=== PATIENT | female | born 2000 | race Caucasian/White ===

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

== ENCOUNTER 2022-05-02 00:03 | Emergency (ER) | payer BC, OTHER ==
--- OUTSIDE RECORDS SUMMARY | 2022-05-02 00:09 | XMS REPORT | Continuity of Care Document ---
:2000 Author Organization [facility] [place] [facility] t Address [address] [place] [address] Care Team Providers Name Role Phone PCP, DOES NOT HAVE A Primary Care Physician Unavailable DAYO Attending Clinician Unavailable UNKNOWN Attending Clinician Unavailable DELFINO Attending Clinician Unavailable RALPH, S Attending Clinician Unavailable Ralph PAC, S Attending Clinician Rosemarie EMREHAN, R Attending Clinician FLORES, R Attending Clinician Unavailable Hero TUBBS Attending Clinician Unavailable Hero Tubbs MD Attending Clinician Marty CHAMBERLAIN Attending Clinician Vt-Lab Attending Clinician Unavailable Ana Herrera DO Attending Clinician Jayashree SYKES C Attending Clinician Ras MEYERS Attending Clinician Hero Grubbs MD Attending Clinician Hero GRUBBS Attending Clinician Unavailable Anita BLANC Attending Clinician Unavailable Mingo MEYERS S Attending Clinician Doctor Unassigned, Name Attending Clinician Unavailable Dayo MEYERS Attending Clinician Nurse, General Surgery Attending Clinician Unavailable Eric Castano MD Attending Clinician DAYO Admitting Clinician Unavailable Dayo MEYERS Admitting Clinician Payers Payer Name Policy Type Policy Number Effective Date Expiration Date Jeanine curiel [facility] - [id number] 2016 00:00:00 OUT OF STATE Problems Condition Condition Condition Status Onset Resolution Last Treating Co mments Source Name Details Category Date Date Treatment Clinician Date Absence of Absence of Disease Active U nivers menstruati menstruati 2-12 it y of on on 00:00: [place] 00 [facility] Er Breakthrou Breakthrou Disease Active 2019-11 U nivers gh gh 2- ity of bleeding bleeding 00:00: [place] on on Medical Nexplanon Nexplanon Bran ch Irregular Irregular Disease Active 2019-11 Uni vers menstrual menstrual 2 ity of cycle cycle 00:00: [place] [facility] Er Well woman Well woman Disease Active 2018- U nivers exam exam 3- ity of 00:00: [place] [facility] Er Contracept Contracept Disease Active 2019- U nivers [place] 3- ity of management [place] [facility] [place] Nexplanon Nexplanon Disease Active Uni vers in place in place 02-15 ity of 00:00: [place] [facility] Er Other Other Disease Active 2018- Univers depression depression 02-15 it y of 00:00: [place] [facility] Er Contracept Contracept Disease Active 2019- U nivers [place] 3- ity of management management [place] [facility] Er Left wrist Left wrist Disease Active 2014-11 U nivers pain pain 2- ity of 00:00: [place] 00 [facility] Er ADHD ADHD Disease Active [place] (attention (attention 01-26 He alth deficit deficit 00:00: hyperactiv hyperactiv 00 ity ity disorder) disorder) 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 Social History Social Habit Start Date Stop Date Quantity Comments Source Exposure to Not sure [facility] SARS-CoV-2 (event) Medica l Branch Alcohol intake 2021-10-08 2021-10-08 0 /d [facility] 00:00:00 00:00:00 [facility] Branch Tobacco use and 2017-02-12 2017-02-12 Never used [facility] exposure 00:00:00 00:00:00 Medical Branch Tobacco Comment 2015-10-25 2015-10-25 Minor [facility] 00:00:00 00:00:00 [facility] Branch Sex Assigned At [birth year] [address]r 00:00:00 00:00:00 Smoking Status Start Date Stop Date Source Never smoker [facility] Medications Ordered Filled Start Stop Current Ordering Indication Dosage Frequency Signature Comments Components Source Medication Medication Date Date Medication? Clinician (SIG) Name Name ondansetron 2020-11 Yes [id number] 4mg Take 1 Univers (ZOFRAN 1-16 tablet by ity of ODT) 4 mg 00:00: mouth [place] disintegrat 00 every 8 Medic al ing tablet (eight) Branch hours as needed for Nausea and Vomiting (N/V). EPINEPHrine Yes .3mg 0.3 mL by U nivers 0.3 mg/0.3 7-16 Intramuscu ity of mL 00:00: lar route [place] injection 00 as needed Medic al (anaphylax Branch is). EPINEPHrine 0 Yes .3mg 0.3 mL by U nivers 0.3 mg/0.3 7-16 Intramuscu ity of mL 00:00: lar route [place] injection 00 as needed Medic al (anaphylax Branch is). EPINEPHrine 0 Yes .3mg 0.3 mL by U nivers 0.3 mg/0.3 7-16 Intramuscu ity of mL 00:00: lar route [place] injection 00 as needed Medic al (anaphylax Branch is). EPINEPHrine 2020-0 Yes .3mg 0.3 mL by U nivers 0.3 mg/0.3 7-16 Intramuscu ity of mL 00:00: lar route [place] injection 00 as needed Medic al (anaphylax Branch is). methylPREDN Yes [id number] Take by Univers ISolone 4 7-08 mouth ity of mg tablets 00:00: [place]INSTRU [place] 00 CTIONS. Medical follow Branch package directions bromphenira Yes [id number] 5mL Take 5 mL Univers mine-pseudo 7-08 by mouth 4 it y of ephedrine-D 00:00: (four[place] (BROMFED 00 times Medical DM) 2-30-10 daily as Bran ch mg/5 mL needed for syrup Congestion /Allergies , Cold symptoms or Cough. albuterol 0 Yes [id number] 2{puff} Inhale 2 Univers 90 7-08 Puffs ity of mcg/actuati 00:00: every 4 [place] as on inhaler 00 (four) Medical hours as Branch needed for Wheezing or Shortness of Breath. methylPREDN 0 Yes [id number] Take by Univers ISolone 4 7-08 mouth ity of mg tablets 00:00: [place]-INSTRU [place] 00 CTIONS. Medical follow Branch package directions bromphenira Yes [id number] 5mL Take 5 mL Univers mine-pseudo 7-08 by mouth 4 it y of ephedrine-D 00:00: (four[place] (BROMFED 00 times Medical DM) 2-30-10 daily as Bran ch mg/5 mL needed for syrup Congestion /Allergies , Cold symptoms or Cough. albuterol 0 Yes [id number] 2{puff} Inhale 2 Univers 90 7-08 Puffs ity of mcg/actuati 00:00: every 4 [place] as on inhaler 00 (four) Medical hours as Branch needed for Wheezing or Shortness of Breath. methylPREDN 0 Yes [id number] Take by Univers ISolone 4 7-08 mouth ity of mg tablets 00:00: [place]-INSTRU [place] 00 CTIONS. Medical follow Branch package directions bromphenira Yes [id number] 5mL Take 5 mL Univers mine-pseudo 7-08 by mouth 4 it y of ephedrine-D 00:00: (four[place] (BROMFED 00 times Medical DM) 2-30-10 daily as Bran ch mg/5 mL needed for syrup Congestion /Allergies , Cold symptoms or Cough. albuterol 2020-0 Yes [id number] 2{puff} Inhale 2 Univers 90 7-08 Puffs ity of mcg/actuati 00:00: every 4 [place] on inhaler 00 (four) Medical hours as Branch needed for Wheezing or Shortness of Breath. methylPREDN 0 Yes [id number] Take by Univers ISolone 4 7-08 mouth ity of mg tablets 00:00: [place]-INSTRU [place] 00 CTIONS. Medical follow Branch package directions bromphenira 0 Yes [id number] 5mL Take 5 mL Univers mine-pseudo 7-08 by mouth 4 it y of ephedrine-D 00:00: (four[place] (BROMFED 00 times Medical DM) 2-30-10 daily as Bran ch mg/5 mL needed for syrup Congestion /Allergies , Cold symptoms or Cough. albuterol 0 Yes [id number] 2{puff} Inhale 2 Univers 90 7-08 Puffs ity of mcg/actuati 00:00: every 4 [place] on inhaler 00 (four) Medical hours as Branch needed for Wheezing or Shortness of Breath. methylPREDN 0 Yes [id number] Take by Univers ISolone 4 7-08 mouth ity of mg tablets 00:00: [place]-INSTRU [place] 00 CTIONS. Medical follow Branch package directions bromphenira 0 Yes [id number] 5mL Take 5 mL Univers mine-pseudo 7-08 by mouth 4 it y of ephedrine-D 00:00: (four[place] (BROMFED 00 times Medical DM) 2-30-10 daily as Bran ch mg/5 mL needed for syrup Congestion /Allergies , Cold symptoms or Cough. albuterol 0 Yes [id number] 2{puff} Inhale 2 Univers 90 7-08 Puffs ity of mcg/actuati 00:00: every 4 [place] on inhaler 00 (four) Medical hours as Branch needed for Wheezing or Shortness of Breath. methylPREDN 2020-0 Yes [id number] Take by Univers ISolone 4 7-08 mouth ity of mg tablets 00:00: [place]-INSTRU [place] 00 CTIONS. Medical follow Branch package directions bromphenira 0 Yes [id number] 5mL Take 5 mL Univers mine-pseudo 7-08 by mouth 4 it y of ephedrine-D 00:00: (four[place] (BROMFED 00 times Medical DM) 2-30-10 daily as Bran ch mg/5 mL needed for syrup Congestion /Allergies , Cold symptoms or Cough. albuterol Yes [id number] 2{puff} Inhale 2 Univers 90 7-08 Puffs ity of mcg/actuati 00:00: every 4 [place] on inhaler 00 (four) Medical hours as Branch needed for Wheezing or Shortness of Breath. methylPREDN 0 Yes [id number] Take by Univers ISolone 4 7-08 mouth ity of mg tablets 00:00: SEE-INSTRU [place] 00 CTIONS. Medical follow Branch package directions bromphenira Yes [id number] 5mL Take 5 mL Univers mine-pseudo 7-08 by mouth 4 it y of ephedrine-D 00:00: (four[place] (BROMFED times Medical DM) 2-30-10 daily as Bran ch mg/5 mL needed for syrup Congestion /Allergies , Cold symptoms or Cough. albuterol Yes [id number] 2{puff} Inhale 2 Univers 90 7-08 Puffs ity of mcg/actuati 00:00: every 4 [place] on inhaler 00 (four) Medical hours as Branch needed for Wheezing or Shortness of Breath. methylPREDN 0 Yes [id number] Take by Univers ISolone 4 7-08 mouth ity of mg tablets 00:00: [place]-INSTRU [place] CTIONS. Medical follow Branch package directions bromphenira 0 Yes [id number] 5mL Take 5 mL Univers mine-pseudo 7-08 by mouth 4 it y of ephedrine-D 00:00: (four[place] (BROMFED times Medical DM) 2-30-10 daily as Bran ch mg/5 mL needed for syrup Congestion /Allergies , Cold symptoms or Cough. albuterol 0 Yes [id number] 2{puff} Inhale 2 Univers 90 7-08 Puffs ity of mcg/actuati 00:00: every 4 [place] on inhaler 00 (four) Medical hours as Branch needed for Wheezing or Shortness of Breath. cetirizine Yes [id number] 10mg Take 1 Univers 10 mg 7-06 tablet by ity of tablet 00:00: mouth 2 [place] (two) Medical times Branch daily. cetirizine 2020-0 Yes [id number] 10mg Take 1 Univers 10 mg 7-06 tablet by ity of tablet 00:00: mouth (two) Medical times Branch daily. cetirizine 1-0 Yes [id number] 10mg Take 1 Univers 10 mg 7-06 tablet by ity of tablet 00:00: mouth (two) Medical times Branch daily. cetirizine 2020-0 Yes [id number] 10mg Take 1 Univers 10 mg 7-06 tablet by ity of tablet 00:00: mouth (two) Medical times Branch daily. cetirizine 2020-0 Yes [id number] 10mg Take 1 Univers 10 mg 7-06 tablet by ity of tablet 00:00: mouth (two) Medical times Branch daily. cetirizine 2020-0 Yes [id number] 10mg Take 1 Univers 10 mg 7-06 tablet by ity of tablet 00:00: mouth (two) Medical times Branch daily. cetirizine 2020-0 Yes [id number] 10mg Take 1 Univers 10 mg 7-06 tablet by ity of tablet 00:00: mouth (two) Medical times Branch daily. cetirizine 2020-0 Yes [id number] 10mg Take 1 Univers 10 mg 7-06 tablet by ity of tablet 00:00: mouth (two) Medical times Branch daily. cetirizine 2020-0 Yes [id number] 10mg Take 1 Univers 10 mg 7-06 tablet by ity of tablet 00:00: mouth (two) Medical times Branch daily. cetirizine 2020-0 Yes [id number] 10mg Take 1 Univers 10 mg 7-06 tablet by ity of tablet 00:00: mouth (two) Medical times Branch daily. cetirizine 1-0 Yes [id number] 10mg Take 1 Univers 10 mg 7-06 tablet by ity of tablet 00:00: mouth (two) Medical times Branch daily. cetirizine 1-0 Yes [id number] 10mg Take 1 Univers 10 mg 7-06 tablet by ity of tablet 00:00: mouth (two) Medical times Branch daily. EPINEPHrine 2021-0 2021- No [id number] .3mg 0.3 mL by Univers (AUVI-Q) 05-28 Intramuscu ity of 0.3 mg/0.3 00:00: 04:59 lar route [place] mL 00 :00 once now Medical injection for 1 Branch dose. EPINEPHrine 2020- No [id number] .3mg 0.3 mL by Univers (AUVI-Q) 05-28 Intramuscu ity of 0.3 mg/0.3 00:00: 04:59 lar route [place] mL 00 :00 once now Medical injection for 1 Branch dose. EPINEPHrine 2020- No [id number] .3mg 0.3 mL by Univers (AUVI-Q) 05-28 Intramuscu ity of 0.3 mg/0.3 00:00: 04:59 lar route [place] mL 00 :00 once now Medical injection for 1 Branch dose. predniSONE 2020- No [id number] 50mg Take 5 Univers 10 mg 05-11 tablets by ity of tablet 00:00: 04:59 mouth [place] 00 :00 daily for Medical 5 days. Branch predniSONE 2020- No [id number] 1 PO BID x Univers 20 mg 03-29 4 days ity of tablet 00:00: 00:00 [place] 00 :00 Medical Branch benzonatate 2020- No [id number] 200mg Take 1 Univers 200 mg 03-29 capsule by ity of capsule 00:00: 00:00 mouth 3 [place] 00 :00 (three) Medical times Branch daily as needed for Cough for up to 20 doses. ibuprofen 2020- No [id number] 600mg Take 1 Univers 600 mg 03-29 tablet by ity of tablet 00:00: 00:00 mouth [place] 00 :00 every 6 Medical (six) Branch hours as needed for Pain (scale 4-6). predniSONE 2020- No 60mg 60 mg, Univ ers (DELTASONE) 03-05- Oral, ity of tablet 60 09:00: 08:01 ONCE, 1 [place] mg 00 :00 dose, Tue Medical 03/05/21 at Branch 0400, DEANDRA hydrOXYzine Yes [id number] 25mg Take 1 Univers 25 mg 4-13 tablet by ity of tablet 00:00: mouth [place] 00 every 8 Medical (eight) Branch hours as needed for Itching. hydrOXYzine Yes [id number] 25mg Take 1 Univers 25 mg 4-13 tablet by ity of tablet 00:00: mouth [place] 00 every 8 Medical (eight) Branch hours as needed for Itching. hydrOXYzine 2020- No [id number] 25mg Take 1 Univers 25 mg 4-13 06-19 tablet by ity of tablet 00:00: 00:00 mouth [place] 00 :00 every 8 Medical (eight) Branch hours as needed for Itching. predniSONE 2020- No [id number] 60mg Take 3 Univers 20 mg 4-13 04-18 tablets by ity of tablet 00:00: 04:59 mouth [place] 00 :00 daily for Medical 4 days. Branch HYDROcodone 2020- No 1{tbl} 1 tablet, Univers -acetaminop 2-24 02-24 Oral, ity of hen (NORCO 11:45: 10:42 ONCE, 1 [place] as 5) 5-325 mg 00 :00 dose, Wed Med ical tablet 1 01/16/21 at [facility] h tablet 0545, DEANDRA naproxen 0 Yes [id number] 550mg Take 1 U nivers sodium 550 2-24 tablet by ity of mg tablet 00:00: mouth (two) Medical times Branch daily with meals. naproxen Yes [id number] 550mg Take 1 U nivers sodium 550 2-24 tablet by ity of mg tablet 00:00: mouth [place] (two) Medical times Branch daily with meals. naproxen 2020-0 Yes [id number] 550mg Take 1 U nivers sodium 550 2-24 tablet by ity of mg tablet 00:00: mouth [place] (two) Medical times Branch daily with meals. naproxen 2020-0 Yes [id number] 550mg Take 1 U nivers sodium 550 2-24 tablet by ity of mg tablet 00:00: mouth [place] (two) Medical times Branch daily with meals. naproxen 2021-0 Yes [id number] 550mg Take 1 U nivers sodium 550 2-24 tablet by ity of mg tablet 00:00: mouth 2 [place] 00 (two) Medical times Branch daily with meals. naproxen Yes [id number] 550mg Take 1 U nivers sodium 550 2-24 tablet by ity of mg tablet 00:00: mouth 2 [place] 00 (two) Medical times Branch daily with meals. naproxen 2020- No [id number] 550mg Take 1 Univers sodium 550 2-24 -19 tablet by ity of mg tablet 00:00: 00:00 mouth 2 [place] :[place] (two) Medical times Branch daily with meals. estradioL 2 2019-11- No [id number] 2mg Take 1 Univers mg tablet 12-14 tablet by ity of 00:00: 05:59 mouth [place] 00 :00 daily for Medical 21 days. Branch estradioL 2 2019-11- No [id number] 2mg Take 1 Univers mg tablet 12-14 tablet by ity of 00:00: 05:59 mouth [place] 00 :00 daily for Medical 21 days. Branch estradioL 2 2019-11- No [id number] 2mg Take 1 Univers mg tablet 12-14 tablet by ity of 00:00: 05:59 mouth [place] 00 :00 daily for Medical 21 days. Branch doxycycline 2019-11- No [id number] 100mg Take 1 Univers 100 mg EC 2-03 04-12 tablet by ity of tablet 00:00: 05:59 mouth 2 [place] 00 :00 (two) Medical times Branch daily for 7 days. doxycycline 2019-11- No [id number] 100mg Take 1 Univers 100 mg EC 2-04 12-12 tablet by ity of tablet 00:00: 05:59 mouth 2 [place] 00 :00 (two) Medical times Branch daily for 7 days. doxycycline 2019-2019- No [id number] 100mg Take 1 Univers 100 mg EC 2-04 12-12 tablet by ity of tablet 00:00: 05:59 mouth 2 [place] 00 :00 (two) Medical times Branch daily for 7 days. doxycycline 2019-2019- No [id number] 100mg Take 1 Univers 100 mg EC 2-04 12-12 tablet by ity of tablet 00:00: 05:59 mouth 2 [place] 00 :00 (two) Medical times Branch daily for 7 days. lactated 2020-0 Yes 1000mL at 42 Univer s ringers IV 4-30 mL/hr, ity of infusion 18:00: 1,000 mL, [place] 1,000 mL 00 IV Medical Infusion, Branch CONTINUOUS , Starting Gi 03/22/20 at 1300, Until Discontinu ed, Routine, PACU HYDROmorpho 2020-0 Yes .2mg 0.2 mg, Uni vers ne 4-30 Slow IV ity of (DILAUDID) 17:47: Push, [place] injection 21 Q5MIN PRN, Medi steve 0.2 mg 10 doses, Branch Starting Gi 03/22/20 at 1247, Until Discontinu ed, Routine, Pain (scale 7-10), PACU
Us e approved by (Faculty): PACU USE -ANESTHESI A SERVICE-HY DROMORPHON E INJECTIONS FENTanyl PF 2020-0 Yes 25ug 25 mcg, Uni vers (SUBLIMAZE 4-30 Slow IV ity of (PF)) 17:47: Push, [place] injection 21 Q5MIN PRN, Medi steve 25 mcg 4 doses, Branch Starting Gi 03/22/20 at 1247, Until Discontinu ed, Routine, Pain (scale 4-6), PACU ondansetron 2020-0 Yes 4mg 4 mg, Slow Univers (ZOFRAN 4-30 IV Push, ity of (PF)) 17:47: PRN, 1 [place] injection 4 21 dose, Medical mg Starting Branch Gi 03/22/20 at 1247, Until Discontinu ed, Routine, Nausea and Vomiting (N/V), PACU bupivacaine 2020-0 Yes PRN, [facility] s -epinephrin 4-30 Starting ity of e-pf 16:57: Gi [place] (SENSORCAIN 00 03/22/20 at Nh dical E 1157, Branch W/EPINEPHRI Until NE) 0.25 Discontinu %-1:200,000 ed, injection Routine, Intra-op lactated 2020-0 2020- No 1000mL at 20 Unive rs ringers IV 4-30 04-30 mL/hr, ity of infusion 14:15: 14:25 1,000 mL, [place] 1,000 mL 00 :00 IV Medical Infusion, Branch ONCE, 1 dose, Gi 03/22/20 at 0915, Routine, DSU Pre-op HYDROcodone 2020-0 2020- No [id number] 1{tbl} Take 1 Univers -acetaminop 4-30 05-08 tablet by it y of hen 5-325 00:00: 04:59 mouth [place] mg tablet 00 :00 every 6 Medical (six) Branch hours as needed for Pain (scale 4-6) or Pain (scale 7-10) for up to 7 days. hydrOXYzine 2020-0 Yes Univer s 50 mg 3-03 ity of tablet 00:00: [address] hydrOXYzine 2020-0 Yes Univer s 50 mg 3-03 ity of tablet 00:00: [address] hydrOXYzine 2020-0 Yes Univer s 50 mg 3-03 ity of tablet 00:00: [address] hydrOXYzine 2020-0 Yes Univer s 50 mg 3-03 ity of tablet 00:00: [address] hydrOXYzine 2020-0 Yes Univer s 50 mg 3-03 ity of tablet 00:00: [address] hydrOXYzine 2020-0 Yes Univer s 50 mg 3-03 ity of tablet 00:00: [address] hydrOXYzine 2020-0 Yes Univer s 50 mg 3-03 ity of tablet 00:00: [address] hydrOXYzine 2020-0 Yes Univer s 50 mg 3-03 ity of tablet 00:00: [address] hydrOXYzine 2020-0 Yes Univer s 50 mg 3-03 ity of tablet 00:00: [address] hydrOXYzine 2020-0 Yes Univer s 50 mg 3-03 ity of tablet 00:00: [address] hydrOXYzine 2020-0 Yes Univer s 50 mg 3-03 ity of tablet 00:00: [address] hydrOXYzine 2020-0 Yes Univer s 50 mg 3-03 ity of tablet 00:00: [address] hydrOXYzine 2020-0 Yes Univer s 50 mg 3-03 ity of tablet 00:00: [address] hydrOXYzine 2020-0 Yes Univer s 50 mg 3-03 ity of tablet 00:00: [address] hydrOXYzine 2020-0 Yes Univer s 50 mg 3-03 ity of tablet 00:00: [place] 00 Medical Branch hydrOXYzine 2020-0 Yes Univer s 50 mg 3-03 ity of tablet 00:00: [place] 00 Medical Branch hydrOXYzine 2020-0 Yes Univer s 50 mg 3-03 ity of tablet 00:00: [place] 00 Medical Branch hydrOXYzine 2020-0 Yes Univer s 50 mg 3-03 ity of tablet 00:00: [place] 00 Medical Branch hydrOXYzine 2020-0 Yes Univer s 50 mg 3-03 ity of tablet 00:00: [place] 00 Medical Branch hydrOXYzine 2020-0 Yes Univer s 50 mg 3-03 ity of tablet 00:00: [place] 00 Medical Branch hydrOXYzine 2020-0 Yes Univer s 50 mg 3-03 ity of tablet 00:00: [place] 00 Medical Branch hydrOXYzine 2020-0 Yes Univer s 50 mg 3-03 ity of tablet 00:00: [place] 00 Medical Branch hydrOXYzine 2020-0 Yes Univer s 50 mg 3-03 ity of tablet 00:00: [place] 00 Medical Branch hydrOXYzine 2020-0 2021- No Unive rs 50 mg 3-03 06-19 ity of tablet 00:00: 00:00 [place] 00 :00 Medical Branch OXcarbazepi 2018-0 Yes 300mg Take 300 U nivers ne 300 mg 6-18 mg by ity of tablet 00:00: mouth [place] 00 every Medical evening. Branch OXcarbazepi 2018-0 Yes 300mg Take 300 U nivers ne 300 mg 6-18 mg by ity of tablet 00:00: mouth [place] 00 every Medical evening. Branch OXcarbazepi 2018-0 Yes 300mg Take 300 U nivers ne 300 mg 6-18 mg by ity of tablet 00:00: mouth [place] 00 every Medical evening. Branch OXcarbazepi 2018-0 Yes 300mg Take 300 U nivers ne 300 mg 6-18 mg by ity of tablet 00:00: mouth [place] 00 every Medical evening. Branch OXcarbazepi 2018-0 Yes 300mg Take 300 U nivers ne 300 mg 6-18 mg by ity of tablet 00:00: mouth [place] 00 every Medical evening. Branch OXcarbazepi 2018-0 Yes 300mg Take 300 U nivers ne 300 mg 6-18 mg by ity of tablet 00:00: mouth [place] 00 every Medical evening. Branch OXcarbazepi 2018-0 Yes 300mg Take 300 U nivers ne 300 mg 6-18 mg by ity of tablet 00:00: mouth [place] 00 every Medical evening. Branch OXcarbazepi 2018-0 Yes 300mg Take 300 U nivers ne 300 mg 6-18 mg by ity of tablet 00:00: mouth [place] 00 every Medical evening. Branch OXcarbazepi 2018-0 Yes 300mg Take 300 U nivers ne 300 mg 6-18 mg by ity of tablet 00:00: mouth [place] 00 every Medical evening. Branch OXcarbazepi 2018-0 Yes 300mg Take 300 U nivers ne 300 mg 6-18 mg by ity of tablet 00:00: mouth [place] 00 every Medical evening. Branch OXcarbazepi 2018-0 Yes 300mg Take 300 U nivers ne 300 mg 6-18 mg by ity of tablet 00:00: mouth [place] 00 every Medical evening. Branch OXcarbazepi 2018-0 Yes 300mg Take 300 U nivers ne 300 mg 6-18 mg by ity of tablet 00:00: mouth [place] 00 every Medical evening. Branch OXcarbazepi 2018-0 Yes 300mg Take 300 U nivers ne 300 mg 6-18 mg by ity of tablet 00:00: mouth [place] 00 every Medical evening. Branch OXcarbazepi 2018-0 Yes 300mg Take 300 U nivers ne 300 mg 6-18 mg by ity of tablet 00:00: mouth [place] 00 every Medical evening. Branch OXcarbazepi 2018-0 Yes 300mg Take 300 U nivers ne 300 mg 6-18 mg by ity of tablet 00:00: mouth [place] 00 every Medical evening. Branch OXcarbazepi 2018-0 Yes 300mg Take 300 U nivers ne 300 mg 6-18 mg by ity of tablet 00:00: mouth [place] 00 every Medical evening. Branch OXcarbazepi 2018-0 Yes 300mg Take 300 U nivers ne 300 mg 6-18 mg by ity of tablet 00:00: mouth [place] 00 every Medical evening. Branch OXcarbazepi 2018-0 Yes 300mg Take 300 U nivers ne 300 mg 6-18 mg by ity of tablet 00:00: mouth [place] 00 every Medical evening. Branch OXcarbazepi 2018-0 Yes 300mg Take 300 U nivers ne 300 mg 6-18 mg by ity of tablet 00:00: mouth [place] 00 every Medical evening. Branch OXcarbazepi 2018-0 Yes 300mg Take 300 U nivers ne 300 mg 6-18 mg by ity of tablet 00:00: mouth [place] 00 every Medical evening. Branch OXcarbazepi 2018-0 Yes 300mg Take 300 U nivers ne 300 mg 6-18 mg by ity of tablet 00:00: mouth [place] 00 every Medical evening. Branch OXcarbazepi 2018-0 Yes 300mg Take 300 U nivers ne 300 mg 6-18 mg by ity of tablet 00:00: mouth [place] 00 every Medical evening. Branch OXcarbazepi 2018-0 Yes 300mg Take 300 U nivers ne 300 mg 6-18 mg by ity of tablet 00:00: mouth [place] 00 every Medical evening. Branch OXcarbazepi 2018-0 Yes 300mg Take 300 U nivers ne 300 mg 6-18 mg by ity of tablet 00:00: mouth [place] 00 every Medical evening. Branch OXcarbazepi 2018-0 Yes 300mg Take 300 U nivers ne 300 mg 6-18 mg by ity of tablet 00:00: mouth [place] 00 every Medical evening. Branch OXcarbazepi 2018-0 Yes 300mg Take 300 U nivers ne 300 mg 6-18 mg by ity of tablet 00:00: mouth [place] 00 every Medical evening. Branch OXcarbazepi 2018-0 Yes 300mg Take 300 U nivers ne 300 mg 6-18 mg by ity of tablet 00:00: mouth [place] 00 every Medical evening. Branch OXcarbazepi 2018-0 Yes 300mg Take 300 U nivers ne 300 mg 6-18 mg by ity of tablet 00:00: mouth [place] 00 every Medical evening. Branch OXcarbazepi 2018-0 2020- No 300mg Take 300 Univers ne 300 mg 6-18 06-19 mg by ity of tablet 00:00: 00:00 mouth [place] 00 :00 every Medical evening. Branch No known No Univers medications [facility] Vital Signs Vital Name Observation Time Observation Value Comments Source Systolic blood 2021-10-08 23:46:00 121 mm[Hg] Univer sity of pressure [facility] Diastolic blood 2021-10-08 23:46:00 72 mm[Hg] Unive rsity of pressure [facility] Heart rate 2021-10-08 23:46:00 92 /min [facility] Body temperature 2021-10-08 23:46:00 37 Jemima [facility] Respiratory rate 2021-10-08 23:46:00 16 /min [facility] Body height 2021-10-08 23:46:00 162.6 cm [facility] Body weight 2021-10-08 23:46:00 68.04 kg [facility] BMI 2021-10-08 23:46:00 25.75 kg/m2 [facility] Oxygen saturation in 2021-10-08 23:46:00 99 /min University of Arterial blood by [facility] Pulse oximetry Branch Systolic blood 2021-09-04 22:20:00 123 mm[Hg] Univer sity of pressure [facility] Diastolic blood 2021-09-04 22:20:00 72 mm[Hg] Unive rsity of pressure [facility] Heart rate 2021-09-04 22:20:00 92 /min [facility] Body temperature 2021-09-04 22:20:00 37.11 Jemima [facility] Respiratory rate 2021-09-04 22:20:00 18 /min [facility] Body weight 2021-09-04 22:20:00 72.576 kg [facility] Oxygen saturation in 2021-09-04 22:20:00 100 /min University of Arterial blood by [facility] Pulse oximetry Branch Systolic blood 2021-05-30 17:30:00 115 mm[Hg] Univer sity of pressure [facility] Diastolic blood 2021-05-30 17:30:00 76 mm[Hg] Unive rsity of pressure [place] [facility] Heart rate 2021-05-30 17:30:00 94 /min [facility] Body temperature 2021-05-30 17:30:00 36.94 Jemima [facility] Respiratory rate 2021-05-30 17:30:00 18 /min [facility] Body weight 2021-05-30 17:30:00 69.4 kg [facility] BMI 2021-05-30 17:30:00 26.26 kg/m2 [facility] Oxygen saturation in 2021-05-30 17:30:00 99 /min University of Arterial blood by [facility] Pulse oximetry Branch Systolic blood 2021-05-28 19:33:00 128 mm[Hg] Univer sity of pressure [facility] Diastolic blood 2021-05-28 19:33:00 78 mm[Hg] Unive rsity of pressure [facility] Heart rate 2021-05-28 19:31:00 93 /min [facility] Body temperature 2021-05-28 19:31:00 36.94 Jemima [facility] Respiratory rate 2021-05-28 19:31:00 16 /min Univ [facility] Body height 2021-05-28 19:31:00 162.6 cm [facility] Body weight 2021-05-28 19:31:00 69.4 kg [facility] [place] [facility] BMI 2021-05-28 19:31:00 26.26 kg/m2 [facility] Oxygen saturation in 2021-05-28 19:31:00 99 /min University of Arterial blood by [facility] Pulse oximetry Branch Systolic blood 2021-05-11 19:52:00 128 mm[Hg] Univer sity of pressure [facility] Diastolic blood 2021-05-11 19:52:00 83 mm[Hg] Unive rsity of pressure [facility] Heart rate 2021-05-11 19:52:00 75 /min [facility] Body temperature 2021-05-11 19:52:00 36.94 Jemima [facility] Respiratory rate 2021-05-11 19:52:00 16 /min Univ [facility] Body weight 2021-05-11 19:52:00 68.04 kg [facility] Oxygen saturation in 2021-05-11 19:52:00 100 /min University of Arterial blood by [facility] Pulse oximetry Branch Systolic blood 2021-03-05 07:44:00 142 mm[Hg] Univer sity of pressure [facility] Diastolic blood 2021-03-05 07:44:00 72 mm[Hg] Unive rsity of pressure [facility] Heart rate 2021-03-05 07:44:00 111 /min [facility] Body temperature 2021-03-05 07:44:00 37.06 Jemima [facility] Respiratory rate 2021-03-05 07:44:00 18 /min Univ [facility] Body height 2021-03-05 07:44:00 162.6 cm [facility] Body weight 2021-03-05 07:44:00 63.504 kg [facility] BMI 2021-03-05 07:44:00 24.03 kg/m2 Universi ty of [facility] Oxygen saturation in 2021-03-05 07:44:00 100 /min [facility] Arterial blood by [facility] Pulse oximetry Branch Systolic blood 2021-01-18 15:33:00 136 mm[Hg] Univer sity of pressure [place] [facility] [place] Diastolic blood 2021-01-18 15:33:00 89 mm[Hg] Unive rsity of pressure [facility] Heart rate 2021-01-18 15:33:00 81 /min [facility] Body height 2021-01-18 15:29:00 162.6 cm [facility] Body weight 2021-01-18 15:29:00 64.411 kg [facility] BMI 2021-01-18 15:29:00 24.37 kg/m2 [facility] Systolic blood 2021-01-16 10:15:00 129 mm[Hg] Univer sity of pressure [facility] Diastolic blood 2021-01-16 10:15:00 90 mm[Hg] Unive rsity of pressure [facility] Heart rate 2021-01-16 10:15:00 93 /min [facility] Body temperature 2021-01-16 10:15:00 36.83 Jemima [facility] Respiratory rate 2021-01-16 10:15:00 18 /min Univ [facility] Body weight 2021-01-16 10:15:[address] [facility] Oxygen saturation in 2021-01-16 10:15:00 99 /min University of Arterial blood by [facility] Pulse oximetry Branch Systolic blood 2021-01-04 14:25:00 128 mm[Hg] Univer sity of pressure [facility] Diastolic blood 2021-01-04 14:25:00 80 mm[Hg] Unive rsity of pressure [facility] Heart rate 2021-01-04 14:25:00 90 /min Universi ty of [facility] Body temperature 2021-01-04 14:25:00 36.33 Jemima Univ ersity of [facility] Respiratory rate 2021-01-04 14:25:00 16 /min Univ ersity of [facility] Body height 2021-01-04 14:25:00 162.[address] [facility] Body weight 2021-01-04 14:25:00 64.524 kg [facility] BMI 2021-01-04 14:25:00 24.42 kg/m2 Universi ty of [facility] Systolic blood 2020-11-22 19:20:00 123 mm[Hg] Univer sity of pressure [facility] Diastolic blood 2020-11-22 19:20:00 72 mm[Hg] Unive rsity of pressure [facility] Heart rate 2020-11-22 19:20:00 84 /min Universi ty of [facility] Body temperature 2020-11-22 19:20:00 36.56 Jemima Univ ersity of [facility] Respiratory rate 2020-11-22 19:20:00 16 /min Univ ersity of [facility] Body height 2020-11-22 19:20:00 162.6 cm [facility] Body weight 2020-11-22 19:20:00 63.078 kg [facility] BMI 2020-11-22 19:20:00 23.87 kg/m2 [facility] Systolic blood 2020-10-25 19:26:00 119 mm[Hg] Univer sity of pressure [facility] Diastolic blood 2020-10-25 19:26:00 68 mm[Hg] Unive rsity of pressure [facility] Heart rate 2020-10-25 19:26:00 80 /min Universi ty of [facility] Body temperature 2020-10-25 19:26:00 36.61 Jemima [address] [facility] Respiratory rate 2020-10-25 19:26:00 16 /min Univ ersity of [facility] Body height 2020-10-25 19:26:00 162.[address] [facility] Body weight 2020-10-25 19:26:00 63[address] [facility] BMI 2020-10-25 19:26:00 24.20 kg/m2 Universi ty of [facility] Body temperature 2020-04-04 15:49:00 36.89 Jemima [facility] ersity of [facility] Body height 2020-04-04 15:49:00 162.[address] [facility] Body weight 2020-04-04 15:49:[address] [facility] BMI 2020-04-04 15:49:00 24.60 kg/m2 Universi ty of [facility] Systolic blood 2020-03-22 18:40:00 121 mm[Hg] Univer sity of pressure [facility] Diastolic blood 2020-03-22 18:40:00 82 mm[Hg] [facility] Heart rate 2020-03-22 18:40:00 82 /min Universi ty of [facility] Respiratory rate 2020-03-22 18:40:00 14 /min [facility] O[facility] saturation in 2020-03-22 18:40:00 97 /min [facility] Arterial blood by [facility] Pulse oximetry Branch Body temperature 2020-03-22 17:42:00 36.28 Jemima [facility] ersity of [facility] Body height 2020-03-22 14:32:00 162.[address] [facility] Body weight 2020-03-22 14:32:00 [address] [facility] BMI 2020-03-22 14:32:00 22.31 kg/m2 Universi ty of [facility] Body temperature 2020-03-21 20:55:00 37.06 Jemima [facility] ersity of [facility] Body temperature 2020-02-01 20:24:00 36.72 Jemima [facility] ersity of [facility] Body weight 2020-02-01 20:24:00 59.[address] [facility] Procedures Procedure Date / Time Performed Performing Clinician Sourc e RAPID STREP SCREEN FOR 2021-10-09 00:01:00 [facility] RAPID INFLUENZA A/B 2021-10-09 00:01:00 Guillermo Galdamez [facility] Medical Branch COVID-19 (ID NOW RAPID 2021-10-09 00:01:00 [facility] CONSENT/REFUSAL FOR 2021-10-08 23:37:53 Doctor Unassigned, No [facility] [place] DI[facility]NOSIS AND Name Medical Branch TREATMENT RAPID STREP SCREEN FOR 2021-09-05 00:47:00 Riya Flores [facility] GROUP A Medical Branch COVID-19 (ID NOW RAPID 2021-09-05 00:47:00 Riya Flores [facility] TESTING) Medical Branch CONSENT/REFUSAL FOR 2021-09-04 22:11:13 Doctor Unassigned, No [facility] [place] DIAGNOSIS AND Name Medical Branch TREATMENT RAPID STREP SCREEN FOR 2021-05-30 19:19:00 Yuki Ferguson [facility] GROUP A Medical Branch ADC,CLC OR LCC ONLY - 2021-05-30 19:19:00 Yuki Ferguson [facility] INFLUENZA A & B DIRECT Medical B ranch ANTIGEN COVID-19 (ID NOW RAPID 2021-05-30 19:19:00 Yuki Ferguson [facility] TESTING) Medical Branch XR CHEST 1 VW 2021-05-30 18:41:21 [facility] CONSENT/REFUSAL FOR 2021-05-30 17:21:37 Doctor Unassigned, No [facility] [place] DIAGNOSIS AND Name Medical Branch TREATMENT NOTICE OF PRIVACY 2021-03-05 07:37:51 Doctor Unassigned, No [facility] Name Medical Branch CONSENT/REFUSAL FOR 2021-03-05 07:37:33 Doctor Unassigned, No [facility] [place] DIAGNOSIS AND Name Medical Branch TREATMENT XR ANKLE 3+ VW 2021-01-18 15:40:22 Cr Grubbs [facility] BILATERAL Medical Branch POCT TEST 2021-01-16 10:30:00 Karley Aguila [facility] Medical Branch NOTICE OF PRIVACY 2021-01-16 10:08:03 Doctor Unassigned, No [facility] CONSENT/REFUSAL FOR 2021-01-16 10:07:34 Doctor Unassigned, No [facility] [place] DIAGNOSIS AND Name Medical Branch TREATMENT POCT TEST 2021-01-04 14:57:00 [facility] Bl[facility]ac [facility]USAL FOR 2021-01-04 14:11:03 Doctor Unassigned, No [facility] Medical Branch TREATMENT ASSIGNMENT OF BENEFITS 2020-10-25 18:54:58 Doctor Unassigned, No [facility] Medical Branch FL TIME OR 2020-03-22 17:48:10 Dayo [facility] (NON-REPORTABLE) Medical Branch POCT TEST 2020-03-22 14:10:00 [facility] CONSENT/REFUSAL FOR 2020-03-22 14:01:02 Doctor Unassigned, No [facility] [place] DIAGNOSIS AND Name Medical Branch TREATMENT ASSIGNMENT OF BENEFITS 2020-03-22 14:00:38 Doctor Unassigned, No [facility] Medical Branch XR WRIST 3+ VW LEFT 2020-02-01 20:34:24 [place] [facility] [place] Plan of Care Planned Activity Planned Date Details Comments Source Future Scheduled Test 2021-08-23 00:00:00 IMM Influenza [facility] Seasonal Aug to January (>/= 19 yrs) [code = IMM Influenza Seasonal Aug to January (>/= 19 yrs)] Future Scheduled Test 2006 00:00:00 COVID-19 Vaccine (1) [facility] [code = COVID-19 Vaccine (1)] Encounters Start End Encounter Admission Attending Care Care Encounter Source Date/Time Date/Time Type Type Clinicians Facility Department ID 2021-09-23 Emergency [facility] [id number] Univers 06:51:[address] [facility] 2021-09-23 Emergency [facility] [id number] Univers 02:21:[address] [facility] 2021-09-22 Emergency [facility] [id number] Univers 17:49:04 ity of [facility] 2021-09-22 Emergency [facility] [id number] Univers 12:25:45 [facility] 2021-09-22 Emergency [facility] [id number] Univers 00:58:09 [facility] 2021-09-19 Outpatient R DAYO, [facility] VLS [id number] Univers 18:58:12 MARIA TERESA [facility] 2021-11-26 2021-11-26 Outpatient R [facility] [id number] Univers 12:15:00 12:15:00 [id number] [facility] 2021-11-26 2021-11-26 Outpatient R UNKNOWN, [facility] [id number] Univers 12:15:00 12:15:00 ATTENDING [facility] 2021-11-23 2021-11-23 Outpatient R [facility] [id number] Univers 20:30:00 20:30:00 [id number] [facility] 2021-11-23 2021-11-23 Outpatient R DELFINO, [facility] [id number] Univers 20:30:00 20:30:00 KATY [facility] 2021-10-08 2021-10-08 [facility] [id number] Univers 17:48:00 20:16:00 GUILLERMO [facility] 2021-10-08 2021-10-08 Emergency [facility] [id number] Univers 17:48:00 20:16:00 Guillermo Solorzano GENEVIEVE [id number] i ty of [place] [id number] [facility] [phone] [address] 2021-09-04 2021-09-04 Emergency [facility] [id number] Univers 17:22:00 21:08:00 Riya Wilkinson [id number] i ty of [place] [id number] [facility] [phone] [address] 2021-09-04 2021-09-04 Emergency X [facility] ERT [id number] Univers 17:22:00 21:08:00 RIYA [facility] 2021-06-21 2021-06-21 Outpatient R SULY [facility] [id number] Univers 13:00:00 13:00:00 LORRIE [id number] ity o f [facility] 2021-06-07 2021-06-07 Patient Suly [facility] [id number] Univers 00:00:00 00:00:00 Secure Msg Lorrie Monahan MULTISPEC [id number] ity of IALTY [id number] [facility] [phone] [facility] AND [address] [facility] 2021-06-04 2021-06-04 Patient Suly [facility] [id number] Univers 00:00:00 00:00:00 Secure Msg Lorrie Monahan MULTISPEC [id number] ity of IALTY [id number] [facility] [phone] [facility] AND [address] [facility] 2021-06-03 2021-06-03 [facility] [id number] Univers 00:00:00 00:00:00 Secure Msg Lorrie Monahan MULTISPEC [id number] ity of IALTY [id number] [place] [phone] [facility] 2021-06-03 2021-06-03 [facility] [id number] Univers 00:00:00 00:00:00 Secure Msg Lorrie Monahan MULTISPEC [id number] ity of IALTY [id number] [facility] [phone] [facility] AND [address] [facility] 2021-05-30 2021-05-30 [facility] [id number] Univers 14:40:00 16:58:00 Yuki Wilkinson [id number] i ty of [place] [id number] [facility] [phone] [address] 2021-05-29 2021-05-29 Patient Suly, [facility] [id number] Univers 00:00:00 00:00:00 Secure Msg Lorrie Hero GRANTPEC [id number] ity of [id number] [place] [phone] [address] [facility] 2021-05-28 2021-05-28 Regional Training Manager Vt-Lab [facility] 1.2.840.114 [id number] Univers 15:24:56 15:39:56 Visit Lorrie TubbsPEC 350.1. 13.10 ity of IALTY [id number] [facility] [place] [phone] [address] [facility] 2021-05-28 2021-05-28 Office Suly [facility] [id number] Univers 14:25:15 15:25:29 Visit Lorrie GRANTPEC [id number] ity of IALTY [id number] [facility] [place] [phone] [facility] AND [address] [facility] 2021-05-28 2021-05-28 Outpatient R SULY [facility] [id number] Univers 14:30:00 14:30:00 LORRIE [id number] malou cramer [facility] 2021-05-28 2021-05-28 Outpatient R SULY [facility] [id number] Univers 14:30:00 14:30:00 LORRIE westfall o [facility] 2021-05-25 2021-05-25 Patient Suly [facility] 1.2.840.114 [id number] Univers 00:00:00 00:00:00 Secure Msg Lorrie Hero GRANTPEC [id number] ity of IALTY [id number] [facility] [place] [phone] [address] [facility] 2021-05-11 2021-05-11 Emergency [facility] [id number] Univers 14:53:00 15:14:00 Collette Wilkinson [id number] ity of [place] [id number] [facility] [phone] [address] 2021-03-22 2021-03-22 Telephone [facility] 1.2.840.114 [id number] Univers 00:00:00 00:00:00 Trini Howard BALLET MASTER/MISTRESS [id number] ity of [employer] [id number] Fidel as MATERNAL [phone] Med ical & CHILD [address] [place] [address] 2021-03-05 2021-03-05 Emergency [facility] [id number] Univers 02:46:00 03:09:00 Heriberto Wilkinson 350.1.13.10 i ty of [place] [id number] [facility] [phone] [address] 2021-01-18 2021-01-18 Hospital [facility] 1.2.840.114 [id number] Univers 09:40:22 23:59:00 Encounter Cr Monahan [facility] [id number] ity of Surgical [id number] Fidel as Specialti [phone] Me dical es 809 [facility] 2021-01-18 2021-01-18 Office [facility] [id number] Univers 09:25:51 09:57:12 Visit Cr Monahan [facility] [id number] it y of Surgical [id number] Fidel as Specialti [phone] Me dical es 198 [facility] 2021-01-18 2021-01-18 Outpatient [facility] [id number] Univers 09:30:00 09:30:00 CR [id number] [facility] 2021-01-18 2021-01-18 [facility] [id number] Univers 09:30:00 09:30:00 CR [facility] 2021-01-17 2021-01-17 [facility] [id number] Univers 13:15:00 13:15:00 TRINI [id number] ity o f [facility] 2021-01-16 2021-01-16 Emergency [facility] [id number] Univers 04:13:00 04:48:00 Karley Solorzano [place] 350.1.13.10 ity of [place] [id number] [facility] [phone] [facility] 084 [place] 2021-01-04 2021-01-04 Office [facility] [id number] Univers 08:13:15 08:58:39 Visit Trini Howard BALLET MASTER/MISTRESS 350.1.13.10 ity of [employer] [id number] Fidel as MATERNAL [phone] Med ical & CHILD [address] [place] [address] 2021-01-04 2021-01-04 [facility] [id number] Univers 08:15:00 08:15:00 TRINI [id number] ity o [facility] 2021-01-04 2021-01-04 Outpatient [facility] [id number] Univers 08:15:00 08:15:00 TRINI ity o [facility] 2021-01-04 2021-01-04 Orders Doctor MOREL [id number] [id number] Univers 00:00:00 00:00:00 Only Unassigned, GISELA 350.1.13.10 ity of [place] [facility] [id number] Fidel as [phone] [facility] 009 Branch 2020-12-04 2020-12-04 [facility] [id number] Univers 00:00:00 00:00:00 Trini Howard BALLET MASTER/MISTRESS 350.1.13.10 ity of [employer] [id number] Fidel as MATERNAL [phone] [facility] ical & CHILD [address] [place] [address] 2020-11-22 2020-11-22 [facility] [id number] Univers 13:11:42 13:46:36 Visit Trini C BALLET MASTER/MISTRESS 350.1.13.10 ity of REGIONAL [id number] Fidel as MATERNAL [phone] [facility] CH[facility] [address] [place] [address] 2020-11-22 2020-11-22 Outpatient R JAYASHREE, [facility] [id number] Univers 13:15:00 13:15:00 TRINI [id number] ity o f [facility] 2020-11-22 2020-11-22 Outpatient R JAYASHREE, [facility] [id number] Univers 13:15:00 13:15:[address]y o f [facility] 2020-10-29 2020-10-29 Telephone [facility] 1.2.840.114 [id number] Univers 00:00:00 00:00:00 Trini C BALLET MASTER/MISTRESS 350.1.13.10 ity of REGIONAL [id number] Fidel as MATERNAL [phone] [facility] & CHILD [address] [place] [address] 2020-10-26 2020-10-26 Telephone [facility] 1.2.840.114 [id number] Univers 00:00:00 00:00:00 Trini C BALLET MASTER/MISTRESS 350.1.13.10 ity of REGIONAL [id number] Fidel as MATERNAL [phone] [facility] & CHILD [address] [place] [address] 2020-10-26 2020-10-26 Telephone [facility] [place] 1.2.840.114 [id number] 00:00:00 00:00:00 Trini C BALLET MASTER/MISTRESS 350.1.13.10 REGIONAL [id number] MATERNAL [phone] & CHILD [address] [place] [address] 2020-10-25 2020-10-25 Office [facility] [id number] Univers 13:03:25 13:18:25 Visit Trini C BALLET MASTER/MISTRESS 350.1.13.10 ity of REGIONAL [id number] Fidel as MATERNAL [phone] [facility] ical & CHILD [address] [place] [address] 2020-10-25 2020-10-25 Outpatient R [facility] [id number] Univers 12:45:00 12:45:[address] [facility] 2020-10-25 2020-10-25 Outpatient R [facility] [id number] Univers 12:45:00 12:45:[address] [facility] 2020-10-25 2020-10-25 Orders Doctor MARIA TERESA 1.2.840.114 [id number] Univers 00:00:00 00:00:00 Only Unassigned, GISELA [id number] ity of [facility] [id number] Fidel [phone] [address] 2020-10-23 2020-10-23 Outpatient R [facility] [id number] Univers 08:45:00 08:45:[address] [facility] 2020-10-23 2020-10-23 Outpatient R [facility] [id number] Univers 08:45:00 08:45:[address] [facility] 2020-04-04 2020-04-04 Office [facility] [id number] Univers 10:32:05 11:18:56 Visit [facility] [id number] ity of CARE [id number] [facility] AT [phone] [address] 2020-04-04 2020-04-04 Outpatient R [facility] [id number] Univers 11:00:00 11:00:00 MARIA TERESA [id number] ity of [facility] 2020-04-04 2020-04-04 Outpatient R [facility], [facility] [id number] Univers 11:00:00 11:00:00 MARIA TERESA itwil of [facility] 2020-03-22 2020-03-22 [facility] [id number] Univers 08:59:00 13:45:00 Encounter [facility] [id number] ity of [place] [id number] [facility] [phone] [address] ([facility]) 2020-03-21 2020-03-21 Nurse Nurse, [facility] General Surgery [facility] [id number] Univers 15:37:12 15:54:01 Visit Maria Teresa Oshea [id number] ity [facility] [id number] [place] [facility] [phone] [place] [facility] 2020-03-21 2020-03-21 Outpatient [facility] [id number] Univers 15:45:00 15:45:00 [id number] ity [facility] 2020-03-21 2020-03-21 Outpatient R FAILLACE, [facility] [id number] Univers 15:45:00 15:45:00 MARIA TERESA [facility] 2020-02-01 2020-02-01 Outpatient R FAILLACE, [facility] [id number] Univers 15:28:25 23:59:00 MARIA TERESA wil [facility] 2020-02-01 2020-02-01 [facility] [id number] Univers 15:28:00 23:59:00 Encounter Maria Teresa RAO [id number] it[id number] [place] [phone] [place] 809 [facility] 2020-02-01 2020-02-01 Office [facility] [id number] Univers 15:08:48 16:11:33 Visit Maria Teresa RAO [id number] [id number] [phone] [place] NINAY 198 [facility] 2020-02-01 2020-02-01 Outpatient R FAILLACE, [facility] [id number] Univers 15:30:00 15:30:00 MARIA TERESA Montelongo11 ity [facility] 2020-01-31 2020-01-31 Outpatient [facility] [id number] Univers 19:40:00 19:40:00 MARIA TERESA [facility] 2020-01-31 2020-01-31 Abstract [facility] [id number] Univers 00:00:00 00:00:00 [place] SPECIALTY [id number] ity of [facility] [id number] [phone] Nh jeanette Baez [facility] 2019-06-30 2019-06-30 Telephone Jayashree, [facility] [id number] Univers 00:00:00 00:00:00 Trini Howard BALLET MASTER/MISTRESS [id number] ity of [employer] [id number] Fidel as MATERNAL [phone] Med ical & CHILD 107 [facility] Results Test Description Test Time Test Comments Results Result Comments Source ADC,CLC OR LCC ONLY - INFLUENZA A & B DIRECT ANTIGEN 2021-05 19:44:38 Test Item Value Reference Range Interpretation Comme nts Influenza A (test code = 41977-9) Negative Negative Influenza B (test code = 51768-2) Negative Negative Lab Interpretation (test code = 29503-7) Normal [facility] NOW RAPID TESTING)2021-05-30 19:44:28 Test Item Value Reference Range Interpretation Comments SARS-CoV-2 Rapid ID NOW Not Detected Not Detected (test code = 69089-6) PATTI (test code = PATTI) ID NOW COVID-19 Assay is an isothermal nucleic acid amplification test intended for the qualitative detection of nucleic acid from SARS-CoV-2 viral RNA in nasopharyngeal (WHEEL OF FORTUNE DEALER) specimens. It is used under Emergency Use Authorization (EUA) by FDA. The limit of detection (LOD) of the assay is 125 Genome Equivalents/mL. A positive result is indicative of the presence of SARS-CoV-2 RNA. ?Clinical correlation with patient history and other diagnostic information is necessary to determine patient infection status. A negative (Not Detected) result does not preclude SARS-CoV-2 infection. In patients with clinical symptoms and other tests that are consistent with SARS-CoV-2 infection, negative results should be treated as presumptive negative and a new specimen should be tested with alternative PCR molecular test. Invalid: Please collect a new specimen for repeat patient testing if clinically indicated. Lab Interpretation Normal (test code = 86211-7) [facility] STREP SCREEN FOR GROUP [id number] 19:37:04 Test Item Value Reference Range Interpretation Comments Streptococcus pyogenes (group A) Negative Negative antigen (test code = 44083-7) Lab Interpretation (test code = Normal 30589-5) [facility] 1 [id number] 18:46:37 No acute cardiopulmonary process.EXAM: XR CHEST 1 VW COMPARISON: None available. HISTORY: cough FINDINGS: Support devices: None. Lungs/pleura: ?The lungs are clear. No pleural effusion or pneumothorax isidentified. Heart/Mediastinum: The cardiac silhouette is normal in size. Trachea isnear midline.[facility], Radiant Results Inft User - 05/30/2021 1:47 PM CDT EXAM: XR CHEST 1 VWCOMPARISON: None available.HISTORY: cough FINDINGS:Support devices: None.Lungs/pleura: The lungs are clear. No pleural effusion or pneumothorax isidentified.Heart/Mediastinum: The cardiac silhouette is normal in size. Trachea isnear midline.IMPRESSIONNo acute cardiopulmonary process.[facility] HospitalXR ANKLE 3+ VW [id number] 19:03:39Normal study No fractures or [facility] [id number] 10:30:00 Test Item Value Reference Range Interpretation Comments POCT PREG (test code = 1605) negative On board controls acceptable with present C Line (test code = 3574) POCT PREG LOT # (test code = 3575) [id number] POCT PREG TEST DATE (test 2022-08-22 code = 3576) Lab Interpretation (test code = Normal 23757-9) [facility] [id number] 14:57:00 Test Item Value Reference Range Interpretation Comments POCT PREG (test code = 1605) Negative On board controls acceptable with C Yes Line (test code = 3574) POCT PREG LOT # (test code = 3575) POCT PREG TEST DATE (test code = 3576) [facility] [id number] 14:57:00 Test Item Value Reference Range Interpretation Comments POCT PREG (test code = 1605) Negative On board controls acceptable with C Yes Line (test code = 3574) POCT PREG LOT # (test code = 3575) POCT PREG TEST DATE (test code = 3576) [facility] HospitalFL TIME OR (NON-REPORTABLE)2020-03-22 17:50:24 These images do not require a Radiology diagnostic report.[facility] HospitalPOCT [id number] 14:13:00 Test Item Value Reference Range Interpretation Comments POCT PREG (test code = 1605) Negative On board controls acceptable with C Yes Line (test code = 3574) POCT PREG LOT # (test code = 3575) POCT PREG TEST DATE (test code = 3576) Lab Interpretation (test code = Normal 77390-0) [facility] WRIST 3+ VW [id number] 21:48:25 FINDINGS/IMPRESSION: Radiographs of the left wrist demonstrate stable plate and screw fixationof the left distal ulna in satisfactory alignment. No sherita hardware lucencyor acute fractures are noted. Joint spaces are preserved. The soft tissuesare unremarkable. Preliminary Report Dictated by Resident: George Garnett I, Jefferson Hernandez MD., have reviewed this study and agree with theabove report.EXAM: XR WRIST 3+ VW LEFT HISTORY: pain COMPARISON: ?XR WRIST <3 VW RIGHT, 08/15/2019. [facility], Radiant Results Inft User - 02/01/2020 4:49 PM CDTEXAM: XR WRIST 3+ VW LEFTHISTORY: pain COMPARISON: XR WRIST <3 VW RIGHT, 08/15/2019.IMPRESSIONFINDINGS/IMPRESSION: Radiographs of the left wrist demons trate stable plate and screw fixationof the left distal ulna in satisfactory alignment. No sherita hardware lucencyor acute fractures are noted. Joint spaces are preserved. The soft tissuesare unremarkable. Preliminary Report Dictated by Resident: Jefferson Hudson MD., have reviewed this study and agree with theabove report.[facility]
--- NOTE | 2022-05-02 00:43 | EDPHYS ---
Physician Documentation [facility] Name: Jasmyne Chapman Age: 21 yrs Sex: Female : 2000 Arrival Date: 05/02/2022 Time: 00:06 Bed 25 Private MD: ED Physician Michael Rodgers HPI: 05/02 00:39 This 21 yrs old Female presents to ER via Ambulatory with complaints of Jaw Pain, rn dental pain. 00:39 The patient presents with pain. The problem is located in the right lower teeth. Onset: rn The symptoms/episode began/occurred 1 month(s) ago. Duration: The symptoms are intermittent. Modifying factors: The symptoms are alleviated by nothing, the symptoms are aggravated by chewing. Severity of symptoms: At their worst the symptoms were moderate, in the emergency department the symptoms are unchanged. The patient has experienced similar episodes in the past. The patient has not recently seen a physician. Pt reports chronic dental pain but got worse over last day. No fever. Plan on seeing dentist tomorrow. Motrin not helping.. 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 - Social history:: Smoking status: Reported history of juuling and/or vaping. - Family history:: not pertinent. - Hospitalizations: : No recent hospitalization is reported. ROS: 00:39 Constitutional: Negative for fever, chills, and weight loss, ENT: + right lower dental rn pain Neck: Negative for injury, pain, and swelling, Cardiovascular: Negative for chest pain, palpitations, and edema, Respiratory: Negative for shortness of breath, cough, wheezing, and pleuritic chest pain. Exam: 00:39 Constitutional: This is a well developed, well nourished patient who is awake, alert, rn appears uncomfortable Head/Face: Normocephalic, atraumatic. ENT: Poor dentition without focal swelling, no obvious abscess identified, no buccal space swelling or fluctuance. Neck: Trachea midline, no thyromegaly or masses palpated, and no cervical lymphadenopathy. Supple, full range of motion without nuchal rigidity, or vertebral point tenderness. No Meningismus. Vital Signs: 00:10 BP 136 / 79; Pulse 71; Resp 14; Temp 98.4; Pulse Ox 100% on R/A; Weight 72.57 kg; tw5 Height 5 ft. 4 in. (162.56 cm); Pain 10/10; 00:10 Body Mass Index 27.46 (72.57 kg, 162.56 cm) tw5 MDM: 00:08 Patient medically screened. rn 00:39 Differential diagnosis: dental caries, dental abscess. Data reviewed: vital signs, rn nurses notes, and as a result, I will discharge patient. Counseling: I had a detailed discussion with the patient and/or guardian regarding: the historical points, exam findings, and any diagnostic results supporting the discharge/admit diagnosis, the need for outpatient follow up, to return to the emergency department if symptoms worsen or persist or if there are any questions or concerns that arise at home. Special discussion: I discussed with the patient/guardian in detail that at this point there is no indication for admission to the hospital. It is understood, however, that if the symptoms persist or worsen the patient needs to return immediately for re-evaluation. Based on the history and exam findings, there is no indication for further emergent testing or inpatient evaluation. I discussed with the patient/guardian the need to see a dentist for further evaluation of the symptoms. Administered Medications: 00:50 Drug: predniSONE 60 mg Route: PO; ag7 01:07 Follow up: Response: No adverse reaction ag7 00:51 Drug: [place] (HYDROcodone-acetaminophen) 10 mg-325 mg 1 tabs Route: PO; ag7 01:07 Follow up: Response: No adverse reaction ag7 00:51 Drug: Motrin (ibuprofen) 800 mg Route: PO; ag7 01:07 Follow up: Response: No adverse reaction ag7 00:51 Drug: Clindamycin 300 mg Route: PO; ag7 01:07 Follow up: Response: No adverse reaction ag7 Disposition Summary: 05/02/22 00:42 Discharge Ordered Location: Home rn Problem: an ongoing problem rn Symptoms: have improved rn Condition: Stable rn Diagnosis - Dental caries, unspecified rn Followup: rn - With: Private Physician - When: Tomorrow - Reason: Recheck today's complaints, Re-evaluation by your physician Discharge Instructions: - Discharge Summary Sheet rn - Dental Caries, Adult rn - Dental Pain rn Forms: - Medication Reconciliation Form rn - Thank You Letter rn - 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
--- NOTE | 2022-05-02 00:43 | ER ---
Nurse's Notes [facility] Name: Jasmyne Chapman Age: 21 yrs Sex: Female : 2000 Arrival Date: 05/02/2022 Time: 00:06 Bed 25 Private MD: Diagnosis: Dental caries, unspecified Presentation: 05/02 00:10 Chief complaint: Patient states: "I have extreme jaw pain. I am having swelling and tw5 numbness. I have not been able to bit down hard on anything at all. I think it might be my tooth.". Coronavirus screen: Vaccine status: Patient reports being unvaccinated. Ebola Screen: Patient negative for fever greater than or equal to 101.5 degrees Fahrenheit, and additional compatible Ebola Virus Disease symptoms Patient denies exposure to infectious person. Patient denies travel to an Ebola-affected area in the 21 days before illness onset. Initial Sepsis Screen: Does the patient meet any 2 criteria? No. Patient's initial sepsis screen is negative. Does the patient have a suspected source of infection? No. Patient's initial sepsis screen is negative. Risk Assessment: Do you want to hurt yourself or someone else? Patient reports no desire to harm self or others. Onset of symptoms was May 01, 2022 at 15:00. 00:10 Acuity: ESSENCE 3 tw5 00:10 Method Of Arrival: Ambulatory tw5 Triage Assessment: 00:12 General: Appears in no apparent distress. Behavior is calm, cooperative, appropriate tw5 for age. Pain: Complains of pain in right cheek and right jaw Pain currently is 10 out of 10 on a pain scale. 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 - Social history:: Smoking status: Reported history of juuling and/or vaping. - Family history:: not pertinent. - Hospitalizations: : No recent hospitalization is reported. Screenin:03 Abuse screen: Denies threats or abuse. Nutritional screening: No deficits noted. ag7 Tuberculosis screening: No symptoms or risk factors identified. Fall Risk None identified. Assessment: 01:01 General: Appears in no apparent distress. Behavior is calm, cooperative, appropriate ag7 for age. Pain: Complains of pain in right cheek and right jaw Pain does not radiate. Pain currently is 9 out of 10 on a pain scale. Quality of pain is described as aching, sharp, Pain began suddenly, Is continuous, Alleviated by nothing. Neuro: Level of Consciousness is awake, alert, obeys commands, Oriented to Appropriate for age. Cardiovascular: Patient's skin is warm and dry. Respiratory: Airway is patent Trachea midline Respiratory effort is even, unlabored, Respiratory pattern is regular, symmetrical. EENT: Oral mucosa is moist. Oral mucosa is dry. Poor dentition noted. Dental caries noted in lower right second molar (#31) and lower right third molar (#32) swelling to the right cheek. Vital Signs: 00:10 BP 136 / 79; Pulse 71; Resp 14; Temp 98.4; Pulse Ox 100% on R/A; Weight 72.57 kg; tw5 Height 5 ft. 4 in. (162.56 cm); Pain 10/10; 00:10 Body Mass Index 27.46 (72.57 kg, 162.56 cm) tw5 ED Course: 00:06 Patient arrived in ED. ja2 00:08 Michael Rodgers MD is Attending Physician. rn 00:12 Triage completed. tw5 00:19 Radha Rey, RN is Primary Nurse. ag7 01:04 Arm band placed on. ag7 01:04 Patient has correct armband on for positive identification. Bed in low position. Call ag7 light in reach. Adult w/ patient. 01:04 No provider procedures requiring assistance completed. Patient did not have IV access ag7 during this emergency room visit. Administered Medications: 00:50 Drug: predniSONE 60 mg Route: PO; ag7 01:07 Follow up: Response: No adverse reaction ag7 00:51 Drug: [place] (HYDROcodone-acetaminophen) 10 mg-325 mg 1 tabs Route: PO; ag7 01:07 Follow up: Response: No adverse reaction ag7 00:51 Drug: Motrin (ibuprofen) 800 mg Route: PO; ag7 01:07 Follow up: Response: No adverse reaction ag7 00:51 Drug: Clindamycin 300 mg Route: PO; ag7 01:07 Follow up: Response: No adverse reaction ag7 Medication: 01:04 VIS not applicable for this client. ag7 Outcome: 00:42 Discharge ordered by . rn 01:12 Discharged to home ambulatory. ag7 01:12 Condition: stable 01:12 Discharge instructions given to patient, Instructed on discharge instructions, follow up and referral plans. medication usage, Demonstrated understanding of instructions, follow-up care, medications, Prescriptions given X 2. 01:12 Patient left the ED. ag7 Signatures: Michael Rodgers MD MD rn Alexander, Jessica ja2 Wood, Tiffany [facility] Radha Rey RN RN ag7
[2022-05-02] MEDS ORDERED: HYDROCODONE/APAP 10/325 TAB ONE (00:51)
[2022-05-02] MEDS ORDERED: predniSONE 20 MG TAB ONE (00:51)
[2022-05-02] MEDS ORDERED: IBUPROFEN 400 MG TAB ONE (00:52)
[2022-05-02 01:28] VITALS: BP 136/79; TEMP 98.4; O2SAT 100
== END 2022-05-02 01:12 | disposition home or self-care (01) ==
LOC: ER 00:03
DX: K02.9 Dental caries, unspecified (principal); R68.84 Jaw pain
CPT/HCPCS: 99283; J7512

== ENCOUNTER 2022-06-01 11:28 | Emergency (ER) | payer OTHER ==
--- NOTE | 2022-06-01 12:28 | EDPHYS ---
Physician Documentation [facility] Name: Jasmyne Chapman Age: 22 yrs Sex: Female : 2000 Arrival Date: 06/01/2022 Time: 11:30 Bed Treatment Private MD: ED Physician Michael Rodgers HPI: 06/01 12:22 This 22 yrs old Female presents to ER via Ambulatory with complaints of Cough, Chest en Congestion. 12:22 22-year-old female with no medical history presents to ED with cough and congestion for en 3 days. She was seen at an outside clinic yesterday with a negative flu and COVID test. She was given an albuterol inhaler which she is using as needed. She presents today due to persistent cough. No fevers, chills, nausea, vomiting. No shortness of breath, dyspnea on exertion, chest pain or difficulty breathing. She is also requesting a work note. 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 - Social history:: Smoking status: Reported history of juuling and/or vaping. ROS: 12:22 Constitutional: Negative for fever, chills, and weight loss. en 12:22 Constitutional: Negative for body aches, chills, fatigue. 12:22 Eyes: Negative for discharge. 12:22 ENT: Negative for ear pain, sinus congestion, sore throat. 12:22 Cardiovascular: Negative for chest pain, orthopnea. 12:22 Respiratory: Positive for cough, Negative for dyspnea on exertion, hemoptysis, shortness of breath, wheezing. 12:22 Abdomen/GI: Negative for abdominal pain, nausea and vomiting. 12:22 All other systems are negative. Exam: 12:22 Constitutional: This is a well developed, well nourished patient who is awake, alert, en and in no acute distress. 12:22 Constitutional: The patient appears in no acute distress, alert, awake, comfortable. 12:22 Eyes: Conjunctiva: normal, no exudate, no injection. 12:22 ENT: External ear(s): are unremarkable, Nose: is normal, Mouth: Lips: moist, Posterior pharynx: Airway: patent. 12:22 Neck: ROM/movement: is normal. 12:22 Cardiovascular: Rate: normal, Rhythm: regular, Heart sounds: normal, no murmur, no rub, no gallop. 12:22 Respiratory: the patient does not display signs of respiratory distress, Respirations: normal, Breath sounds: are clear throughout, no rales, rhonchi, no stridor, no wheezing. 12:22 Abdomen/GI: Inspection: abdomen appears normal, Bowel sounds: normal, Palpation: abdomen is soft and non-tender, in all quadrants. 12:22 Back: CVA tenderness, is absent. 12:22 Musculoskeletal/extremity: ROM: intact in all extremities, full active range of motion. 12:22 Skin: no rash present. 12:22 Neuro: Orientation: appropriate for stated age, to person, place \T\ time. 12:22 Psych: Behavior/mood is pleasant, cooperative. Vital Signs: 11:47 BP 109 / 62; Pulse 79; Resp 18; Temp 98.6; Pulse Ox 100% ; Weight 72.57 kg; Height 5 mb7 ft. 4 in. (162.56 cm); 12:19 BP 103 / 63; Pulse 84; Resp 18; Pulse Ox 100% on R/A; bh1 11:47 Body Mass Index 27.46 (72.57 kg, 162.56 cm) mb7 MDM: 11:43 Patient medically screened. en 12:22 Differential Diagnosis: Bronchitis Influenza Upper Respiratory Infection Allergic en Rhinitis Pneumonia. Data reviewed: vital signs, nurses notes, and as a result, I will discharge patient. ED course: Spoke with patient and partner regarding history and exam. Offered chest x-ray but with normal exam and short duration of symptoms with normal vital signs, this would be low yield. Discussed likely URI/bronchitis. She is already had a negative COVID and flu test. Her primary concern today is for work note. She has a prescription for albuterol inhaler and Flonase. Will provide short course of steroids and Tessalon Perles. Will defer x-ray at this time. Acute ER return precautions reviewed. Administered Medications: No medications were administered Disposition: 16:46 Co-signature as Attending Physician, Michael Rodgers MD. rn Disposition Summary: 06/01/22 12:26 Discharge Ordered Location: Home en Problem: new en Symptoms: are unchanged en Condition: Stable en Diagnosis - Acute upper respiratory infection, unspecified en Followup: en - With: Mason Ulloa MD - When: As needed - Reason: Discharge Instructions: - Discharge Summary Sheet en - Acute Bronchitis, Adult, [id number] en - Form - Excuse from Work, School, or Physical Activity en Forms: - Medication Reconciliation Form en - Thank You Letter en - Antibiotic Education en - Prescription Opioid Use en Prescriptions: - Tessalon Perles 100 mg Oral Capsule - take 1 capsule by ORAL route every 8 hours As needed; 15 capsule; Refills: 0, en Product Selection Permitted - Prednisone 20 mg Oral Tablet - take 1 tablet by ORAL route once daily for 5 days; 5 tablet; Refills: 0, en Product Selection Permitted Signatures: Michael Rodgers MD MD rn Newkirk, Elizabeth, PA PA en Hicks, Barbara, RN RN [facility]
--- NOTE | 2022-06-01 12:28 | ER ---
Nurse's Notes [facility] Name: Jasmyne Chapman Age: 22 yrs Sex: Female : 2000 Arrival Date: 06/01/2022 Time: 11:30 Bed Treatment Private MD: Diagnosis: Acute upper respiratory infection, unspecified Presentation: 06/01 12:15 Chief complaint: Patient states: N/V. HEADACHE X 3 DAYS. Coronavirus screen: Vaccine [facility] status: Patient reports being unvaccinated. Client denies travel out of the [place] in the last 14 days. headache, nausea, vomiting. Client presents with at least one sign or symptom that may indicate coronavirus-19. Standard/surgical mask placed on the client. Ebola Screen: Patient negative for fever greater than or equal to 101.5 degrees Fahrenheit, and additional compatible Ebola Virus Disease symptoms. Initial Sepsis Screen: Does the patient meet any 2 criteria? No. Patient's initial sepsis screen is negative. Does the patient have a suspected source of infection? No. Patient's initial sepsis screen is negative. Risk Assessment: Do you want to hurt yourself or someone else? Patient reports no desire to harm self or others. Onset of symptoms was May 29, 2022. 12:15 Method Of Arrival: Ambulatory [facility] 12:15 Acuity: ESSENCE 4 [facility] Triage Assessment: 12:18 General: Appears in no apparent distress. Behavior is calm, cooperative, appropriate [facility] for age. Pain: Denies pain. 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 - Social history:: Smoking status: Reported history of juuling and/or vaping. Screenin:19 Abuse screen: Denies threats or abuse. Abuse screen: Denies threats or abuse. bh1 Nutritional screening: No deficits noted. Tuberculosis screening: No symptoms or risk factors identified. Fall Risk None identified. Assessment: 12:19 Reassessment: No changes from previously documented assessment. Respiratory: No bh1 deficits noted. Vital Signs: 11:47 BP 109 / 62; Pulse 79; Resp 18; Temp 98.6; Pulse Ox 100% ; Weight 72.57 kg; Height 5 mb7 ft. 4 in. (162.56 cm); 12:19 BP 103 / 63; Pulse 84; Resp 18; Pulse Ox 100% on R/A; bh1 11:47 Body Mass Index 27.46 (72.57 kg, 162.56 cm) 7 ED Course: 11:30 Patient arrived in ED. am2 11:43 Ramandeep Snell PA is PHCP. en 11:43 Michael Rodgers MD is Attending Physician. en 11:48 Patient has correct armband on for positive identification. Bed in low position. Call [facility] light in reach. Side rails up X 1. Door closed. Noise minimized. Warm blanket given. 11:54 Jeannine Herrera, RN is Primary Nurse. iw 12:16 Triage completed. bh1 12:18 Arm band placed on right wrist. bh1 12:19 No apparent distress. Resting quietly. Awaiting ED provider evaluation. bh1 12:19 Pulse ox on. NIBP on. bh1 12:19 No provider procedures requiring assistance completed. Patient did not have IV access bh1 during this emergency room visit. 12:26 Mason Ulloa MD is Referral Physician. en Administered Medications: No medications were administered Medication: 12:19 VIS not applicable for this client. bh1 Outcome: 12:26 Discharge ordered by . en 12:37 Discharged to home ambulatory. 3 12:37 Condition: stable 12:37 Discharge instructions given to patient, significant other, Instructed on discharge instructions, follow up and referral plans. medication usage, Demonstrated understanding of instructions, follow-up care, medications. 12:38 Patient left the ED. 3 Signatures: Jeannine Herrera, RN RN Sandra Mcnally am2 Yuliana Ventura 7 Vivienne Isabel 3 Ramandeep Snell PA PA en Jimena Mckenna RN RN [facility]
[2022-06-01 12:52] VITALS: TEMP 98.6; O2SAT 100
[2022-06-01 13:02] VITALS: BP 103/63
== END 2022-06-01 12:38 | disposition home or self-care (01) ==
LOC: ER 11:28
DX: J06.9 Acute upper respiratory infection, unspecified (principal); F31.9 Bipolar disorder, unspecified
CPT/HCPCS: 99283

== ENCOUNTER 2022-06-09 00:55 | Emergency (ER) | payer OTHER ==
[2022-06-09 03:36] LABS: Urine Blood 1+ (Negative); Urine Glucose Negative (Negative); Urine Protein Negative (Negative); Urine Specific Gravity 1.015 (1.005-1.030); Urine pH 5.5 (5.0-7.0)
[2022-06-09 03:39] LABS: Absolute Lymphocytes (CBC) 3.3 K/uL (0.7-4.9); Hematocrit 37.3 % (36.0-45.0); Lymphocytes % 35.3 % (15.3-44.8); MCV 82.8 fL (80-100); MPV 7.9 fL (7.6-11.3)
[2022-06-09 03:43] LABS: Protime INR 1.06
[2022-06-09 04:04] LABS: ALT/SGPT 18 U/L (12-78); AST/SGOT 10 U/L (15-37); Albumin 4.7 g/dL (3.4-5.0); Alkaline Phosphatase 59 U/L (45-117); BUN Blood Urea Nitrogen 4 mg/dL (7-18); Bicarbonate 25 mmol/L (21-32); Bilirubin Direct 0.2 mg/dL (0-0.2); Bilirubin Total 0.6 mg/dL (0.2-1.0); Glomerular Filtration Rate 107 ml/min (=/>90); Glucose Level 88 mg/dL (74-106); Potassium 3.4 mmol/L (3.5-5.1); Protein, Total 7.7 g/dL (6.4-8.2); Sodium Level 140 mmol/L (136-145)
[2022-06-09 04:32] LABS: Barbiturates NEGATIVE (NEGATIVE); Benzodiazepines NEGATIVE (NEGATIVE); Cocaine NEGATIVE (NEGATIVE); METHAMPHETAM NEGATIVE (NEGATIVE); Methadone NEGATIVE (NEGATIVE); Opiates NEGATIVE (NEGATIVE); Phencyclidine NEGATIVE (NEGATIVE); THC Cannibis POSITIVE (NEGATIVE)
[2022-06-09 04:52] LABS: Urine Specific Gravity/Preg 1.015 (1.005-1.030)
--- NOTE | 2022-06-09 06:07 | ER ---
Nurse's Notes [facility] Name: Jasmyne Chapman Age: 22 yrs Sex: Female : 2000 Arrival Date: 06/09/2022 Time: 01:01 Bed 10 Private MD: Diagnosis: Encounter for observation for suspected toxic effect from ingested substance ruled out;Dizziness and giddiness;Cannabis abuse Presentation: 06/09 01:18 Chief complaint: Patient states: she was at the pool [employer] and drank some tequila bb given her by some other people and now she doesn't feel right wants a drug test. Coronavirus screen: At this time, the client does not indicate any symptoms associated with coronavirus-19. Ebola Screen: No symptoms or risks identified at this time. Initial Sepsis Screen: Does the patient meet any 2 criteria? No. Patient's initial sepsis screen is negative. Does the patient have a suspected source of infection? No. Patient's initial sepsis screen is negative. Risk Assessment: Do you want to hurt yourself or someone else? Patient reports no desire to harm self or others. Onset of symptoms was June 09, 2022. 01:18 Method Of Arrival: Ambulatory bb 01:18 Acuity: ESSENCE 4 bb 02:18 Note pt states police report was filed. bb Triage Assessment: 01:21 General: Appears in no apparent distress. Behavior is calm, cooperative. Neuro: Level bb of Consciousness is awake, alert, obeys commands, Oriented to person, place, time, situation. Cardiovascular: Capillary refill < 3 seconds Patient's skin is warm and dry. Respiratory: Respiratory effort is even, unlabored. GI: No signs and/or symptoms were reported involving the gastrointestinal system. Derm: Skin is pink, warm \T\ dry. Musculoskeletal: Circulation, motion, and sensation intact. 06:32 Pain: Denies pain. 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 - Social history:: Smoking status: Reported history of juuling and/or vaping. Screenin:13 Abuse screen: Denies threats or abuse. Nutritional screening: No deficits noted. bb Tuberculosis screening: No symptoms or risk factors identified. Fall Risk None identified. Assessment: 02:13 Reassessment: No changes from previously documented assessment. Patient is alert, bb oriented x 3, equal unlabored respirations, skin warm/dry/pink. see triage assessment. 03:54 Reassessment: Patient is alert, oriented x 3, equal unlabored respirations, skin bb warm/dry/pink. 06:30 Reassessment: Patient is alert, oriented x 3, equal unlabored respirations, skin bb warm/dry/pink. pt verbalized understanding of and agrees to plan of care discharge instructions given pt ambulated with steady gait to exit accompanied by family. Vital Signs: 01:18 BP 133 / 85; Pulse 99; Resp 16 S; Temp 98.3(TE); Pulse Ox 97% on R/A; Weight 70.31 kg bb (R); Height 5 ft. 4 in. (162.56 cm) (R); 04:25 BP 131 / 72; Pulse 75; Resp 16; Pulse Ox 100% on R/A; mh5 06:31 BP 124 / 91; Pulse 80; Resp 16 S; Temp 97.1(TE); Pulse Ox 100% on R/A; bb 01:18 Body Mass Index 26.61 (70.31 kg, 162.56 cm) bb ED Course: 01:01 Patient arrived in ED. ja2 01:20 Triage completed. bb 01:20 Arm band placed on Patient placed in waiting room, Patient notified of wait time. bb 02:13 Dinorah Muñiz, RN is Primary Nurse. bb 02:13 Patient has correct armband on for positive identification. Call light in reach. bb 03:07 Valentino Goel MD is Attending Physician. mh7 03:25 Inserted saline lock: 20 gauge in right antecubital area, using aseptic technique. bb Blood collected. 03:40 Urine Drug Screen Sent. mh5 03:44 Initial lab(s) drawn, by ED staff, sent to lab. Urine collected: clean catch specimen, 5 clear, EKG done, by ED staff, reviewed by Valentino Goel MD. 06:31 No provider procedures requiring assistance completed. IV discontinued, intact, michell bleeding controlled, No redness/swelling at site. Pressure dressing applied. Administered Medications: No medications were administered Medication: 02:13 VIS not applicable for this client. michell Outcome: 06:07 Discharge ordered by . khai 06:32 Discharged to home ambulatory, with family. michell 06:32 Condition: good 06:32 Discharge instructions given to patient, Instructed on discharge instructions, follow up and referral plans. Demonstrated understanding of instructions, follow-up care. 06:32 Patient left the ED. bb Signatures: Dinorah Muñiz RN RN Arlen Thrasher 5 Valentino Goel MD MD 7 Karishma Thomas
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
[2022-06-09 06:52] VITALS: O2SAT 100
[2022-06-09 06:53] VITALS: BP 124/91; TEMP 97.1
--- NOTE | 2022-06-09 12:39 | EKG ---
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
--- NOTE | 2022-06-09 12:39 | EKG ---
Test Date: 2022-06-09 Test Time: 03:52:13 Lens Coater: CYN MEASUREMENT RESULTS: Intervals: Rate: 74 WV: 146 QRSD: 72 QT: 380 QTc: 421 [place]: P: 54 WV: 146 QRS: 44 T: 55 INTERPRETIVE STATEMENTS: Normal sinus rhythm with sinus arrhythmia Normal ECG Compared to ECG 06/09/2022 03:51:38 No significant changes Electronically Signed On 06-09-22 12:38:43 CDT by Tomi Leiva
== END 2022-06-09 06:32 | disposition home or self-care (01) ==
LOC: ER 00:55
DX: Z03.6 Encounter for observation for suspected toxic effect from ingested substance ruled out (principal)
CPT/HCPCS: 36415; 80048; 80076; 80307; 80320; 80329; 81003; 81025; 85025; 85610; 85730; 93005; 99283

== ENCOUNTER 2022-07-30 20:56 | Emergency (ER) | payer OTHER ==
--- OUTSIDE RECORDS SUMMARY | 2022-07-30 21:01 | XMS REPORT | Continuity of Care Document ---
:2000 Author Organization [facility] t Address [address] [place] [address] Care Team Providers Name Role Phone PCP, PATIENT DOES NOT HAVE A Primary Care Physician UnavailMARIA TERESA Walker Attending Clinician Unavailable UNKNOWN, ATTENDING Attending Clinician Unavailable KATY SALEH Attending Clinician Unavailable GUILLERMO ROSAS Attending Clinician Unavailable Guillermo Nieves Attending Clinician Riya Brambila Attending Clinician RIYA FLORES Attending Clinician Unavailable LORRIE TUBBS Attending Clinician Unavailable Lorrie Tubbs MD Attending Clinician Yuki Lara Attending Clinician Vtc-Lab Attending Clinician Unavailable Collette Herrera DO Attending Clinician Trini Corrigan Attending Clinician [phone] Heriberto Mcginnis MD Attending Clinician Cr Grubbs MD Attending Clinician CR GRUBBS Attending Clinician Unavailable TRINI BLANC Attending Clinician Unavailable Mingo MEYERS, Karley Solorzano Attending Clinician Doctor Unassigned, [place] Attending Clinician Unavailable Maria Teresa Oshea MD Attending Clinician Nurse, [facility] General Surgery Attending Clinician Unavailable Omaira MEYERS, [place] Attending Clinician MARIA TERESA OSHEA Admitting Clinician Unavailable Maria Teresa Oshea MD Admitting Clinician Payers Payer Name Policy Type Policy Number Effective Date Expiration Date S veena [employer] [place] - [id number] 2016 00:00:00 OUT OF STATE Problems Condition Condition Condition Status Onset Resolution Last Treating Co mments Source Name Details Category Date Date Treatment Clinician Date Absence of Absence of Disease Active U nivers menstruati menstruati 2-12 it y of on on 00:00: [place] 00 Medical Branch Breakthrou Breakthrou Disease Active 2019- U nivers gh gh 2-31 ity of bleeding bleeding 00:00: [place] on on Medical Nexplanon Nexplanon Bran ch Irregular Irregular Disease Active 2019- Uni vers menstrual menstrual 2-03 ity of cycle cycle 00:00: [place] 00 [facility] Branch Well woman Well woman Disease Active 2019-0 U nivers exam exam 3- ity of 00:00: [place] 00 Medical Branch Contracept Contracept Disease Active 2019-0 U nivers [place] 3- ity of management management 00:[place] [facility] [place] Nexplanon Nexplanon Disease Active 2019- Uni vers in place in place 3- ity of 00:00: [place] 00 Medical Branch Other Other Disease Active 2019-0 Univers depression depression 3- it y of 00:00: [place] 00 Medical Branch Contracept Contracept Disease Active 2019-0 U nivers [place] 3- ity of management management 00:00: [place] [facility] [place] Left wrist Left wrist Disease Active 2014-11 U nivers pain pain 2-03 ity of 00:00: [place] 00 Medical Branch ADHD ADHD Disease Active [place] (attention (attention 3 He alth deficit deficit 00:00: hyperactiv hyperactiv 00 ity ity disorder) disorder) 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 SARS-CoV-2 (event) Medica l Branch Alcohol intake 2021-10-08 2021-10-08 0 /d [facility] 00:00:00 00:00:00 [facility] Tobacco use and 2017-02-12 2017-02-12 Never used [facility] exposure 00:00:00 00:00:00 [facility] Tobacco Comment 2015-10-25 2015-10-25 Minor [facility] 00:00:00 00:00:00 [facility] Sex Assigned At 2000 2001 Nem[facility] Monge alth 00:00:00 00:00:00 Smoking Status Start Date Stop Date Source Never smoker [facility] Medications Ordered Filled Start Stop Current Ordering Indication Dosage Frequency Signature Comments Components Source Medication Medication Date Date Medication? Clinician (SIG) Name Name ondansetron 2020-11 Yes [id number] 4mg Take 1 Univers (ZOFRAN 1-16 tablet by ity of ODT) 4 mg 00:00: mouth [place] disintegrat 00 every 8 Medic al ing tablet (eight) Branch hours as needed for Nausea and Vomiting (N/V). EPINEPHrine Yes .3mg 0.3 mL by U nivers 0.3 mg/0.3 7-16 Intramuscu ity of mL 00:00: lar route [place] injection 00 as needed Medic al (anaphylax Branch is). EPINEPHrine Yes .3mg 0.3 mL by U nivers 0.3 mg/0.3 7-16 Intramuscu ity of mL 00:00: lar route [place] injection 00 as needed Medic al (anaphylax Branch is). EPINEPHrine Yes .3mg 0.3 mL by U nivers 0.3 mg/0.3 7-16 Intramuscu ity of mL 00:00: lar route [place] injection 00 as needed Medic al (anaphylax Branch is). EPINEPHrine 2021-0 Yes .3mg 0.3 mL by U nivers 0.3 mg/0.3 7-16 Intramuscu ity of mL 00:00: lar route [place] injection 00 as needed Medic al (anaphylax Branch is). methylPREDN 0 Yes [id number] Take by Univers ISolone 4 7-08 mouth ity of mg tablets 00:00: [place]-INSTRU [place] 00 CTIONS. Medical follow Branch package directions bromphenira 0 Yes [id number] 5mL Take 5 mL Univers mine-pseudo 7-08 by mouth 4 it y of ephedrine-D 00:00: (four[place] (BROMFED 00 times Medical DM) 2-30-10 daily as Bran ch mg/5 mL needed for syrup Congestion /Allergies , Cold symptoms or Cough. albuterol Yes [id number] 2{puff} Inhale 2 Univers 90 7-08 Puffs ity of mcg/actuati 00:00: every 4 [place] as on inhaler 00 (four) Medical hours as Branch needed for Wheezing or Shortness of Breath. methylPREDN 0 Yes [id number] Take by Univers ISolone 4 7-08 mouth ity of mg tablets 00:00: [place]-INSTRU [place] 00 CTIONS. Medical follow Branch package directions bromphenira 0 Yes [id number] 5mL Take 5 mL Univers mine-pseudo 7-08 by mouth 4 it y of ephedrine-D 00:00: (four[place] (BROMFED 00 times Medical DM) 2-30-10 daily as Bran ch mg/5 mL needed for syrup Congestion /Allergies , Cold symptoms or Cough. albuterol 0 Yes [id number] 2{puff} Inhale 2 Univers 90 7-08 Puffs ity of mcg/actuati 00:00: every 4 [place] as on inhaler 00 (four) Medical hours as Branch needed for Wheezing or Shortness of Breath. methylPREDN 0 Yes [id number] Take by Univers ISolone 4 7-08 mouth ity of mg tablets 00:00: [place]-INSTRU [place] 00 CTIONS. Medical follow Branch package directions bromphenira 0 Yes [id number] 5mL Take 5 mL Univers mine-pseudo 7-08 by mouth 4 it y of ephedrine-D 00:00: (four) [place] (BROMFED 00 times Medical DM) 2-30-10 daily as Bran ch mg/5 mL needed for syrup Congestion /Allergies , Cold symptoms or Cough. albuterol 0 Yes [id number] 2{puff} Inhale 2 Univers 90 7-08 Puffs ity of mcg/actuati 00:00: every 4 [place] on inhaler 00 (four) Medical hours as Branch needed for Wheezing or Shortness of Breath. methylPREDN 0 Yes [id number] Take by Univers ISolone 4 7-08 mouth ity of mg tablets 00:00: [place]-INSTRU [place] 00 CTIONS. Medical follow Branch package directions bromphenira Yes [id number] 5mL Take 5 mL Univers mine-pseudo 708 by mouth 4 it y of ephedrine-D 00:00: (four) [place] (BROMFED 00 times Medical DM) 2-30-10 daily as Bran ch mg/5 mL needed for syrup Congestion /Allergies , Cold symptoms or Cough. albuterol Yes [id number] 2{puff} Inhale 2 Univers 90 7-08 Puffs ity of mcg/actuati 00:00: every 4 [place] as on inhaler 00 (four) Medical hours as Branch needed for Wheezing or Shortness of Breath. methylPREDN 0 Yes [id number] Take by Univers ISolone 4 7-08 mouth ity of mg tablets 00:00: SEE-INSTRU [place] 00 CTIONS. Medical follow Branch package directions bromphenira 0 Yes [id number] 5mL Take 5 mL Univers mine-pseudo 7-08 by mouth 4 it y of ephedrine-D 00:00: (four) [place] (BROMFED 00 times Medical DM) 2-30-10 daily as Bran ch mg/5 mL needed for syrup Congestion /Allergies , Cold symptoms or Cough. albuterol 0 Yes [id number] 2{puff} Inhale 2 Univers 90 7-08 Puffs ity of mcg/actuati 00:00: every 4 [place] as on inhaler 00 (four) Medical hours as Branch needed for Wheezing or Shortness of Breath. methylPREDN 2020-0 Yes [id number] Take by Univers ISolone 4 7-08 mouth ity of mg tablets 00:00: SEE-INSTRU [place] 00 CTIONS. Medical follow Branch package directions bromphenira Yes [id number] 5mL Take 5 mL Univers mine-pseudo 7-08 by mouth 4 it y of ephedrine-D 00:00: (four) [place] (BROMFED 00 times Medical DM) 2-30-10 daily as Bran ch mg/5 mL needed for syrup Congestion /Allergies , Cold symptoms or Cough. albuterol Yes [id number] 2{puff} Inhale 2 Univers 90 7-08 Puffs ity of mcg/actuati 00:00: every 4 [place] on inhaler 00 (four) Medical hours as Branch needed for Wheezing or Shortness of Breath. methylPREDN Yes [id number] Take by Univers ISolone 4 7-08 mouth ity of mg tablets 00:00: SEE-INSTRU [place] 00 CTIONS. Medical follow Branch package directions bromphenira Yes [id number] 5mL Take 5 mL Univers mine-pseudo 7-08 by mouth 4 it y of ephedrine-D 00:00: (four) [place] (BROMFED 00 times Medical DM) 2-30-10 daily as Bran ch mg/5 mL needed for syrup Congestion /Allergies , Cold symptoms or Cough. albuterol 0 Yes [id number] 2{puff} Inhale 2 Univers 90 7-08 Puffs ity of mcg/actuati 00:00: every 4 [place] on inhaler 00 (four) Medical hours as Branch needed for Wheezing or Shortness of Breath. methylPREDN 0 Yes [id number] Take by Univers ISolone 4 7-08 mouth ity of mg tablets 00:00: SEE-INSTRU [place] 00 CTIONS. Medical follow Branch package directions bromphenira 0 Yes [id number] 5mL Take 5 mL Univers mine-pseudo 7-08 by mouth 4 it y of ephedrine-D 00:00: (four) [place] (BROMFED 00 times Medical DM) 2-30-10 daily as Bran ch mg/5 mL needed for syrup Congestion /Allergies , Cold symptoms or Cough. albuterol 0 Yes [id number] 2{puff} Inhale 2 Univers 90 7-08 Puffs ity of mcg/actuati 00:00: every 4 [place] on inhaler 00 (four) Medical hours as Branch needed for Wheezing or Shortness of Breath. cetirizine 2020-0 Yes [id number] 10mg Take 1 Univers 10 mg 7-06 tablet by ity of tablet 00:00: mouth [place] (two) Medical times Branch daily. cetirizine 2020-0 Yes [id number] 10mg Take 1 Univers 10 mg 7-06 tablet by ity of tablet 00:00: mouth [place] (two) Medical times Branch daily. cetirizine 2020-0 Yes [id number] 10mg Take 1 Univers 10 mg 7-06 tablet by ity of tablet 00:00: mouth [place] (two) Medical times Branch daily. cetirizine 2020-0 Yes [id number] 10mg Take 1 Univers 10 mg 7-06 tablet by ity of tablet 00:00: mouth [place] (two) Medical times Branch daily. cetirizine 2020-0 Yes [id number] 10mg Take 1 Univers 10 mg 7-06 tablet by ity of tablet 00:00: mouth [place] (two) Medical times Branch daily. cetirizine 2020-0 Yes [id number] 10mg Take 1 Univers 10 mg 7-06 tablet by ity of tablet 00:00: mouth [place] (two) Medical times Branch daily. cetirizine 2020-0 Yes [id number] 10mg Take 1 Univers 10 mg 7-06 tablet by ity of tablet 00:00: mouth [place] (two) Medical times Branch daily. cetirizine 2020-0 Yes [id number] 10mg Take 1 Univers 10 mg 7-06 tablet by ity of tablet 00:00: mouth [place] (two) Medical times Branch daily. cetirizine 2020-0 Yes [id number] 10mg Take 1 Univers 10 mg 7-06 tablet by ity of tablet 00:00: mouth [place] (two) Medical times Branch daily. cetirizine 2020-0 Yes [id number] 10mg Take 1 Univers 10 mg 7-06 tablet by ity of tablet 00:00: mouth [place] (two) Medical times Branch daily. cetirizine 2021-0 Yes [id number] 10mg Take 1 Univers 10 mg 7-06 tablet by ity of tablet 00:00: mouth 2 [place] 00 (two) Medical times Branch daily. cetirizine Yes [id number] 10mg Take 1 Univers 10 mg 7-06 tablet by ity of tablet 00:00: mouth 2 00 (two) Medical times Branch daily. EPINEPHrine 2020- No [id number] .3mg 0.3 mL by Univers (AUVI-Q) 05-28 Intramuscu ity of 0.3 mg/0.3 00:00: 04:59 lar route [place] mL 00 :00 once now Medical injection for 1 Branch dose. EPINEPHrine 2020- No [id number] .3mg 0.3 mL by Univers (AUVI-Q) 05-28 Intramuscu ity of 0.3 mg/0.3 00:00: 04:59 lar route [place] mL 00 :00 once now Medical injection for 1 Branch dose. EPINEPHrine 2020- No [id number] .3mg 0.3 mL by Univers (AUVI-Q) 05-28 Intramuscu ity of 0.3 mg/0.3 00:00: 04:59 lar route [place] mL 00 :00 once now Medical injection for 1 Branch dose. predniSONE 2020- No [id number] 50mg Take 5 Univers 10 mg 05-11-25 tablets by ity of tablet 00:00: 04:59 mouth [place] 00 :00 daily for Medical 5 days. Branch predniSONE 2020- No [id number] 1 PO BID x Univers 20 mg 03-29 4 days ity of tablet 00:00: 00:00 [place] 00 :00 Medical Branch benzonatate 2020- No [id number] 200mg Take 1 Univers 200 mg 03-29 capsule by ity of capsule 00:00: 00:00 mouth 3 [place] 00 :00 (three) Medical times Branch daily as needed for Cough for up to 20 doses. ibuprofen 2020- No [id number] 600mg Take 1 Univers 600 mg 03-29 tablet by ity of tablet 00:00: 00:00 mouth [place] 00 :00 every 6 Medical (six) Branch hours as needed for Pain (scale 4-6). predniSONE 2020- No 60mg 60 mg, Univ ers (DELTASONE) 4-13 04-13 Oral, ity of tablet 60 09:00: 08:01 ONCE, 1 [place] mg 00 :00 dose, Tue Medical 03/05/21 at Branch 0400, DEANDRA hydrOXYzine Yes [id number] 25mg Take 1 Univers 25 mg 4-13 tablet by ity of tablet 00:00: mouth [place] 00 every 8 Medical (eight) Branch hours as needed for Itching. hydrOXYzine Yes [id number] 25mg Take 1 Univers 25 mg 4-13 tablet by ity of tablet 00:00: mouth [place] 00 every 8 Medical (eight) Branch hours as needed for Itching. hydrOXYzine 2020- No [id number] 25mg Take 1 Univers 25 mg 4-13 06-19 tablet by ity of tablet 00:00: 00:00 mouth [place] 00 :00 every 8 Medical (eight) Branch hours as needed for Itching. predniSONE 2020- No [id number] 60mg Take 3 Univers 20 mg 4-13 04-18 tablets by ity of tablet 00:00: 04:59 mouth [place] 00 :00 daily for Medical 4 days. Branch HYDROcodone 2020- No 1{tbl} 1 tablet, Univers -acetaminop 2-24 02-24 Oral, ity of hen (NORCO 11:45: 10:42 ONCE, 1 [place] as 5) 5-325 mg 00 :00 dose, [facility] Med ical tablet 1 01/16/21 at [facility] h tablet 0545, DEANDRA naproxen 0 Yes [id number] 550mg Take 1 U nivers sodium 550 2-24 tablet by ity of mg tablet 00:00: mouth (two) Medical times Branch daily with meals. naproxen 0 Yes [id number] 550mg Take 1 U nivers sodium 550 2-24 tablet by ity of mg tablet 00:00: mouth (two) Medical times Branch daily with meals. naproxen 2020-0 Yes [id number] 550mg Take 1 U nivers sodium 550 2-24 tablet by ity of mg tablet 00:00: mouth 2 [place] 00 (two) Medical times Branch daily with meals. naproxen Yes [id number] 550mg Take 1 U nivers sodium 550 2-24 tablet by ity of mg tablet 00:00: mouth 2 [place] 00 (two) Medical times Branch daily with meals. naproxen Yes [id number] 550mg Take 1 U nivers sodium 550 2-24 tablet by ity of mg tablet 00:00: mouth 2 [place] 00 (two) Medical times Branch daily with meals. naproxen Yes [id number] 550mg Take 1 U nivers sodium 550 2-24 tablet by ity of mg tablet 00:00: mouth 2 [place] 00 (two) Medical times Branch daily with meals. naproxen 2020- No [id number] 550mg Take 1 Univers sodium 550 2-24 06-19 tablet by ity of mg tablet 00:00: 00:00 mouth 2 [place] :[place] (two) Medical times Branch daily with meals. estradioL 2 2019-11- No [id number] 2mg Take 1 Univers mg tablet 12-14 tablet by ity of 00:00: 05:59 mouth [place] 00 :00 daily for Medical 21 days. Branch estradioL 2 2019-11- No [id number] 2mg Take 1 Univers mg tablet 12-14 tablet by ity of 00:00: 05:59 mouth [place] 00 :00 daily for Medical 21 days. Branch estradioL 2 2019-11- No [id number] 2mg Take 1 Univers mg tablet 12-14 tablet by ity of 00:00: 05:59 mouth [place] 00 :00 daily for Medical 21 days. Branch doxycycline 2019-11- No [id number] 100mg Take 1 Univers 100 mg EC 2-03 04-12 tablet by ity of tablet 00:00: 05:59 mouth 2 [place] 00 :00 (two) Medical times Branch daily for 7 days. doxycycline 2019-2019- No [id number] 100mg Take 1 Univers 100 mg EC 2- 12-12 tablet by ity of tablet 00:00: 05:59 mouth 2 [place] 00 :00 (two) Medical times Branch daily for 7 days. doxycycline 2019-11- No [id number] 100mg Take 1 Univers 100 mg EC 2- 12-12 tablet by ity of tablet 00:00: 05:59 mouth 2 [place] 00 :00 (two) Medical times [place] daily for 7 days. doxycycline 2020-1 2020- No [id number] 100mg Take 1 Univers 100 mg EC 2- 12-12 tablet by ity of tablet 00:00: 05:59 mouth 2 [place] 00 :00 (two) Medical times [place] daily for 7 days. lactated 2020-0 Yes 1000mL at 42 Univer s ringers IV 4-30 mL/hr, ity of infusion 18:00: 1,000 mL, [place] 1,000 mL 00 IV Medical Infusion, Branch CONTINUOUS , Starting Gi 03/22/20 at 1300, Until Discontinu ed, Routine, PACU HYDROmorpho 2020-0 Yes .2mg 0.2 mg, Uni vers ne 4-30 Slow IV ity of (DILAUDID) 17:47: Push, [place] injection 21 Q5MIN PRN, Medi steve 0.2 mg 10 doses, Branch Starting Gi 03/22/20 at 1247, Until Discontinu ed, Routine, Pain (scale 7-10), PACU
Us e approved by (Faculty): PACU USE -ANESTHESI A SERVICE-HY DROMORPHON E INJECTIONS FENTanyl PF 2020-0 Yes 25ug 25 mcg, Uni vers (SUBLIMAZE 4-30 Slow IV ity of (PF)) 17:47: Push, [place] injection 21 Q5MIN PRN, Medi steve 25 mcg 4 doses, Branch Starting Gi 03/22/20 at 1247, Until Discontinu ed, Routine, Pain (scale 4-6), PACU ondansetron 2020-0 Yes 4mg 4 mg, Slow Univers (ZOFRAN 4-30 IV Push, ity of (PF)) 17:47: PRN, 1 [place] injection 4 21 dose, Medical mg Starting Branch Gi 03/22/20 at 1247, Until Discontinu ed, Routine, Nausea and Vomiting (N/V), PACU bupivacaine 2020-0 Yes PRN, Univer s -epinephrin 4-30 Starting ity of e-pf 16:57: Gi [place] (SENSORCAIN 00 03/22/20 at Ca dical E 1157, Branch W/EPINEPHRI Until NE) 0.25 Discontinu %-1:200,000 ed, injection Routine, Intra-op lactated 2019-0 2020- No 1000mL at 20 Unive rs ringers IV 30 04-30 mL/hr, ity of infusion 14:15: 14:25 1,000 mL, [place] 1,000 mL 00 :00 IV Medical Infusion, Branch ONCE, 1 dose, Gi 03/22/20 at 0915, Routine, DSU Pre-op HYDROcodone 2019-0 2020- No [id number] 1{tbl} Take 1 Univers -acetaminop 30 05-08 tablet by it y of hen 5-325 00:00: 04:59 mouth [place] mg tablet 00 :00 every 6 Medical (six) Branch hours as needed for Pain (scale 4-6) or Pain (scale 7-10) for up to 7 days. hydrOXYzine 2020-0 Yes Univer s 50 mg 3-03 ity of tablet 00:00: [address] hydrOXYzine 2020-0 Yes Univer s 50 mg 3-03 ity of tablet 00:00: [address] hydrOXYzine 2020-0 Yes Univer s 50 mg 3-03 ity of tablet 00:00: [address] hydrOXYzine 2020-0 Yes Univer s 50 mg 3-03 ity of tablet 00:00: [place] [address] Medical [place] hydrOXYzine 2020-0 Yes Univer s 50 mg 3-03 ity of tablet 00:00: [address] hydrOXYzine 2020-0 Yes Univer s 50 mg 3-03 ity of tablet 00:00: [place] [address] Medical Branch hydrOXYzine 2020-0 Yes Univer s 50 mg 3-03 ity of tablet 00:00: [address] Branch hydrOXYzine 2020-0 Yes Univer s 50 mg 3-03 ity of tablet 00:00: [place] [address] Medical Branch hydrOXYzine 2020-0 Yes Univer s 50 mg 3-03 ity of tablet 00:00: [address] hydrOXYzine 2020-0 Yes Univer s 50 mg 3-03 ity of tablet 00:00: [address] hydrOXYzine 2020-0 Yes Univer s 50 mg 3-03 ity of tablet 00:00: [address] hydrOXYzine 2020-0 Yes Univer s 50 mg 3-03 ity of tablet 00:00: [place] 00 Medical Branch hydrOXYzine 2020-0 Yes Univer s 50 mg 3-03 ity of tablet 00:00: [place] 00 Medical Branch hydrOXYzine 2020-0 Yes Univer s 50 mg 3-03 ity of tablet 00:00: [place] 00 Medical Branch hydrOXYzine 2020-0 Yes Univer s 50 mg 3-03 ity of tablet 00:00: [place] 00 Medical Branch hydrOXYzine 2020-0 Yes Univer s 50 mg 3-03 ity of tablet 00:00: [place] 00 Medical Branch hydrOXYzine 2020-0 Yes Univer s 50 mg 3-03 ity of tablet 00:00: [place] 00 Medical Branch hydrOXYzine 2020-0 Yes Univer s 50 mg 3-03 ity of tablet 00:00: [place] 00 Medical Branch hydrOXYzine 2020-0 Yes Univer s 50 mg 3-03 ity of tablet 00:00: [place] 00 Medical Branch hydrOXYzine 2020-0 Yes Univer s 50 mg 3-03 ity of tablet 00:00: [place] 00 Medical Branch hydrOXYzine 2020-0 Yes Univer s 50 mg 3-03 ity of tablet 00:00: [place] 00 Medical Branch hydrOXYzine 2020-0 Yes Univer s 50 mg 3-03 ity of tablet 00:00: [place] 00 Medical Branch hydrOXYzine 2020-0 Yes Univer s 50 mg 3-03 ity of tablet 00:00: [place] 00 Medical Branch hydrOXYzine 2020-0 2021- No Unive rs 50 mg 3-03 06-19 ity of tablet 00:00: 00:00 [place] 00 :00 Medical Branch OXcarbazepi 2018-0 Yes 300mg Take 300 U nivers ne 300 mg 6-18 mg by ity of tablet 00:00: mouth [place] 00 every Medical evening. Branch OXcarbazepi 2018-0 Yes 300mg Take 300 U nivers ne 300 mg 6-18 mg by ity of tablet 00:00: mouth [place] 00 every Medical evening. Branch OXcarbazepi 2018-0 Yes 300mg Take 300 U nivers ne 300 mg 6-18 mg by ity of tablet 00:00: mouth [place] 00 every Medical evening. Branch OXcarbazepi 2018-0 [...] 00 every Medical evening. Branch OXcarbazepi 2018-0 2021- No 300mg Take 300 Univers ne 300 mg 6-18 06-19 mg by ity of tablet 00:00: 00:00 [facility] 00 :00 every Medical evening. Branch No known No Univers medications ity of [facility] Vital Signs Vital Name Observation Time Observation Value Comments Source Systolic blood 2021-10-08 23:46:00 121 mm[Hg] Univer sity of pressure [place] [facility] Diastolic blood 2021-10-08 23:46:00 72 mm[Hg] Unive rsity of pressure [facility] Branch Heart rate 2021-10-08 23:46:00 92 /min Universi ty of [facility] Branch Body temperature 2021-10-08 23:46:00 37 Jemima Univ [address]ity of [facility] Branch Respiratory rate 2021-10-08 23:46:00 16 /min Univ ersity of [facility] Branch Body height 2021-10-08 23:46:00 162.6 cm Universi ty of [facility] Body weight 2021-10-08 23:46:00 68.[address] [facility] Branch BMI 2021-10-08 23:46:00 25.75 kg/m2 Universi ty of [facility] Branch Oxygen saturation in 2021-10-08 23:46:00 99 /min University of Arterial blood by [facility] Pulse oximetry Branch Systolic blood 2021-09-04 22:20:00 123 mm[Hg] Univer sity of pressure [facility] Branch Diastolic blood 2021-09-04 22:20:00 72 mm[Hg] Unive rsity of pressure [facility] Branch Heart rate 2021-09-04 22:20:00 92 /min Universi ty of [place] [facility] Body temperature 2021-09-04 22:20:00 37.11 Jemima Univ ersity of [facility] Branch Respiratory rate 2021-09-04 22:20:00 18 /min Univ ersity of [facility] Branch Body weight 2021-09-04 22:20:00 72.[address] [facility] Branch Oxygen saturation in 2021-09-04 22:20:00 100 /min University of Arterial blood by [facility] Pulse oximetry Branch Systolic blood 2021-05-30 17:30:00 115 mm[Hg] Univer sity of pressure [place] [facility] Diastolic blood 2021-05-30 17:30:00 76 mm[Hg] Unive rsity of pressure [facility] Branch Heart rate 2021-05-30 17:30:00 94 /min Universi ty of [place] [facility] Body temperature 2021-05-30 17:30:00 36.94 Jemima Univ ersity of [place] [facility] Respiratory rate 2021-05-30 17:30:00 18 /min Univ ersity of [place] [facility] Body weight 2021-05-30 17:30:00 69.4 kg Universi ty of [place] [facility] BMI 2021-05-30 17:30:00 26.26 kg/m2 Universi ty of [place] [facility] Oxygen saturation in 2021-05-30 17:30:00 99 /min University of Arterial blood by [place] ELVPHD steve Pulse oximetry Branch Systolic blood 2021-05-28 19:33:00 128 mm[Hg] Univer sity of pressure [place] [facility] Diastolic blood 2021-05-28 19:33:00 78 mm[Hg] Unive rsity of pressure [place] [facility] Heart rate 2021-05-28 19:31:00 93 /min Universi ty of [place] [facility] Body temperature 2021-05-28 19:31:00 36.94 Jemima Univ ersity of [place] [facility] Respiratory rate 2021-05-28 19:31:00 16 /min Univ ersity of [place] [facility] Body height 2021-05-28 19:31:00 162.6 cm Universi ty of [place] [facility] Body weight 2021-05-28 19:31:00 69.4 kg Universi ty of [place] [facility] BMI 2021-05-28 19:31:00 26.26 kg/m2 Universi ty of [place] [facility] Oxygen saturation in 2021-05-28 19:31:00 99 /min University of Arterial blood by [place] ELVPHD steve Pulse oximetry Branch Systolic blood 2021-05-11 19:52:00 128 mm[Hg] Univer sity of pressure [facility] Diastolic blood 2021-05-11 19:52:00 83 mm[Hg] Unive rsity of pressure [facility] Heart rate 2021-05-11 19:52:00 75 /min [facility] Body temperature 2021-05-11 19:52:00 36.94 Jemima Univ [facility] Respiratory rate 2021-05-11 19:52:00 16 /min Univ [facility] [place] [facility] Body weight 2021-05-11 19:52:00 68.04 kg [facility] Oxygen saturation in 2021-05-11 19:52:00 100 /min University of Arterial blood by [facility] steve Pulse oximetry Branch Systolic blood 2021-03-05 07:44:00 142 mm[Hg] Univer sity of pressure [facility] Diastolic blood 2021-03-05 07:44:00 72 mm[Hg] Unive rsity of pressure [facility] Heart rate 2021-03-05 07:44:00 111 /min [facility] Body temperature 2021-03-05 07:44:00 37.06 Jemima [facility] Respiratory rate 2021-03-05 07:44:00 18 /min Univ [facility] Body height 2021-03-05 07:44:00 162.6 cm [facility] Body weight 2021-03-05 07:44:00 63.504 kg [facility] BMI 2021-03-05 07:44:00 24.03 kg/m2 [facility] Oxygen saturation in 2021-03-05 07:44:00 100 /min University of Arterial blood by [facility] steve Pulse oximetry Branch Systolic blood 2021-01-18 15:33:00 136 mm[Hg] Univer sity of pressure [facility] Diastolic blood 2021-01-18 15:33:00 89 mm[Hg] Unive rsity of pressure [facility] Heart rate 2021-01-18 15:33:00 81 /min [facility] Body height 2021-01-18 15:29:00 162.6 cm [facility] Body weight 2021-01-18 15:29:00 64.411 kg [facility] BMI 2021-01-18 15:29:00 24.37 kg/m2 [facility] Systolic blood 2021-01-16 10:15:00 129 mm[Hg] Univer sity of pressure [facility] Diastolic blood 2021-01-16 10:15:00 90 mm[Hg] Unive rsity of pressure [facility] Heart rate 2021-01-16 10:15:00 93 /min [facility] Body temperature 2021-01-16 10:15:00 36.83 Jemima Univ [facility] Respiratory rate 2021-01-16 10:15:00 18 /min Univ [facility] Body weight 2021-01-16 10:15:00 60.782 kg [facility] Oxygen saturation in 2021-01-16 10:15:00 99 /min University of Arterial blood by [facility] Pulse oximetry Branch Systolic blood 2021-01-04 14:25:00 128 mm[Hg] Univer sity of pressure [facility] Diastolic blood 2021-01-04 14:25:00 80 mm[Hg] Unive rsity of pressure [facility] Heart rate 2021-01-04 14:25:00 90 /min [facility] Body temperature 2021-01-04 14:25:00 36.33 Jemima Univ [facility] Respiratory rate 2021-01-04 14:25:00 16 /min Univ [facility] Body height 2021-01-04 14:25:00 162.6 cm [facility] Body weight 2021-01-04 14:25:00 64.524 kg [facility] BMI 2021-01-04 14:25:00 24.42 kg/m2 [facility] Systolic blood 2020-11-22 19:20:00 123 mm[Hg] Univer sity of pressure [facility] Diastolic blood 2020-11-22 19:20:00 72 mm[Hg] Unive rsity of pressure [facility] Branch Heart rate 2020-11-22 19:20:00 84 /min [facility] Body temperature 2020-11-22 19:20:00 36.56 Jemima [facility] Respiratory rate 2020-11-22 19:20:00 16 /min Univ [facility] Body height 2020-11-22 19:20:00 162.6 cm [facility] Body weight 2020-11-22 19:20:00 63.078 kg [facility] BMI 2020-11-22 19:20:00 23.87 kg/m2 [facility] Systolic blood 2020-10-25 19:26:00 119 mm[Hg] Univer sity of pressure [facility] Diastolic blood 2020-10-25 19:26:00 68 mm[Hg] Unive rsity of pressure [facility] Heart rate 2020-10-25 19:26:00 80 /min Universi ty of [facility] Body temperature 2020-10-25 19:26:00 36.61 Jemima Univ ersity of [facility] Respiratory rate 2020-10-25 19:26:00 16 /min Univ ersity of [facility] Body height 2020-10-25 19:26:00 162.6 cm [facility] [place] [facility] Body weight 2020-10-25 19:26:[address] [facility] Branch BMI 2020-10-25 19:26:00 24.20 kg/m2 Universi ty of [facility] Body temperature 2020-04-04 15:49:00 36.89 Jemima Univ ersity of [facility] Body height 2020-04-04 15:49:00 162.6 cm Universi ty of [facility] Body weight 2020-04-04 15:49:00 65 kg Universi ty of [facility] BMI 2020-04-04 15:49:00 24.60 kg/m2 Universi ty of [facility] Systolic blood 2020-03-22 18:40:00 121 mm[Hg] Univer sity of pressure [facility] Diastolic blood 2020-03-22 18:40:00 82 mm[Hg] Unive rsity of pressure [facility] Heart rate 2020-03-22 18:40:00 82 /min Universi ty of [facility] Respiratory rate 2020-03-22 18:40:00 14 /min [facility] Oxygen saturation in 2020-03-22 18:40:00 97 /min [facility] Arterial blood by [facility] Pulse oximetry Branch Body temperature 2020-03-22 17:42:00 36.28 Jemima Univ ersity of [facility] Body height 2020-03-22 14:32:00 162.6 cm Universi ty of [facility] Body weight 2020-03-22 14:32:00 58.968 kg Universi ty of [facility] BMI 2020-03-22 14:32:00 22.31 kg/m2 Universi ty of [facility] Body temperature 2020-03-21 20:55:00 37.06 Jemima [facility] Body temperature 2020-02-01 20:24:00 36.72 [facility] Medical Branch Body weight 2020-02-01 20:24:00 59.24 kg [facility] Procedures Procedure Date / Time Performed Performing Clinician Sourc e RAPID STREP SCREEN FOR 2021-10-09 00:01:00 Guillermo Rosas [facility] GROUP A Medical Branch RAPID INFLUENZA A/B 2021-10-09 00:01:00 Guillermo Rosas [facility] Medical Branch COVID-19 (ID NOW RAPID 2021-10-09 00:01:00 Guillermo Rosas [facility] TESTING) Medical Branch CONSENT/REFUSAL FOR 2021-10-08 23:37:53 Doctor Unassigned, No Un iversity of [place] DI[facility] AND Name Medical Branch TREATMENT RAPID STREP SCREEN FOR 2021-09-05 00:47:00 Riya Flores [facility] GROUP A Medical Branch COVID-19 (ID NOW RAPID 2021-09-05 00:47:00 Riya Flores [facility] TESTING) Medical Branch CONSENT/REFUSAL FOR 2021-09-04 22:11:13 Doctor Unassigned, No Un [facility] [place] DIAGNOSIS AND Name Medical Branch TREATMENT RAPID STREP SCREEN FOR 2021-05-30 [facility]:19[facility] [facility] ADC,CLC OR L[facility] ONLY - 2021-05-30 19:19:00 Yuki Ferguson [facility] INFLUENZA A & B DIRECT Medical B ranch ANTIGEN COVID-19 (ID NOW RAPID 2021-05-30 19:19:00 Yuki Ferguson [facility] TESTING) Medical Branch XR CHEST 1 VW 2021-05-30 18:41:21 Yuki Ferguson [facility] CONSENT/REFUSAL FOR 2021-05-30 17:21:37 Doctor Unassigned, No Un [facility]ity of [place] DIAGNOSIS AND Name Medical Branch TREATMENT NOTICE OF PRIVACY 2021-03-05 07:37:51 Doctor Unassigned, No [facility] Branch CONSENT/REFUSAL FOR 2021-03-05 07:37:33 Doctor Unassigned, No Un [facility]ity [facility] [place] DIAGNOSIS AND Name Medical Branch TREATMENT XR ANKLE 3+ VW 2021-01-18 15:40:22 Cr Grubbs [facility] BILATERAL Medical Branch POCT TEST 2021-01-16 10:30:00 Karley Aguila [facility] NOTICE OF PRIVACY 2021-01-16 10:08:03 Doctor Unassigned, No Univ ersity [facility] PRACTICES Name Medical Branch CONSENT/REFUSAL FOR 2021-01-16 10:07:34 Doctor Unassigned, No Un [facility]ity [facility] [place] DIAGNOSIS AND Name Medical Branch TREATMENT POCT TEST 2021-01-04 14:57:00 Trini Blanc [facility]USAL FOR 2021-01-04 14:11:03 Doctor Unassigned, No Un iversity [facility] DIAGNOSIS AND Name Medical Branch TREATMENT ASSIGNMENT OF BENEFITS 2020-10-25 18:54:58 Doctor Unassigned, No [facility] Name Medical Branch FL TIME OR 2020-03-22 17:48:10 Dayo [facility] o f [place] (NON-REPORTABLE) Medical Branch POCT TEST 2020-03-22 14:10:00 Corina Calderon [facility] CONSENT/REFUSAL FOR 2020-03-22 14:01:02 Doctor Unassigned, No Un [facility] [place] DIAGNOSIS AND Name Medical Branch TREATMENT ASSIGNMENT OF BENEFITS 2020-03-22 14:00:38 Doctor Unassigned, No [facility] Name Medical Branch XR WRIST 3+ VW LEFT 2020-02-01 20:34:24 [place] [facility] Plan of Care Planned Activity Planned Date Details Comments Source Future Scheduled Test 2022-08-23 00:00:00 IMM Influenza [facility] Seasonal (>/= 19 yrs) [code = IMM Influenza Seasonal (>/= 19 yrs)] Future Scheduled Test 2022 00:00:00 Screening for [facility] malignant neoplasm of cervix (procedure) [code = 530711885] Future Scheduled Test 2021-08-23 00:00:00 IMM Influenza [facility] Seasonal Aug to January (>/= 19 yrs) [code = IMM Influenza Seasonal Aug to January (>/= 19 yrs)] Future Scheduled Test 2006 00:00:00 COVID-19 Vaccine (1) [facility] [code = COVID-19 Vaccine (1)] Future Scheduled Test 2001 00:00:00 COVID-19 Vaccine (#1) [facility] [code = COVID-19 Vaccine (#1)] Future Scheduled Test 2001 00:00:00 Fluoride Varnish [facility] [code = Fluoride Varnish] Encounters Start End Encounter Admission Attending Care Care Encounter Source Date/Time Date/Time Type Type Clinicians Facility Department ID 2021-09-23 Emergency [facility] [id number] Univers 06:51:[address] [facility] 2021-09-23 Emergency [facility] [id number] Univers 02:21:[address] [facility] 2021-09-22 Emergency [facility] [id number] Univers 17:49:[address] [facility] 2021-09-22 Emergency [facility] [id number] [facility]22 Emergency [facility] [id number] Univers [facility]:58[facility]-09-19 Outpatient R DAYO, [facility] VLS [id number] Univers 18:58:12 MARIA TERESA [facility] 2021-11-26 2021-11-26 Outpatient R [facility] [id number] Univers 12:15:00 12:15:00 [id number] [facility] 2021-11-26 2021-11-26 Outpatient R DAVID, [facility] [id number] Univers 12:15:00 12:15:00 ATTENDING [facility] 2021-11-23 2021-11-23 Outpatient R [facility] [id number] Univers 20:30:00 20:30:00 [id number] [facility] 2021-11-23 2021-11-23 Outpatient R DELFINO [facility] [id number] Univers 20:30:00 20:30:00 KATY [facility] 2021-10-08 2021-10-08 Emergency X RALPH [facility] ERT [id number] Univers 17:48:00 20:16:00 GUILLERMO [facility] 2021-10-08 2021-10-08 Emergency [facility] [id number] Univers 17:48:00 20:16:00 Guillermo Solorzano A[place] 350.1.13.10 i ty [facility] 4.2.7.2.686 [facility] [id number] [address] 2021-09-04 2021-09-04 Emergency [facility] [id number] Univers 17:22:00 21:08:00 Riya [place] 350.1.13.10 i ty of [place] 4.2.7.2.686 [facility] [id number] [address] 2021-09-04 2021-09-04 Emergency X [facility] ERT [id number] Univers 17:22:00 21:08:[address] [facility] 2021-06-21 2021-06-21 [facility] [id number] Univers 13:00:00 13:00:00 LORRIE [id number] ity o f [facility] 2021-06-07 2021-06-07 [facility] 1.2.840.114 [id number] Univers 00:00:00 00:00:00 Secure Msg Lorrie Hero MULTISPEC 350.1.13.10 ity of IALTY 4.2.7.2.686 [facility] [id number] [address] DIABETES [facility] 2021-06-04 2021-06-04 Patient [facility] 1.2.840.114 [id number] Univers 00:00:00 00:00:00 Secure Msg Lorrie Hero MULTISPEC 350.1.13.10 ity of IALTY 4.2.7.2.686 [facility] [id number] [address] DIABETES [facility] 2021-06-03 2021-06-03 [facility] [id number] Univers 00:00:00 00:00:00 Secure Msg Lorrie Hero MULTISPEC 350.1.13.10 ity of [place]2.[place] [phone] [facility] AND [address] DIABETES [facility] 2021-06-03 2021-06-03 Patient Suly [facility] 1.2.840.114 [id number] Univers 00:00:00 00:00:00 Secure Msg Lorrie Monahan MULTISPEC 350.1.13.10 ity of IALTY 4.2.7.2.686 [facility] [place] [phone] [facility] AND [address] DIABETES CLINIC 2021-05-30 2021-05-30 Emergency [facility] 1.2.840.114 [id number] Univers 14:40:00 16:58:00 Yuki Wilkinson 350.1.13.10 i ty of [place] 4.2.7.2.686 [facility] [place] [phone] [place] [id number] Branch 2021-05-29 2021-05-29 Patient Suly [facility] 1.2.840.114 [id number] Univers 00:00:00 00:00:00 Secure Msg Lorrie Monahan MULTISPEC 350.1.13.10 ity of IALTY 4.2.7.2.686 [facility] [place] [phone] [address] DIABETES [facility] 2021-05-28 2021-05-28 Product Applications Scientist [facility] 1.2.840.114 [id number] Univers 15:24:56 15:39:56 Visit Lorrie TubbsPEC 350.1. 13.10 ity of IALTY 4.2.7.2.686 [facility] [place] [phone] [facility] AND [address] DIABETES [facility] 2021-05-28 2021-05-28 Office [facility] 1.2.840.114 [id number] Univers 14:25:15 15:25:29 Visit Lorrie Monahan MULTISPEC 350.1.13.10 ity of IALTY 4.2.7.2.686 [facility] [place] [phone] [facility] AND [address] DIABETES CLINIC 2021-05-28 2021-05-28 Outpatient R SULY, [facility] [id number] Univers 14:30:00 14:30:00 LORRIE [id number] malou o sadie [facility] 2021-05-28 2021-05-28 Outpatient R SULY [facility] [id number] Univers 14:30:00 14:30:00 LORRIE westfall shoaib noel [facility] 2021-05-25 2021-05-25 Patient [facility] 1.2.840.114 [id number] Univers 00:00:00 00:00:00 Secure Msg Lorrie Hero MULTISPEC 350.1.13.10 ity of IALTY 4.2.7.2.686 [facility] [phone] [facility] AND MICKEY [address] [place] [address] DIABETES CLINIC 2021-05-11 2021-05-11 Emergency [facility] 1.2.840.114 [id number] Univers 14:53:00 15:14:00 Collette Wilkinson 350.1.13.10 ity of [place] 4.2.7.2.686 [facility] [id number] [address] 2021-03-22 2021-03-22 Telephone ChristocristóbalF[facility] 1.2.840.114 [id number] Univers 00:00:00 00:00:00 Trini Howard SAND MIXER MACHINE 350.1.13.10 ity of REGIONAL 4.2.7.2.686 Fidel as MATERNAL [phone] Med ical & CHILD 107 [facility] 2021-03-05 2021-03-05 Emergency [facility] [id number] Univers 02:46:00 03:09:00 Heriberto Wilkinson 350.1.13.10 i ty of [place] 4.2.7.2.686 [facility] [id number] [address] 2021-01-18 2021-01-18 [facility] 1.2.840.114 [id number] Univers 09:40:22 23:59:00 Encounter Cr Hernandez 350.1.13.10 ity of Surgical 4.2.7.2.686 Fidel as Specialti [phone] Me dical es 809 [facility] 2021-01-18 2021-01-18 Office [facility] 1.2.901.459 [id number] Univers 09:25:51 09:57:12 Visit [facility] 350.1.13.10 it y of Surgical 4.2.7.2.686 Fidel as Specialti [phone] Ca dical es 198 [facility] 2021-01-18 2021-01-18 Outpatient [facility] [id number] Univers 09:30:00 09:30:00 [facility] [id number] [facility] 2021-01-18 2021-01-18 Outpatient [facility] [id number] Univers 09:30:00 09:30:00 CR [facility] 2021-01-17 2021-01-17 Outpatient R JAYASHREE [facility] [id number] Univers 13:15:00 13:15:00 TRINI [id number] ity o f [facility] 2021-01-16 2021-01-16 Emergency [facility] [id number] Univers 04:13:00 04:48:00 Karley Solorzano [place] 350.1.13.10 ity [facility] 4.2.7.2.686 [place] [facility] [id number] [address] 2021-01-04 2021-01-04 Office [facility] 1.2.259.687 [id number] Univers 08:13:15 08:58:39 Visit Trini Howard SAND MIXER MACHINE 350.1.13.10 ity of [facility] 4.2.7.2.686 Fidel as MATERNAL [id number] Med ical & CHILD [address] [place] [address] 2021-01-04 2021-01-04 Outpatient R JAYASHREE [facility] [id number] Univers 08:15:00 08:15:00 TRINI [id number] ity o f [facility] 2021-01-04 2021-01-04 Outpatient R [facility] [id number] Univers 08:15:00 08:15:00 TRINI ity o f [facility] 2021-01-04 2021-01-04 Orders Doctor MARIA TERESA 1.2.840.114 [id number] Univers 00:00:00 00:00:00 Only Unassigned, GISELA 350.1.13.10 ity of [place] [facility] 4.2.7.2.686 Fidel as [phone] [address] 2020-12-04 2020-12-04 Refill [facility] 1.2.186.151 [id number] Univers 00:00:00 00:00:00 Trini Howard SAND MIXER MACHINE 350.1.13.10 ity of [facility] 4.2.7.2.686 Fidel as MATERNAL [phone] Med ical & CHILD [address] [place] [address] 2020-11-22 2020-11-22 Office [facility] 1.2.395.582 [id number] Univers 13:11:42 13:46:36 Visit Trini Howard SAND MIXER MACHINE 350.1.13.10 ity of [facility] 4.2.7.2.686 Fidel as MATERNAL [id number] Med ical & CHILD [address] [place] [address] 2020-11-22 2020-11-22 Outpatient R [facility] [id number] Univers 13:15:00 13:15:00 TRINI [id number] ity o [facility] 2020-11-22 2020-11-22 Outpatient R JAYASHREE [facility] [id number] Univers 13:15:00 13:15:00 TRINI ity o [facility] 2020-10-29 2020-10-29 Telephone [facility] 1.2.840.114 [id number] Univers 00:00:00 00:00:00 Trini Howard SAND MIXER MACHINE 350.1.13.10 ity of [facility] 42.7.2.686 Fidel as MATERNAL [phone] Med ical & CHILD [address] [place] [address] 2020-10-26 2020-10-26 Telephone [facility] 1.2.840.114 [id number] Univers 00:00:00 00:00:00 Trini C SAND MIXER MACHINE 350.1.13.10 ity of [facility] 4.2.7.2.686 Fidel as MATERNAL [phone] Med ical & CHILD [address] [place] [address] 2020-10-26 2020-10-[address] [facility] 1.2.840.114 [id number] 00:00:00 00:00:00 Trini C SAND MIXER MACHINE 350.1.13.10 REGIONAL 4.2.7.2.686 MATERNAL [id number] & CHILD [address] [place] [address] 2020-10-25 2020-10-[address] [facility] [id number] Univers 13:03:25 13:18:25 Visit Trini C SAND MIXER MACHINE 350.1.13.10 ity of [facility] 4.2.7.2.686 Fidel as MATERNAL [phone] [facility] ical & CHILD [address] [place] [address] 2020-10-25 2020-10-25 Outpatient R [facility] [id number] Univers 12:45:00 12:45:[address] [facility] 2020-10-25 2020-10-25 Outpatient R [facility] [id number] Univers 12:45:00 12:45:00 ity of [facility] 2020-10-25 2020-10-25 Orders Doctor MARIA TERESA 1.2.840.114 [id number] Univers 00:00:00 00:00:00 Only Unassigned, GISELA 350.1.13.10 ity of [place] [facility] 4.2.7.2.686 Fidel as [id number] [address] 2020-10-23 2020-10-23 Outpatient R [facility] [id number] Univers 08:45:00 08:45:[address] [facility] 2020-10-23 2020-10-23 Outpatient R [facility] [id number] Univers 08:45:00 08:45:[address] [facility] 2020-04-04 2020-04-04 Office [facility] [id number] Univers 10:32:05 11:18:56 Visit Maria Teresa RAO 350.1.13.10 ity of CARE 4.2.7.2.686 [place] C[place] AT [id number] Me dical VICTORY [address] [facility] 2020-04-04 2020-04-04 Outpatient R DAYO, [facility] [id number] Univers 11:00:00 11:00:00 MARIA TERESA [id number] ity of [facility] 2020-04-04 2020-04-04 Outpatient R DAYO, [facility] [id number] Univers 11:00:00 11:00:[address] [facility] 2020-03-22 2020-03-22 [facility] 1.2.840.114 [id number] Univers 08:59:00 13:45:[address] [facility] 350.1.13.10 ity of [facility] [place].2.7.2.686 [place] [facility] [phone] [address] ([facility]) 2020-03-21 2020-03-21 Nurse Nurse, [facility] General Surgery [facility] 1.2.840.114 [id number] Univers 15:37:12 15:54:01 Visit Maria Teresa Oshe[place] 350.1.13.10 ity of [place] 4.2.7.2.686 [place] [phone] Ca dical nal 377 [facility] 2020-03-21 2020-03-21 Outpatient [facility] [id number] Univers 15:45:00 15:45:[id number] [facility] 2020-03-21 2020-03-21 Outpatient R DAYO, [facility] [id number] Univers 15:45:00 15:45:[address] [facility] 2020-02-01 2020-02-01 Outpatient R DAYO, [facility] [id number] Univers 15:28:25 23:59:[address] [facility] 2020-02-01 2020-02-01 [facility] 1.2.840.114 [id number] Univers 15:28:00 23:59:00 Encounter Maria Teresa [facility] 350.1.13.10 ity of CARE 4.2.7.2.686 [place] CENTER AT [phone] Ca dical VICTORY 809 [facility] 2020-02-01 2020-02-01 Office [facility] 1.2.012.901 [id number] Univers 15:08:48 16:11:33 Visit Maria Teresa SPECIALTY 350.1.13.10 ity of CARE 4.2.7.2.686 [place] [phone] Ca jeanette MCCULLOUGH [address] [facility] 2020-02-01 2020-02-01 [facility] [id number] Univers 15:30:00 15:30:[id number] [facility] 2020-01-31 2020-01-31 [facility] [id number] Univers 19:40:00 19:40:00 MARIA TERESA [facility] 2020-[facility]31 2020-01-31 Abstract [facility] [id number] Univers 00:00:00 00:00:00 [place] SPECIALTY [id number] ity of [facility] [id number] [facility] CENTER AT [phone] Ca jeanette WOOD 198 [facility] 2019-06-30 2019-06-30 Telephone [facility] [id number] Univers 00:00:00 00:00:00 Trini Howard SAND MIXER MACHINE [id number] ity of [facility] [id number] Fidel as MATERNAL [id number] Med ical & CHILD 107 [facility] Results Test Description Test Time Test Comments Results Result Comments Source ADC,CLC OR LCC ONLY - INFLUENZA A & B DIRECT ANTIGEN 2021-05 19:44:38 Test Item Value Reference Range Interpretation Comme nts Influenza A (test code = 47763-4) Negative Negative Influenza B (test code = 90066-2) Negative Negative Lab Interpretation (test code = 83862-0) Normal [facility] NOW RAPID TESTING)2021-05-30 19:44:28 Test Item Value Reference Range Interpretation Comments SARS-CoV-2 Rapid ID NOW Not Detected Not Detected (test code = 24014-2) PATTI (test code = PATTI) ID NOW COVID-19 Assay is an isothermal nucleic acid amplification test intended for the qualitative detection of nucleic acid from SARS-CoV-2 viral RNA in nasopharyngeal (CALCULATING MACHINE MECHANIC) specimens. It is used under Emergency Use [...] indicated. Lab Interpretation Normal (test code = 23640-9) [facility] FOR GROUP [id number] 19:37:04 Test Item Value Reference Range Interpretation Comments Streptococcus pyogenes (group A) Negative Negative antigen (test code = 39999-5) Lab Interpretation (test code = Normal 53874-6) [facility] 1 [id number] 18:46:37 No acute cardiopulmonary process.EXAM: XR CHEST 1 VW COMPARISON: None available. HISTORY: cough FINDINGS: Support devices: None. Lungs/pleura: ?The lungs are clear. No pleural effusion or pneumothoraxisidentified. Heart/Mediastinum: The cardiac silhouette is normal in size. Trachea isnear midline. [facility], Radiant Results Inft User - 05/30/2021 1:47 PM CDT EXAM: XR CHEST 1 VWCOMPARISON: None available.HISTORY: cough FINDINGS:Support devices:None.Lungs/pleura: The lungs are clear. No pleural effusion or pneumothorax isidentified.Heart/Mediastinum: The cardiac silhouette is normal in size. Trachea isnear midline.IMPRESSIONNo acute cardiopulmonary process.[facility] ANKLE 3+ VW [id number] 19:03:39Normal study No fractures or dislocationsUniversHCA [facility] PearlandPOCT [id number] 10:30:00 Test Item Value Reference Range Interpretation Comments POCT PREG (test code = 1605) negative On board controls acceptable with present C Line (test code = 3574) POCT PREG LOT # (test code = 3575) [id number] POCT PREG TEST DATE (test 2022-08-22 code = 3576) Lab Interpretation (test code = Normal 82670-8) [facility] RegionalPO[facility] [id number] 14:57:00 Test Item Value Reference Range Interpretation Comments POCT PREG (test code = 1605) Negative On board controls acceptable with C Yes Line (test code = 3574) POCT PREG LOT # (test code = 3575) POCT PREG TEST DATE (test code = 3576) [facility]PO[facility] [id number] 14:57:00 Test Item Value Reference Range Interpretation Comments POCT PREG (test code = 1605) Negative On board controls acceptable with C Yes Line (test code = 3574) POCT PREG LOT # (test code = 3575) POCT PREG TEST DATE (test code = 3576) [facility] RegionalFL TIME OR (NON-REPORTABLE)2020-03-22 17:50:24 These images do not require a Radiology diagnostic report.[facility] [id number] 14:13:00 Test Item Value Reference Range Interpretation Comments POCT PREG (test code = 1605) Negative On board controls acceptable with C Yes Line (test code = 3574) POCT PREG LOT # (test code = 3575) POCT PREG TEST DATE (test code = 3576) Lab Interpretation (test code = Normal 06692-9) [facility] WRIST 3+ VW [id number] 21:48:25 FINDINGS/IMPRESSION: Radiographs of the left wrist demonstrate stable plate and screw fixationof theleft distal ulna in satisfactory alignment. No sherita hardware lucencyor acute fractures are noted. Joint spaces are preserved. The soft tissuesare unremarkable. Preliminary Report Dictated by Resident: Jefferson Alas MD., have reviewed this study and agree with theabove report.EXAM: XR WRIST 3+ VW LEFT HISTORY: pain COMPARISON: ?XR WRIST <3 VW RIGHT, 08/15/2019. [facility], Radiant Results Inft User - 02/01/2020 4:49 PM CDTEXAM: XR WRIST 3+ VW LEFTHISTORY: pain COMPARISON: XR WRIST <3 VW RIGHT, 08/15/2019.IMPRESSIONFINDINGS/IMPRESSION: Radiographs of the left wrist demonstrate stable plate and screw fixationof the left distal ulna in satisfactory alignment. No sherita hardware lucencyor acute fractures are noted. Joint spaces are preserved. The soft tissuesare unremarkable. Preliminary Report Dictated by Resident: Jefferson Hudson MD., have reviewed this study and agree with theabove report.[facility]
--- NOTE | 2022-07-30 21:33 | ER ---
Nurse's Notes [facility] Name: Jasmyne Chapman Age: 22 yrs Sex: Female : 2000 Arrival Date: 07/30/2022 Time: 21:00 Bed 10 Private MD: Diagnosis: Dental caries, unspecified Presentation: 07/30 21:07 Chief complaint: Patient states: Pt reports broken, carious tooth in right lower jaw. kb3 Coronavirus screen: Vaccine status: Patient reports being unvaccinated. Ebola Screen: Patient negative for fever greater than or equal to 101.5 degrees Fahrenheit, and additional compatible Ebola Virus Disease symptoms Patient denies exposure to infectious person. Patient denies travel to an Ebola-affected area in the 21 days before illness onset. No symptoms or risks identified at this time. Initial Sepsis Screen: Does the patient meet any 2 criteria? No. Patient's initial sepsis screen is negative. Does the patient have a suspected source of infection? No. Patient's initial sepsis screen is negative. Risk Assessment: Do you want to hurt yourself or someone else? Patient reports no desire to harm self or others. Onset of symptoms was July 28, 2022. 21:07 Method Of Arrival: Ambulatory kb3 21:07 Acuity: ESSENCE 5 kb3 Triage Assessment: 21:10 General: Appears in no apparent distress. comfortable, Behavior is calm, cooperative. kb3 Pain: Complains of pain in right jaw Pain does not radiate. Pain currently is 10 out of 10 on a pain scale. Quality of pain is described as sharp, shooting. 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 Last tetanus immunization: unknown. - Social history:: Smoking status: Reported history of juuling and/or vaping. - Family history:: not pertinent. - Hospitalizations: : No recent hospitalization is reported. Screenin:50 Abuse screen: Denies threats or abuse. Nutritional screening: No deficits noted. vc1 Tuberculosis screening: No symptoms or risk factors identified. Fall Risk None identified. Vital Signs: 21:07 BP 117 / 8; Pulse 100; Resp 20; Temp 98.1; Pulse Ox 100% ; Weight 68.04 kg; Height 5 kb3 ft. 4 in. (162.56 cm); Pain 10/10; 21:07 Body Mass Index 25.75 (68.04 kg, 162.56 cm) kb3 ED Course: 21:00 Patient arrived in ED. es 21:06 Michael Rodgers MD is Attending Physician. rn 21:10 Triage completed. kb3 21:10 Arm band placed on right wrist. kb3 21:50 Chelsey Cerda, FERNANDEZ is Primary Nurse. vc1 21:50 No provider procedures requiring assistance completed. Patient did not have IV access vc1 during this emergency room visit. Administered Medications: 21:33 Drug: [place] (HYDROcodone-acetaminophen) 10 mg-325 mg 1 tabs Route: PO; vc1 21:34 Drug: Ketorolac 30 mg Route: IM; Site: left deltoid; vc1 21:34 Drug: Decadron (dexamethasone) 10 mg Route: IM; Site: right deltoid; vc1 Outcome: 21:32 Discharge ordered by . rn 21:50 Discharged to home ambulatory, with significant other. vc1 21:50 Condition: good 21:50 Discharge instructions given to patient, Instructed on discharge instructions, follow up and referral plans. medication usage, Demonstrated understanding of instructions, follow-up care, medications, Prescriptions given X 2. 21:52 Patient left the ED. vc1 Signatures: Nancy Cruz Michael Rodgers MD MD rn Calcote, Vanessa, RN RN vc1 Charity Carvajal RN RN kb3
--- NOTE | 2022-07-30 21:33 | EDPHYS ---
Physician Documentation [facility] Name: Jasmyne Chapman Age: 22 yrs Sex: Female : 2000 Arrival Date: 07/30/2022 Time: 21:00 Bed 10 Private MD: ED Physician Michael Rodgers HPI: 07/30 21:23 This 22 yrs old Female presents to ER via Ambulatory with complaints of Pain, MOUTH rn PAIN. 21:23 The patient presents with pain. The problem is located in the right lower tooth. Onset: rn The symptoms/episode began/occurred yesterday. Duration: The symptoms are continuous. Modifying factors: The symptoms are alleviated by nothing, the symptoms are aggravated by chewing. Associated signs and symptoms: Pertinent negatives: fever, inability to eat, swelling. Severity of symptoms: At their worst the symptoms were moderate, in the emergency department the symptoms are unchanged. The patient has experienced similar episodes in the past. The patient has not recently seen a physician. Pt reports return of dental pain, has had before, no signs of infection or swelling, plans to f/u with dentist but needs pain control tonight. . 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 Last tetanus immunization: unknown. - Social history:: Smoking status: Reported history of juuling and/or vaping. - Family history:: not pertinent. - Hospitalizations: : No recent hospitalization is reported. ROS: 21:23 Constitutional: Negative for fever, chills, and weight loss, Eyes: Negative for injury, rn pain, redness, and discharge, ENT: + dental pain Neck: Negative for injury, pain, and swelling. Exam: 21:23 Constitutional: This is a well developed, well nourished patient who is awake, alert, rn and in no acute distress. Head/Face: Normocephalic, atraumatic. ENT: + poor dentition, right lower molar with deep ulceration/cavity, no swelling or abscess Neck: Trachea midline, no masses Vital Signs: 21:07 BP 117 / 8; Pulse 100; Resp 20; Temp 98.1; Pulse Ox 100% ; Weight 68.04 kg; Height 5 kb3 ft. 4 in. (162.56 cm); Pain 10/; 21:07 Body Mass Index 25.75 (68.04 kg, 162.56 cm) kb3 MDM: 21:06 Patient medically screened. rn 21:23 Differential diagnosis: dental caries. Data reviewed: vital signs, nurses notes, old rn medical records, and as a result, I will discharge patient. Counseling: I had a detailed discussion with the patient and/or guardian regarding: the historical points, exam findings, and any diagnostic results supporting the discharge/admit diagnosis, the need for outpatient follow up, to return to the emergency department if symptoms worsen or persist or if there are any questions or concerns that arise at home. 21:32 Special discussion: I discussed with the patient/guardian in detail that at this point rn there is no indication for admission to the hospital. It is understood, however, that if the symptoms persist or worsen the patient needs to return immediately for re-evaluation. Based on the history and exam findings, there is no indication for further emergent testing or inpatient evaluation. I discussed with the patient/guardian the need to see a dentist for further evaluation of the symptoms. Administered Medications: 21:33 Drug: [place] (HYDROcodone-acetaminophen) 10 mg-325 mg 1 tabs Route: PO; vc1 21:34 Drug: Ketorolac 30 mg Route: IM; Site: left deltoid; vc1 21:34 Drug: Decadron (dexamethasone) 10 mg Route: IM; Site: right deltoid; vc1 Disposition Summary: 07/30/22 21:32 Discharge Ordered Location: Home rn Problem: an acute exacerbation rn Symptoms: have improved rn Condition: Stable rn Diagnosis - Dental caries, unspecified rn Followup: rn - With: Private Physician - When: Tomorrow - Reason: Recheck today's complaints, Re-evaluation by your physician Discharge Instructions: - Discharge Summary Sheet rn Forms: - Medication Reconciliation Form rn - Thank You Letter rn - Antibiotic route returner - Prescription Opioid Use rn Prescriptions: - Clindamycin HCl 300 mg Oral Capsule - take 1 capsule by ORAL route every 6 hours for 10 days; 40 capsule; Refills: 0, rn Product Selection Permitted - Medrol (Dereje) 4 mg Oral Tablets, Dose Pack - take 1 tablet by ORAL route as directed - follow package instructions; 1 rn packet; Refills: 0, Product Selection Permitted Signatures: Michael Rodgers MD MD rn Calcote, Vanessa RN RN vc1 Charity Carvajal, RN RN kb3 Corrections: (The following items were deleted from the chart) 21:26 21:23 Constitutional: Negative for fever, chills, and weight loss, Eyes: Negative for rn injury, pain, redness, and discharge, ENT: + poor dentition, right lower molar with deep ulceration/cavity, no swelling or abscess Neck: Negative for injury, pain, and swelling, rn 21:27 21:23 Constitutional: This is a well developed, well nourished patient who is awake, rn alert, and in no acute distress. Head/Face: Normocephalic, atraumatic. ENT: Nares patent. No nasal discharge, no septal abnormalities noted. Tympanic membranes are normal and external auditory canals are clear. Oropharynx with no redness, swelling, or masses, exudates, or evidence of obstruction, uvula midline. Mucous membranes moist. rn
[2022-07-30] MEDS ORDERED: HYDROCODONE/APAP 10/325 TAB ONE (21:34)
[2022-07-30] MEDS ORDERED: KETOROLAC 30 MG/ML INJ ONE (21:34)
[2022-07-30] MEDS ORDERED: dexAMETHasone 10 MG/ML VIAL ONE (21:34)
[2022-07-31 01:21] VITALS: BP 117/8; TEMP 98.1; O2SAT 100
== END 2022-07-30 21:52 | disposition home or self-care (01) ==
LOC: ER 20:56
DX: K02.9 Dental caries, unspecified (principal)
CPT/HCPCS: 96372; 99283; J1100

== ENCOUNTER 2023-04-02 18:04 | Emergency (ER) | payer OTHER ==
--- OUTSIDE RECORDS SUMMARY | 2023-04-02 18:42 | XMS REPORT | Continuity of Care Document ---
:2000 Author Organization [facility] t Address [address] [place] [address] Care Team Providers Name Role Phone PCP, PATIENT DOES NOT HAVE A Primary Care Physician Unavaila MARIA TERESA Frausto Attending Clinician Unavailable GUILLERMO ROSAS Attending Clinician Unavailable Guillermo Nieves Attending Clinician Amanda Wilkes MD Attending Clinician AMANDA WILKES Attending Clinician Unavailable UNKNOWN, ATTENDING Attending Clinician Unavailable KATY SALEH Attending Clinician Unavailable Riya Brambila Attending Clinician RIYA FLORES Attending Clinician Unavailable Lorrie Tubbs MD Attending Clinician Yuki Lara Attending Clinician Vtc-Lab Attending Clinician Unavailable LORRIE TUBBS Attending Clinician Unavailable Collette Herrera DO Attending Clinician Jayashree [facility], Trini Howard Attending Clinician Heriberto Mcginnis MD Attending Clinician Cr Grubbs MD Attending Clinician CR GRUBBS Attending Clinician Unavailable Mingo MEYERS, Karley Solorzano Attending Clinician TRINI BLANC Attending Clinician Unavailable Doctor Unassigned, [place] Attending Clinician Unavailable Maria Teresa Oshea MD Attending Clinician Nurse, [facility] General Surgery Attending Clinician Unavailable Omaira MEYERS, [place] Attending Clinician MARIA TERESA OSHEA Admitting Clinician Unavailable GUILLERMO ROSAS Admitting Clinician Unavailable Maria Teresa Oshea MD Admitting Clinician Payers Payer Name Policy Type Policy Number Effective Date Expiration Date S ource [place] - [place] [id number] 2016 OF 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 HEALTH 00:00:00 [employer] [id number] 2022 OUT OF NETWORK 00:00:00 Problems Condition Condition Condition Status Onset Resolution Last Treating Co mments Source Name Details Category Date Date Treatment Clinician Date Absence of Absence of Disease Active 2020- U nivers menstruati menstruati 2-12 it y of on on 00:00: [address] Breakthrou Breakthrou Disease Active 2020- U nivers gh gh 2-31 ity of bleeding bleeding 00:00: [place] on on Medical Nexplanon Nexplanon Bran ch Irregular Irregular Disease Active 2020- Uni vers menstrual menstrual 2-03 ity of cycle cycle 00:00: [place] [facility] Well woman Well woman Disease Active 2019-0 U nivers exam exam 3-26 ity of 00:00: [place] [facility] Contracept Contracept Disease Active 2019-0 U nivers [place] 3- ity of management [place] [facility] Nexplanon Nexplanon Disease Active 2019-[address] in place 3- ity of 00:00: [address] Other Other Disease Active 2019-0 Univers depression depression 3- it y of 00:00: [address] Contracept Contracept Disease Active U nivers [place] 3 ity of management [place] [facility] Left wrist Left wrist Disease Active 2014-11 U nivers pain pain 2 ity of 00:00: [address] ADHD ADHD Disease Active [facility] (attention (attention 01-26 He alth deficit deficit 00:00: hyperactiv hyperactiv 00 ity ity disorder) disorder) Deliberate Deliberate Disease Active H arris self-cutti self-cutti 01-26 He alth ng ng 00:00: 00 Allergies, Adverse Reactions, Alerts Allergy Allergy Status Severity Reaction(s) Onset Inactive Treating Comm ents Source Name Type Date Date Clinician NO KNOWN Allergy Active [facility] NO KNOWN [facility] Social History Social Habit Start Date Stop Date Quantity Comments Source Gender identity [facility] alth Sexual orientation [facility] Exposure to 2023-02-15 2023-02-25 Not sure [facility] [place] [facility]-CoV-2 (event) 00:00:00 18:19:00 [facility] Alcohol intake 2023-02-25 2023-02-25 0 /d University of 00:00:00 00:00:00 [facility] Tobacco use and 2017-08-24 2017-08-24 Smokeless Universit y of exposure 00:00:00 00:00:00 tobacco non-user [facility] Tobacco Comment 2015-10-25 2015-10-25 Minor Universit y of 00:00:00 00:00:00 [facility] Sex Assigned At [birth year] [facility] 00:00:00 [facility]:00:00 [facility] Smoking Status Start Date Stop Date Source Never smoked tobacco [facility] Medications Ordered Filled Start Stop Current Ordering Indication Dosage Frequency Signature Comments Components Source Medication Medication Date Date Medication? Clinician (SIG) Name Name traMADoL 2022- No 50mg 50 mg, Univer s (ULTRAM) 02-26 Oral, ity of tablet 50 03:45: 02:48 ONCE, 1 [place] mg 00 :00 dose, On Medical Thu02/25/23 Branch at 2245, Routine iopamidol 2022- No [id number] 84mL 84 mL, U nivers (ISOVUE 02-26 Intravenou ity o f 370-500 mL) 01:31: 01:45 s, ONCE, 1 [place] injection 00 :00 dose, On Medica l 84 mL Thu02/25/23 Branch at 2045, Routine ondansetron 2022- No 4mg 4 mg, Slow Univers (ZOFRAN 02-25 IV Push, ity of (PF)) 23:30: 23:35 ONCE, 1 [place] injection 4 00 :00 dose, On Medi steve mg Thu02/25/23 Branch at 1830, DEANDRA morpHINE (4 2022- No 4mg 4 mg, Slow Univers mg/mL) 02-25 IV Push, ity of injection 4 23:30: 23:36 ONCE, 1 [place] mg 00 :00 dose, On Medical Thu02/25/23 Branch at 183, STAT ondansetron Yes 8mg Take 1 Univ ers 8 mg -05 tablet by ity of disintegrat 21:54: mouth [place] ing tablet 34 every 8 Medica l (eight) Branch hours as needed for Nausea and Vomiting (N/V). naproxen 2022- No 500mg Take 1 Unive rs (NAPROSYN) 02-2505 tablet by ity of 500 mg 21:54: 00:00 mouth in [place] tablet 34 :00 the Medical morning Branch and 1 tablet in the evening. Take with meals. ketorolac Yes [id number] 10mg Take 1 Univers 10 mg 02-25 [id number] tablet by ity of tablet 00:00: mouth [place] 00 every 6 Medical (six) Branch hours as needed for Pain (scale 4-6). ondansetron 2020-11 Yes [id number] 4mg Take 1 Univers (ZOFRAN 1-16 tablet by ity of ODT) 4 mg 00:00: mouth [place] disintegrat 00 every 8 Medic al ing tablet (eight) Branch hours as needed for Nausea and Vomiting (N/V). ondansetron 2020-113- No [id number] 4mg Take 1 Univers (ZOFRAN 1-16 -05 tablet by ity of ODT) 4 mg 00:00: 00:00 mouth [place] disintegrat 00 :00 every 8 Medic al ing tablet (eight) Branch hours as needed for Nausea and Vomiting (N/V). EPINEPHrine 2020-0 Yes .3mg 0.3 mL by [...] al (anaphylax Branch is). methylPREDN 0 Yes [id number] Take by Univers ISolone 4 7-08 mouth ity of mg tablets 00:00: [place]INSTRU [place] 00 CTIONS. Medical follow Branch package directions bromphenira 0 Yes [id number] 5mL Take 5 mL Univers mine-pseudo 7-08 by mouth 4 it y of ephedrine-D 00:00: (four[place] M (BROMFED 00 times Medical DM) 2-30-10 daily as Bran ch mg/5 mL needed for syrup Congestion /Allergies , Cold symptoms or Cough. albuterol 0 Yes [id number] 2{puff} Inhale 2 Univers 90 7-08 Puffs ity of mcg/actuati 00:00: every 4 [place] on inhaler 00 (four) Medical hours as Branch needed for Wheezing or Shortness of Breath. methylPREDN Yes [id number] Take by Univers ISolone 4 7-08 mouth ity of mg tablets 00:00: [place]-INSTRU [place] 00 CTIONS. Medical follow Branch package directions bromphenira Yes [id number] 5mL Take 5 mL Univers mine-pseudo 7-08 by mouth 4 it y of ephedrine-D 00:00: (four[place] (BROMFED 00 times Medical DM) 2-30-10 daily as Bran ch mg/5 mL needed for syrup Congestion /Allergies , Cold symptoms or Cough. albuterol Yes [id number] 2{puff} Inhale 2 Univers 90 7-08 Puffs ity of mcg/actuati 00:00: every 4 [place] on inhaler 00 (four) Medical hours as Branch needed for Wheezing or Shortness of Breath. methylPREDN Yes [id number] Take by Univers ISolone 4 7-08 mouth ity of mg tablets 00:00: [place]-INSTRU [place] 00 CTIONS. Medical follow Branch package directions bromphenira Yes [id number] 5mL Take 5 mL Univers mine-pseudo 7-08 by mouth 4 it y of ephedrine-D 00:00: (four[place] (BROMFED 00 times Medical DM) 2-30-10 daily as Bran ch mg/5 mL needed for syrup Congestion /Allergies , Cold symptoms or Cough. albuterol Yes [id number] 2{puff} Inhale 2 Univers 90 7-08 Puffs ity of mcg/actuati 00:00: every 4 [place] on inhaler 00 (four) Medical hours as Branch needed for Wheezing or Shortness of Breath. methylPREDN 0 Yes [id number] Take by Univers ISolone 4 7-08 mouth ity of mg tablets 00:00: [place]-INSTRU [place] 00 CTIONS. Medical follow Branch package directions bromphenira Yes [id number] 5mL Take 5 mL Univers mine-pseudo 7-08 by mouth 4 it y of ephedrine-D 00:00: (four[place] (BROMFED 00 times Medical DM) 2-30-10 daily as Bran ch mg/5 mL needed for syrup Congestion /Allergies , Cold symptoms or Cough. albuterol 2021-0 Yes [id number] 2{puff} Inhale 2 Univers 90 7-08 Puffs ity of mcg/actuati 00:00: every 4 [place] on inhaler 00 (four) Medical hours as Branch needed for Wheezing or Shortness of Breath. methylPREDN 0 Yes [id number] Take by Univers ISolone 4 7-08 mouth ity of mg tablets 00:00: SEE-INSTRU [place] 00 CTIONS. Medical follow Branch package directions bromphenira 0 Yes [id number] 5mL Take 5 mL Univers mine-pseudo 7-08 by mouth 4 it y of ephedrine-D 00:00: (four) [place] (BROMFED 00 times Medical DM) 2-30-10 daily as Bran ch mg/5 mL needed for syrup Congestion /Allergies , Cold symptoms or Cough. albuterol 0 Yes [id number] 2{puff} Inhale 2 Univers 90 7-08 Puffs ity of mcg/actuati 00:00: every 4 [place] on inhaler 00 (four) Medical hours as Branch needed for Wheezing or Shortness of Breath. methylPREDN 2020-0 Yes [id number] Take by Univers ISolone 4 7-08 mouth ity of mg tablets 00:00: [place]-INSTRU [place] 00 CTIONS. Medical follow Branch package directions bromphenira 0 Yes [id number] 5mL Take 5 mL Univers mine-pseudo 7-08 by mouth 4 it y of ephedrine-D 00:00: (four) [place] (BROMFED 00 times Medical DM) 2-30-10 daily as Bran ch mg/5 mL needed for syrup Congestion /Allergies , Cold symptoms or Cough. albuterol 2020-0 Yes [id number] 2{puff} Inhale 2 Univers 90 7-08 Puffs ity of mcg/actuati 00:00: every 4 [place] on inhaler 00 (four) Medical hours as Branch needed for Wheezing or Shortness of Breath. methylPREDN 2020-0 Yes [id number] Take by Univers ISolone 4 7-08 mouth ity of mg tablets 00:00: SEE-INSTRU [place] 00 CTIONS. Medical follow Branch package directions bromphenira 2020-0 Yes [id number] 5mL Take 5 mL Univers mine-pseudo 7-08 by mouth 4 it y of ephedrine-D 00:00: (four) [place] M (BROMFED 00 times Medical DM) 2-30-10 daily as Bran ch mg/5 mL needed for syrup Congestion /Allergies , Cold symptoms or Cough. albuterol Yes [id number] 2{puff} Inhale 2 Univers 90 7-08 Puffs ity of mcg/actuati 00:00: every 4 [place] on inhaler 00 (four) Medical hours as Branch needed for Wheezing or Shortness of Breath. methylPREDN Yes [id number] Take by Univers ISolone 4 7-08 mouth ity of mg tablets 00:00: SEE-INSTRU [place] 00 CTIONS. Medical follow Branch package directions bromphenira Yes [id number] 5mL Take 5 mL Univers mine-pseudo 7-08 by mouth 4 it y of ephedrine-D 00:00: (four) [place] M (BROMFED 00 times Medical DM) 2-30-10 daily as Bran ch mg/5 mL needed for syrup Congestion /Allergies , Cold symptoms or Cough. albuterol Yes [id number] 2{puff} Inhale 2 Univers 90 7-08 Puffs ity of mcg/actuati 00:00: every 4 [place] on inhaler 00 (four) Medical hours as Branch needed for Wheezing or Shortness of Breath. methylPREDN 3- No [id number] Take by Univers ISolone 4 7-08 04-05 mouth ity of mg tablets 00:00: 00:00 SEE-INSTRU [place] 00 :00 CTIONS. Medical follow Branch package directions bromphenira 3- No [id number] 5mL Take 5 mL Univers mine-pseudo 7-08 04-05 by mouth 4 i ty of ephedrine-D 00:00: 00:00 (four) [place] M (BROMFED 00 :00 times Medical DM) 2-30-10 daily as Bran ch mg/5 mL needed for syrup Congestion /Allergies , Cold symptoms or Cough. albuterol 2022- No [id number] 2{puff} Inhale 2 Univers 90 7-08 04-05 Puffs ity of mcg/actuati 00:00: 00:00 every 4 [place] inhaler 00 :00 (four) Medical hours as Branch needed for Wheezing or Shortness of Breath. cetirizine 1-0 Yes [id number] 10mg Take 1 Univers 10 mg 7-06 tablet by ity of tablet 00:00: mouth [place] (two) Medical times Branch daily. cetirizine 1-0 Yes [id number] 10mg Take 1 Univers 10 mg 7-06 tablet by ity of tablet 00:00: mouth [place] (two) Medical times Branch daily. cetirizine 1-0 Yes [id number] 10mg Take 1 Univers 10 mg 7-06 tablet by ity of tablet 00:00: mouth (two) Medical times Branch daily. cetirizine 1-0 Yes [id number] 10mg Take 1 Univers 10 mg 7-06 tablet by ity of tablet 00:00: mouth [place] (two) Medical times Branch daily. cetirizine 2020-0 Yes [id number] 10mg Take 1 Univers 10 mg 7-06 tablet by ity of tablet 00:00: mouth [place] (two) Medical times Branch daily. cetirizine 2020-0 Yes [id number] 10mg Take 1 Univers 10 mg 7-06 tablet by ity of tablet 00:00: mouth [place] (two) Medical times Branch daily. cetirizine 1-0 Yes [id number] 10mg Take 1 Univers 10 mg 7-06 tablet by ity of tablet 00:00: mouth [place] (two) Medical times Branch daily. cetirizine 1-0 Yes [id number] 10mg Take 1 Univers 10 mg 7-06 tablet by ity of tablet 00:00: mouth [place] (two) Medical times Branch daily. cetirizine 2020-0 Yes [id number] 10mg Take 1 Univers 10 mg 7-06 tablet by ity of tablet 00:00: mouth [place] (two) Medical times Branch daily. cetirizine 2021-0 Yes [id number] 10mg Take 1 Univers 10 mg 7-06 tablet by ity of tablet 00:00: mouth [place] (two) Medical times Branch daily. cetirizine 1-0 Yes [id number] 10mg Take 1 Univers 10 mg 7-06 tablet by ity of tablet 00:00: mouth [place] (two) Medical times Branch daily. cetirizine Yes [id number] 10mg Take 1 Univers 10 mg 7- tablet by ity of tablet 00:00: mouth 2 [place] 00 (two) Medical times Branch daily. cetirizine 2022- No [id number] 10mg Take 1 Univers 10 mg 05-28 04-05 tablet by ity of tablet 00:00: 00:00 mouth 2 [place] 00 :00 (two) Medical times Branch daily. EPINEPHrine 2020- No [id number] .3mg 0.3 mL by Univers (AUVI-Q) 05-28 Intramuscu ity of 0.3 mg/0.3 00:00: 04:59 lar route [place] mL 00 :00 once now Medical injection for 1 Branch dose. EPINEPHrine 2020- No [id number] .[id number] 0.3 mL by Univers (AUVI-Q) 05-28 Intramuscu ity of 0.3 mg/0.3 00:00: 04:59 lar route [place] mL 00 :00 once now Medical injection for 1 Branch dose. EPINEPHrine 2020- No [id number] .[id number] 0.3 mL by Univers (AUVI-Q) 05-28 Intramuscu ity of 0.3 mg/0.3 00:00: 04:59 lar route [place] mL 00 :00 once now Medical injection for 1 Branch dose. predniSONE 2020- No [id number] 50mg Take 5 Univers 10 mg 05-11- tablets by ity of tablet 00:00: 04:59 mouth [place] 00 :00 daily for Medical 5 days. Branch predniSONE 2020- No [id number] 1 PO BID x Univers 20 mg 03-29 4 days ity of tablet 00:00: 00:00 [place] 00 :00 Medical Branch benzonatate 2020- No [id number] 200mg Take 1 Univers 200 mg 03-29 capsule by ity of capsule 00:00: 00:00 mouth 3 [place] 00 :00 (three) Medical times Branch daily as needed for Cough for up to 20 doses. ibuprofen 2020- No [id number] 600mg Take 1 Univers 600 mg 5-07 -19 tablet by ity of tablet 00:00: 00:00 mouth [place] 00 :00 every 6 Medical (six) Branch hours as needed for Pain (scale 4-6). predniSONE 2020- No 60mg 60 mg, Univ ers (DELTASONE) 4-13 -13 Oral, ity of tablet 60 09:00: 08:01 ONCE, 1 [place] mg 00 :00 dose, Tu Medical 03/05/21 at Branch 0400, DEANDRA hydrOXYzine Yes [id number] 25mg Take 1 Univers 25 mg 4-13 tablet by ity of tablet 00:00: mouth [place] 00 every 8 Medical (eight) Branch hours as needed for Itching. hydrOXYzine Yes [id number] 25mg Take 1 Univers 25 mg 4-13 tablet by ity of tablet 00:00: mouth [place] 00 every 8 Medical (eight) Branch hours as needed for Itching. hydrOXYzine 2020- No [id number] 25mg Take 1 Univers 25 mg -05 05-19 tablet by ity of tablet 00:00: 00:00 mouth [place] 00 :00 every 8 Medical (eight) Branch hours as needed for Itching. predniSONE 2020- No [id number] 60mg Take 3 Univers 20 mg -05 03-18 tablets by ity of tablet 00:00: 04:59 mouth [place] 00 :00 daily for Medical 4 days. Branch HYDROcodone 2020- No 1{tbl} 1 tablet, Univers -acetaminop 2-24 02-24 Oral, ity of hen (NORCO 11:45: 10:42 ONCE, 1 [place] as 5) 5-325 mg 00 :00 dose, Wed Med ical tablet 1 01/16/21 at [facility] tablet 0545, DEANDRA naproxen Yes [id number] 550mg Take 1 U nivers sodium 550 2-24 tablet by ity of mg tablet 00:00: mouth 2 00 (two) Medical times Branch daily with meals. naproxen Yes [id number] 550mg Take 1 U nivers sodium 550 2-24 tablet by ity of mg tablet 00:00: mouth 2 (two) Medical times Branch daily with meals. naproxen 2020- Yes [id number] 550mg Take 1 U nivers sodium 550 2-24 tablet by ity of mg tablet 00:00: mouth 2 [place] 00 (two) Medical times Branch daily with meals. naproxen 0 Yes [id number] 550mg Take 1 U nivers sodium 550 2-24 tablet by ity of mg tablet 00:00: mouth 2 [place] 00 (two) Medical times Branch daily with meals. naproxen Yes [id number] 550mg Take 1 U nivers sodium 550 2-24 tablet by ity of mg tablet 00:00: mouth 2 [place] 00 (two) Medical times Branch daily with meals. naproxen Yes [id number] 550mg Take 1 U nivers sodium 550 2-24 tablet by ity of mg tablet 00:00: mouth 2 [place] 00 (two) Medical times Branch daily with meals. naproxen 2020- No [id number] 550mg Take 1 Univers sodium 550 2-24 06-19 tablet by ity of mg tablet 00:00: 00:00 mouth 2 [place] 00 :00 (two) Medical times Branch daily with meals. estradioL 2 2019-11- No [id number] 2mg Take 1 Univers mg tablet 12-14 tablet by ity of 00:00: 05:59 mouth [place] 00 :00 daily for Medical 21 days. Branch estradioL 2 2019-11- No [id number] 2mg Take 1 Univers mg tablet 12-14 tablet by ity of 00:00: 05:59 mouth [place] 00 :00 daily for Medical 21 days. Branch estradioL 2 2019-11- No [id number] 2mg Take 1 Univers mg tablet 12-14 tablet by ity of 00:00: 05:59 mouth [place] 00 :00 daily for Medical 21 days. Branch doxycycline 2019-11- No [id number] 100mg Take 1 Univers 100 mg EC -03 04-12 tablet by ity of tablet 00:00: 05:59 mouth 2 [place] 00 :00 (two) Medical times Branch daily for 7 days. doxycycline 2019-11- No [id number] 100mg Take 1 Univers 100 mg EC - 12-12 tablet by ity of tablet 00:00: 05:59 mouth 2 [place] 00 :00 (two) Medical times Branch daily for 7 days. doxycycline 2019- 2020- No [id number] 100mg Take 1 Univers 100 mg EC 2 12-12 tablet by ity of tablet 00:00: 05:59 mouth 2 [place] 00 :00 (two) Medical times Branch daily for 7 days. doxycycline 2019- 2020- No [id number] 100mg Take 1 Univers 100 mg EC 2- 12-12 tablet by ity of tablet 00:00: 05:59 mouth 2 [place] 00 :00 (two) Medical times Branch daily [...] Slow IV ity of (DILAUDID) 17:47: Push, [place] injection 21 Q5MIN PRN, Medi steve 0.2 mg 10 doses, Branch Starting Gi 03/22/20 at 1247, Until Discontinu ed, Routine, Pain (scale 7-10), PACU
Us e approved by (Faculty): PACU USE -ANESTHESI A SERVICE-HY DROMORPHON E INJECTIONS FENTanyl PF 2020-0 Yes 25ug 25 mcg, Uni vers (SUBLIMAZE 4-30 Slow IV ity of (PF)) 17:47: Push, [place] injection 21 Q5MIN PRN, Medi steve 25 [...] 4-30 Starting ity of e-pf 16:57: Gi [place] (SENSORCAIN 00 03/22/20 at [place] dical E 1157, Branch W/EPINEPHRI Until NE) 0.25 Discontinu %-1:200,000 ed, injection Routine, Intra-op lactated 2020- No 1000mL at 20 Unive rs ringers IV 03-22 04-30 mL/hr, ity of infusion 14:15: 14:25 1,000 mL, [place] as 1,000 mL 00 :00 IV Medical Infusion, Branch ONCE, 1 dose, Gi 03/22/20 at 0915, Routine, DSU Pre-op HYDROcodone 2020- No [id number] 1{tbl} Take 1 Univers -acetaminop 03-22 05-08 tablet by it y of hen 5-325 00:00: 04:59 mouth [place] mg tablet 00 :00 every 6 Medical (six) Branch hours as needed for Pain (scale 4-6) or Pain (scale 7-10) for up to 7 days. hydrOXYzine 2020-0 Yes Univer s 50 mg 3-03 ity of tablet 00:00: [address] hydrOXYzine 2020-0 Yes Univer s 50 mg 3-03 ity of tablet 00:00: [address] hydrOXYzine 2020-0 Yes Univer s 50 mg 3-03 ity of tablet 00:00: [address] hydrOXYzine 2020-0 Yes Univer s 50 mg 3-03 ity of tablet 00:00: [address] hydrOXYzine 2020-0 Yes Univer s 50 mg 3-03 ity of tablet 00:00: [address] hydrOXYzine 2020-0 Yes Univer s 50 mg 3-03 ity of tablet 00:00: [address] hydrOXYzine 2020-0 Yes Univer s 50 mg 3-03 ity of tablet 00:00: [address] hydrOXYzine 2020-0 Yes Univer s 50 mg 3-03 ity of tablet 00:00: [address] hydrOXYzine 2020-0 Yes Univer s 50 mg 3-03 ity of tablet 00:00: [address] hydrOXYzine 2020-0 Yes Univer s 50 mg 3-03 ity of tablet 00:00: [address] hydrOXYzine 2020-0 Yes Univer s 50 mg 3-03 ity of tablet 00:00: [place] 00 Medical Branch hydrOXYzine 2020-0 Yes Univer s 50 mg 3-03 ity of tablet 00:00: [place] 00 Medical Branch hydrOXYzine 2020-0 Yes Univer s 50 mg 3-03 ity of tablet 00:00: [place] 00 Medical Branch hydrOXYzine 2020-0 Yes Univer s 50 mg 3-03 ity of tablet 00:00: [place] 00 Medical Branch hydrOXYzine 2020-0 Yes Univer s 50 mg 3-03 ity of tablet 00:00: [place] 00 Medical Branch hydrOXYzine 2020-0 Yes Univer s 50 mg 3-03 ity of tablet 00:00: [place] 00 Medical Branch hydrOXYzine 2020-0 Yes Univer s 50 mg 3-03 ity of tablet 00:00: [place] 00 Medical Branch hydrOXYzine 2020-0 Yes Univer s 50 mg 3-03 ity of tablet 00:00: [place] 00 Medical Branch hydrOXYzine 2020-0 Yes Univer s 50 mg 3-03 ity of tablet 00:00: [place] 00 Medical Branch hydrOXYzine 2020-0 Yes Univer s 50 mg 3-03 ity of tablet 00:00: [place] 00 Medical Branch hydrOXYzine 2020-0 Yes Univer s 50 mg 3-03 ity of tablet 00:00: [place] 00 Medical Branch hydrOXYzine 2020-0 Yes Univer s 50 mg 3-03 ity of tablet 00:00: [place] 00 Medical Branch hydrOXYzine 2020-0 Yes Univer s 50 mg 3-03 ity of tablet 00:00: [place] 00 Medical Branch hydrOXYzine 2020-0 2021- No Unive rs 50 mg 3-03 06-19 ity of tablet 00:00: 00:00 [place] 00 :00 Medical Branch OXcarbazepi 2018-0 Yes 300mg Take 300 U nivers ne 300 mg 6-18 mg by ity of tablet 00:00: mouth [place] every Medical evening. Branch OXcarbazepi 2018-0 Yes 300mg Take 300 U nivers ne 300 mg 6-18 mg by ity of tablet 00:00: mouth [place] 00 every Medical evening. Branch OXcarbazepi 2018-0 Yes 300mg Take 300 U nivers ne 300 mg 6-18 mg by ity of tablet 00:00: mouth [place] every Medical evening. Branch OXcarbazepi 2018-0 Yes [...] mg by ity of tablet 00:00: 00:00 [facility] [place] 00 :00 every Medical evening. Branch No known No Univers medications ity of [facility] Vital Signs Vital Name Observation Time Observation Value Comments Source Systolic blood 2023-02-26 02:00:00 123 mm[Hg] Univer sity of pressure [facility] Diastolic blood 2023-02-26 02:00:00 75 mm[Hg] Unive rsity of [email or web address] Heart rate 2023-02-26 02:00:00 66 /min Universi ty of [facility] Respiratory rate 2023-02-26 02:00:00 16 /min Univ ersity [facility] Oxygen saturation in 2023-02-26 02:00:00 100 /min University of Arterial blood by [facility] Pulse oximetry [place] Body temperature 2023-02-25 23:00:00 [address] [facility] [facility] weight 2023-02-25 23:00:00 68.04 kg Universi ty [facility] HEIGHT 2023-01-26 17:54:00 162.6 cm HEIGHT 2023-01-26 17:54:00 162.6 cm HEIGHT 2023-01-26 17:54:00 162.6 cm Systolic blood 2021-10-08 23:46:00 121 mm[Hg] Univer sity of [facility] [email or web address] Diastolic blood 2021-10-08 23:46:00 72 mm[Hg] Unive rsity of [facility] [email or web address] Heart rate 2021-10-08 23:46:00 92 /min Universi ty [facility] Body temperature 2021-10-08 23:46:00 [address] [facility] ersity [facility] Respiratory rate 2021-10-08 23:46:00 16 /min Univ ersity [facility] Body height 2021-10-08 23:46:00 162.6 cm Universi ty [facility] Body weight 2021-10-08 23:46:00 68.04 kg Universi ty [facility] BMI 2021-10-08 23:46:00 25.75 kg/m2 Universi ty [facility] Oxygen saturation in 2021-10-08 23:46:00 99 /min University of Arterial blood by [facility] Pulse oximetry Branch Systolic blood 2021-09-04 22:20:00 123 mm[Hg] Univer sity of pressure [place] [facility] Diastolic blood 2021-09-04 22:20:00 72 mm[Hg] [facility] Heart rate 2021-09-04 22:20:00 92 /min [facility] [place] [facility] Body temperature 2021-09-04 22:20:00 37.11 Jemima [facility] [place] [facility] Respiratory rate 2021-09-04 22:20:00 18 /min [facility] [place] [facility] Body weight 2021-09-04 22:20:00 72.576 kg [facility] [place] [facility] Oxygen saturation in 2021-09-04 22:20:00 100 /min [facility] of Arterial blood by [facility] Pulse oximetry Branch Systolic blood 2021-05-30 17:30:00 115 mm[Hg] [facility] [place] [facility] Diastolic blood 2021-05-30 17:30:00 76 mm[Hg] [facility] [place] [facility] Heart rate 2021-05-30 17:30:00 94 /min [facility] [place] [facility] Body temperature 2021-05-30 17:30:00 36.94 Jemima [facility] [place] [facility] Respiratory rate 2021-05-30 17:30:00 18 /min [facility] [place] [facility] Body weight 2021-05-30 17:30:00 69.4 kg [facility] [place] [facility] BMI 2021-05-30 17:30:00 26.26 kg/m2 [facility] [place] [facility] Oxygen saturation in 2021-05-30 17:30:00 99 /min [facility] Arterial blood by [facility] Pulse oximetry Branch Systolic blood 2021-05-28 19:33:00 128 mm[Hg] [facility] Diastolic blood 2021-05-28 19:33:00 78 mm[Hg] [facility] [place] [facility] Heart rate 2021-05-28 19:31:00 93 /min [facility] [place] [facility] Body temperature 2021-05-28 19:31:00 36.94 Jemima [facility] [place] [facility] Respiratory rate 2021-05-28 19:31:00 16 /min [facility] [place] [facility] Body height 2021-05-28 19:31:00 162.6 cm [facility] [place] [facility] Body weight 2021-05-28 19:31:00 69.4 kg [facility] [place] [facility] BMI 2021-05-28 19:31:00 26.26 kg/m2 [facility] [place] [facility] Oxygen saturation in 2021-05-28 19:31:00 99 /min [facility] Arterial blood by [facility] Pulse oximetry Branch Systolic blood 2021-05-11 19:52:00 128 mm[Hg] [facility] [place] [facility] Diastolic blood 2021-05-11 19:52:00 83 mm[Hg] [facility] [place] [facility] Heart rate 2021-05-11 19:52:00 75 /min [facility] [place] [facility] Body temperature 2021-05-11 19:52:00 36.94 Jmeima [facility] [place] [facility] Respiratory rate 2021-05-11 19:52:00 16 /min [facility] [place] [facility] Body weight 2021-05-11 19:52:00 68.04 kg [facility] [place] [facility] Oxygen saturation in 2021-05-11 19:52:00 100 /min [facility] Arterial blood by [facility] Pulse oximetry Branch Systolic blood 2021-03-05 07:44:00 142 mm[Hg] [facility] [place] [facility] Diastolic blood 2021-03-05 07:44:00 72 mm[Hg] [facility] [place] [facility] Heart rate 2021-03-05 07:44:00 111 /min [facility] [place] [facility] Body temperature 2021-03-05 07:44:00 37.06 Jemima [facility] [place] [facility] Respiratory rate 2021-03-05 07:44:00 18 /min [facility] [place] [facility] Body height 2021-03-05 07:44:00 162.6 cm [facility] [place] [facility] Body weight 2021-03-05 07:44:00 63.504 kg [facility] [place] [facility] BMI 2021-03-05 07:44:00 24.03 kg/m2 [facility] [place] [facility] Oxygen saturation in 2021-03-05 07:44:00 100 /min [facility] Arterial blood by [facility] Pulse oximetry Branch Systolic blood 2021-01-18 15:33:00 136 mm[Hg] [facility] [place] [facility] Diastolic blood 2021-01-18 15:33:00 89 mm[Hg] [facility] [place] [facility] Heart rate 2021-01-18 15:33:00 81 /min [facility] [place] [facility] Body height 2021-01-18 15:29:00 162.6 cm [facility] [place] [facility] Body weight 2021-01-18 15:29:00 64.411 kg [facility] [place] [facility] BMI 2021-01-18 15:29:00 24.37 kg/m2 [facility] [place] [facility] Systolic blood 2021-01-16 10:15:00 129 mm[Hg] [facility] [place] [facility] Diastolic blood 2021-01-16 10:15:00 90 mm[Hg] [facility] [place] [facility] Heart rate 2021-01-16 10:15:00 93 /min [facility] [place] [facility] Body temperature 2021-01-16 10:15:00 36.83 Jemima [facility] [place] [facility] Respiratory rate 2021-01-16 10:15:00 18 /min [facility] [place] [facility] Body weight 2021-01-16 10:15:00 60.782 kg [facility] [place] [facility] Oxygen saturation in 2021-01-16 10:15:00 99 /min [facility] Arterial blood by [facility] Pulse oximetry Branch Systolic blood 2021-01-04 14:25:00 128 mm[Hg] [facility] [place] [facility] Diastolic blood 2021-01-04 14:25:00 80 mm[Hg] [facility] [place] [facility] Heart rate 2021-01-04 14:25:00 90 /min [facility] [place] [facility] Body temperature 2021-01-04 14:25:00 36.33 Jemima [facility] [place] [facility] Respiratory rate 2021-01-04 14:25:00 16 /min [facility] [place] [facility] Body height 2021-01-04 14:25:00 162.6 cm [facility] [place] [facility] Body weight 2021-01-04 14:25:00 64.524 kg [facility] [place] [facility] BMI 2021-01-04 14:25:00 24.42 kg/m2 [facility] [place] [facility] Systolic blood 2020-11-22 19:20:00 123 mm[Hg] [facility] [place] [facility] Diastolic blood 2020-11-22 19:20:00 72 mm[Hg] [facility] [place] [facility] Heart rate 2020-11-22 19:20:00 84 /min [facility] [place] [facility] Body temperature 2020-11-22 19:20:00 36.56 Jemima [facility] [place] [facility] Respiratory rate 2020-11-22 19:20:00 16 /min [facility] [place] [facility] Body height 2020-11-22 19:20:00 162.6 cm [facility] [place] [facility] Body weight 2020-11-22 19:20:00 63.078 kg [facility] [place] [facility] BMI 2020-11-22 19:20:00 23.87 kg/m2 [facility] [place] [facility] Systolic blood 2020-10-25 19:26:00 119 mm[Hg] [facility] [place] [facility] Diastolic blood 2020-10-25 19:26:00 68 mm[Hg] [facility] [place] [facility] Heart rate 2020-10-25 19:26:00 80 /min [facility] [place] [facility] Body temperature 2020-10-25 19:26:00 36.61 Jemima [facility] [place] [facility] Respiratory rate 2020-10-25 19:26:00 16 /min [facility] [place] [facility] Body height 2020-10-25 19:26:00 162.6 cm [facility] [place] [facility] Body weight 2020-10-25 19:26:00 63.957 kg [facility] [place] [facility] BMI 2020-10-25 19:26:00 24.20 kg/m2 [facility] [place] [facility] Body temperature 2020-04-04 15:49:00 36.89 Jemima [facility] [place] [facility] Body height 2020-04-04 15:49:00 162.6 cm [facility] [place] [facility] Body weight 2020-04-04 15:49:00 65 kg [facility] [place] [facility] BMI 2020-04-04 15:49:00 24.60 kg/m2 Universi ty [facility] Systolic blood 2020-03-22 18:40:00 121 mm[Hg] [facility]iver [facility]ity [facility] Diastolic blood 2020-03-22 18:40:00 82 mm[Hg] [facility]ive [facility]ity [facility] Heart rate 2020-03-22 18:40:00 82 /min Universi ty [facility] Respiratory rate 2020-03-22 18:40:00 14 /min [facility] Oxygen saturation in 2020-03-22 18:40:00 97 /min [facility] by [facility] Pulse oximetry Branch Body temperature 2020-03-22 17:42:00 36.28 Jemima [facility] Body height 2020-03-22 14:32:00 162.6 cm Universi ty [facility] Body weight 2020-03-22 14:32:[address] [facility] BMI 2020-03-22 14:32:00 22.31 kg/m2 [facility]i [facility] Body temperature 2020-03-21 20:55:00 37.06 Jemima [facility] Body temperature 2020-02-01 20:24:00 36.72 Jemima [facility] Body weight 2020-02-01 20:24:[address] [facility] Respiratory rate 2023-01-26 17:54:00 20 /min [facility] Body height 2023-01-26 17:54:00 162.6 cm [facility] Oxygen saturation in 2023-01-26 17:54:00 99 /min [facility] Arterial blood by Medical Ce nter Pulse oximetry Systolic blood 2023-01-26 17:54:00 141 mm[Hg] [facility] Diastolic blood 2023-01-26 17:54:00 89 mm[Hg] [facility] Heart rate 2023-01-26 17:54:00 145 /min [facility] Body temperature 2023-01-26 17:54:00 36.67 Jemima [facility] Procedures Procedure Date / Time Performed Performing Clinician Sour e POCT TEST 2023-02-25 23:35:00 Guillermo Rosas [facility] Medical [place] COMP. METABOLIC PANEL 2023-02-25 23:34:00 Guillermo Rosas [facility] ([id number]) Medical Branch CBC WITH DIFF 2023-02-25 23:34:00 Guillermo Rosas [facility] URINALYSIS 2023-02-25 23:34:00 Guillermo Rosas [place] [facility] NOTICE OF PRIVACY 2023-02-25 22:56:09 Doctor Unassigned, No [facility] [place] [facility] Name Medical Branch CONSENT/REFUSAL FOR 2023-02-25 22:55:24 Doctor Unassigned, No [facility] [place] DI[facility]IS AND Name Medical Branch TREATMENT ECG 12-LEAD 2023-01-26 17:48:00 Unknown, Hl7 Doctor [facility] ECG 12-LEAD 2023-01-26 17:48:00 Unknown, Hl7 Doctor [facility] ECG 12-LEAD 2023-01-26 17:48:00 Unknown, Hl7 Doctor [facility] EKG-SCANNED 2023-01-26 00:00:00 Provider, Katiuska [facility] Scanning Center RAPID STREP SCREEN FOR 2021-10-09 00:01:00 Guillermo Rosas [facility] GROUP A Medical Branch RAPID INFLUENZA A/B 2021-10-09 00:01:00 Guillermo Rosas [facility] COVID-19 (ID NOW RAPID 2021-10-09 00:01:00 Guillermo Rosas [facility] TESTING) Medical Branch CONSENT/REFUSAL FOR 2021-10-08 23:37:53 Doctor Unassigned, No [facility] [place] [facility] AND Name Medical Branch TREATMENT RAPID STREP SCREEN FOR 2021-09-05 00:47:00 [facility] COVID-19 (ID NOW RAPID 2021-09-05 00:47:00 [facility] Medical Branch CONSENT/REFUSAL FOR 2021-09-04 22:11:13 Doctor Unassigned, No [facility] [place] DIAGNOSIS AND Name Medical Branch TREATMENT RAPID STREP SCREEN FOR 2021-05-30 19:19:00 Yuki Ferguson [facility] GROUP A Medical Branch ADC,CLC OR LCC ONLY - 2021-05-30 19:19:00 Yuki Ferguson [facility] INFLUENZA A & B DIRECT Medical B ranch ANTIGEN COVID-19 (ID NOW RAPID 2021-05-30 19:19:00 Yuki Ferguson [facility] TESTING) Medical Branch XR CHEST 1 VW 2021-05-30 18:41:21 Yuki Ferguson [facility] Medical Branch CONSENT/REFUSAL FOR 2021-05-30 17:21:37 Doctor Unassigned, No [facility] [place] DIAGNOSIS AND Name Medical Branch TREATMENT NOTICE OF PRIVACY 2021-03-05 07:37:51 [facility], [facility] CONSENT/REFUSAL FOR 2021-03-05 07:37:33 Doctor Unassigned, No [facility] [place] DIAGNOSIS AND Name Medical Branch TREATMENT XR ANKLE 3+ VW 2021-01-18 15:40:22 Cr Grubbs [facility] BILATERAL Medical Branch POCT TEST 2021-01-16 10:30:00 Karley Aguila [facility] Medical Branch NOTICE OF PRIVACY 2021-01-16 10:08:03 Doctor [facility]igned, [facility] CONSENT/REFUSAL FOR 2021-01-16 10:07:34 Doctor Unassigned, No [facility] [place] DIAGNOSIS AND Name Medical Branch TREATMENT POCT TEST 2021-01-04 14:57:00 Trini Blanc [facility] Medical Branch CONSENT/REFUSAL FOR 2021-01-04 14:11:03 Doctor Unassigned, No [facility] [place] DIAGNOSIS AND Name Medical Branch TREATMENT ASSIGNMENT OF BENEFITS 2020-10-25 18:54:58 Doctor Unassigned, No [facility] Name Medical Branch FL TIME OR 2020-03-22 17:48:10 Dayo [facility] [place] [facility] [place] (NON-REPORTABLE) Medical Branch POCT TEST 2020-03-22 14:10:00 Corina Calderon [facility] Medical Branch CONSENT/REFUSAL FOR 2020-03-22 14:01:02 Doctor Unassigned, No [facility] [place] DIAGNOSIS AND Name [facility] TREATMENT ASSIGNMENT OF BENEFITS 2020-03-22 14:00:38 Doctor Unassigned, No [facility] Name [facility] Branch XR WRIST 3+ VW LEFT 2020-02-01 20:34:24 [facility] Plan of Care Planned Activity Planned Date Details Comments Source Future Scheduled 2023-08-23 [facility]MM Influenza [facility] 00:00:00 Seasonal (>/= 19 yrs) [code = IMM Influenza Seasonal (>/= 19 yrs)] Future Scheduled 2023-07-[address] [facility] Test 00:00:00 (Season Ended) [code Medical Center = INFLUENZA VACCINE (Season Ended)] Future Scheduled 2023-07-[address] [facility] Test 00:00:00 (Season Ended) [code Medical Center = INFLUENZA VACCINE (Season Ended)] Future Scheduled 2022-11-[address] [facility] Test 00:00:00 (12+) [code = Medical Center DEPRESSION SCREENING (12+)] Future Scheduled 2022-11-[address] [facility] Test 00:00:00 (12+) [code = Medical Center DEPRESSION SCREENING (12+)] Future Scheduled 2022-11-[address] [facility] Test 00:00:00 (12+) [code = Medical Center DEPRESSION SCREENING (12+)] Future Scheduled 2022-08-23 [facility]MM Influenza [facility] 00:00:00 Seasonal (>/= 19 yrs) [code = IMM Influenza Seasonal (>/= 19 yrs)] Future Scheduled 2022-08-23 [facility]MM Influenza [facility] 00:00:00 Seasonal (>/= 19 yrs) [code = IMM Influenza Seasonal (>/= 19 yrs)] Future Scheduled 2022-07-[address] [facility] Test 00:00:00 (#1) [code = Medical Center INFLUENZA VACCINE (#1)] Future Scheduled 2022 Screening for [facility] 00:00:00 malignant neoplasm of cervix (procedure) [code = 821929440] Future Scheduled 2022 [facility] 00:00:00 malignant neoplasm of cervix (procedure) [code = 770030489] Future Scheduled [address] [facility] 00[facility] [code = 932651809] Future Scheduled [address] [facility] Test 00:00:00 malignant neoplasm of Medica l Center cervix (procedure) [code = 893391447] Future Scheduled [address] [facility] Test 00:00:00 malignant neoplasm of Medica [facility] Center cervix (procedure) [code = 798609186] Future Scheduled 2022 [facility] 00:00:00 malignant neoplasm of cervix (procedure) [code = 574748816] Future Scheduled 2021-08-23 [facility]MM Influenza [facility] 00:00:00 Seasonal Aug to January (>/= 19 yrs) [code = IMM Influenza Seasonal Aug to January (>/= 19 yrs)] Future Scheduled 2020 DTAP/TDAP/TD VACCINES [facility] 00:[facility]:00 (1 - Tdap) [code = Medical C enter DTAP/TDAP/TD VACCINES (1 - Tdap)] Future Scheduled 2020 DTAP/TDAP/TD VACCINES [facility] 00:00:00 (1 - Tdap) [code = Medical C enter DTAP/TDAP/TD VACCINES (1 - Tdap)] Future Scheduled 2020 DTAP/TDAP/TD VACCINES [facility] 00:00:00 (1 - Tdap) [code = Medical C enter DTAP/TDAP/TD VACCINES (1 - Tdap)] Future Scheduled 2019 HEPATITIS C [facility]CRE[facility]ING [facility] 00:00:00 [code = HEPATITIS C Medical Center SCREENING] Future Scheduled 2019 HEPATITIS C [facility]CRE[facility] 00:00:00 [code = HEPATITIS C Medical Center SCREENING] Future Scheduled 2019 HEPATITIS C [facility] 00:00:00 [code = HEPATITIS C Medical Center SCREENING] Future Scheduled [address] [facility] Test 00:00:00 Counseling and Medical Cente r Screening (12+) [code = Tobacco Cessation Counseling and Screening (12+)] Future Scheduled [address] [facility] Test 00:00:00 Counseling and Medical Cente r Screening (12+) [code = Tobacco Cessation Counseling and Screening (12+)] Future Scheduled [address] [facility] Test 00:00:00 Counseling and Medical Cente r Screening (12+) [code = Tobacco Cessation Counseling and Screening (12+)] Future Scheduled 2006 COVID-19 Vaccine (1) [facility] 00:00:00 [code = COVID-19 Vaccine (1)] Future Scheduled 2001 COVID-19 Vaccine (#1) [facility] 00:00:00 [code = COVID-19 Vaccine (#1)] Future Scheduled 2001 COVID-19 Vaccine (#1) [facility] 00:00:00 [code = COVID-19 Vaccine (#1)] Future Scheduled 2001 COVID-19 VACCINE [facility]00 [code = COVID-[address] VACCINE (#1)] Future Scheduled 2001 COVID-19 VACCINE (#1) [facility] 00:00:00 [code = COVID-[address] VACCINE (#1)] Future Scheduled 2001 COVID-19 VACCINE (#1) [facility] 00:00:00 [code = COVID-[address] VACCINE (#1)] Future Scheduled 2001 COVID-19 Vaccine (#1) [facility] 00:00:00 [code = COVID-19 Vaccine (#1)] Future Scheduled 2001 Fluoride Varnish [facility] 00:00:00 [code = Fluoride Varnish] Encounters Start End Encounter Admission Attending Care Care Encounter Source Date/Time Date/Time Type Type Clinicians Facility Department ID 2021-09-23 Emergency [facility] [id number] Univers 06:51:59 ity [facility] 2021-09-23 Emergency [facility] [id number] Univers 02:21:03 ity [facility] 2021-09-22 Emergency [facility] [id number] Univers 17:49:04 ity [facility] 2021-09-22 Emergency [facility] [id number] Univers 12:25:45 ity [facility] 2021-09-22 Emergency [facility] [id number] Univers 00:58:09 [facility] 2021-09-19 Outpatient Alicia [facility] [id number] Univers 18:58:12 [facility] 2023-03-13 2023-03-13 Outpatient [facility] [id number] K[place] 17:28:58 17:28:58 0421 [place] 2023-02-27 2023-02-27 Outpatient [facility] [id number] K[place]on 14:31:04 14:31:04 0407 F [place] 2023-02-25 2023-02-25 Emergency X ROSAS [facility] ERT [id number] Univers 18:01:00 21:54:00 [facility] 2023-02-25 2023-02-25 [facility] [id number] Univers 18:01:00 21:54:00 Guillermo Solorzano [place] [id number] [facility] [id number] [facility] [id number] [place] [address] Branch 2023-02-20 2023-02-20 Outpatient [facility] [id number] K[place]on 16:22:24 16:22:24 0331 [place] 2023-01-26 2023-01-26 Emergency [facility] [id number] 19:23:00 20:26:00 [facility] 2023-01-26 2023-01-26 Emergency ER [facility] Emergency [id number] SLE 19:23:00 20:26:00 [facility] 2023-01-26 2023-01-26 Emergency [facility] [id number] [facility] 19:23:00 20:26:00 [facility] 2023-01-26 2023-01-26 Orders [facility] [id number] 00:00:00 00:00:00 Only [facility] 2023-01-26 2023-01-26 Travel [facility] [id number] [facility] 00:[facility] 00:00:00 [facility] 2023-01-26 2023-01-26 Orders [facility] [id number] 00:00:00 00:00:00 Only [facility] 2023-01-26 2023-01-26 Travel [facility] [id number] [facility] 00:[facility]00 00:00:00 [facility] 2021-11-26 2021-11-26 Outpatient R DAVID, [facility] [id number] Univers 12:15:00 12:15:00 ATTENDING [facility] 2021-11-23 2021-11-23 [id number] Univers 20:30:00 20:30:00 KATY [facility] 2021-10-08 2021-10-08 [facility] [id number] Univers 17:48:00 20:16:00 GUILLERMO [facility] 2021-10-08 2021-10-08 Emergency [facility] [id number] Univers 17:48:00 20:16:00 Guillermo VALLEJO [id number] i ty of [place] [id number] [facility] [id number] [address] 2021-09-04 2021-09-04 Emergency [facility] [id number] Univers 17:22:00 21:08:00 Riya Vallejo [id number] i ty of [place] [id number] [facility] [id number] [address] 2021-09-04 2021-09-04 Emergency X [facility] ERT [id number] Univers 17:22:00 21:08:00 RIYA [facility] 2021-06-07 2021-06-07 Patient Suly [facility] [id number] Univers 00:00:00 00:00:00 Secure Msg Lorrie Monahan MULTISPEC [id number] [id number] [id number] [address] [facility] 2021-06-04 2021-06-04 Patient Suly [facility] [id number] Univers 00:00:00 00:00:00 Secure Msg Lorrie Monahan MULTISPEC [id number] [id number] [id number] [address] DIABETES [facility] 2021-06-03 2021-06-03 Patient Suly [facility] [id number] Univers 00:00:00 00:00:00 Secure Msg Lorrie Monahan MULTISPEC [id number] ity of [place] [id number] [facility] [place] [id number] [address] DIABETES [facility] 2021-06-03 2021-06-03 [facility] [id number] Univers 00:00:00 00:00:00 Secure Mslogan Monahan MULTISPEC [id number] ity of [place] [id number] [facility] [place] [id number] [address] DIABETES [facility] 2021-05-30 2021-05-30 Emergency [facility] [id number] Univers 14:40:00 16:58:00 Yuki Vallejo [id number] [id number] [phone] [facility] 084 Branch 2021-05-29 2021-05-29 [facility] [id number] Univers 00:00:00 00:00:00 Secure Mslogan Monahan MULTISPEC [id number] [id number] [id number] [facility] AND [address] DIABETES CLINIC 2021-05-28 2021-05-28 Quality Control Lead Vtc-Lab [facility] [id number] Univers 15:24:56 15:39:56 Visit Lorrie Tubbs 350.1. 13.10 [id number] [id number] [facility] AND AREVALO [address] [facility] 2021-05-28 2021-05-28 Office Suly [facility] [id number] Univers 14:25:15 15:25:29 Visit Lorrie GRANTPEC [id number] ity of [place] [id number] [facility] [place] [id number] [facility] AND [address] DIABETES [facility] 2021-05-28 2021-05-28 Outpatient R SULY [facility] [id number] Univers 14:30:00 14:30:00 LORRIE galicia [facility] 2021-05-25 2021-05-25 Patient Suly [facility] [id number] Univers 00:00:00 00:00:00 Secure Msg Lorrie GRANTPEC [id number] ity of [place] [id number] [facility] [place] [id number] [address] DIABETES [facility] 2021-05-11 2021-05-11 Emergency [facility] [id number] Univers 14:53:00 15:14:00 Collette Vallejo [id number] ity of [place] [id number] [facility] [place] [id number] [address] 2021-03-22 2021-03-22 Telephone [facility] [id number] Univers 00:00:00 00:00:00 Trini Howard CASTING SUPERVISOR [id number] ity of [facility] [id number] Fidel as MATERNAL [id number] Med ical & CHILD [address] [place] [place] [address] 2021-03-05 2021-03-05 Emergency [facility] [id number] Univers 02:46:00 03:09:00 Heriberto Vallejo 350.1.13.10 i ty of [place] 4.2.7.2.686 [facility] [phone] [address] 2021-01-18 2021-01-18 Hospital [facility] 1.2.840.114 [id number] Univers 09:40:22 23:59:00 Encounter Cr Monahan [facility] [id number] ity of Surgical 4.2.7.2.686 Fidel as Specialti [phone] Me dical es 809 [facility] 2021-01-18 2021-01-18 [facility]patient [facility] [id number] Univers 09:40:22 23:59:00 [facility] 2021-01-18 2021-01-18 Office [facility] [id number] Univers 09:25:51 09:57:12 Visit Cr [facility] 350.1.13.10 it y of Surgical 4.2.7.2.686 Fidel as Specialti [phone] Tx dical es 198 [facility] 2021-01-16 2021-01-16 Emergency [facility] [id number] Univers 04:13:00 04:48:00 Marlojoefarzaneh Jeanine Vallejo 350.1.13.10 ity of [place] 4.2.7.2.686 [facility] [phone] [address] 2021-01-04 2021-01-04 Office [facility] [id number] Univers 08:13:15 08:58:39 Visit Trini Howard [employer]STING SUPERVISOR 350.1.13.10 ity of REGIONAL 4.2.7.2.686 Fidel as MATERNAL [phone] Med ical & CHILD 107 [facility] 2021-01-04 2021-01-04 [facility] [id number] Univers 08:15:00 08:15:00 TRINI westfall o f [facility] 2021-01-04 2021-01-04 Orders Doctor MARIA TERESA 1.2.840.114 [id number] Univers 00:00:00 00:00:00 Only Unassigned, GISELA 350.1.13.10 ity of [place] [facility] 4.2.7.2.686 Fidel as [phone] [address] 2020-12-04 2020-12-04 [facility] [id number] Univers 00:00:00 00:00:00 Trini C CASTING SUPERVISOR 350.1.13.10 ity of [facility] 4.2.7.2.686 Fidel as MATERNAL [phone] Med ical & CHILD [address] [place] [address] 2020-11-22 2020-11-22 Office [facility] 1.2.463.610 [id number] Univers 13:11:42 13:46:36 Visit Trini C CASTING SUPERVISOR 350.1.13.10 ity of [place] [address].2.7.2.686 Fidel as MATERNAL [phone] Med ical & CHILD [address] [place] [address] 2020-11-22 2020-11-22 [facility] [id number] Univers 13:15:00 13:15:00 TRINI westfall o grayson [facility] 2020-10-29 2020-10-29 Telephone [facility] 1.2.840.114 [id number] Univers 00:00:00 00:00:00 Trini C CASTING SUPERVISOR 350.1.13.10 ity of [facility] 4.2.7.2.686 Fidel as MATERNAL [phone] Med ical & CHILD [address] [place] [address] 2020-10-26 2020-10-26 Telephone [facility] 1.2.840.114 [id number] 00:00:00 00:00:00 Trini C CASTING SUPERVISOR 350.1.13.10 [facility] 4.2.7.2.686 MATERNAL [phone] & CHILD [address] [place] [address] 2020-10-26 2020-10-26 Telephone [facility] 1.2.840.114 [id number] Univers 00:00:00 00:00:00 Trini C CASTING SUPERVISOR 350.1.13.10 ity of [facility] 4.2.7.2.686 Fidel as MATERNAL [phone] [facility] & [address] 2020-10-25 2020-10-25 Office [facility] [id number] Univers 13:03:25 13:18:25 Visit Trini C CASTING SUPERVISOR 350.1.13.10 ity of [facility] 4.2.7.2.686 Fidel as MATERNAL [phone] [facility] [address] [place] [address] 2020-10-25 2020-10-25 Outpatient R [facility] [id number] Univers 12:45:00 12:45:00 ity of [facility] 2020-10-25 2020-10-25 Orders Doctor MARIA TERESA 1.2.840.114 [id number] Univers 00:00:00 00:00:00 Only Unassigned, GISELA 350.1.13.10 ity of [place] [facility] 4.2.7.2.686 Fidel as [phone] [address] 2020-10-23 2020-10-23 Outpatient R [facility] [id number] Univers 08:45:00 08:45:00 ity of [facility] 2020-04-04 2020-04-04 Office [facility] [id number] Univers 10:32:05 11:18:56 Visit [facility] 350.1.13.10 ity of [facility] 4.2.7.2.686 [facility] AT [phone] [address] 2020-04-04 2020-04-04 Outpatient R [facility] [id number] Univers 11:00:00 11:00:00 MARIA TERESA ity of [facility] 2020-03-22 2020-03-22 [facility] 1.2.840.114 [id number] Univers 08:59:00 13:45:00 Encounter [facility] 350.1.13.10 ity of [facility] 4.2.7.2.686 [place] [facility] [phone] [address] ([facility]) 2020-03-21 2020-03-21 Nurse Nurse, [facility] General Surgery [facility] 1.2.840.114 [id number] Univers 15:37:12 15:54:01 Visit Maria Teresa Oshea 350.1.13.10 it[place].2.[place] [phone] [place] jeanette nal 377 [facility] 2020-03-21 2020-03-21 [facility] [id number] Univers 15:45:00 15:45:00 MARIA TERESA westfall [facility] 2020-02-01 2020-02-01 Out[facility] [id number] Univers 15:28:25 23:59:00 MARIA TERESA [facility] 2020-02-01 2020-02-01 [facility] 1.2.840.114 [id number] Univers 15:28:00 23:59:00 Encounter Maria Teresa RAO 350.1.13.10 ity of [place].2.[place] AT [phone] [place] jeanette WOODY 809 [facility] 2020-02-01 2020-02-01 Office [facility] [id number] Univers 15:08:48 16:11:33 Visit Maria Teresa RAO 350.1.13.10 ity of [place].2.[place] AT [phone] [place] jeanette MCCULLOUGH 198 [facility] 2020-01-31 2020-01-31 Abstract [facility] [id number] Univers 00:00:00 00:00:00 [place] SPECIALTY 350.1.13.10 ity of [place].2.[place] [phone] [place] jeanette MCCULLOUGH 198 [facility] 2019-06-30 2019-06-30 Telephone Jayashree [facility] 1.2.840.114 [id number] Univers 00:00:00 00:00:00 Trini C 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 METABOLIC PANEL (38750) 2023-02-26 00:20:34 Test Item Value Reference Range Interpretation Comme nts NA (test code = 6863125858) 139 mmol/L 135-145 K (test code = 4689151841) 3.4 mmol/L 3.5-5.0 L CL (test code = 8684642670) 105 mmol/L 98-108 CO2 TOTAL (test code = 0272502786) 22 mmol/L 23-31 L AGAP (test code = 6974567841) 12 2-16 BUN (test code = 8540598807) 12 mg/dL 7-23 GLUCOSE (test code = 0473783525) 86 mg/dL 70-110 CREATININE (test code = 0.66 mg/dL 0.50-1.04 8921752919) TOTAL BILI (test code = 0.7 mg/dL 0.1-1.7 9710753143) CALCIUM (test code = 3196090983) 9.2 mg/dL 8.6-10.6 T PROTEIN (test code = 8357691851) 7.0 g/dL 6.3-8.2 ALBUMIN (test code = 7150688553) 4.6 g/dL 3.5-5.0 ALK PHOS (test code = 2600602344) 58 U/L 34-122 ALTv (test code = 1742-6) 16 U/L 5-35 AST(SGOT) (test code = 8325367937) 17 U/L 13-40 eGFR (test code = 8973316226) 113.1 mL/min/1.73m2 PATTI (test code = PATTI) Association of Glomerular Filtration Rate (GFR) and Staging of Kidney Disease* + +-------- + ------+| GFR (mL/min/1.73 m2) ?| With Kidney Damage ?| ?Without Kidney Damage+ +-- + +| ?>90 ?| ?Stage one ?| ? Normal ?+ +------- + -------+| ?60-89 ?| ?Stage two ?| ? Decreased GFR ? + +-------- + ------+| ?30-59 ?| ?Stage three ?| ? Stage three ? + +-------- + ------+| ?15-29 ?| ?Stage four ? | ? Stage four ?+ +------- + -------+| ?<15 (or dialysis) ? ?| ?Stage five ? | ? Stage five ?+ +------- + -------+ *Each stage assumes the associated GFR level has been in effect for at least three months. ?Stages 1 to 5, with or without kidney disease, indicate chronic kidney disease. Notes: Determination of stages one and two (with eGFR >59mL/min/1.73 m2) requires estimation of kidney damage for at least three months as defined by structural or functional abnormalities of the kidney, manifested by either:Pathological abnormalities or Markers of kidney damage (including abnormalities in the composition of the blood or urine or abnormalities in imaging tests). Lab Interpretation (test code = Abnormal 85205-4) [facility] WITH [id number] 00:09:11 Test Item Value Reference Range Interpretation Comments WBC (test code = 5.64 See_Comment [Automated 9690-2) message] The sy stem which generated this result transmitted reference range : 4.30 - 11.10 10*3/?L. The reference range was not used to interpret this result as normal/abnormal . RBC (test code = 4.36 See_Comment [Automated 931-8) message] The sy stem which generated this result transmitted reference range : 3.93 - 5.25 10*6/?L. The reference range was not used to interpret this result as normal/abnormal . HGB (test code = 12.5 g/dL 11.6-15.0 718-7) HCT (test code = 36.2 % 35.7-45.2 4544-3) MCV (test code = 83.0 fL 80.6-95.5 787-2) MCH (test code = 28.7 pg 25.9-32.8 785-6) MCHC (test code = 34.5 g/dL 31.6-35.1 786-4) RDW-SD (test code = 39.8 fL 39.0-49.9 36874-1) RDW-CV (test code = 13.2 % 12.0-15.5 788-0) PLT (test code = 265 See_Comment [Automated 777-3) message] The sy stem which generated this result transmitted reference range : 166 - 358 10*3/ ?L. The reference r boogie was not used to interpret this result as normal/abnormal . MPV (test code = 10.6 fL 9.5-12.9 26893-1) NRBC/100 WBC (test 0.0 See_Comment [Automat ed code = 2738075486) message] The system which generated this result transmitted reference range : 0.0 - 10.0 /100 WBCs. The refer ence range was not u sed to interpret th is result as normal/abnormal . NRBC x10^3 (test code See_Comment [Auto mated = 1938334944) message] The s ystem which generated this result transmitted reference range : 10*3/?L. The reference range was not used to interpret this result as normal/abnormal . GRAN MAT (NEUT) % 65.4 % (test code = 770-8) IMM GRAN % (test code 0.40 % = 6354423735) LYMPH % (test code = 22.5 % 736-9) MONO % (test code = 7.8 % 5905-5) EOS % (test code = 3.5 % 713-8) BASO % (test code = 0.4 % 706-2) GRAN MAT x10^3(ANC) 3.69 10*3/uL 1.88-7.09 (test code = 8125194331) IMM GRAN x10^3 (test 0.00-0.06 code = 7518464007) LYMPH x10^3 (test code 1.27 10*3/uL 1.32-3.29 L = 731-0) MONO x10^3 (test code 0.44 10*3/uL 0.33-0.92 = 742-7) EOS x10^3 (test code = 0.20 10*3/uL 0.03-0.39 711-2) BASO x10^3 (test code 0.01-0.07 = 704-7) Lab Interpretation Abnormal (test code = 06903-2) [facility] [id number] 23:35:00 Test Item Value Reference Range Interpretation Comments POCT PREG (test code = 1605) negative On board controls acceptable with present C Line (test code = 3574) POCT PREG LOT # (test code = 3575) [id number] POCT PREG TEST DATE (test 12/23/2023 code = 3576) Lab Interpretation (test code = Normal 35476-5) [facility] - INFLUENZA A & B DIRECT [id number] 19:44:38 Test Item Value Reference Range Interpretation Comments Influenza A (test code = 96016-8) Negative Negative Influenza B (test code = 02608-3) Negative Negative Lab Interpretation (test code = Normal 78515-2) [facility] (ID NOW RAPID TESTING)2021-05-30 19:44:28 Test Item Value Reference Range Interpretation Comments SARS-CoV-2 Rapid ID NOW Not Detected Not Detected (test code = 55405-2) PATTI (test code = PATTI) ID NOW COVID-19 Assay is an isothermal nucleic acid amplification test intended for the qualitative detection of nucleic acid from SARS-CoV-2 viral RNA in nasopharyngeal (SPECIAL INVESTIGATOR) specimens. It is used under Emergency Use [...] indicated. Lab Interpretation Normal (test code = 07690-3) [facility] STREP SCREEN FOR GROUP [id number] 19:37:04 Test Item Value Reference Range Interpretation Comments Streptococcus pyogenes (group A) Negative Negative antigen (test code = 43761-8) Lab Interpretation (test code = Normal 12243-2) [facility] 1 [id number] 18:46:37 No acute cardiopulmonary process.EXAM: XR CHEST [...] in size. Trachea isnear midline.IMPRESSIONNo acute cardiopulmonary process.[facility] CenterXR ANKLE 3+ VW [id number] 19:03:39Normal study No fractures or [facility] [id number] 10:30:00 Test Item Value Reference Range Interpretation Comments POCT PREG (test code = 1605) negative On board controls acceptable with present C Line (test code = 3574) POCT PREG LOT # (test code = 3575) [id number] POCT PREG TEST DATE (test 2022-08-22 code = 3576) Lab Interpretation (test code = Normal 74712-8) [facility] [id number] 14:57:00 Test Item Value Reference Range Interpretation Comments POCT PREG (test code = 1605) Negative On board controls acceptable with C Yes Line (test code = 3574) POCT PREG LOT # (test code = 3575) POCT PREG TEST DATE (test code = 3576) [facility] [id number] 14:57:00 Test Item Value Reference Range Interpretation Comments POCT PREG (test code = 1605) Negative On board controls acceptable with C Yes Line (test code = 3574) POCT PREG LOT # (test code = 3575) POCT PREG TEST DATE (test code = 3576) [facility] Center[facility] OR (NON-REPORTABLE)2020-03-22 17:50:24 These images do not require a Radiology diagnostic report.[facility] [id number] 14:13:00 Test Item Value Reference Range Interpretation Comments POCT PREG (test code = 1605) Negative On board controls acceptable with C Yes Line (test code = 3574) POCT PREG LOT # (test code = 3575) POCT PREG TEST DATE (test code = 3576) Lab Interpretation (test code = Normal 77342-4) [facility] WRIST 3+ VW [id number] 21:48:25 FINDINGS/IMPRESSION: Radiographs of the left wrist [...] COMPARISON: ?XR WRIST <3 VW RIGHT, 08/15/2019. [facility], Radiant Results Inft User - 02/01/2020 [...] reviewed this study and agree with theabove report.[facility]"
--- NOTE | 2023-04-02 19:15 | ER ---
Nurse's Notes [facility] Name: Jasmyne Chapman Age: 22 yrs Sex: Female : 2000 Arrival Date: 04/02/2023 Time: 18:04 Bed DX3 Private MD: Diagnosis: Local infection of the skin and subcutaneous tissue, unspecified-left heel Presentation: 04/02 18:08 Chief complaint: Patient states: Glass to left heel last week - pt c/o pain to left ld1 foot. Coronavirus screen: At this time, the client does not indicate any symptoms associated with coronavirus-19. Ebola Screen: No symptoms or risks identified at this time. Initial Sepsis Screen: Does the patient meet any 2 criteria? No. Patient's initial sepsis screen is negative. Does the patient have a suspected source of infection? No. Patient's initial sepsis screen is negative. Risk Assessment: Do you want to hurt yourself or someone else? Patient reports no desire to harm self or others. Onset of symptoms was April 02, 2023. 18:08 Method Of Arrival: Ambulatory ld1 18:08 Acuity: ESSENCE 4 ld1 Triage Assessment: 18:09 General: Appears in no apparent distress. comfortable, Behavior is calm, cooperative, ld1 appropriate for age. Pain: Complains of pain in heel of left foot Pain does not radiate. Pain currently is 3 out of 10 on a pain scale. Quality of pain is described as throbbing. EENT: No signs and/or symptoms were reported regarding the EENT system. Neuro: Level of Consciousness is awake, alert, obeys commands, Oriented to person, place, time, situation. Cardiovascular: Capillary refill < 3 seconds Patient's skin is warm and dry. Respiratory: Airway is patent Respiratory effort is even, unlabored. GI: Abdomen is flat, non-distended. : No signs and/or symptoms were reported regarding the genitourinary system. Derm: No signs and/or symptoms reported regarding the dermatologic system. Musculoskeletal: No signs and/or symptoms reported regarding the musculoskeletal system. Historical: - Allergies: 18:09 NKDA; ld1 - PMHx: 18:09 Bipolar disorder; ld1 - PSHx: 18:09 Tonsillectomy; ULNAR SHORTENING OF LEFT WRIST; ld1 - Immunization history:: Adult Immunizations up to date, Client reports receiving the 2nd dose of the Covid vaccine. - Social history:: Smoking status: Patient denies any tobacco usage or history of. Patient/guardian denies using alcohol. Screenin:37 [facility] ED Fall Risk Assessment (Adult) History of falling in the last 3 months, vc1 including since admission No falls in past 3 months (0 pts) Confusion or Disorientation No (0 pts) Intoxicated or Sedated No (0 pts) Impaired Gait No (0 pts) Mobility Assist Device Used Yes (1 pt) Altered Elimination No (0 pt) Score/Fall Risk Level 0 - 2 = Low Risk Oriented to surroundings, Maintained a safe environment, Educated pt \T\ family on fall prevention, incl call for assistance when getting out of bed. Abuse screen: Denies threats or abuse. Nutritional screening: No deficits noted. Tuberculosis screening: No symptoms or risk factors identified. Assessment: 19:36 Reassessment: No changes from previously documented assessment. Patient and/or family vc1 updated on plan of care and expected duration. Pain level reassessed. Patient is alert, oriented x 3, equal unlabored respirations, skin warm/dry/pink. Vital Signs: 18:08 BP 138 / 83; Pulse 109; Resp 16; Temp 97.9(TE); Pulse Ox 98% on R/A; Weight 65.77 kg; ld1 Height 5 ft. 4 in. ; Pain 3/10; 18:08 Body Mass Index 24.89 (65.77 kg, 162.56 cm) ld1 18:08 Pain Scale: Adult ld1 ED Course: 18:05 Patient arrived in ED. rg4 18:09 Triage completed. ld1 18:09 Arm band placed on right wrist. ld1 18:16 Barry Monroe PA is PHCP. cp 18:16 Raul Tannre MD is Attending Physician. cp 18:58 XRAY Heel Os Calcis (calcaneus) In Process Unspecified. EDMS 19:00 Patient has correct armband on for positive identification. placed in chair. vc1 19:37 No provider procedures requiring assistance completed. Patient did not have IV access vc1 during this emergency room visit. Crutch training done. Administered Medications: No medications were administered Medication: 19:40 VIS not applicable for this client. vc1 Outcome: 19:14 Discharge ordered by . cp 19:38 Discharged to home ambulatory, with crutches. vc1 19:38 Condition: good 19:38 Discharge instructions given to patient, Instructed on discharge instructions, follow up and referral plans. medication usage, crutch walking, Demonstrated understanding of instructions, follow-up care, medications, crutch walking, Prescriptions given X 2. 19:40 Patient left the ED. vc1 Signatures: Dispatcher [employer] EDMS Barry Monroe PA PA cp Garcia, Rubi rg4 Diane Nolen RN RN ld1 Chelsey Cerda RN RN vc1
--- NOTE | 2023-04-02 19:15 | EDPHYS ---
Physician Documentation [facility] Name: Jasmyne Chapman Age: 22 yrs Sex: Female : 2000 Arrival Date: 04/02/2023 Time: 18:04 Bed DX3 Private MD: ED Physician Raul Tanner HPI: 04/02 18:30 This 22 yrs old Female presents to ER via Ambulatory with complaints of Glass In Foot. cp 18:30 The patient presents with pain, that is acute. The complaints affect the heel of left cp foot. Context: resulted from patient reports stepping on broken glass last week and was able to remove a piece a couple days ago, but left heel pain continues. 18:30 Patient reports being bare foot when stepping on glass and tetanus UTD. cp Historical: - Allergies: 18:09 NKDA; ld1 - PMHx: 18:09 Bipolar disorder; ld1 - PSHx: 18:09 Tonsillectomy; ULNAR SHORTENING OF LEFT WRIST; ld1 - Immunization history:: Adult Immunizations up to date, Client reports receiving the 2nd dose of the Covid vaccine. - Social history:: Smoking status: Patient denies any tobacco usage or history of. Patient/guardian denies using alcohol. ROS: 18:35 Constitutional: Negative for body aches, chills, fever, poor PO intake. cp 18:35 Respiratory: Negative for cough, shortness of breath, wheezing. 18:35 Abdomen/GI: Negative for abdominal pain, nausea, vomiting, and diarrhea. 18:35 MS/extremity: Positive for pain, tenderness, of the heel of left foot. 18:35 All other systems are negative. Exam: 18:40 Constitutional: The patient appears in no acute distress, alert, awake, comfortable, cp non-toxic, well developed, well nourished. 18:40 Head/Face: Normocephalic, atraumatic. cp 18:40 Chest/axilla: Inspection: normal. 18:40 Cardiovascular: Rate: normal. 18:40 Respiratory: the patient does not display signs of respiratory distress, Respirations: normal, no use of accessory muscles, no retractions, labored breathing, is not present. 18:40 Musculoskeletal/extremity: Extremities: grossly normal except: noted in the heel of left foot: pain, tenderness, mild swelling noted, mild erythema, superficial puncture wound noted. Vital Signs: 18:08 BP 138 / 83; Pulse 109; Resp 16; Temp 97.9(TE); Pulse Ox 98% on R/A; Weight 65.77 kg; ld1 Height 5 ft. 4 in. ; Pain 3/10; 18:08 Body Mass Index 24.89 (65.77 kg, 162.56 cm) ld1 18:08 Pain Scale: Adult ld1 MDM: 18:16 Patient medically screened. cp 19:00 Differential diagnosis: closed fracture, foreign body, cellulitis, abscess. cp 19:14 Data reviewed: vital signs, nurses notes, radiologic studies, plain films, and as a cp result, I will discharge patient. 19:14 Counseling: I had a detailed discussion with the patient and/or guardian regarding: the cp historical points, exam findings, and any diagnostic results supporting the discharge/admit diagnosis, to return to the emergency department if symptoms worsen or persist or if there are any questions or concerns that arise at home. 04/02 18:18 Order name: XRAY Heel Os Calcis (calcaneus); Complete Time: 19:33 cp 04/02 19:33 Interpretation: Report reviewed. cp 04/02 19:24 Order name: Crutches; Complete Time: 19:36 cp Administered Medications: No medications were administered Disposition: 04/03 09:00 Co-signature as Attending Physician, Raul Tanner MD I reviewed the patient's care rt provided by the Advanced Practice Provider and agree with the diagnosis and treatment plan. Disposition Summary: 04/02/23 19:14 Discharge Ordered Location: Home cp Problem: new cp Symptoms: are unchanged cp Condition: Stable cp Diagnosis - Local infection of the skin and subcutaneous tissue, unspecified - left heel cp Followup: cp - With: Private Physician - When: 2 - 3 days - Reason: Worsening of condition Discharge Instructions: - Discharge Summary Sheet cp - Wound Infection, Ddqy-[id number] cp Forms: - Medication Reconciliation Form cp - Thank You Letter cp - Antibiotic Education cp - Prescription Opioid Use cp Prescriptions: - Cephalexin 500 mg Oral Capsule - take 1 capsule by ORAL route every 8 hours for 10 days; 30 capsule; Refills: 0, cp Product Selection Permitted - Ibuprofen 800 mg Oral Tablet - take 1 tablet by ORAL route every 8 hours As needed take with food; 30 tablet; cp Refills: 0, Product Selection Permitted Signatures: Dispatcher [employer] EDMS Barry Monroe PA PA cp Diane Nolen RN RN ld1 Raul Tanner MD MD rt Corrections: (The following items were deleted from the chart) 05:22 05:20 MS/extremity: Positive for pain, tenderness, of the heel of left foot, cp cp 05:22 05:20 Constitutional: Negative for body aches, chills, fever, poor PO intake, cp cp 05:22 05:20 Respiratory: Negative for cough, shortness of breath, wheezing, cp cp 05:22 05:20 Abdomen/GI: Negative for abdominal pain, nausea, vomiting, and diarrhea, cp cp 05:22 05:20 All other systems are negative, cp cp
--- NOTE | 2023-04-02 19:28 | RAD REPORT ---
EXAM DESCRIPTION: RAD - Os Calcis (Calcaneus) Heel - 04/02/2023 6:56 pm CLINICAL HISTORY: PAIN COMPARISON: No comparisons FINDINGS/IMPRESSION: No acute fracture. No malalignment. No significant focal degenerative changes. No radiopaque foreign body.
[2023-04-02 19:51] VITALS: BP 138/83; TEMP 97.9; O2SAT 98
== END 2023-04-02 19:40 | disposition home or self-care (01) ==
LOC: ER 18:04
DX: L08.9 Local infection of the skin and subcutaneous tissue, unspecified (principal)
CPT/HCPCS: 73650; 99283

== ENCOUNTER 2023-04-25 16:55 | Emergency (ER) | payer OTHER ==
--- OUTSIDE RECORDS SUMMARY | 2023-04-25 17:00 | XMS REPORT | Continuity of Care Document ---
:2000 Author Organization [facility] t Address [address] [facility] [address] [place] [address] Care Team Providers Name Role Phone PCP, PATIENT DOES NOT HAVE A Primary Care Physician UnavailMARIA TERESA Walker Attending Clinician Unavailable GUILLERMO ROSAS Attending Clinician [...] Unavailable Collette Herrera DO Attending Clinician Jayashree [facility], Trini Howard Attending Clinician [phone] Heriberto Mcginnis MD Attending Clinician Cr Grubbs MD Attending Clinician CR GRUBBS Attending Clinician Unavailable Mingo MEYERS, Karley Solorzano Attending Clinician TRINI BLANC Attending Clinician Unavailable Doctor Unassigned, [place] Attending Clinician Unavailable Maria Teresa Oshea MD Attending Clinician Nurse, [facility] General Surgery Attending Clinician Unavailable Omaira MEYERS, [place] Attending Clinician MARIA TERESA OSHEA Admitting Clinician Unavailable GUILLERMO ROSAS Admitting Clinician Unavailable Maria Teresa Oshea MD Admitting Clinician Payers Payer Name Policy Type Policy Number Effective Date Expiration Date S ource [place] [id number] 2016 OF [facility] 00:00:00 [employer] [id number] 2022 OUT OF NETWORK 00:00:00 Problems Condition Condition Condition Status Onset Resolution Last Treating Co mments Source Name Details Category Date Date Treatment Clinician Date Absence of Absence of Disease Active 2020- U nivers menstruati menstruati 2-12 it y of on on 00:00: [address] Breakthrou Breakthrou Disease Active 2020- U nivers gh gh 2-31 ity of bleeding bleeding 00:00: [place] on on Medical Nexplanon Nexplanon Bran ch Irregular Irregular Disease Active 2020- Uni vers menstrual menstrual 2-03 ity of cycle cycle 00:00: [place] [facility] Well woman Well woman Disease Active 2019-0 U nivers exam exam 3-26 ity of 00:00: [place] [facility] Contracept Contracept Disease Active 2019-0 U nivers [place] 3- ity of management [place] [facility] Nexplanon Nexplanon Disease Active 2019-[address] in place 3- ity of 00:00: [address] Other Other Disease Active 2019-0 Univers depression depression 3- it y of 00:00: [address] Contracept Contracept Disease Active U nivers [place] 3 ity of management [place] [facility] Left wrist Left wrist Disease Active 2014-11 U nivers pain pain 2 ity of 00:00: [address] ADHD ADHD Disease Active Herr (attention (attention 01-26 He alth deficit deficit 00:00: hyperactiv hyperactiv 00 ity ity disorder) disorder) Deliberate Deliberate Disease Active H arris self-cutti self-cutti 01-26 He alth ng ng 00:00: 00 Allergies, Adverse Reactions, Alerts Allergy Allergy Status Severity Reaction(s) Onset Inactive Treating Comm ents Source Name Type Date Date Clinician NO KNOWN Allergy Active [facility] NO KNOWN Drug [facility] Social History Social Habit Start Date Stop Date Quantity Comments Source Gender identity [facility] Sale[facility] alth Sexual orientation [facility] Exposure to 2023-02-15 2023-02-25 Not sure [facility]-CoV-2 (event) 00:00:00 18:19:00 [facility] Alcohol intake 2023-02-25 2023-02-25 0 /d University of 00:00:00 00:00:00 [facility] Tobacco use and 2017-08-24 2017-08-24 Smokeless Universit y of exposure 00:00:00 00:00:00 tobacco non-user [facility] Tobacco Comment 2015-10-25 2015-10-25 Minor Universit y of 00:00:00 00:00:00 [facility] Sex Assigned At 2000 2001 [facility] 00:00:00 00:00:00 [facility] Center Smoking Status Start Date Stop Date Source Never smoked tobacco [facility] Medications Ordered Filled Start Stop Current Ordering Indication Dosage Frequency Signature Comments Components Source Medication Medication Date Date Medication? Clinician (SIG) Name Name traMADoL 2022- No 50mg 50 mg, Univer s (ULTRAM) 02-26 Oral, ity of tablet 50 03:45: 02:48 ONCE, 1 [place] 00 :00 dose, On Medical Thu02/25/23 Branch at 2245, Routine iopamidol 2022- No [id number] 84mL 84 mL, U nivers (ISOVUE 02-26 [...] the evening. Take with meals. ketorolac Yes [id number] 10mg Take 1 Univers 10 mg 02-25 [id number] tablet by ity of tablet 00:00: mouth [place] 00 every 6 Medical (six) Branch hours as needed for Pain (scale 4-6). ondansetron 2020-11 Yes [id number] 4mg Take 1 Univers (ZOFRAN 1-16 tablet by ity of ODT) 4 mg 00:00: mouth [place] disintegrat 00 every 8 Medic al ing tablet (eight) Branch hours as needed for Nausea and Vomiting (N/V). ondansetron 2020-113- No [id number] 4mg Take 1 Univers (ZOFRAN 1-16 -05 [...] al (anaphylax Branch is). methylPREDN 0 Yes [id number] Take by Univers ISolone 4 7-08 mouth ity of mg tablets 00:00: [place]INSTRU [place] 00 CTIONS. Medical follow Branch package directions bromphenira 0 Yes [id number] 5mL Take 5 mL Univers mine-pseudo 7-08 by mouth 4 it y of ephedrine-D 00:00: (four[place] (BROMFED 00 times Medical DM) 2-30-10 daily as Bran ch mg/5 mL needed for syrup Congestion /Allergies , Cold symptoms or Cough. albuterol 0 Yes [id number] 2{puff} Inhale 2 Univers 90 7-08 Puffs ity of mcg/actuati 00:00: every 4 [place] as on inhaler 00 (four) Medical hours as Branch needed for Wheezing or Shortness of Breath. methylPREDN Yes [id number] Take by Univers ISolone 4 7-08 mouth ity of mg tablets 00:00: [place]INSTRU [place] 00 CTIONS. Medical follow Branch package directions bromphenira Yes [id number] 5mL Take 5 mL Univers mine-pseudo 7-08 by mouth 4 it y of ephedrine-D 00:00: (four[place] (BROMFED 00 times Medical DM) 2-30-10 daily as Bran ch mg/5 mL needed for syrup Congestion /Allergies , Cold symptoms or Cough. albuterol Yes [id number] 2{puff} Inhale 2 Univers 90 7-08 Puffs ity of mcg/actuati 00:00: every 4 [place] on inhaler 00 (four) Medical hours as Branch needed for Wheezing or Shortness of Breath. methylPREDN Yes [id number] Take by Univers ISolone 4 7-08 mouth ity of mg tablets 00:00: [place]INSTRU [place] 00 CTIONS. Medical follow Branch package directions bromphenira Yes [id number] 5mL Take 5 mL Univers mine-pseudo 7-08 by mouth 4 it y of ephedrine-D 00:00: (four[place] (BROMFED 00 times Medical DM) 2-30-10 daily as Bran ch mg/5 mL needed for syrup Congestion /Allergies , Cold symptoms or Cough. albuterol Yes [id number] 2{puff} Inhale 2 Univers 90 7-08 Puffs ity of mcg/actuati 00:00: every 4 [place] on inhaler 00 (four) Medical hours as Branch needed for Wheezing or Shortness of Breath. methylPREDN 0 Yes [id number] Take by Univers ISolone 4 7-08 mouth ity of mg tablets 00:00: [place]-INSTRU [place] 00 CTIONS. Medical follow Branch package directions bromphenira Yes [id number] 5mL Take 5 mL Univers mine-pseudo 7-08 by mouth 4 it y of ephedrine-D 00:00: (four[place] (BROMFED 00 times Medical DM) 2-30-10 daily as Bran ch mg/5 mL needed for syrup Congestion /Allergies , Cold symptoms or Cough. albuterol 2021-0 Yes [id number] 2{puff} Inhale 2 Univers 90 7-08 Puffs ity of mcg/actuati 00:00: every 4 [place] on inhaler 00 (four) Medical hours as Branch needed for Wheezing or Shortness of Breath. methylPREDN 0 Yes [id number] Take by Univers ISolone 4 7-08 mouth ity of mg tablets 00:00: [place]-INSTRU [place] 00 CTIONS. Medical follow Branch package directions bromphenira 0 Yes [id number] 5mL Take 5 mL Univers mine-pseudo 7-08 by mouth 4 it y of ephedrine-D 00:00: (four[place] (BROMFED 00 times Medical DM) 2-30-10 daily as Bran ch mg/5 mL needed for syrup Congestion /Allergies , Cold symptoms or Cough. albuterol 0 Yes [id number] 2{puff} Inhale 2 Univers 90 7-08 Puffs ity of mcg/actuati 00:00: every 4 [place] on inhaler 00 (four) Medical hours as Branch needed for Wheezing or Shortness of Breath. methylPREDN 2020-0 Yes [id number] Take by Univers ISolone 4 7-08 mouth ity of mg tablets 00:00: [place]INSTRU [place] 00 CTIONS. Medical follow Branch package directions bromphenira 0 Yes [id number] 5mL Take 5 mL Univers mine-pseudo 7-08 by mouth 4 it y of ephedrine-D 00:00: (four[place] (BROMFED 00 times Medical DM) 2-30-10 daily as Bran ch mg/5 mL needed for syrup Congestion /Allergies , Cold symptoms or Cough. albuterol 2020-0 Yes [id number] 2{puff} Inhale 2 Univers 90 7-08 Puffs ity of mcg/actuati 00:00: every 4 [place] on inhaler 00 (four) Medical hours as Branch needed for Wheezing or Shortness of Breath. methylPREDN 2020-0 Yes [id number] Take by Univers ISolone 4 7-08 mouth ity of mg tablets 00:00: SEE-INSTRU [place] 00 CTIONS. Medical follow Branch package directions bromphenira 2020-0 Yes [id number] 5mL Take 5 mL Univers mine-pseudo 7-08 by mouth 4 it y of ephedrine-D 00:00: (four[place] (BROMFED 00 times Medical DM) 2-30-10 daily as Bran ch mg/5 mL needed for syrup Congestion /Allergies , Cold symptoms or Cough. albuterol Yes [id number] 2{puff} Inhale 2 Univers 90 7-08 Puffs ity of mcg/actuati 00:00: every 4 [place] on inhaler 00 (four) Medical hours as Branch needed for Wheezing or Shortness of Breath. methylPREDN Yes [id number] Take by Univers ISolone 4 7-08 mouth ity of mg tablets 00:00: [place]-INSTRU [place] 00 CTIONS. Medical follow Branch package directions bromphenira Yes [id number] 5mL Take 5 mL Univers mine-pseudo 7-08 by mouth 4 it y of ephedrine-D 00:00: (four[place] (BROMFED 00 times Medical DM) 2-30-10 daily as Bran ch mg/5 mL needed for syrup Congestion /Allergies , Cold symptoms or Cough. albuterol Yes [id number] 2{puff} Inhale 2 Univers 90 7-08 Puffs ity of mcg/actuati 00:00: every 4 [place] on inhaler 00 (four) Medical hours as Branch needed for Wheezing or Shortness of Breath. methylPREDN 3- No [id number] Take by Univers ISolone 4 7-08 04-05 mouth ity of mg tablets 00:00: 00:00 SEE-INSTRU [place] 00 :00 CTIONS. Medical follow Branch package directions bromphenira 3- No [id number] 5mL Take 5 mL Univers mine-pseudo 7-08 04-05 by mouth 4 i ty of ephedrine-D 00:00: 00:00 (four) [place] M (BROMFED 00 :00 times Medical DM) 2-30-10 daily as Bran ch mg/5 mL needed for syrup Congestion /Allergies , Cold symptoms or Cough. albuterol 2022- No [id number] 2{puff} Inhale 2 Univers 90 7-08 04-05 Puffs ity of mcg/actuati 00:00: 00:00 every 4 [place] inhaler 00 :00 (four) Medical hours as Branch needed for Wheezing or Shortness of Breath. cetirizine 1-0 Yes [id number] 10mg Take 1 Univers 10 mg 7-06 tablet by ity of tablet 00:00: mouth [place] (two) Medical times Branch daily. cetirizine 1-0 Yes [id number] 10mg Take 1 Univers 10 mg 7-06 tablet by ity of tablet 00:00: mouth [place] (two) Medical times Branch daily. cetirizine 1-0 Yes [id number] 10mg Take 1 Univers 10 mg 7-06 tablet by ity of tablet 00:00: mouth (two) Medical times Branch daily. cetirizine 1-0 Yes [id number] 10mg Take 1 Univers 10 mg 7-06 tablet by ity of tablet 00:00: mouth [place] (two) Medical times Branch daily. cetirizine 2020-0 Yes [id number] 10mg Take 1 Univers 10 mg 7-06 tablet by ity of tablet 00:00: mouth [place] (two) Medical times Branch daily. cetirizine 2020-0 Yes [id number] 10mg Take 1 Univers 10 mg 7-06 tablet by ity of tablet 00:00: mouth [place] (two) Medical times Branch daily. cetirizine 1-0 Yes [id number] 10mg Take 1 Univers 10 mg 7-06 tablet by ity of tablet 00:00: mouth [place] (two) Medical times Branch daily. cetirizine 1-0 Yes [id number] 10mg Take 1 Univers 10 mg 7-06 tablet by ity of tablet 00:00: mouth [place] (two) Medical times Branch daily. cetirizine 2020-0 Yes [id number] 10mg Take 1 Univers 10 mg 7-06 tablet by ity of tablet 00:00: mouth [place] (two) Medical times Branch daily. cetirizine 2021-0 Yes [id number] 10mg Take 1 Univers 10 mg 7-06 tablet by ity of tablet 00:00: mouth [place] (two) Medical times Branch daily. cetirizine 1-0 Yes [id number] 10mg Take 1 Univers 10 mg 7-06 tablet by ity of tablet 00:00: mouth [place] (two) Medical times Branch daily. cetirizine Yes [id number] 10mg Take 1 Univers 10 mg 7- tablet by ity of tablet 00:00: mouth 2 [place] 00 (two) Medical times Branch daily. cetirizine 2022- No [id number] 10mg Take 1 Univers 10 mg 05-28 04-05 tablet by ity of tablet 00:00: 00:00 mouth 2 [place] 00 :00 (two) Medical times Branch daily. EPINEPHrine 2020- No [id number] .3mg 0.3 mL by Univers (AUVI-Q) 05-28 Intramuscu ity of 0.3 mg/0.3 00:00: 04:59 lar route [place] mL 00 :00 once now Medical injection for 1 Branch dose. EPINEPHrine 2020- No [id number] .3mg 0.3 mL by Univers (AUVI-Q) 05-28 Intramuscu ity of 0.3 mg/0.3 00:00: 04:59 lar route [place] mL 00 :00 once now Medical injection for 1 Branch dose. EPINEPHrine 2020- No [id number] .[id number] 0.3 mL by Univers (AUVI-Q) 05-28 Intramuscu ity of 0.3 mg/0.3 00:00: 04:59 lar route [place] mL 00 :00 once now Medical injection for 1 Branch dose. predniSONE 2020- No [id number] 50mg Take 5 Univers 10 mg 05-11- tablets by ity of tablet 00:00: 04:59 mouth [place] 00 :00 daily for Medical 5 days. Branch predniSONE 2020- No [id number] 1 PO BID x Univers 20 mg 03-29 4 days ity of tablet 00:00: 00:00 [place] 00 :00 Medical Branch benzonatate 2020- No [id number] 200mg Take 1 Univers 200 mg 03-29 capsule by ity of capsule 00:00: 00:00 mouth 3 [place] 00 :00 (three) Medical times Branch daily as needed for Cough for up to 20 doses. ibuprofen 2020- No [id number] 600mg Take 1 Univers 600 mg 5-07 [...] 03/05/21 at Branch 0400, DEANDRA hydrOXYzine Yes [id number] 25mg Take 1 Univers 25 mg 4-13 tablet by ity of tablet 00:00: mouth [place] 00 every 8 Medical (eight) Branch hours as needed for Itching. hydrOXYzine Yes [id number] 25mg Take 1 Univers 25 mg 4-13 tablet by ity of tablet 00:00: mouth [place] 00 every 8 Medical (eight) Branch hours as needed for Itching. hydrOXYzine 2020- No [id number] 25mg Take 1 Univers 25 mg -05 05-19 tablet by ity of tablet 00:00: 00:00 mouth [place] 00 :00 every 8 Medical (eight) Branch hours as needed for Itching. predniSONE 2020- No [id number] 60mg Take 3 Univers 20 mg -05 03-18 tablets by ity of tablet 00:00: 04:59 mouth [place] 00 :00 daily for Medical 4 days. Branch HYDROcodone 2020- No 1{tbl} 1 tablet, Univers -acetaminop 2-24 02-24 Oral, ity of hen (NORCO 11:45: 10:42 ONCE, 1 [place] as 5) 5-325 mg 00 :00 dose, Wed Med ical tablet 1 01/16/21 at [facility] tablet 0545, DEANDRA naproxen Yes [id number] 550mg Take 1 U nivers sodium 550 2-24 tablet by ity of mg tablet 00:00: mouth 2 00 (two) Medical times Branch daily with meals. naproxen Yes [id number] 550mg Take 1 U nivers sodium 550 2-24 tablet by ity of mg tablet 00:00: mouth 2 (two) Medical times Branch daily with meals. naproxen 2020- Yes [id number] 550mg Take 1 U nivers sodium 550 2-24 tablet by ity of mg tablet 00:00: mouth 2 [place] 00 (two) Medical times Branch daily with meals. naproxen 0 Yes [id number] 550mg Take 1 U nivers sodium 550 2-24 tablet by ity of mg tablet 00:00: mouth 2 [place] 00 (two) Medical times Branch daily with meals. naproxen Yes [id number] 550mg Take 1 U nivers sodium 550 2-24 tablet by ity of mg tablet 00:00: mouth 2 [place] 00 (two) Medical times Branch daily with meals. naproxen Yes [id number] 550mg Take 1 U nivers sodium 550 2-24 tablet by ity of mg tablet 00:00: mouth 2 [place] 00 (two) Medical times Branch daily with meals. naproxen 2020- No [id number] 550mg Take 1 Univers sodium 550 2-24 06-19 tablet by ity of mg tablet 00:00: 00:00 mouth 2 [place] :[place] (two) Medical times Branch daily with meals. estradioL 2 2019-11- No [id number] 2mg Take 1 Univers mg tablet 12-14 tablet by ity of 00:00: 05:59 mouth [place] 00 :00 daily for Medical 21 days. Branch estradioL 2 2019-11- No [id number] 2mg Take 1 Univers mg tablet 12-14 tablet by ity of 00:00: 05:59 mouth [place] 00 :00 daily for Medical 21 days. Branch estradioL 2 2019-11- No [id number] 2mg Take 1 Univers mg tablet 12-14 tablet by ity of 00:00: 05:59 mouth [place] 00 :00 daily for Medical 21 days. Branch doxycycline 2019-11- No [id number] 100mg Take 1 Univers 100 mg EC -03 04-12 tablet by ity of tablet 00:00: 05:59 mouth 2 [place] 00 :00 (two) Medical times Branch daily for 7 days. doxycycline 2019-11- No [id number] 100mg Take 1 Univers 100 mg EC - 12-12 tablet by ity of tablet 00:00: 05:59 mouth 2 [place] 00 :00 (two) Medical times Branch daily for 7 days. doxycycline 2019- 2020- No [id number] 100mg Take 1 Univers 100 mg EC 2 12-12 tablet by ity of tablet 00:00: 05:59 mouth 2 [place] 00 :00 (two) Medical times Branch daily for 7 days. doxycycline 2019- 2020- No [id number] 100mg Take 1 Univers 100 mg EC 2- 12-12 tablet by ity of tablet 00:00: 05:59 mouth 2 [place] 00 :00 (two) Medical times Branch daily [...] Slow IV ity of (DILAUDID) 17:47: Push, [place] injection 21 Q5MIN PRN, Medi steve 0.2 mg 10 doses, Branch Starting Gi 03/22/20 at 1247, Until Discontinu ed, Routine, Pain (scale 7-10), PACU
Us e approved by (Faculty): PACU USE -ANESTHESI A SERVICE-HY DROMORPHON E INJECTIONS FENTanyl PF 2020-0 Yes 25ug 25 mcg, Uni vers (SUBLIMAZE 4-30 Slow IV ity of (PF)) 17:47: Push, [place] injection 21 Q5MIN PRN, Medi steve 25 [...] 4-30 Starting ity of e-pf 16:57: Gi [place] (SENSORCAIN 00 03/22/20 at De dical E 1157, Branch W/EPINEPHRI Until NE) 0.25 Discontinu %-1:200,000 ed, injection Routine, Intra-op lactated 2020- No 1000mL at 20 Unive rs ringers IV 03-22 04-30 mL/hr, ity of infusion 14:15: 14:25 1,000 mL, [place] as 1,000 mL 00 :00 IV Medical Infusion, Branch ONCE, 1 dose, Gi 03/22/20 at 0915, Routine, DSU Pre-op HYDROcodone 2020- No [id number] 1{tbl} Take 1 Univers -acetaminop 03-22 05-08 tablet by it y of hen 5-325 00:00: 04:59 mouth [place] mg tablet 00 :00 every 6 Medical (six) Branch hours as needed for Pain (scale 4-6) or Pain (scale 7-10) for up to 7 days. hydrOXYzine 2020-0 Yes Univer s 50 mg 3-03 ity of tablet 00:00: [address] hydrOXYzine 2020-0 Yes Univer s 50 mg 3-03 ity of tablet 00:00: [address] hydrOXYzine 2020-0 Yes Univer s 50 mg 3-03 ity of tablet 00:00: [address] hydrOXYzine 2020-0 Yes Univer s 50 mg 3-03 ity of tablet 00:00: [address] hydrOXYzine 2020-0 Yes Univer s 50 mg 3-03 ity of tablet 00:00: [address] hydrOXYzine 2020-0 Yes Univer s 50 mg 3-03 ity of tablet 00:00: [address] hydrOXYzine 2020-0 Yes Univer s 50 mg 3-03 ity of tablet 00:00: [address] hydrOXYzine 2020-0 Yes Univer s 50 mg 3-03 ity of tablet 00:00: [address] hydrOXYzine 2020-0 Yes Univer s 50 mg 3-03 ity of tablet 00:00: [address] hydrOXYzine 2020-0 Yes Univer s 50 mg 3-03 ity of tablet 00:00: [address] hydrOXYzine 2020-0 Yes Univer s 50 mg 3-03 ity of tablet 00:00: [place] 00 Medical Branch hydrOXYzine 2020-0 Yes Univer s 50 mg 3-03 ity of tablet 00:00: [place] 00 Medical Branch hydrOXYzine 2020-0 Yes Univer s 50 mg 3-03 ity of tablet 00:00: [place] 00 Medical Branch hydrOXYzine 2020-0 Yes Univer s 50 mg 3-03 ity of tablet 00:00: [place] 00 Medical Branch hydrOXYzine 2020-0 Yes Univer s 50 mg 3-03 ity of tablet 00:00: [place] 00 Medical Branch hydrOXYzine 2020-0 Yes Univer s 50 mg 3-03 ity of tablet 00:00: [place] 00 Medical Branch hydrOXYzine 2020-0 Yes Univer s 50 mg 3-03 ity of tablet 00:00: [place] 00 Medical Branch hydrOXYzine 2020-0 Yes Univer s 50 mg 3-03 ity of tablet 00:00: [place] 00 Medical Branch hydrOXYzine 2020-0 Yes Univer s 50 mg 3-03 ity of tablet 00:00: [place] 00 Medical Branch hydrOXYzine 2020-0 Yes Univer s 50 mg 3-03 ity of tablet 00:00: [place] 00 Medical Branch hydrOXYzine 2020-0 Yes Univer s 50 mg 3-03 ity of tablet 00:00: [place] 00 Medical Branch hydrOXYzine 2020-0 Yes Univer s 50 mg 3-03 ity of tablet 00:00: [place] 00 Medical Branch hydrOXYzine 2020-0 Yes Univer s 50 mg 3-03 ity of tablet 00:00: [place] 00 Medical Branch hydrOXYzine 2020-0 2021- No Unive rs 50 mg 3-03 06-19 ity of tablet 00:00: 00:00 [place] 00 :00 Medical Branch OXcarbazepi 2018-0 Yes 300mg Take 300 U nivers ne 300 mg 6-18 mg by ity of tablet 00:00: mouth [place] every Medical evening. Branch OXcarbazepi 2018-0 Yes 300mg Take 300 U nivers ne 300 mg 6-18 mg by ity of tablet 00:00: mouth [place] 00 every Medical evening. Branch OXcarbazepi 2018-0 Yes 300mg Take 300 U nivers ne 300 mg 6-18 mg by ity of tablet 00:00: mouth [place] every Medical evening. Branch OXcarbazepi 2018-0 Yes [...] mg by ity of tablet 00:00: 00:00 [facility] [place] 00 :00 every Medical evening. Branch No known No Univers medications ity of [facility] Vital Signs Vital Name Observation Time Observation Value Comments Source Systolic blood 2023-02-26 02:00:00 123 mm[Hg] Univer sity of pressure [facility] Diastolic blood 2023-02-26 02:00:00 75 mm[Hg] Unive rsity of [facility] Heart rate 2023-02-26 02:00:00 66 /min Universi ty of [facility] Respiratory rate 2023-02-26 02:00:00 16 /min Univ ersity [facility] Oxygen saturation in 2023-02-26 02:00:00 100 /min University of Arterial blood by [facility] Pulse oximetry [place] Body temperature 2023-02-25 23:00:00 37 [facility] Body weight 2023-02-25 23:00:00 68.04 kg Universi ty [facility] HEIGHT 2023-01-26 17:54:00 162.6 cm HEIGHT 2023-01-26 17:54:00 162.6 cm HEIGHT 2023-01-26 17:54:00 162.6 cm Systolic blood 2021-10-08 23:46:00 121 mm[Hg] Univer sity of [facility] Diastolic blood 2021-10-08 23:46:00 72 mm[Hg] Unive rsity of [facility] Heart rate 2021-10-08 23:46:00 92 /min Universi ty [facility] Body temperature 2021-10-08 23:46:00 37 Jemima [facility] ersity [facility] Respiratory rate 2021-10-08 23:46:00 16 /min Univ ersity [facility] Body height 2021-10-08 23:46:00 162.6 cm Universi ty [facility] Body weight 2021-10-08 23:46:00 68.04 kg Universi ty [facility] BMI 2021-10-08 23:46:00 25.75 kg/m2 Universi ty [facility] Oxygen saturation in 2021-10-08 23:46:00 99 /min University of Arterial blood by [facility] Pulse oximetry Branch Systolic blood 2021-09-04 22:20:00 123 mm[Hg] Univer sity of pressure [place] [facility] Diastolic blood 2021-09-04 22:20:00 72 mm[Hg] Unive rsity of pressure [place] [facility] Heart rate 2021-09-04 22:20:00 92 /min Universi ty of [place] [facility] Body temperature 2021-09-04 22:20:00 37.11 Jemima Univ ersity of [place] [facility] Respiratory rate 2021-09-04 22:20:00 18 /min Univ ersity of [place] [facility] Body weight 2021-09-04 22:20:00 72.576 kg Universi ty of [place] [facility] Oxygen saturation in 2021-09-04 22:20:00 100 /min University of Arterial blood by [facility] Pulse oximetry Branch Systolic blood 2021-05-30 17:30:00 115 mm[Hg] Univer sity of pressure [place] [facility] Diastolic blood 2021-05-30 17:30:00 76 mm[Hg] Unive rsity of pressure [place] [facility] Heart rate 2021-05-30 17:30:00 94 /min Universi ty of [place] [facility] Body temperature 2021-05-30 17:30:00 36.94 Jemima Univ ersity of [place] [facility] Respiratory rate 2021-05-30 17:30:00 18 /min Univ ersity of [place] [facility] Body weight 2021-05-30 17:30:00 69.4 kg Universi ty of [place] [facility] BMI 2021-05-30 17:30:00 26.26 kg/m2 Universi ty of [place] [facility] Oxygen saturation in 2021-05-30 17:30:00 99 /min University of Arterial blood by [facility] Pulse oximetry Branch Systolic blood 2021-05-28 19:33:00 128 mm[Hg] Univer sity of pressure [place] [facility] Diastolic blood 2021-05-28 19:33:00 78 mm[Hg] Unive rsity of pressure [place] [facility] Heart rate 2021-05-28 19:31:00 93 /min Universi ty of [place] [facility] Body temperature 2021-05-28 19:31:00 36.94 J[place] Univ ersity of [place] [facility] Respiratory rate 2021-05-28 19:31:00 16 /min [facility] Body height 2021-05-28 19:31:00 162.6 cm [facility] Body weight 2021-05-28 19:31:00 69.4 kg [facility] [place] [facility] BMI 2021-05-28 19:31:00 26.26 kg/m2 [facility] Oxygen saturation in 2021-05-28 19:31:00 99 /min University of Arterial blood by [facility] Pulse oximetry Branch Systolic blood 2021-05-11 19:52:00 128 mm[Hg] [facility] [place] [facility] Diastolic blood 2021-05-11 19:52:00 83 mm[Hg] [facility] [place] [facility] Heart rate 2021-05-11 19:52:00 75 /min [facility] Body temperature 2021-05-11 19:52:00 36.94 Jemima [facility] Respiratory rate 2021-05-11 19:52:00 16 /min [facility] Body weight 2021-05-11 19:52:00 68.04 kg [facility] Oxygen saturation in 2021-05-11 19:52:00 100 /min [facility] of Arterial blood by [facility] Pulse oximetry Branch Systolic blood 2021-03-05 07:44:00 142 mm[Hg] [facility] [place] [facility] Diastolic blood 2021-03-05 07:44:00 72 mm[Hg] [facility] Heart rate 2021-03-05 07:44:00 111 /min [facility] Body temperature 2021-03-05 07:44:00 37.06 Jemima [facility] Respiratory rate 2021-03-05 07:44:00 18 /min [facility] [place] [facility] Body height 2021-03-05 07:44:00 162.6 cm [facility] Body weight 2021-03-05 07:44:00 63.504 kg [facility] BMI 2021-03-05 07:44:00 24.03 kg/m2 [facility] Oxygen saturation in 2021-03-05 07:44:00 100 /min University of Arterial blood by [facility] Pulse oximetry Branch Systolic blood 2021-01-18 15:33:00 136 mm[Hg] [facility] [place] [facility] Diastolic blood 2021-01-18 15:33:00 89 mm[Hg] [facility] [place] [facility] Heart rate 2021-01-18 15:33:00 81 /min [facility] Body height 2021-01-18 15:29:00 162.6 cm [facility] Body weight 2021-01-18 15:29:00 64.411 kg [facility] BMI 2021-01-18 15:29:00 24.37 kg/m2 [facility] Systolic blood 2021-01-16 10:15:00 129 mm[Hg] [facility] [place] [facility] Diastolic blood 2021-01-16 10:15:00 90 mm[Hg] [facility] [place] [facility] Heart rate 2021-01-16 10:15:00 93 /min [facility] Body temperature 2021-01-16 10:15:00 36.83 Jemima [facility] Respiratory rate 2021-01-16 10:15:00 18 /min [facility] Body weight 2021-01-16 10:15:00 60.782 kg [facility] Oxygen saturation in 2021-01-16 10:15:00 99 /min [facility] of Arterial blood by [facility] Pulse oximetry Branch Systolic blood 2021-01-04 14:25:00 128 mm[Hg] [facility] [place] [facility] Diastolic blood 2021-01-04 14:25:00 80 mm[Hg] [facility] Heart rate 2021-01-04 14:25:00 90 /min [facility] Body temperature 2021-01-04 14:25:00 36.33 Jemima [facility] Respiratory rate 2021-01-04 14:25:00 16 /min [facility] Body height 2021-01-04 14:25:00 162.6 cm [facility] Body weight 2021-01-04 14:25:00 64.524 kg [facility] BMI 2021-01-04 14:25:00 24.42 kg/m2 [facility] Systolic blood 2020-11-22 19:20:00 123 mm[Hg] [facility] [place] [facility] Diastolic blood 2020-11-22 19:20:00 72 mm[Hg] [facility] [place] [facility] Heart rate 2020-11-22 19:20:00 84 /min [facility] Body temperature 2020-11-22 19:20:00 36.56 Jemima [facility] Respiratory rate 2020-11-22 19:20:00 16 /min [facility] Body height 2020-11-22 19:20:00 162.6 cm [facility] Body weight 2020-11-22 19:20:00 63.078 kg [facility] BMI 2020-11-22 19:20:00 23.87 kg/m2 [facility] Systolic blood 2020-10-25 19:26:00 119 mm[Hg] [facility] Diastolic blood 2020-10-25 19:26:00 68 mm[Hg] [facility] Heart rate 2020-10-25 19:26:00 80 /min [facility] Body temperature 2020-10-25 19:26:00 36.61 Jemima [facility] Respiratory rate 2020-10-25 19:26:00 16 /min [facility] Body height 2020-10-25 19:26:00 162.6 cm [facility] Body weight 2020-10-25 19:26:00 63.957 kg [facility] BMI 2020-10-25 19:26:00 24.20 kg/m2 [facility] Body temperature 2020-04-04 15:49:00 36.89 Jemima [facility] Body height 2020-04-04 15:49:00 162.6 cm [facility] Body weight 2020-04-04 15:49:00 65 kg [facility] BMI 2020-04-04 15:49:00 24.60 kg/m2 Universi ty [facility] Systolic blood 2020-03-22 18:40:00 121 mm[Hg] Univer sity of pressure [facility] Diastolic blood 2020-03-22 18:40:00 82 mm[Hg] Unive rsity of pressure [facility] Heart rate 2020-03-22 18:40:00 82 /min Universi ty [facility] Respiratory rate 2020-03-22 18:40:00 14 /min [facility] Oxygen saturation in 2020-03-22 18:40:00 97 /min [facility] Arterial blood by [facility] Pulse oximetry Branch Body temperature 2020-03-22 17:42:00 36.28 Jemima [facility] Body height 2020-03-22 14:32:00 162.6 cm Universi ty [facility] Body weight 2020-03-22 14:32:00 58.968 kg Universi [facility] BMI 2020-03-22 14:32:00 22.31 kg/m2 Universi [facility] Body temperature 2020-03-21 20:55:00 37.06 Jemima [facility] Body temperature 2020-02-01 20:24:00 36.72 Jemima [facility] Body weight 2020-02-01 20:24:00 59.24 kg Universi [facility] Respiratory rate 2023-01-26 17:54:00 20 /min [facility] Body height 2023-01-26 17:54:00 162.6 cm [facility] Oxygen saturation in 2023-01-26 17:54:00 99 /min [facility] Arterial blood by Medical Ce nter Pulse oximetry Systolic blood 2023-01-26 17:54:00 141 mm[Hg] [facility] Diastolic blood 2023-01-26 17:54:00 89 mm[Hg] [facility] Heart rate 2023-01-26 17:54:00 145 /min [facility] Body temperature 2023-01-26 17:54:00 36.67 Jemima [facility] Procedures Procedure Date / Time Performed Performing Clinician Sour e POCT TEST 2023-02-25 23:35:00 Guillermo Rosas [facility] Medical [place] COMP. METABOLIC PANEL 2023-02-25 23:34:00 Guillermo Rosas [facility] ([id number]) Medical Branch CBC WITH DIFF 2023-02-25 23:34:00 Guillermo Rosas [facility] URINALYSIS 2023-02-25 23:34:00 Guillermo Rosas [place] [facility] NOTICE OF PRIVACY 2023-02-25 22:56:09 Doctor Unassigned, No [facility] [place] [facility] Name Medical Branch CONSENT/REFUSAL FOR 2023-02-25 22:55:24 Doctor Unassigned, No [facility] [place] DI[facility] AND Name Medical Branch TREATMENT ECG 12-LEAD 2023-01-26 17:48:00 Unknown, Hl7 Doctor [facility] ECG 12-LEAD 2023-01-26 17:48:00 Unknown, Hl7 Doctor [facility] ECG 12-LEAD 2023-01-26 17:48:00 Unknown, Hl7 Doctor [facility] EKG-SCANNED 2023-01-26 00:00:00 Provider, Katiuska [facility] Scanning Center RAPID STREP SCREEN FOR 2021-10-09 00:01:00 Guillermo Rosas [facility] GROUP A Medical Branch RAPID INFLUENZA A/B 2021-10-09 00:01:00 Guillermo Rosas [facility] Branch COVID-19 (ID NOW RAPID 2021-10-09 00:01:00 Guillermo Rosas [facility] TESTING) Medical Branch CONSENT/REFUSAL FOR 2021-10-08 23:37:53 Doctor Unassigned, No [facility] [place] DI[facility] AND Name Medical Branch TREATMENT RAPID STREP SCREEN FOR 2021-09-05 00:47:00 [facility] COVID-19 (ID NOW RAPID 2021-09-05 00:47:00 [facility] Medical Branch CONSENT/REFUSAL FOR 2021-09-04 22:11:13 Doctor Unassigned, No [facility] [place] DIAGNOSIS AND Name Medical Branch TREATMENT RAPID STREP SCREEN FOR 2021-05-30 19:19:00 Yuki Ferguson [facility] GROUP A Medical Branch ADC,CLC OR LCC ONLY - 2021-05-30 19:19:00 Yuki Ferguson [facility] INFLUENZA A & B DIRECT Medical B ranch ANTIGEN COVID-19 (ID NOW RAPID 2021-05-30 19:19:00 Yuki Ferguson [facility] TESTING) Medical Branch XR CHEST 1 VW 2021-05-30 18:41:21 Yuki Ferguson [facility] Medical Branch CONSENT/REFUSAL FOR 2021-05-30 17:21:37 Doctor Unassigned, No [facility] [place] DIAGNOSIS AND Name Medical Branch TREATMENT NOTICE OF PRIVACY 2021-03-05 07:37:51 Doctor Un[facility]igned, No [facility] CONSENT/REFUSAL FOR 2021-03-05 07:37:33 Doctor Unassigned, No [facility] [place] DIAGNOSIS AND Name Medical Branch TREATMENT XR ANKLE 3+ VW 2021-01-18 15:40:22 Cr Grubbs [facility] BILATERAL Medical Branch POCT TEST 2021-01-16 10:30:00 Karley Aguila [facility] Medical Branch NOTICE OF PRIVACY 2021-01-16 10:08:03 Doctor Unassigned, No [facility] Branch CONSENT/REFUSAL FOR 2021-01-16 10:07:34 Doctor Unassigned, No [facility] [place] DIAGNOSIS AND Name Medical Branch TREATMENT POCT TEST 2021-01-04 14:57:[address] [facility] Medical Branch CONSENT/REFUSAL FOR 2021-01-04 14:11:03 Doctor Unassigned, No [facility] [place] DIAGNOSIS AND Name Medical Branch TREATMENT ASSIGNMENT OF BENEFITS 2020-10-25 18:54:58 Doctor Unassigned, No [facility] Name Medical Branch FL TIME OR 2020-03-22 17:48:10 Dayo [facility] [place] (NON-REPORTABLE) Medical Branch POCT TEST 2020-03-22 14:10:00 Corina Calderon [facility] Medical Branch CONSENT/REFUSAL FOR 2020-03-22 14:01:02 Doctor Unassigned, No [facility] [place] DIAGNOSIS AND Name [facility] TREATMENT ASSIGNMENT OF BENEFITS 2020-03-22 14:00:38 Doctor Unassigned, No [facility] Name [facility] Branch XR WRIST 3+ VW LEFT 2020-02-01 20:34:24 [place] [facility] Plan of Care Planned Activity Planned Date Details Comments Source Future Scheduled 2023-08-23 IMM [facility] 00:00:00 Seasonal (>/= 19 yrs) [code = IMM Influenza Seasonal (>/= 19 yrs)] Future Scheduled 2023-08-23 [facility]MM [facility] 00:00:00 Seasonal (>/= 19 yrs) [code = IMM Influenza Seasonal (>/= 19 yrs)] Future Scheduled 2023-08-23 [facility] 00:[facility]00 (12+) [code = [facility] DEPRESSION SCREENING (12+)] Future Scheduled 2022-08-23 IMM Influenza [facility] 00:00:00 Seasonal (>/= 19 yrs) [code = IMM Influenza Seasonal (>/= 19 yrs)] Future Scheduled 2022-08-23 [facility]MM [facility]enza [facility] 00:00:00 Seasonal (>/= 19 yrs) [code = [facility] Influenza Seasonal (>/= 19 yrs)] Future Scheduled 2022-07-[address] [facility] Test 00:00:00 (#1) [code = [facility] INFLUENZA VACCINE (#1)] Future Scheduled 2022 Screening for [facility] 00:00:00 malignant neoplasm of cervix (procedure) [code = 939162023] Future Scheduled 2022 [facility]ening for [facility] 00:00:00 malignant neoplasm of cervix (procedure) [code = 664090916] Future Scheduled 2022 [facility]ening for [facility] 00:00:00 malignant neoplasm of cervix (procedure) [code = 720878574] Future Scheduled 2022 [facility] 00:00:00 malignant neoplasm of cervix (procedure) [code = 897843570] Future Scheduled [address] [facility] Test 00:[facility]:00 malignant neoplasm of [facility] Center cervix (procedure) [code = 563988662] Future Scheduled [address] [facility] [facility] Test 00:00:00 malignant neoplasm of [facility] cervix (procedure) [code = 309824487] Future Scheduled [address] [facility] [facility] Test 00:00:00 malignant neoplasm of [facility] cervix (procedure) [code = 732663523] Future Scheduled [address] [facility] [facility] Test 00:00:00 malignant neoplasm of [facility] Center cervix (procedure) [code = 298958532] Future Scheduled 2022 [facility] 00:00:00 malignant neoplasm of cervix (procedure) [code = 523315122] Future Scheduled [address] [facility] Test 00:00:00 malignant neoplasm of [facility]ica [facility] Center cervix (procedure) [code = 940555250] Future Scheduled 2021-08-23 IMM Influenza [facility] [...] Emy ter VACCINE (#1)] Future Scheduled 2001 [facility] Test 00:00:00 [code = Fluoride Varnish] Encounters Start End Encounter Admission Attending Care Care Encounter Source Date/Time Date/Time Type Type Clinicians Facility Department ID 2021-09-23 Emergency [facility] [id number] [facility]-23 Emergency [facility] [id number] Univers 02:21:03 [facility] 2021-09-22 Emergency [facility] [id number] Univers 17:49:04 [facility] 2021-09-22 Emergency [facility] [id number] Univers 12:25:45 [facility] 2021-09-22 Emergency [facility] [id number] Univers 00:58:09 [facility] 2021-09-19 Outpatient Alicia OSHEA [facility] VLS [id number] Univers 18:58:12 MARIA TERESA [facility] 2023-04-04 2023-04-04 Outpatient SFA SFA [id number] Kevon 12:00:13 12:00:[address] [facility] 2023-03-13 2023-03-13 Outpatient SFA SFA [id number] Kevon 17:28:58 17:28:58 0421 F Michael 2023-02-27 2023-02-27 Outpatient SFA SFA [id number] Kevon 14:31:04 14:31:04 0407 Michael 2023-02-25 2023-02-25 Emergency Magen ROSAS [facility] ERT [id number] Univers 18:01:00 21:54:00 GUILLERMO westfall [facility] 2023-02-25 2023-02-25 [facility] [id number] Univers 18:01:00 21:54:00 Guillermo VALLEJO [id number] [facility] [id number] [facility] [id number] [facility] 084 Branch 2023-02-20 2023-02-[address] [facility] [id number] Kevon 16:22:24 16:22:24 0331 [facility] 2023-01-26 2023-01-26 Emergency [facility] [id number] 19:23:00 20:26:00 [facility] 2023-01-26 2023-01-26 Emergency [facility] [id number] 19:23:00 20:26:00 [facility] 2023-01-26 2023-01-26 Emergency ER [facility] Emergency [id number] SLE 19:23:00 20:26:00 [facility] 2023-01-26 2023-01-[address] [facility] [id number] 00:00:00 00:00:00 Only [facility] 2023-01-26 2023-01-26 Travel [facility] [id number] [facility] 00:[facility] 00:00:00 [facility] 2023-01-26 2023-01-[address] [facility] [id number] 00:00:00 00:00:00 Only [facility] 2023-01-26 2023-01-26 Travel [facility] [id number] [facility] 00:[facility] 00:00:00 [facility] 2021-11-26 2021-11-26 Outpatient Alicia HERNANDEZ [facility] [id number] Univers 12:15:00 12:15:00 ATTENDING ity [facility] 2021-11-23 2021-11-23 [facility] [id number] Univers 20:30:00 20:30:00 KATY [facility] 2021-10-08 2021-10-08 Emergency [facility] E[facility] [id number] Univers 17:48:00 20:16:00 GUILLERMO ity [facility] 2021-10-08 2021-10-08 Emergency [facility] [id number] Univers 17:48:00 20:16:00 Guillermo Solorzano [place] 350.1.13.10 i ty of [place] 4.2.7.2.686 [facility] [phone] [address] 2021-09-04 2021-09-04 Emergency [facility] [id number] Univers 17:22:00 21:08:00 Riya Vargas [place] 350.1.13.10 i ty of [place] 4.2.7.2.686 [facility] [phone] [address] 2021-09-04 2021-09-04 Emergency X [facility] ERT [id number] Univers 17:22:00 21:08:00 RIYA wil [facility] 2021-06-07 2021-06-07 [facility] [id number] Univers 00:00:00 00:00:00 Secure Mslogan Andrew Hero MULTISPEC 350.1.13.10 ity of IALTY 4.2.7.2.686 [facility] [phone] [address] [facility]ES [facility]IN[facility] 2021-06-04 2021-06-04 [facility] [id number] Univers 00:00:00 00:00:00 Secure Msg Lorrie L MULTISPEC 350.1.13.10 ity of IALTY 4.2.7.2.686 [facility] [phone] [address] [facility]ETES [facility]INIC 2021-06-03 2021-06-03 [facility] [id number] Univers 00:00:00 00:00:00 Secure Msg Lorrie Monahan MULTISPEC [id number] ity of IALTY 4.2.7.2.686 [facility] [place] [phone] [address] DIABETES [facility] 2021-06-03 2021-06-03 Patient Suly [facility] [id number] [id number] Univers 00:00:00 00:00:00 Secure Msg Lorrie Monahan MULTISPEC 350.1.13.10 ity of IALTY 4.2.7.2.686 [facility] [place] [phone] [address] DIABETES [facility] 2021-05-30 2021-05-30 Emergency [facility] [id number] Univers 14:40:00 16:58:00 Yuki Vallejo 350.1.13.10 i ty of [place] 4.2.7.2.686 [facility] [place] [phone] [address] 2021-05-29 2021-05-29 [facility] [id number] Univers 00:00:00 00:00:00 Secure Msg Lorrie Monahan MULTISPEC 350.1.13.10 ity of IALTY 4.2.7.2.686 [facility] [place] [phone] [address] DIABETES [facility] 2021-05-28 2021-05-28 Atomic [employer] Vt-Lab [facility] 1.2.840.114 [id number] Univers 15:24:56 15:39:56 Visit Lorrie TubbsPEC 350.1. 13.10 ity of IALTY 4.2.7.2.686 [facility] [place] [phone] [address] DIABETES [facility] 2021-05-28 2021-05-28 Office [facility] 1.2.840.114 [id number] Univers 14:25:15 15:25:29 Visit Lorrie GRANTPEC [id number] ity of IALTY 4.2.7.2.686 [facility] [phone] [facility] AND AREVALO [address] [place] [address] DIABETES CLINIC 2021-05-28 2021-05-28 Outpatient R SULY [facility] [id number] Univers 14:30:00 14:30:00 LORRIE galicia [facility] 2021-05-25 2021-05-25 Patient Suly [facility] 1.2.840.114 [id number] Univers 00:00:00 00:00:00 Secure Msg Lorrie Monahan MULTISPEC 350.1.13.10 ity of IALTY 4.2.7.2.686 [facility] [id number] [facility] AND [address] DIABETES CLINIC 2021-05-11 2021-05-11 Emergency [facility] 1.2.840.114 [id number] Univers 14:53:00 15:14:00 Collette Vallejo 350.1.13.10 ity of [place] 4.2.7.2.686 [facility] [phone] [address] 2021-03-22 2021-03-22 Telephone [facility] 1.2.840.114 [id number] Univers 00:00:00 00:00:00 Trini Howard RAIL SWITCHMAN 350.1.13.10 ity of REGIONAL 4.2.7.2.686 Fidel as MATERNAL [phone] Med ical & CHILD 107 [facility] 2021-03-05 2021-03-05 Emergency [facility] [id number] Univers 02:46:00 03:09:00 Heriberto Vallejo 350.1.13.10 i ty of [place] 4.2.7.2.686 [facility] [phone] [address] 2021-01-18 2021-01-18 Hospital [facility] 1.2.840.114 [id number] Univers 09:40:22 23:59:00 Encounter Cr [facility] 350.1.13.10 ity of Surgical 4.2.7.2.686 Fidel as Specialti [id number] De seemaeliza [facility] 809 [facility] 2021-01-182021-01-18 Outpatient R HUMERA [facility] [id number] Univers 09:40:22 23:59:00 CR ity of [facility] 2021-01-18 2021-01-18 Office Grubbs [facility] [id number] Univers 09:25:51 09:57:12 Visit [facility] 350.1.13.10 it y of Surgical 4.2.7.2.686 Fidel as Specialti [phone] De dical es 198 [facility] 2021-01-16 2021-01-16 Emergency [facility] [id number] Univers 04:13:00 04:48:00 Virgilfarzaneh [facility] 350.1.13.10 ity of [place] 4.2.7.2.686 [facility] [phone] [facility] 084 [place] 2021-01-04 2021-01-04 Office [facility] [id number] Univers 08:13:15 08:58:39 Visit Trini Howard RAIL SWITCHMAN 350.1.13.10 ity of [facility] 4.2.7.2.686 Fidel as MATERNAL [phone] Med ical & CHILD 107 [facility] 2021-01-04 2021-01-04 Outpatient R JAYASHREE [facility] [id number] Univers 08:15:00 08:15:00 TRINI westfall o f [facility] 2021-01-04 2021-01-04 Orders Doctor MOREL 1.2.840.114 [id number] Univers 00:00:00 00:00:00 Only Unassigned, GISELA 350.1.13.10 ity of [place] [facility] 4.2.7.2.686 Fidel as [phone] [facility] 009 [place] 2020-12-04 2020-12-04 [facility]ill [facility] [id number] Univers 00:00:00 00:00:00 Trini Howard RAIL SWITCHMAN 350.1.13.10 ity of [facility] 4.2.7.2.686 Fidel as MATERNAL [phone] Med ical & CHILD [address] [place] [address] 2020-11-22 2020-11-22 Office [facility] [id number] Univers 13:11:42 13:46:36 Visit Trini C RAIL SWITCHMAN 350.1.13.10 ity of REGIONAL 4.2.7.2.686 Fidel as MATERNAL [phone] [facility] ical & CHILD [address] [place] [address] 2020-11-22 2020-11-22 Outpatient [facility] [id number] Univers 13:15:00 13:15:00 TRINI ity o f [facility] 2020-10-29 2020-10-29 [facility]phone [facility] 1.2.840.114 [id number] Univers 00:00:00 00:00:00 Trini C RAIL SWITCHMAN 350.1.13.10 ity of REGIONAL 4.2.7.2.686 Fidel as MATERNAL [phone] [facility] ical & CHILD [address] [place] [address] 2020-10-26 2020-10-26 Telephone [facility] 1.2.840.114 [id number] Univers 00:00:00 00:00:00 Trini C RAIL SWITCHMAN [id number] ity of REGIONAL 4.2.7.2.686 Fidel as MATERNAL [phone] [facility] & CHILD [address] [place] [address] 2020-10-26 2020-10-26 Telephone [facility] [id number] 00:00:00 00:00:00 Trini C RAIL SWITCHMAN [id number] REGIONAL 4.2.7.2.686 MATERNAL [phone] & CHILD [address] [place] [address] 2020-10-25 2020-10-25 Office [facility] [id number] Univers 13:03:25 13:18:25 Visit Trini C RAIL SWITCHMAN 350.1.13.10 ity of REGIONAL 4.2.7.2.686 Fidel as MATERNAL [phone] [facility] ical & CHILD [address] [place] [address] 2020-10-25 2020-10-25 Outpatient R [facility] [id number] Univers 12:45:00 12:45:00 ity [facility] 2020-10-25 2020-10-25 Orders Doctor MARIA TERESA [id number] Univers 00:00:00 00:00:00 Only Unassigned, GISELA 350.1.13.10 ity of [place] [facility] 4.2.7.2.686 Fidel as [phone] [address] 2020-10-23 2020-10-23 Outpatient R [facility] [id number] Univers 08:45:00 08:45:00 ity of [facility] 2020-04-04 2020-04-04 [facility] [id number] Univers 10:32:05 11:18:56 Visit Maria Teresa RAO 350.1.13.10 ity of [facility] [place]2.[place] [phone] De jeanette WOODY [address] [place] [address] 2020-04-04 2020-04-04 [facility] [id number] Univers 11:00:00 11:00:00 MARIA TERESA [facility] 2020-03-22 2020-03-22 [facility] 1.2.840.114 [id number] Univers 08:59:00 13:45:00 Encounter Maria Teresa Hernandez 350.1.13.10 ity of [facility] [place].2.686 [place] [facility] [phone] [address] ([facility]) 2020-03-21 2020-03-21 Nurse Nurse, [facility] General Surgery [facility] 1.2.840.114 [id number] Univers 15:37:12 15:54:01 Visit Maria Teresa Oshea 350.1.13.10 ity of [place].2.686 [place] [facility] [phone] De dicskinny nal [address] [facility] 2020-03-21 2020-03-21 Outpatient R DAYO [facility] [id number] Univers 15:45:00 15:45:00 MARIA TERESA [facility] 2020-02-01 2020-02-01 [facility] [id number] Univers 15:28:25 23:59:00 MARIA TERESA ity of [facility] 2020-02-01 2020-02-01 Hospital [facility] 1.2.840.114 [id number] Univers 15:28:00 23:59:00 Encounter Maria Teresa SPECIALTY 350.1.13.10 it[place].2.[place] [phone] De jeanette MCCULLOUGH 8[address] [facility] 2020-02-01 2020-02-01 Office [facility] [id number] Univers 15:08:48 16:11:33 Visit Maria Teresa SPECIALTY 350.1.13.10 ity [place]2.[place] [phone] De jeanette MCCULLOUGH 198 [facility] 2020-01-31 2020-01-31 [facility] 1.2.000.054 [id number] Univers 00:00:00 00:00:00 [place] SPECIALTY 350.1.13.10 ity of [place]2.[place] [phone] De jeanette MCCULLOUGH 198 [facility] 2019-06-30 2019-06-30 Telephone [facility] 1.2.840.114 [id number] Univers 00:00:00 00:00:00 Trini Howard RAIL SWITCHMAN 350.1.13.10 ity of REGIONAL 4.2.7.2.686 Fidel as MATERNAL [phone] Med ical & CHILD 107 [facility] Results Test Description Test Time Test Comments Results Result Comments Source COMP. METABOLIC PANEL (82221) 2023-02-26 00:20:34 Test Item Value Reference Range Interpretation Comme nts NA (test code = 0226121845) 139 mmol/L 135-145 K (test code = 9960870096) 3.4 mmol/L 3.5-5.0 L CL (test code = 7870967261) 105 mmol/L 98-108 CO2 TOTAL (test code = 2378110578) 22 mmol/L 23-31 L AGAP (test code = 3999142347) 12 2-16 BUN (test code = 1873650488) 12 mg/dL 7-23 GLUCOSE (test code = 6613009624) 86 mg/dL 70-110 CREATININE (test code = 0.66 mg/dL 0.50-1.04 7544005519) TOTAL BILI (test code = 0.7 mg/dL 0.1-1.8 5490203333) CALCIUM (test code = 5320454569) 9.2 mg/dL 8.6-10.6 T PROTEIN (test code = 1182168074) 7.0 g/dL 6.3-8.2 ALBUMIN (test code = 1652899590) 4.6 g/dL 3.5-5.0 ALK PHOS (test code = 2944861736) 58 U/L 34-122 ALTv (test code = 1742-6) 16 U/L 5-35 AST(SGOT) (test code = 3454922105) 17 U/L 13-40 eGFR (test code = 9251399135) 113.1 mL/min/1.73m2 PATTI (test code = PATTI) [...] tests). Lab Interpretation (test code = Abnormal 16027-9) [facility] WITH [id number] 00:09:11 Test Item Value Reference Range Interpretation Comments WBC (test code = 5.64 See_Comment [Automated 6690-2) message] The sy stem which generated this result transmitted reference range : 4.30 - 11.10 10*3/?L. The reference range was not used to interpret this result as normal/abnormal . RBC (test code = 4.36 See_Comment [Automated 789-8) message] The sy stem which generated this [...] RDW-SD (test code = 39.8 fL 39.0-49.9 17286-1) RDW-CV (test code = 13.2 % 12.0-15.5 788-0) PLT (test code = 265 See_Comment [Automated 777-3) message] The sy stem which generated this result transmitted reference range : 166 - 358 10*3/ ?L. The reference r boogie was not used to interpret this result as normal/abnormal . MPV (test code = 10.6 fL 9.5-12.9 91970-2) NRBC/100 WBC (test 0.0 See_Comment [Automat ed code = 1870484807) message] The system which generated this result transmitted reference range : 0.0 - 10.0 /100 WBCs. The refer ence range was not u sed to interpret th is result as normal/abnormal . NRBC x10^3 (test code See_Comment [Auto mated = 4572859713) message] The s ystem which generated this result transmitted reference range : 10*3/?L. The reference range was not used to interpret this result as normal/abnormal . GRAN MAT (NEUT) % 65.4 % (test code = 770-8) IMM GRAN % (test code 0.40 % = 6422238679) LYMPH % (test code = 22.5 % 736-9) MONO % (test code = 7.8 % 5905-5) EOS % (test code = 3.5 % 713-8) BASO % (test code = 0.4 % 706-2) GRAN MAT x10^3(ANC) 3.69 10*3/uL 1.88-7.09 (test code = 0530510922) IMM GRAN x10^3 (test 0.00-0.06 code = 8110633347) LYMPH x10^3 (test code 1.27 10*3/uL 1.32-3.29 L = 731-0) MONO x10^3 (test code 0.44 10*3/uL 0.33-0.92 = 742-7) EOS x10^3 (test code = 0.20 10*3/uL 0.03-0.39 711-2) BASO x10^3 (test code 0.01-0.07 = 704-7) Lab Interpretation Abnormal (test code = 10191-1) [id number] 23:35:00 Test Item Value Reference Range Interpretation Comments POCT PREG (test code = 1605) negative On board controls acceptable with present C Line (test code = 3574) POCT PREG LOT # (test code = 3575) [id number] POCT PREG TEST DATE (test 12/23/2023 code = 3576) Lab Interpretation (test code = Normal 23814-6) [facility],CLC OR LCC ONLY - INFLUENZA A & B DIRECT [id number] 19:44:38 Test Item Value Reference Range Interpretation Comments Influenza A (test code = 54778-2) Negative Negative Influenza B (test code = 30230-4) Negative Negative Lab Interpretation (test code = Normal 58469-9) [facility]COVID[facility] (ID NOW RAPID TESTING)2021-05-30 19:44:28 Test Item Value Reference Range Interpretation Comments SARS-CoV-2 Rapid ID NOW Not Detected Not Detected (test code = 37249-7) PATTI (test code = PATTI) ID NOW COVID-19 Assay is an isothermal nucleic acid amplification test intended for the qualitative detection of nucleic acid from SARS-CoV-2 viral RNA in nasopharyngeal (MECHANIC SOUND TECHNICIAN) specimens. It is used under Emergency Use [...] indicated. Lab Interpretation Normal (test code = 79133-5) [facility] STREP SCREEN FOR GROUP [id number] 19:37:04 Test Item Value Reference Range Interpretation Comments Streptococcus pyogenes (group A) Negative Negative antigen (test code = 23683-7) Lab Interpretation (test code = Normal 38118-1) [facility] 1 [id number] 18:46:37 No acute cardiopulmonary process.EXAM: XR CHEST [...] in size. Trachea isnear midline.IMPRESSIONNo acute cardiopulmonary process.[facility] CenterXR ANKLE 3+ VW [id number] 19:03:39Normal study No fractures or [facility] [id number] 10:30:00 Test Item Value Reference Range Interpretation Comments POCT PREG (test code = 1605) negative On board controls acceptable with present C Line (test code = 3574) POCT PREG LOT # (test code = 3575) [id number] POCT PREG TEST DATE (test 2022-08-22 code = 3576) Lab Interpretation (test code = Normal 65684-0) [facility] [id number] 14:57:00 Test Item Value Reference Range Interpretation Comments POCT PREG (test code = 1605) Negative On board controls acceptable with C Yes Line (test code = 3574) POCT PREG LOT # (test code = 3575) POCT PREG TEST DATE (test code = 3576) [facility] [id number] 14:57:00 Test Item Value Reference Range Interpretation Comments POCT PREG (test code = 1605) Negative On board controls acceptable with C Yes Line (test code = 3574) POCT PREG LOT # (test code = 3575) POCT PREG TEST DATE (test code = 3576) [facility] CenterFL TIME OR (NON-REPORTABLE)2020-03-22 17:50:24 These images do not require a Radiology diagnostic report.[facility] [id number] 14:13:00 Test Item Value Reference Range Interpretation Comments POCT PREG (test code = 1605) Negative On board controls acceptable with C Yes Line (test code = 3574) POCT PREG LOT # (test code = 3575) POCT PREG TEST DATE (test code = 3576) Lab Interpretation (test code = Normal 64985-3) [facility] Center[facility] WRIST 3+ VW [id number] 21:48:25 FINDINGS/IMPRESSION: Radiographs of the left wrist [...] COMPARISON: ?XR WRIST <3 VW RIGHT, 08/15/2019. [facility], Radiant Results Inft User - 02/01/2020 4:49 [...] reviewed this study and agree with theabove report.[facility]"
[2023-04-25] MEDS ORDERED: LIDOCAINE 1% MPF 5 ML VIAL ONE (18:41)
[2023-04-25 19:46] LABS: Hematocrit 36.9 % (36.0-45.0); Lymphocytes % 26.3 % (15.3-44.8); MCV 84.7 fL (80-100); MPV 8.6 fL (7.6-11.3); RBC Red Blood Cell Count 4.36 M/uL (3.86-4.86)
[2023-04-25 19:52] LABS: Specific Gravity < 1.005 (1.005-1.030)
[2023-04-25 19:53] LABS: Specific Gravity < 1.005 (1.005-1.030); Urine Bacteria <20 /HPF (<20); Urine Bilirubin NEGATIVE (Negative); Urine Blood 3+ (OVER) (Negative); Urine Clarity Clear (Clear); Urine Color Colorless (Yellow); Urine Glucose NEGATIVE (Negative); Urine Protein NEGATIVE (Negative); Urine RBC >50 /HPF (None Seen); Urine Urobilinogen Normal (Normal); Urine pH 6.5 (5.0-7.0)
[2023-04-25] MEDS ORDERED: ONDANSETRON 4 MG/2 ML VIAL ONE (19:55)
[2023-04-25] MEDS ORDERED: MORPHINE 4 MG/ML SYR ONE (19:55)
[2023-04-25 20:02] LABS: Albumin 4.2 g/dL (3.4-5.0); Bilirubin Total 0.5 mg/dL (0.2-1.0); Potassium 3.6 mEq/L (3.5-5.1); Protein, Total 7.6 g/dL (6.4-8.2)
[2023-04-25] MEDS ORDERED: FAMOTIDINE 20 MG/2 ML VIAL IV ONE (20:07)
[2023-04-25] MEDS ORDERED: DIPHENHYDRAMINE 50 MG/ML VIAL ONE (20:07)
--- NOTE | 2023-04-25 20:38 | RAD REPORT ---
EXAM DESCRIPTION: CTAbdomen Pelvis W Contrast - 04/25/2023 8:08 pm CLINICAL HISTORY: ABD PAIN COMPARISON: No comparisons TECHNIQUE: CT of the abdomen and pelvis was performed. All CT scans are performed using dose optimization technique as appropriate and may include automated exposure control or mA/KV adjustment according to patient size. FINDINGS: Lower chest: No acute abnormality. Liver: No acute abnormality or suspicious lesions. Biliary: No biliary ductal dilatation. Stomach: No significant focal abnormality. Duodenum: No significant focal abnormality. Pancreas: No significant abnormality. Spleen: No significant abnormality. Adrenal: No suspicious lesions. Kidney/ureter: No hydronephrosis. No renal calculi. Retroperitoneum: No retroperitoneal adenopathy. Vascular: No aneurysm. Bowel: No significant focal abnormality. Normal appendix. Peritoneum: No ascites or free air. Bladder: Grossly unremarkable. Reproductive: No adnexal masses. Bones: No acute fracture. Other: n/a IMPRESSION: No acute intra-abdominal or pelvic finding. Normal appendix.
[2023-04-25] MEDS ORDERED: KETOROLAC 30 MG/ML INJ ONE (22:46)
[2023-04-25] MEDS ORDERED: CEFTRIAXONE 1000 MG/VIAL ONE (22:46)
[2023-04-25] MEDS ORDERED: AZITHROMYCIN 250 MG TAB ONE (22:47)
--- NOTE | 2023-04-25 22:57 | ER ---
Nurse's Notes [facility] Name: Jasmyne Chapman Age: 22 yrs Sex: Female : 2000 Arrival Date: 04/25/2023 Time: 16:55 Bed 11 Private MD: Diagnosis: Pelvic and perineal pain Presentation: 04/25 17:00 Ebola Screen: Patient denies travel to an Ebola-affected area in the 21 days before ll1 illness onset. Risk Assessment: Do you want to hurt yourself or someone else? Patient reports no desire to harm self or others. 17:00 Method Of Arrival: Ambulatory ll1 17:06 Chief complaint: Patient states: Abd pain, MOYA, and nausea since 04/21. Worried about ll1 another ovarian cyst. Started period 04/23/23. Coronavirus screen: Client denies travel out of the [place] in the last 14 days. At this time, the client does not indicate any symptoms associated with coronavirus-19. Initial Sepsis Screen: Does the patient meet any 2 criteria? No. Patient's initial sepsis screen is negative. Does the patient have a suspected source of infection? Yes: Acute abdominal pain. Onset of symptoms was April 21, 2023. 17:06 Acuity: ESSENCE 3 ll1 Triage Assessment: 17:01 General: Appears uncomfortable, Behavior is calm, cooperative, appropriate for age. ll1 Pain: Complains of pain in head Quality of pain is described as aching. Neuro: Reports headache. GI: Reports cramping, nausea. 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 - Social history:: Smoking status: unknown. Screenin:35 [facility] ED Fall Risk Assessment (Adult) History of falling in the last 3 months, kd3 including since admission No falls in past 3 months (0 pts) Confusion or Disorientation No (0 pts) Intoxicated or Sedated No (0 pts) Impaired Gait No (0 pts) Mobility Assist Device Used No (0 pt) Altered Elimination No (0 pt) Score/Fall Risk Level 0 - 2 = Low Risk Maintained a safe environment. Abuse screen: Denies threats or abuse. Denies injuries from another. Nutritional screening: No deficits noted. Tuberculosis screening: No symptoms or risk factors identified. Assessment: 22:34 General: Appears uncomfortable, Behavior is calm, cooperative. Pain: Complains of pain kd3 in suprapubic area. Neuro: Level of Consciousness is awake, alert, obeys commands, Oriented to person, place, time, situation. Respiratory: Airway is patent Trachea midline Respiratory effort is even, unlabored, Respiratory pattern is regular, symmetrical. 22:35 GI: Bowel sounds present X 4 quads. Abdomen is tender to palpation in suprapubic area. kd3 Vital Signs: 17:06 BP 125 / 91; Pulse 108; Resp 16; Temp 98.5; Pulse Ox 100% on R/A; Weight 63.5 kg; ll1 Height 5 ft. 4 in. ; Pain 9/10; 23:09 BP 127 / 82; Pulse 84; Resp 19; Pulse Ox 99% on R/A; kd3 17:06 Body Mass Index 24.03 (63.50 kg, 162.56 cm) ll1 17:06 Pain Scale: Adult ll1 ED Course: 16:56 Patient arrived in ED. rg4 17:01 Aj Gregory PA is [facility] 17:02 Tony Dove MD is Attending Physician. [facility] 17:08 Triage completed. ll1 17:08 Arm band placed on. ll1 19:52 CBC with Diff Sent. kd3 19:52 CMP Sent. kd3 19:52 Lipase Sent. kd3 20:10 CT Abd/Pelvis - IV Contrast Only In Process Unspecified. EDMS 22:35 Patient has correct armband on for positive identification. kd3 23:09 No provider procedures requiring assistance completed. IV discontinued, intact, kd3 bleeding controlled, No redness/swelling at site. Pressure dressing applied. Administered Medications: 20:03 Drug: morphine IVP or IV 4 mg Route: IVP; Infused Over: 4 mins; Site: left antecubital; kd3 20:03 Drug: Ondansetron IVP 4 mg Route: IVP; Site: left antecubital; kd3 20:03 Drug: Famotidine IVP 20 mg Route: IVP; Site: left antecubital; kd3 20:03 Drug: diphenhydrAMINE IVP 25 mg Route: IVP; Site: left antecubital; kd3 22:46 Drug: AZITHromycin PO 1 grams Route: PO; kd3 22:47 Drug: Ketorolac IVP 30 mg Route: IVP; Site: left antecubital; kd3 22:47 Drug: Rocephin IV 1 grams Route: IV; Rate: calculated rate; Site: left antecubital; kd3 23:10 Follow up: IV Status: Completed infusion kd3 Medication: 22:35 VIS not applicable for this client. kd3 Outcome: 22:56 Discharge ordered by . ted 23:09 Discharged to home ambulatory. kd3 23:09 Condition: stable 23:09 Discharge instructions given to patient, family, Instructed on discharge instructions, follow up and referral plans. medication usage, Demonstrated understanding of instructions, follow-up care, medications, Prescriptions given X 1. 23:10 Patient left the ED. kd3 Signatures: Dispatcher [employer] EDMS Aj Gregory PA PA jmm Garcia, Rubi rg4 Calvin Huerta, RN RN ll1 Jody Pretty RN RN kd3
--- NOTE | 2023-04-25 22:57 | EDPHYS ---
Physician Documentation [facility] Name: Jasmyne Chapman Age: 22 yrs Sex: Female : 2000 Arrival Date: 04/25/2023 Time: 16:55 Bed 11 Private MD: ED Physician Tony Dove HPI: 04/25 17:10 This 22 yrs old Female presents to ER via Ambulatory with complaints of Abdominal Pain. [facility] 17:10 Is a 22-year-old female with history of bipolar that presents emerged part with [facility] complaints of left sided pelvic pain which has been ongoing for approximately 3 days ago. Patient states symptoms began after intercourse. Is concerned maybe she injured herself. Denies fever. Denies vomiting.. 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 - Social history:: Smoking status: unknown. ROS: 17:10 Constitutional: Negative for fever, chills, and weight loss, Cardiovascular: Negative jm for chest pain, palpitations, and edema, Respiratory: Negative for shortness of breath, cough, wheezing, and pleuritic chest pain. 17:10 Abdomen/GI: Positive for abdominal pain. 17:10 : Positive for pelvic pain. 17:10 All other systems are negative. Exam: 17:10 Constitutional: This is a well developed, well nourished patient who is awake, alert, jmm and in no acute distress. Head/Face: atraumatic. Eyes: EOMI, no conjunctival erythema appreciated ENT: Moist Mucus Membranes Neck: Trachea midline, Supple Chest/axilla: Normal chest wall appearance and motion. Cardiovascular: Regular rate and rhythm. No edema appreciated Respiratory: Normal respirations, no respiratory distress appreciated 17:10 Back: Normal ROM 17:10 Skin: General appearance color normal MS/ Extremity: Moves all extremities, no obvious deformities appreciated, no edema noted to the lower extremities Neuro: Awake and alert Psych: Behavior is normal, Mood is normal, Patient is cooperative and pleasant 17:10 Abdomen/GI: Inspection: abdomen appears normal, Bowel sounds: normal, Palpation: soft, mild abdominal tenderness, in the left lower quadrant. 17:10 : Pelvic Exam: External exam: is normal, Speculum exam: normal findings, bimanual exam reveals left adnexal tenderness. Vital Signs: 17:06 BP 125 / 91; Pulse 108; Resp 16; Temp 98.5; Pulse Ox 100% on R/A; Weight 63.5 kg; ll1 Height 5 ft. 4 in. ; Pain 9/10; 23:09 BP 127 / 82; Pulse 84; Resp 19; Pulse Ox 99% on R/A; kd3 17:06 Body Mass Index 24.03 (63.50 kg, 162.56 cm) ll1 17:06 Pain Scale: Adult ll1 MDM: 17:12 Patient medically screened. [facility] 04/26 00:29 Differential diagnosis: Ovarian Torsion, Peritonitis, Pelvic Inflammatory Disease, m Tubal Ovarian Abcess, Ureterolithiasis, urinary tract infection. 00:29 Data reviewed: vital signs, nurses notes, lab test result(s), radiologic studies, CT [facility] scan. I considered the following discharge prescriptions or medication management in the emergency department Medications were administered in the Emergency Department. See MAR. Counseling: I had a detailed discussion with the patient and/or guardian regarding: the historical points, exam findings, and any diagnostic results supporting the discharge/admit diagnosis, lab results, radiology results, the need for outpatient follow up, to return to the emergency department if symptoms worsen or persist or if there are any questions or concerns that arise at home. 04/25 17:10 Order name: CBC with Diff; Complete Time: 20:00 [facility] 04/25 17:10 Order name: CMP; Complete Time: 20:11 [facility] 04/25 17:10 Order name: Lipase; Complete Time: 20:11 [facility] 04/25 17:10 Order name: Test, Urine; Complete Time: 20:00 [facility] 04/25 17:10 Order name: Urinalysis w/ reflexes; Complete Time: 20:00 [facility] 04/25 22:06 Order name: GC (GONORR/CHLAMYDIA) Probe [facility] 04/25 22:06 Order name: Wet Prep; Complete Time: 22:58 [facility] 04/25 17:10 Order name: CT Abd/Pelvis - IV Contrast Only; Complete Time: 20:47 [facility] 04/25 17:10 Order name: IV Saline Lock; Complete Time: 19:52 [facility] 04/25 17:10 Order name: Labs collected and sent; Complete Time: 19:52 [facility] Administered Medications: 04/25 20:03 Drug: morphine IVP or IV 4 mg Route: IVP; Infused Over: 4 mins; Site: left antecubital; kd3 20:03 Drug: Ondansetron IVP 4 mg Route: IVP; Site: left antecubital; kd3 20:03 Drug: Famotidine IVP 20 mg Route: IVP; Site: left antecubital; kd3 20:03 Drug: diphenhydrAMINE IVP 25 mg Route: IVP; Site: left antecubital; kd3 22:46 Drug: AZITHromycin PO 1 grams Route: PO; kd3 22:47 Drug: Ketorolac IVP 30 mg Route: IVP; Site: left antecubital; kd3 22:47 Drug: Rocephin IV 1 grams Route: IV; Rate: calculated rate; Site: left antecubital; kd3 23:10 Follow up: IV Status: Completed infusion kd3 Disposition Summary: 04/25/23 22:56 Discharge Ordered Location: Home [facility] Condition: Stable [facility] Diagnosis - Pelvic and perineal pain [facility] Followup: [facility] - With: Private Physician - When: 2 - 3 days - Reason: Recheck today's complaints, Continuance of care, Re-evaluation by your physician Discharge Instructions: - Discharge Summary Sheet [facility] - Pelvic Inflammatory Disease jm - Pelvic Pain, Female [facility] Forms: - Medication Reconciliation Form [facility] - Thank You Letter [facility] - Antibiotic Education [facility] - Prescription Opioid Use [facility] Prescriptions: - Diclofenac Sodium 75 mg Oral Tablet Sustained Release - take 1 tablet by ORAL route 2 times per day; 30 tablet; Refills: 0, Product [facility] Selection Permitted Signatures: Dispatcher [employer] Aj Aguirre PA PA jmm Lewis, Lynsay RN RN ll1 Jody Pretty RN RN kd3
[2023-04-26 00:57] VITALS: TEMP 98.5
[2023-04-26 00:59] VITALS: BP 127/82; O2SAT 99
[2023-04-29 12:55] LABS: C.trachomatis RNA,TMA Not Detected (Not Detected)
== END 2023-04-25 23:10 | disposition home or self-care (01) ==
LOC: ER 16:55
DX: R10.2 Pelvic and perineal pain (principal)
CPT/HCPCS: 96365; 85025; 81001; 36415; 81025; 87210; 83690; 80053; 87590; 87490; 74177; 96375; 99284; Q9967; J1200; J2001; J2405; J0696

== ENCOUNTER 2023-05-04 17:13 | Emergency (ER) | payer OTHER ==
--- OUTSIDE RECORDS SUMMARY | 2023-05-04 17:17 | XMS REPORT | Continuity of Care Document ---
:2000 Author Organization [facility] t Address [address] [facility] [address] [place] [address] Care Team Providers Name Role Phone PCP, [...] Unavailable Collette Herrera DO Attending Clinician Jayashree [facility], Trini Howard Attending Clinician [phone] Heriberto Mcginnis MD Attending Clinician Cr Grubbs MD Attending Clinician CR GRUBBS Attending Clinician Unavailable Mingo MEYERS, Karley Solorzano Attending Clinician TRINI BLANC Attending Clinician Unavailable Doctor Unassigned, Starke Attending Clinician Unavailable Maria Teresa Oshea MD Attending Clinician Nurse, [facility] General Surgery Attending Clinician Unavailable Omaira MEYERS, [place] Attending Clinician MARIA TERESA OSHEA Admitting Clinician Unavailable GUILLERMO ROSAS Admitting Clinician Unavailable Maria Teresa Oshea MD Admitting Clinician Payers Payer Name Policy Type Policy Number Effective Date Expiration Date S ource [place] OF [place] - OUT [id number] 2016 OF [facility] 00:00:00 [employer] [id number] 2022 OUT OF NETWORK 00:00:00 Problems Condition Condition Condition Status Onset Resolution Last Treating Co mments Source Name Details Category Date Date Treatment Clinician Date Absence of Absence of Disease Active 2020- U nivers menstruati menstruati 2-12 it y of on on 00:00: [address] Breakthrou Breakthrou Disease Active 2020- U nivers gh gh 2-31 ity of bleeding bleeding 00:00: [place] on on Medical Nexplanon Nexplanon Bran ch Irregular Irregular Disease Active 2020- Uni vers menstrual menstrual 2-03 ity of cycle cycle 00:00: [place] [facility] Well woman Well woman Disease Active 2019-0 U nivers exam exam 3-26 ity of 00:00: [place] [facility] Contracept Contracept Disease Active 2019-0 U nivers [place] 3- [place] of management [place] [facility] Nexplanon Nexplanon Disease Active 2019-[address] in place 3- ity of 00:00: [address] Other Other Disease Active 2019-0 Univers depression depression 3- it y of 00:00: [address] Contracept Contracept Disease Active U nivers [place] 3 [place] of management [place] [facility] Left wrist Left wrist Disease Active 2014-11 U nivers pain pain 2 ity of 00:00: [address] ADHD ADHD Disease Active [facility] (attention (attention 01-26 He alth deficit deficit 00:00: hyperactiv hyperactiv 00 ity ity disorder) disorder) Deliberate Deliberate Disease Active H arris self-cutti self-cutti 01-26 He alth ng ng 00:00: 00 Allergies, Adverse Reactions, Alerts Allergy Allergy Status Severity Reaction(s) Onset Inactive Treating Comm ents Source Name Type Date Date Clinician NO KNOWN Drug Active [facility] ALLERGIE Class ity of S [facility] NO KNOWN Allergy Active [facility] Social History Social Habit Start Date Stop Date Quantity Comments Source Gender identity Nemesio Monge alth Sexual orientation [facility] Exposure to 2023-02-15 2023-02-25 Not sure [facility]-CoV-2 (event) 00:00:00 18:19:00 [facility] Alcohol intake 2023-02-25 2023-02-25 0 /d University of 00:00:00 00:00:00 [facility] Tobacco use and 2017-08-24 2017-08-24 Smokeless Universit y of exposure 00:00:00 00:00:00 tobacco non-user [facility] Tobacco Comment 2015-10-25 2015-10-25 Minor Universit y of 00:00:00 00:00:00 [facility] Sex Assigned At [address] [facility] 00:00:00 00:00:00 [facility] Smoking Status Start Date Stop Date Source Never smoked tobacco [facility] Medications Ordered Filled Start Stop Current Ordering Indication Dosage Frequency Signature Comments Components Source Medication Medication Date Date Medication? Clinician (SIG) Name Name traMADoL 2022- No 50mg 50 mg, Univer s (ULTRAM) 02-26 Oral, ity of tablet 50 03:45: 02:48 ONCE, [place] mg [place] :00 dose, On Medical Thu02/25/23 Branch at 2245, Routine iopamidol 2022- No [id number] 84mL 84 mL, U nivers (ISOVUE 02-26 [...] the evening. Take with meals. ketorolac Yes [id number] 10mg Take 1 Univers 10 mg 02-25 [id number] tablet by ity of tablet 00:00: mouth [place] 00 every 6 Medical (six) Branch hours as needed for Pain (scale 4-6). ondansetron 2020-11 Yes [id number] 4mg Take 1 Univers (ZOFRAN 1-16 tablet by ity of ODT) 4 mg 00:00: mouth [place] disintegrat 00 every 8 Medic al ing tablet (eight) Branch hours as needed for Nausea and Vomiting (N/V). ondansetron 2020-113- No [id number] 4mg Take 1 Univers (ZOFRAN 1-16 -05 [...] al (anaphylax Branch is). methylPREDN 0 Yes [id number] Take by Univers ISolone 4 7-08 mouth ity of mg tablets 00:00: [place]INSTRU [place] 00 CTIONS. Medical follow Branch package directions bromphenira 0 Yes [id number] 5mL Take 5 mL Univers mine-pseudo 7-08 by mouth 4 it y of ephedrine-D 00:00: (four[place] M (BROMFED 00 times Medical DM) 2-30-10 daily as Bran ch mg/5 mL needed for syrup Congestion /Allergies , Cold symptoms or Cough. albuterol 0 Yes [id number] 2{puff} Inhale 2 Univers 90 7-08 Puffs ity of mcg/actuati 00:00: every 4 [place] on inhaler 00 (four) Medical hours as Branch needed for Wheezing or Shortness of Breath. methylPREDN Yes [id number] Take by Univers ISolone 4 7-08 mouth ity of mg tablets 00:00: [place]INSTRU [place] 00 CTIONS. Medical follow Branch package directions bromphenira Yes [id number] 5mL Take 5 mL Univers mine-pseudo 7-08 by mouth 4 it y of ephedrine-D 00:00: (four[place] (BROMFED 00 times Medical DM) 2-30-10 daily as Bran ch mg/5 mL needed for syrup Congestion /Allergies , Cold symptoms or Cough. albuterol Yes [id number] 2{puff} Inhale 2 Univers 90 7-08 Puffs ity of mcg/actuati 00:00: every 4 [place] on inhaler 00 (four) Medical hours as Branch needed for Wheezing or Shortness of Breath. methylPREDN Yes [id number] Take by Univers ISolone 4 7-08 mouth ity of mg tablets 00:00: [place]-INSTRU [place] 00 CTIONS. Medical follow Branch package directions bromphenira Yes [id number] 5mL Take 5 mL Univers mine-pseudo 7-08 by mouth 4 it y of ephedrine-D 00:00: (four[place] (BROMFED 00 times Medical DM) 2-30-10 daily as Bran ch mg/5 mL needed for syrup Congestion /Allergies , Cold symptoms or Cough. albuterol Yes [id number] 2{puff} Inhale 2 Univers 90 7-08 Puffs ity of mcg/actuati 00:00: every 4 [place] on inhaler 00 (four) Medical hours as Branch needed for Wheezing or Shortness of Breath. methylPREDN 0 Yes [id number] Take by Univers ISolone 4 7-08 mouth ity of mg tablets 00:00: SEE-INSTRU [place] 00 CTIONS. Medical follow Branch package directions bromphenira Yes [id number] 5mL Take 5 mL Univers mine-pseudo 7-08 by mouth 4 it y of ephedrine-D 00:00: (four[place] (BROMFED 00 times Medical DM) 2-30-10 daily as Bran ch mg/5 mL needed for syrup Congestion /Allergies , Cold symptoms or Cough. albuterol 2021-0 Yes [id number] 2{puff} Inhale 2 Univers 90 7-08 Puffs ity of mcg/actuati 00:00: every 4 [place] on inhaler 00 (four) Medical hours as Branch needed for Wheezing or Shortness of Breath. methylPREDN 0 Yes [id number] Take by Univers ISolone 4 7-08 mouth ity of mg tablets 00:00: [place]-INSTRU [place] 00 CTIONS. Medical follow Branch package directions bromphenira 0 Yes [id number] 5mL Take 5 mL Univers mine-pseudo 7-08 by mouth 4 it y of ephedrine-D 00:00: (four[place] (BROMFED 00 times Medical DM) 2-30-10 daily as Bran ch mg/5 mL needed for syrup Congestion /Allergies , Cold symptoms or Cough. albuterol 0 Yes [id number] 2{puff} Inhale 2 Univers 90 7-08 Puffs ity of mcg/actuati 00:00: every 4 [place] on inhaler 00 (four) Medical hours as Branch needed for Wheezing or Shortness of Breath. methylPREDN 2020-0 Yes [id number] Take by Univers ISolone 4 7-08 mouth ity of mg tablets 00:00: [place]INSTRU [place] 00 CTIONS. Medical follow Branch package directions bromphenira 0 Yes [id number] 5mL Take 5 mL Univers mine-pseudo 7-08 by mouth 4 it y of ephedrine-D 00:00: (four[place] (BROMFED 00 times Medical DM) 2-30-10 daily as Bran ch mg/5 mL needed for syrup Congestion /Allergies , Cold symptoms or Cough. albuterol 2020-0 Yes [id number] 2{puff} Inhale 2 Univers 90 7-08 Puffs ity of mcg/actuati 00:00: every 4 [place] on inhaler 00 (four) Medical hours as Branch needed for Wheezing or Shortness of Breath. methylPREDN 2020-0 Yes [id number] Take by Univers ISolone 4 7-08 mouth ity of mg tablets 00:00: SEE-INSTRU [place] 00 CTIONS. Medical follow Branch package directions bromphenira 2020-0 Yes [id number] 5mL Take 5 mL Univers mine-pseudo 7-08 by mouth 4 it y of ephedrine-D 00:00: (four[place] (BROMFED 00 times Medical DM) 2-30-10 daily as Bran ch mg/5 mL needed for syrup Congestion /Allergies , Cold symptoms or Cough. albuterol Yes [id number] 2{puff} Inhale 2 Univers 90 7-08 Puffs ity of mcg/actuati 00:00: every 4 [place] on inhaler 00 (four) Medical hours as Branch needed for Wheezing or Shortness of Breath. methylPREDN Yes [id number] Take by Univers ISolone 4 7-08 mouth ity of mg tablets 00:00: SEE-INSTRU [place] 00 CTIONS. Medical follow Branch package directions bromphenira Yes [id number] 5mL Take 5 mL Univers mine-pseudo 7-08 by mouth 4 it y of ephedrine-D 00:00: (four[place] M (BROMFED 00 times Medical DM) 2-30-10 daily as Bran ch mg/5 mL needed for syrup Congestion /Allergies , Cold symptoms or Cough. albuterol Yes [id number] 2{puff} Inhale 2 Univers 90 7-08 Puffs ity of mcg/actuati 00:00: every 4 [place] on inhaler 00 (four) Medical hours as Branch needed for Wheezing or Shortness of Breath. methylPREDN 3- No [id number] Take by Univers ISolone 4 7-08 04-05 mouth ity of mg tablets 00:00: 00:00 SEE-INSTRU [place] 00 :00 CTIONS. Medical follow Branch package directions bromphenira 3- No [id number] 5mL Take 5 mL Univers mine-pseudo 7-08 04-05 by mouth 4 i ty of ephedrine-D 00:00: 00:00 (four) [place] M (BROMFED 00 :00 times Medical DM) 2-30-10 daily as Bran ch mg/5 mL needed for syrup Congestion /Allergies , Cold symptoms or Cough. albuterol 2022- No [id number] 2{puff} Inhale 2 Univers 90 7-08 04-05 Puffs ity of mcg/actuati 00:00: 00:00 [place] 4 [place] inhaler 00 :00 (four) Medical hours as Branch needed for Wheezing or Shortness of Breath. cetirizine 1-0 Yes [id number] 10mg Take 1 Univers 10 mg 7-06 tablet by ity of tablet 00:00: mouth [place] (two) Medical times Branch daily. cetirizine 1-0 Yes [id number] 10mg Take 1 Univers 10 mg 7-06 tablet by ity of tablet 00:00: mouth [place] (two) Medical times Branch daily. cetirizine 1-0 Yes [id number] 10mg Take 1 Univers 10 mg 7-06 tablet by ity of tablet 00:00: mouth (two) Medical times Branch daily. cetirizine 1-0 Yes [id number] 10mg Take 1 Univers 10 mg 7-06 tablet by ity of tablet 00:00: mouth [place] (two) Medical times Branch daily. cetirizine 2020-0 Yes [id number] 10mg Take 1 Univers 10 mg 7-06 tablet by ity of tablet 00:00: mouth [place] (two) Medical times Branch daily. cetirizine 2020-0 Yes [id number] 10mg Take 1 Univers 10 mg 7-06 tablet by ity of tablet 00:00: mouth [place] (two) Medical times Branch daily. cetirizine 1-0 Yes [id number] 10mg Take 1 Univers 10 mg 7-06 tablet by ity of tablet 00:00: mouth [place] (two) Medical times Branch daily. cetirizine 1-0 Yes [id number] 10mg Take 1 Univers 10 mg 7-06 tablet by ity of tablet 00:00: mouth [place] (two) Medical times Branch daily. cetirizine 2020-0 Yes [id number] 10mg Take 1 Univers 10 mg 7-06 tablet by ity of tablet 00:00: mouth [place] (two) Medical times Branch daily. cetirizine 2021-0 Yes [id number] 10mg Take 1 Univers 10 mg 7-06 tablet by ity of tablet 00:00: mouth [place] (two) Medical times Branch daily. cetirizine 1-0 Yes [id number] 10mg Take 1 Univers 10 mg 7-06 tablet by ity of tablet 00:00: mouth [place] (two) Medical times Branch daily. cetirizine Yes [id number] 10mg Take 1 Univers 10 mg 7- tablet by ity of tablet 00:00: mouth 2 [place] 00 (two) Medical times Branch daily. cetirizine 2022- No [id number] 10mg Take 1 Univers 10 mg 05-28 04-05 tablet by ity of tablet 00:00: 00:00 mouth 2 [place] 00 :00 (two) Medical times Branch daily. EPINEPHrine 2020- No [id number] .3mg 0.3 mL by Univers (AUVI-Q) 05-28 Intramuscu ity of 0.3 mg/0.3 00:00: 04:59 lar route [place] mL 00 :00 once now Medical injection for 1 Branch dose. EPINEPHrine 2020- No [id number] .3mg 0.3 mL by Univers (AUVI-Q) 05-28 Intramuscu ity of 0.3 mg/0.3 00:00: 04:59 lar route [place] mL 00 :00 once now Medical injection for 1 Branch dose. EPINEPHrine 2020- No [id number] .3mg 0.3 mL by Univers (AUVI-Q) 05-28 Intramuscu ity of 0.3 mg/0.3 00:00: 04:59 lar route [place] mL 00 :00 once now Medical injection for 1 Branch dose. predniSONE 2020- No [id number] 50mg Take 5 Univers 10 mg 05-11- tablets by ity of tablet 00:00: 04:59 mouth [place] 00 :00 daily for Medical 5 days. Branch predniSONE 2020- No [id number] 1 PO BID x Univers 20 mg 03-29 4 days ity of tablet 00:00: 00:00 [place] 00 :00 Medical Branch benzonatate 2020- No [id number] 200mg Take 1 Univers 200 mg 03-29 capsule by ity of capsule 00:00: 00:00 mouth 3 [place] 00 :00 (three) Medical times Branch daily as needed for Cough for up to 20 doses. ibuprofen 2020- No [id number] 600mg Take 1 Univers 600 mg 5-07 [...] 03/05/21 at Branch 0400, DEANDRA hydrOXYzine Yes [id number] 25mg Take 1 Univers 25 mg 4-13 tablet by ity of tablet 00:00: mouth [place] 00 every 8 Medical (eight) Branch hours as needed for Itching. hydrOXYzine Yes [id number] 25mg Take 1 Univers 25 mg 4-13 tablet by ity of tablet 00:00: mouth [place] 00 every 8 Medical (eight) Branch hours as needed for Itching. hydrOXYzine 2020- No [id number] 25mg Take 1 Univers 25 mg -05 05-19 tablet by ity of tablet 00:00: 00:00 mouth [place] 00 :00 every 8 Medical (eight) Branch hours as needed for Itching. predniSONE 2020- No [id number] 60mg Take 3 Univers 20 mg -05 03-18 tablets by ity of tablet 00:00: 04:59 mouth [place] 00 :00 daily for Medical 4 days. Branch HYDROcodone 2020- No 1{tbl} 1 tablet, Univers -acetaminop 2-24 02-24 Oral, ity of hen (NORCO 11:45: 10:42 ONCE, 1 [place] as 5) 5-325 mg 00 :00 dose, Wed Med ical tablet 1 01/16/21 at [facility] tablet 0545, DEANDRA naproxen Yes [id number] 550mg Take 1 U nivers sodium 550 2-24 tablet by ity of mg tablet 00:00: mouth 2 00 (two) Medical times Branch daily with meals. naproxen Yes [id number] 550mg Take 1 U nivers sodium 550 2-24 tablet by ity of mg tablet 00:00: mouth 2 (two) Medical times Branch daily with meals. naproxen 2020- Yes [id number] 550mg Take 1 U nivers sodium 550 2-24 tablet by ity of mg tablet 00:00: mouth 2 [place] 00 (two) Medical times Branch daily with meals. naproxen 0 Yes [id number] 550mg Take 1 U nivers sodium 550 2-24 tablet by ity of mg tablet 00:00: mouth 2 [place] 00 (two) Medical times Branch daily with meals. naproxen Yes [id number] 550mg Take 1 U nivers sodium 550 2-24 tablet by ity of mg tablet 00:00: mouth 2 [place] 00 (two) Medical times Branch daily with meals. naproxen Yes [id number] 550mg Take 1 U nivers sodium 550 2-24 tablet by ity of mg tablet 00:00: mouth 2 [place] 00 (two) Medical times Branch daily with meals. naproxen 2020- No [id number] 550mg Take 1 Univers sodium 550 2-24 06-19 tablet by ity of mg tablet 00:00: 00:00 mouth 2 [place] 00 :[place] (two) Medical times Branch daily with meals. estradioL 2 2019-11- No [id number] 2mg Take 1 Univers mg tablet 12-14 tablet by ity of 00:00: 05:59 mouth [place] 00 :00 daily for Medical 21 days. Branch estradioL 2 2019-11- No [id number] 2mg Take 1 Univers mg tablet 12-14 tablet by ity of 00:00: 05:59 mouth [place] 00 :00 daily for Medical 21 days. Branch estradioL 2 2019-11- No [id number] 2mg Take 1 Univers mg tablet 12-14 tablet by ity of 00:00: 05:59 mouth [place] 00 :00 daily for Medical 21 days. Branch doxycycline 2019-11- No [id number] 100mg Take 1 Univers 100 mg EC -03 04-12 tablet by ity of tablet 00:00: 05:59 mouth 2 [place] 00 :00 (two) Medical times Branch daily for 7 days. doxycycline 2019-11- No [id number] 100mg Take 1 Univers 100 mg EC - 12-12 tablet by ity of tablet 00:00: 05:59 mouth 2 [place] 00 :00 (two) Medical times Branch daily for 7 days. doxycycline 2019- 2020- No [id number] 100mg Take 1 Univers 100 mg EC 2 12-12 tablet by ity of tablet 00:00: 05:59 mouth 2 [place] 00 :00 (two) Medical times Branch daily for 7 days. doxycycline 2019- 2020- No [id number] 100mg Take 1 Univers 100 mg EC 2- 12-12 tablet by ity of tablet 00:00: 05:59 mouth 2 [place] 00 :00 (two) Medical times Branch daily [...] Slow IV ity of (DILAUDID) 17:47: Push, [place] injection 21 Q5MIN PRN, Medi steve 0.2 mg 10 doses, Branch Starting Gi 03/22/20 at 1247, Until Discontinu ed, Routine, Pain (scale 7-10), PACU
Us e approved by (Faculty): PACU USE -ANESTHESI A SERVICE-HY DROMORPHON E INJECTIONS FENTanyl PF 2020-0 Yes 25ug 25 mcg, Uni vers (SUBLIMAZE 4-30 Slow IV ity of (PF)) 17:47: Push, [place] injection 21 Q5MIN PRN, Medi steve 25 [...] 4-30 Starting ity of e-pf 16:57: Gi [place] (SENSORCAIN 00 03/22/20 at [place] dical E 1157, Branch W/EPINEPHRI Until NE) 0.25 Discontinu %-1:200,000 ed, injection Routine, Intra-op lactated 2020- No 1000mL at 20 Unive rs ringers IV 03-22 04-30 mL/hr, ity of infusion 14:15: 14:25 1,000 mL, [place] as 1,000 mL 00 :00 IV Medical Infusion, Branch ONCE, 1 dose, Gi 03/22/20 at 0915, Routine, DSU Pre-op HYDROcodone 2020- No [id number] 1{tbl} Take 1 Univers -acetaminop 03-22 05-08 tablet by it y of hen 5-325 00:00: 04:59 mouth [place] mg tablet 00 :00 every 6 Medical (six) Branch hours as needed for Pain (scale 4-6) or Pain (scale 7-10) for up to 7 days. hydrOXYzine 2020-0 Yes Univer s 50 mg 3-03 ity of tablet 00:00: [address] hydrOXYzine 2020-0 Yes Univer s 50 mg 3-03 ity of tablet 00:00: [address] hydrOXYzine 2020-0 Yes Univer s 50 mg 3-03 ity of tablet 00:00: [address] hydrOXYzine 2020-0 Yes Univer s 50 mg 3-03 ity of tablet 00:00: [address] hydrOXYzine 2020-0 Yes Univer s 50 mg 3-03 ity of tablet 00:00: [address] hydrOXYzine 2020-0 Yes Univer s 50 mg 3-03 ity of tablet 00:00: [address] hydrOXYzine 2020-0 Yes Univer s 50 mg 3-03 ity of tablet 00:00: [address] hydrOXYzine 2020-0 Yes Univer s 50 mg 3-03 ity of tablet 00:00: [address] hydrOXYzine 2020-0 Yes Univer s 50 mg 3-03 ity of tablet 00:00: [address] hydrOXYzine 2020-0 Yes Univer s 50 mg 3-03 ity of tablet 00:00: [address] hydrOXYzine 2020-0 Yes Univer s 50 mg 3-03 ity of tablet 00:00: [place] 00 Medical Branch hydrOXYzine 2020-0 Yes Univer s 50 mg 3-03 ity of tablet 00:00: [place] 00 Medical Branch hydrOXYzine 2020-0 Yes Univer s 50 mg 3-03 ity of tablet 00:00: [place] 00 Medical Branch hydrOXYzine 2020-0 Yes Univer s 50 mg 3-03 ity of tablet 00:00: [place] 00 Medical Branch hydrOXYzine 2020-0 Yes Univer s 50 mg 3-03 ity of tablet 00:00: [place] 00 Medical Branch hydrOXYzine 2020-0 Yes Univer s 50 mg 3-03 ity of tablet 00:00: [place] 00 Medical Branch hydrOXYzine 2020-0 Yes Univer s 50 mg 3-03 ity of tablet 00:00: [place] 00 Medical Branch hydrOXYzine 2020-0 Yes Univer s 50 mg 3-03 ity of tablet 00:00: [place] 00 Medical Branch hydrOXYzine 2020-0 Yes Univer s 50 mg 3-03 ity of tablet 00:00: [place] 00 Medical Branch hydrOXYzine 2020-0 Yes Univer s 50 mg 3-03 ity of tablet 00:00: [place] 00 Medical Branch hydrOXYzine 2020-0 Yes Univer s 50 mg 3-03 ity of tablet 00:00: [place] 00 Medical Branch hydrOXYzine 2020-0 Yes Univer s 50 mg 3-03 ity of tablet 00:00: [place] 00 Medical Branch hydrOXYzine 2020-0 Yes Univer s 50 mg 3-03 ity of tablet 00:00: [place] 00 Medical Branch hydrOXYzine 2020-0 2021- No Unive rs 50 mg 3-03 06-19 ity of tablet 00:00: 00:00 [place] 00 :00 Medical Branch OXcarbazepi 2018-0 Yes 300mg Take 300 U nivers ne 300 mg 6-18 mg by ity of tablet 00:00: mouth [place] every Medical evening. Branch OXcarbazepi 2018-0 Yes 300mg Take 300 U nivers ne 300 mg 6-18 mg by ity of tablet 00:00: mouth [place] 00 every Medical evening. Branch OXcarbazepi 2018-0 Yes 300mg Take 300 U nivers ne 300 mg 6-18 mg by ity of tablet 00:00: mouth [place] every Medical evening. Branch OXcarbazepi 2018-0 Yes [...] mg by ity of tablet 00:00: 00:00 [facility] [place] 00 :00 every Medical evening. Branch No known No Univers medications ity of [facility] Vital Signs Vital Name Observation Time Observation Value Comments Source Systolic blood 2023-02-26 02:00:00 123 mm[Hg] Univer sity of pressure [facility] Diastolic blood 2023-02-26 02:00:00 75 mm[Hg] Unive rsity of [facility] Heart rate 2023-02-26 02:00:00 66 /min Universi ty of [facility] Respiratory rate 2023-02-26 02:00:00 16 /min Univ ersity [facility] Oxygen saturation in 2023-02-26 02:00:00 100 /min University of Arterial blood by [facility] Pulse oximetry [place] Body temperature 2023-02-25 23:00:00 37 [facility] weight 2023-02-25 23:00:00 68.04 kg Universi ty [facility] HEIGHT 2023-01-26 17:54:00 162.6 cm HEIGHT 2023-01-26 17:54:00 162.6 cm HEIGHT 2023-01-26 17:54:00 162.6 cm Systolic blood 2021-10-08 23:46:00 121 mm[Hg] Univer sity of [facility] Diastolic blood 2021-10-08 23:46:00 72 mm[Hg] Unive rsity of [facility] Heart rate 2021-10-08 23:46:00 92 /min Universi ty [facility] Body temperature 2021-10-08 23:46:00 37 Jem[facility] ersity [facility] Respiratory rate 2021-10-08 23:46:00 16 /min Univ ersity [facility] Body height 2021-10-08 23:46:00 162.6 cm Universi ty [facility] Body weight 2021-10-08 23:46:00 68.04 kg Universi ty [facility] BMI 2021-10-08 23:46:00 25.75 kg/m2 Universi ty [facility] Oxygen saturation in 2021-10-08 23:46:00 99 /min University of Arterial blood by [facility] Pulse oximetry Branch Systolic blood 2021-09-04 22:20:00 123 mm[Hg] Univer sity of pressure [place] [facility] Diastolic blood 2021-09-04 22:20:00 72 mm[Hg] Unive rsity of pressure [place] [facility] Heart rate 2021-09-04 22:20:00 92 /min Universi ty of [place] [facility] Body temperature 2021-09-04 22:20:00 37.11 Jemima Univ ersity of [place] [facility] Respiratory rate 2021-09-04 22:20:00 18 /min Univ ersity of [place] [facility] Body weight 2021-09-04 22:20:00 72.576 kg Universi ty of [place] [facility] Oxygen saturation in 2021-09-04 22:20:00 100 /min University of Arterial blood by [facility] Pulse oximetry Branch Systolic blood 2021-05-30 17:30:00 115 mm[Hg] Univer sity of pressure [place] [facility] Diastolic blood 2021-05-30 17:30:00 76 mm[Hg] Unive rsity of pressure [place] [facility] Heart rate 2021-05-30 17:30:00 94 /min Universi ty of [place] [facility] Body temperature 2021-05-30 17:30:00 36.94 Jemima Univ ersity of [place] [facility] Respiratory rate 2021-05-30 17:30:00 18 /min Univ ersity of [place] [facility] Body weight 2021-05-30 17:30:00 69.4 kg Universi ty of [place] [facility] BMI 2021-05-30 17:30:00 26.26 kg/m2 Universi ty of [place] [facility] Oxygen saturation in 2021-05-30 17:30:00 99 /min University of Arterial blood by [facility] Pulse oximetry Branch Systolic blood 2021-05-28 19:33:00 128 mm[Hg] Univer sity of pressure [place] [facility] Diastolic blood 2021-05-28 19:33:00 78 mm[Hg] Unive rsity of pressure [place] [facility] Heart rate 2021-05-28 19:31:00 93 /min Universi ty of [place] [facility] Body temperature 2021-05-28 19:31:00 36.94 Jemima Univ ersity of [place] [facility] Respiratory rate 2021-05-28 19:31:00 16 /min Univ ersity of [place] [facility] Body height 2021-05-28 19:31:00 162.6 cm Universi ty of [place] [facility] Body weight 2021-05-28 19:31:00 69.4 kg Universi ty of [place] [facility] BMI 2021-05-28 19:31:00 26.26 kg/m2 Universi ty of [place] Medical Branch Oxygen saturation in 2021-05-28 19:31:00 99 /min University of Arterial blood by [facility] Pulse oximetry Branch Systolic blood 2021-05-11 19:52:00 128 mm[Hg] Univer sity [facility] [place] [facility] Diastolic blood 2021-05-11 19:52:00 83 mm[Hg] Unive rsity [facility] [place] [facility] Heart rate 2021-05-11 19:52:00 75 /min [facility] [place] [facility] Body temperature 2021-05-11 19:52:00 36.94 Jemima [facility] [place] [facility] Respiratory rate 2021-05-11 19:52:00 16 /min [facility] [place] [facility] Body weight 2021-05-11 19:52:00 68.04 kg [facility] [place] [facility] Oxygen saturation in 2021-05-11 19:52:00 100 /min University of Arterial blood by [facility] Pulse oximetry Branch Systolic blood 2021-03-05 07:44:00 142 mm[Hg] Un[facility] [place] [facility] Diastolic blood 2021-03-05 07:44:00 72 mm[Hg] Unive rsity [facility] [place] [facility] Heart rate 2021-03-05 07:44:00 111 /min [facility] [place] [facility] Body temperature 2021-03-05 07:44:00 37.06 Jemima [facility] [place] [facility] Respiratory rate 2021-03-05 07:44:00 18 /min [facility] [place] [facility] Body height 2021-03-05 07:44:00 162.6 cm [facility] [place] [facility] Body weight 2021-03-05 07:44:00 63.504 kg [facility] [place] [facility] BMI 2021-03-05 07:44:00 24.03 kg/m2 [facility] [place] [facility] Oxygen saturation in 2021-03-05 07:44:00 100 /min University of Arterial blood by [facility] Pulse oximetry Branch Systolic blood 2021-01-18 15:33:00 136 mm[Hg] Univer [facility] [place] [facility] Diastolic blood 2021-01-18 15:33:00 89 mm[Hg] Unive rs[facility] [place] [facility] Heart rate 2021-01-18 15:33:00 81 /min [facility] [place] [facility] Body height 2021-01-18 15:29:00 162.6 cm [facility] [place] [facility] Body weight 2021-01-18 15:29:00 64.411 kg [facility] [place] [facility] BMI 2021-01-18 15:29:00 24.37 kg/m2 [facility] [place] [facility] Systolic blood 2021-01-16 10:15:00 129 mm[Hg] Un[facility] [place] [facility] Diastolic blood 2021-01-16 10:15:00 90 mm[Hg] Unive rsity [facility] [place] [facility] Heart rate 2021-01-16 10:15:00 93 /min [facility] [place] [facility] Body temperature 2021-01-16 10:15:00 36.83 Jemima [facility] [place] [facility] Respiratory rate 2021-01-16 10:15:00 18 /min [facility] [place] [facility] Body weight 2021-01-16 10:15:00 60.782 kg [facility] [place] [facility] Oxygen saturation in 2021-01-16 10:15:00 99 /min [facility] of Arterial blood by [facility] Pulse oximetry Branch Systolic blood 2021-01-04 14:25:00 128 mm[Hg] Univer [facility] [place] [facility] Diastolic blood 2021-01-04 14:25:00 80 mm[Hg] Unive rsity of [facility] [place] [facility] Heart rate 2021-01-04 14:25:00 90 /min [facility] [place] [facility] Body temperature 2021-01-04 14:25:00 36.33 Jemima [facility] [place] [facility] Respiratory rate 2021-01-04 14:25:00 16 /min [facility] [place] [facility] Body height 2021-01-04 14:25:00 162.6 cm [facility] [place] [facility] Body weight 2021-01-04 14:25:00 64.524 kg [facility] [place] [facility] BMI 2021-01-04 14:25:00 24.42 kg/m2 [facility] [place] [facility] Systolic blood 2020-11-22 19:20:00 123 mm[Hg] [facility] [place] [facility] Diastolic blood 2020-11-22 19:20:00 72 mm[Hg] Unive rs[facility] [place] [facility] Heart rate 2020-11-22 19:20:00 84 /min [facility] [place] [facility] Body temperature 2020-11-22 19:20:00 36.56 Jemima [facility] [place] [facility] Respiratory rate 2020-11-22 19:20:00 16 /min [facility] [place] [facility] Body height 2020-11-22 19:20:00 162.6 cm [facility] [place] [facility] Body weight 2020-11-22 19:20:00 63.078 kg [facility] [place] [facility] BMI 2020-11-22 19:20:00 23.87 kg/m2 [facility] [place] [facility] Systolic blood 2020-10-25 19:26:00 119 mm[Hg] [facility] [place] [facility] Diastolic blood 2020-10-25 19:26:00 68 mm[Hg] Unive rs[facility] [place] [facility] Heart rate 2020-10-25 19:26:00 80 /min [facility] [place] [facility] Body temperature 2020-10-25 19:26:00 36.61 Jemima [facility] [place] [facility] Respiratory rate 2020-10-25 19:26:00 16 /min [facility] [place] [facility] Body height 2020-10-25 19:26:00 162.6 cm [facility] [place] [facility] Body weight 2020-10-25 19:26:00 63.957 kg [facility] [place] [facility] BMI 2020-10-25 19:26:00 24.20 kg/m2 [facility] [place] [facility] Body temperature 2020-04-04 15:49:00 36.89 Jemima [facility] [place] [facility] Body height 2020-04-04 15:49:00 162.6 cm [facility] [place] [facility] Body weight 2020-04-04 15:49:00 65 kg [facility] [place] [facility] BMI 2020-04-04 15:49:00 24.60 kg/m2 Universi ty [facility] Systolic blood 2020-03-22 18:40:00 121 mm[Hg] Univer sity of pressure [facility] Diastolic blood 2020-03-22 18:40:00 82 mm[Hg] Unive rsity of pressure [facility] Heart rate 2020-03-22 18:40:00 82 /min Universi ty [facility] Respiratory rate 2020-03-22 18:40:00 14 /min [facility] in 2020-03-22 18:40:00 97 /min [facility] Arterial blood by [facility] Pulse oximetry Branch Body temperature 2020-03-22 17:42:00 36.28 Jemima [facility] Body height 2020-03-22 14:32:00 162.6 cm Universi ty [facility] Body weight 2020-03-22 14:32:00 58.968 kg Universi [facility] BMI 2020-03-22 14:32:00 22.31 kg/m2 Universi [facility] Body temperature 2020-03-21 20:55:00 37.06 Jemima [facility] Body temperature 2020-02-01 20:24:00 36.72 Jemima [facility] Body weight 2020-02-01 20:24:00 59.24 kg Universi [facility] Respiratory rate 2023-01-26 17:54:00 20 /min [facility] Body height 2023-01-26 17:54:[address] [facility] Oxygen saturation in 2023-01-26 17:54:00 99 /min [facility] Arterial blood by Medical Ce nter Pulse oximetry Systolic blood 2023-01-26 17:54:00 141 mm[Hg] [facility] Diastolic blood 2023-01-26 17:54:00 89 mm[Hg] [facility] Heart rate 2023-01-26 17:54:00 145 /min [facility] Body temperature 2023-01-26 17:54:00 36.67 Jemima [facility] Procedures Procedure Date / Time Performed Performing Clinician Sour e POCT TEST 2023-02-25 23:35:00 Guillermo Rosas [facility] Medical [place] COMP. METABOLIC PANEL 2023-02-25 23:34:00 Guillermo Rosas [facility] ([id number]) Medical Branch CBC WITH DIFF 2023-02-25 23:34:00 Guillermo Rosas [facility] URINALYSIS 2023-02-25 23:34:00 Guillermo Rosas [place] [facility] NOTICE OF PRIVACY 2023-02-25 22:56:09 Doctor Unassigned, No [facility] [place] [facility] Name [facility] Branch CONSENT/REFUSAL FOR 2023-02-25 22:55:24 Doctor Unassigned, No [facility] [place] DIAGNOSIS AND Name Medical Branch TREATMENT ECG 12-LEAD 2023-01-26 17:48:00 Unknown, Hl7 Doctor [facility] ECG 12-LEAD 2023-01-26 17:48:00 Unknown, Hl7 Doctor [facility] ECG 12-LEAD 2023-01-26 17:48:00 Unknown, Hl7 Doctor [facility] EKG-SCANNED 2023-01-26 00:00:00 Provider, Katiuska [facility] RAPID STREP SCREEN FOR 2021-10-09 00:01:00 Guillermo Rosas [facility] GROUP A Medical Branch RAPID INFLUENZA A/B 2021-10-09 00:01:00 Guillermo Rosas [facility] Branch COVID-19 (ID NOW RAPID 2021-10-09 00:01:00 Guillermo Rosas [facility] TESTING) Medical Branch CONSENT/REFUSAL FOR 2021-10-08 23:37:53 Doctor Unassigned, No [facility] [place] DIAGNOSIS AND Name Medical Branch TREATMENT RAPID STREP SCREEN FOR 2021-09-05 00:47:00 Riya [facility] COVID-19 (ID NOW RAPID 2021-09-05 00:47:00 Riya [facility] Medical Branch CONSENT/REFUSAL FOR 2021-09-04 22:11:13 Doctor Unassigned, No [facility] [place] DIAGNOSIS AND Name Medical Branch TREATMENT RAPID STREP SCREEN FOR 2021-05-30 19:19:00 Yuki Ferguson [facility] GROUP A Medical Branch ADC,CLC OR LCC ONLY - 2021-05-30 19:19:00 Yuki Ferguson [facility] INFLUENZA A & B DIRECT Medical B ranch ANTIGEN COVID-19 (ID NOW RAPID 2021-05-30 19:19:00 Yuki Ferguson [facility] TESTING) Medical Branch XR CHEST 1 VW 2021-05-30 18:41:21 Yuki Ferguson [facility] Medical Branch CONSENT/REFUSAL FOR 2021-05-30 17:21:37 Doctor Unassigned, No [facility] [place] DIAGNOSIS AND Name Medical Branch TREATMENT NOTICE OF PRIVACY 2021-03-05 07:37:51 Doctor Unassigned, No [facility] CONSENT/REFUSAL FOR 2021-03-05 07:37:33 Doctor Unassigned, No [facility] [place] DIAGNOSIS AND Name Medical Branch TREATMENT XR ANKLE 3+ VW 2021-01-18 15:40:22 Cr Grubbs [facility] BILATERAL Medical Branch POCT TEST 2021-01-16 10:30:00 Karley Aguila [facility] Medical Branch NOTICE OF PRIVACY 2021-01-16 10:08:03 Doctor Unassigned, No [facility] CONSENT/REFUSAL FOR 2021-01-16 10:07:34 Doctor Unassigned, No [facility] [place] DIAGNOSIS AND Name Medical Branch TREATMENT POCT TEST 2021-01-04 14:57:00 Trini Blanc [facility] Medical Branch CONSENT/REFUSAL FOR 2021-01-04 14:11:03 Doctor Unassigned, No [facility] [place] DIAGNOSIS AND Name Medical Branch TREATMENT ASSIGNMENT OF BENEFITS 2020-10-25 18:54:58 Doctor Unassigned, No [facility] Name Medical Branch FL TIME OR 2020-03-22 17:48:10 Dayo [facility] [place] (NON-REPORTABLE) Medical Branch POCT TEST 2020-03-22 14:10:00 Corina Calderon [facility] Medical Branch CONSENT/REFUSAL FOR 2020-03-22 14:01:02 Doctor Unassigned, No [facility] [place] DIAGNOSIS AND [facility] TREATMENT ASSIGNMENT OF BENEFITS 2020-03-22 14:00:38 Doctor Unassigned, No [facility] XR WRIST 3+ VW LEFT 2020-02-01 20:34:24 [place] [facility] Plan of Care Planned Activity Planned Date [...] malignant neoplasm of cervix (procedure) [code = 470223646] Future Scheduled 2022 [facility]ening for [facility] 00:00:00 malignant neoplasm of cervix (procedure) [code = 024886238] Future Scheduled 2022 [facility]ening for [facility] 00:00:00 malignant neoplasm of cervix (procedure) [code = 772557579] Future Scheduled 2022 [facility]ening for [facility] 00:00:00 malignant neoplasm of cervix (procedure) [code = 638015690] Future Scheduled 2022 Screening for [facility] 00:00:00 malignant neoplasm of cervix (procedure) [code = 463478056] Future Scheduled 2022 Screening for [facility] 00:00:00 malignant neoplasm of cervix (procedure) [code = 620668469] Future Scheduled 2022 Screening for [facility] 00:00:00 malignant neoplasm of cervix (procedure) [code = 433912764] Future Scheduled [address] [facility] 00:[facility]:00 [facility] cervix (procedure) [code = 010007990] Future Scheduled [address] [facility] Test 00:00:00 malignant neoplasm of [facility] cervix (procedure) [code = 831633856] Future Scheduled [address] [facility] Test 00:00:00 malignant neoplasm of [facility] cervix (procedure) [code = 889279301] Future Scheduled [address] [facility] Test 00:00:00 malignant neoplasm of [facility] cervix (procedure) [code = 101762531] Future Scheduled [address] [facility] Test 00:00:00 malignant neoplasm of [facility] cervix (procedure) [code = 357433516] Future Scheduled [address] [facility] Test 00:00:00 malignant neoplasm of [facility] cervix (procedure) [code = 906133046] Future Scheduled [address] [facility] Test 00:00:00 malignant neoplasm of [facility] cervix (procedure) [code = 150678739] Future Scheduled 2022 [facility] 00:00:00 malignant neoplasm of cervix (procedure) [code = 128572911] Future Scheduled [address] [facility] Test 00:00:00 malignant ne[address] of [facility] cervix (procedure) [code = 863634975] Future Scheduled 2021-08-23 IMM Influenza [facility] [...] COVID-19 Vaccine (1)] Future Scheduled 2001 COVID-19 VACCINE (#1) CH [...] VACCINE (#1)] Future Scheduled 2001 Fluoride Varnish [facility] Test 00:00:00 [code = Fluoride Varnish] Encounters Start End Encounter Admission Attending Care Care Encounter Source Date/Time Date/Time Type Type Clinicians Facility Department ID 2021-09-23 Emergency [facility] [id number] Univers 06:51:59 ity [facility] 2021-09-23 Emergency [facility] [id number] Univers 02:21:03 ity [facility] 2021-09-22 Emergency [facility] [id number] Univers 17:49:04 ity [facility] 2021-09-22 Emergency [facility] [id number] Univers 12:25:45 ity [facility] 2021-09-22 Emergency [facility] [id number] Univers 00:58:09 [facility] 2021-09-19 Outpatient Alicia OSHEA [facility] VLS [id number] Univers 18:58:12 MARIA TERESA [facility] 2023-05-02 2023-05-[address] [facility] [id number] Kevon 12:51:10 12:51:10 [id number] [facility] 2023-04-04 2023-04-[address] [facility] [id number] Kevon 12:00:13 12:00:13 0513 [facility] [place] 2023-03-13 2023-03-13 Outpatient [facility] [id number] Kevon 17:28:58 17:28:58 [id number] [facility] 2023-02-27 2023-02-27 Outpatient [facility] [id number] Kevon 14:31:04 14:31:04 0407 [facility] [place] 2023-02-25 2023-02-25 Emergency X RALPH [facility] ERT [id number] Univers 18:01:00 21:54:00 GUILLERMO [facility] 2023-02-25 2023-02-25 Emergency [facility] [id number] Univers 18:01:00 21:54:00 Guillermo VALLEJO 350.1.13.10 [facility] 4.2.7.2.686 [facility] [id number] [address] 2023-02-20 2023-02-20 Outpatient [facility] [id number] Kevon 16:22:24 16:22:24 [id number] [facility] 2023-01-26 2023-01-26 Emergency Wilkes [facility] [id number] 19:23:00 20:26:00 [facility] 2023-01-26 2023-01-26 Emergency ER [facility] Emergency [id number] SLE 19:23:00 20:26:00 AMANDA 2023-01-26 2023-01-26 Emergency Wilkes [facility] [id number] 19:23[facility]00 20:26:00 [facility]23-[facility]-26 2023-01-26 Orders [facility] [id number] 00:00:00 00:00:00 Only [facility] 2023-01-26 2023-01-26 Travel [facility] [id number] [facility] 00:[facility] 00:00:00 [facility] 2023-01-26 2023-01-26 Orders [facility] [id number] 00:00:00 00:00:00 Only [facility] 2023-01-26 2023-01-26 Travel [facility] [id number] [facility] 00:[facility] 00:00:00 [facility] 2021-11-26 2021-11-26 Outpatient R DAVID, [facility] [id number] Univers 12:15:00 12:15:00 ATTENDING [facility] 2021-11-23 2021-11-23 Outpatient R DELFINO [facility] [id number] Univers 20:30:00 20:30:00 KATY [facility] 2021-10-08 2021-10-08 [facility] [id number] Univers 17:48:00 20:16:00 GUILLERMO [facility] 2021-10-08 2021-10-08 Emergency [facility] [id number] Univers 17:48:00 20:16:00 Guillermo VALLEJO 350.1.13.10 i ty of [place] 4.2.7.[address] [place] [id number] 2021-09-04 2021-09-04 Emergency [facility] [id number] Univers 17:22:00 21:08:00 Riya Vallejo 350.1.13.10 i ty of [place] 4.2.7.2.686 [facility] [id number] [address] 2021-09-04 2021-09-04 Emergency X [facility] ERT [id number] Univers 17:22:00 21:08:00 RIYA westfall of [facility] 2021-06-07 2021-06-07 Patient Suly [facility] [id number] Univers 00:00:00 00:00:00 Secure Msg Lorrie Monahan MULTISPEC 350.1.13.10 ity of IALTY 4.2.7.2.686 [facility] [id number] [address] DIABETES [facility] 2021-06-04 2021-06-04 Patient Suly [facility] [id number] Univers 00:00:00 00:00:00 Secure Msg Lorrie Monahan MULTISPEC 350.1.13.10 ity of IALTY 4.2.7.2.686 [facility] [phone] [facility] AND [address] DIABETES [facility] 2021-06-03 2021-06-03 Patient Suly [facility] [id number] Univers 00:00:00 00:00:00 Secure Mslogan Monahan MULTISPEC 350.1.13.10 ity of IALTY 4.2.7.2.686 [facility] [id number] [address] DIABETES [facility] 2021-06-03 2021-06-03 Patient Suly [facility] [id number] Univers 00:00:00 00:00:00 Secure Msg Lorrie Monahan MULTISPEC 350.1.13.10 ity of IALTY 4.2.7.2.686 [facility] [id number] [address] DIABETES [facility] 2021-05-30 2021-05-30 [facility] [id number] Univers 14:40:00 16:58:00 Yuki Vallejo 350.1.13.10 i ty of [place] 4.2.7.2.686 [facility] [id number] [place] [address] Branch 2021-05-29 2021-05-29 Patient Suyl [facility] [id number] Univers 00:00:00 00:00:00 Secure Msg Lorrie GRANTPEC 350.1.13.10 ity of IALTY 4.2.7.2.686 [facility] [id number] [address] [facility]ES [facility] 2021-05-28 2021-05-28 Detail Supervisor [facility] 1.2.840.114 [id number] Univers 15:24:56 15:39:56 Visit Lorrie TubbsPEC 350.1. 13.10 ity of IALTY 4.2.7.2.[address] [place] [id number] DIABETES [facility] 2021-05-28 2021-05-28 Office Suly [facility] 1.2.840.114 [id number] Univers 14:25:15 15:25:29 Visit Lorrie GRANTPEC 350.1.13.10 ity of IALTY 4.2.7.2.[address] [place] [id number] [facility]ES [facility] 2021-05-28 2021-05-28 Outpatient R SULY [facility] [id number] Univers 14:30:00 14:30:00 LORRIE galicia [facility] 2021-05-25 2021-05-25 Patient Suly [facility] 1.2.840.114 [id number] Univers 00:00:00 00:00:00 Secure Msg Lorrie Monahan MULTISPEC 350.1.13.10 ity of IALTY 4.2.7.2.[address] [place] [id number] [facility]ES [facility] 2021-05-11 2021-05-11 [facility] 1.2.840.114 [id number] Univers 14:53:00 15:14:00 Collette Vallejo 350.1.13.10 ity of [place] 4.2.7.2.686 [facility] [id number] [place] [address] Branch 2021-03-22 2021-03-22 Telephone [facility] 1.2.840.114 [id number] Univers 00:00:00 00:00:00 Trini C HIGH ENERGY FORMING EQUIPMENT OPERATOR 350.1.13.10 ity of REGIONAL 4.2.7.2.686 Fidel as MATERNAL [id number] [facility] ical & CHILD [address] [place] [address] 2021-03-05 2021-03-05 Emergency [facility] [id number] Univers 02:46:00 03:09:00 Heriberto Vallejo 350.1.13.10 i ty of [place] 4.2.7.2.686 [facility] [id number] [address] 2021-01-18 2021-01-18 Hospital [facility] 1.2.840.114 [id number] Univers 09:40:22 23:59:00 [facility] 350.1.13.10 ity of Surgical 4.2.7.2.686 Fidel as Specialti [id number] Me dical es 809 [facility] 2021-01-18 2021-01-18 Outpatient R [facility] [id number] Univers 09:40:22 23:59:00 [facility] 2021-01-18 2021-01-18 Office [facility] [id number] Univers 09:25:51 09:57:12 Visit [facility] 350.1.13.10 it y of Surgical 4.2.7.2.686 Fidel as Specialti [id number] Me dical es 198 [facility] 2021-01-16 2021-01-16 Emergency [facility] [id number] Univers 04:13:00 04:48:00 Karley Jeanine [place] 350.1.13.10 ity of [place] 4.2.7.2.686 [facility] [id number] [address] 2021-01-04 2021-01-04 Office [facility] [id number] Univers 08:13:15 08:58:39 Visit Trini Howard HIGH ENERGY FORMING EQUIPMENT OPERATOR 350.1.13.10 ity of REGIONAL 4.2.7.2.686 Fidel as MATERNAL [id number] [facility] ical & CHILD [address] [place] [address] 2021-01-04 2021-01-04 Outpatient R JAYASHREE [facility] [id number] Univers 08:15:00 08:15:00 TRINI westfall o f [facility] 2021-01-04 2021-01-04 Orders Doctor MARIA TERESA 1.2.840.114 [id number] Univers 00:00:00 00:00:00 Only Unassigned, GISELA 350.1.13.10 ity [facility] 4.2.7.2.686 Fidel as [id number] [address] 2020-12-04 2020-12-04 [facility]ill [facility] [id number] [id number] Univers 00:00:00 00:00:00 Trini C HIGH ENERGY FORMING EQUIPMENT OPERATOR 350.1.13.10 ity of [facility] 4.2.7.2.686 Fidel as MATERNAL [phone] [facility] ical & CHILD [address] [place] [address] 2020-11-22 2020-11-22 Office [facility] [id number] Univers 13:11:42 13:46:36 Visit Trini C HIGH ENERGY FORMING EQUIPMENT OPERATOR 350.1.13.10 ity of [facility] 4.2.7.2.686 Fidel as MATERNAL [id number] [facility] & CHILD [address] [place] [address] 2020-11-22 2020-11-22 Outpatient R JAYASHREE [facility] [id number] Univers 13:15:00 13:15:00 TRINI cramer grayson [facility] 2020-10-29 2020-10-29 Telephone [facility] 1.2.840.114 [id number] Univers 00:00:00 00:00:00 Trini C HIGH ENERGY FORMING EQUIPMENT OPERATOR 350.1.13.10 ity of [facility] 4.2.7.2.686 Fidel as MATERNAL [id number] [facility] ical & CHILD [address] [place] [address] 2020-10-26 2020-10-26 Telephone [facility] 1.2.840.114 [id number] 00:00:00 00:00:00 Trini C HIGH ENERGY FORMING EQUIPMENT OPERATOR 350.1.13.10 [facility] 4.2.7.2.686 MATERNAL [id number] & CHILD [address] [place] [address] 2020-10-26 2020-10-[address] [facility] 1.2.840.114 [id number] Univers 00:00:00 00:00:00 Trini C HIGH ENERGY FORMING EQUIPMENT OPERATOR 350.1.13.10 ity of [facility] 4.2.7.2.686 Fidel as MATERNAL [id number] [facility] ical & CHILD [address] [place] [address] 2020-10-25 2020-10-[address] [facility] [id number] Univers 13:03:25 13:18:25 Visit Trini C HIGH ENERGY FORMING EQUIPMENT OPERATOR 350.1.13.10 ity of [facility] 4.2.7.2.686 Fidel as MATERNAL [phone] [facility] & CHILD [address] [place] [address] 2020-10-25 2020-10-25 Outpatient R [facility] [id number] Univers 12:45:00 12:45:00 ity of [facility] 2020-10-25 2020-10-25 Orders Doctor MARIA TERESA [id number] Univers 00:00:00 00:00:00 Only Unassigned, GISELA 350.1.13.10 ity of [place] [facility] 4.2.7.2.686 Fidel as [phone] [address] 2020-10-23 2020-10-23 Outpatient R [facility] [id number] Univers 08:45:00 08:45:00 ity of [facility] 2020-04-04 2020-04-04 Office [facility] [id number] Univers 10:32:05 11:18:56 Visit Maria Teresa RAO 350.1.13.10 [place] [phone] [place] seemami N[address] 2020-04-04 2020-04-04 Outpatient R [facility] [id number] Univers 11:00:00 11:00:00 MARIA TERESA ity of [facility] 2020-03-22 2020-03-22 [facility] [id number] Univers 08:59:00 13:45:00 Encounter Maria Teresa Health [id number] [place] [facility] [phone] [address] ([facility]) 2020-03-21 2020-03-21 Nurse Nurse, [facility] General Surgery [facility] [id number] Univers 15:37:12 15:54:01 Visit Maria Teresa Oshea 350.1.13.10 [place] [facility] [phone] [place] jeanette fu 377 [facility] 2020-03-21 2020-03-21 [facility] [id number] Univers 15:45:00 15:45:00 [facility] 2020-02-01 2020-02-01 [facility] [id number] Univers 15:28:25 23:59:00 [facility] 2020-02-01 2020-02-01 [facility] [id number] Univers 15:28:00 23:59:00 Encounter Maria Teresa SPECIALTY 350.1.13.10 [place] [phone] [place] jeanette MCCULLOUGH [address] [facility] 2020-02-01 2020-02-01 Office [facility] [id number] Univers 15:08:48 16:11:33 Visit Maria Teresa SPECIALTY 350.1.13.10 [place] [phone] [place] dicskinny MCCULLOUGH [address] [facility] 2020-01-31 2020-01-31 [facility] [id number] Univers 00:00:00 00:00:00 [place] SPECIALTY 350.1.13.10 ity [place] [phone] [place] jeanette MCCULLOUGH [address] [facility] 2019-06-30 2019-06-30 Telephone [facility] 1.2.840.114 [id number] Univers 00:00:00 00:00:00 Trini Howard H[employer] ENERGY FORMING EQUIPMENT OPERATOR 350.1.13.10 ity [facility] 4.2.7.2.686 Fidel as MATERNAL [phone] Med ical & CHILD 107 [facility] Results Test Description Test Time Test Comments Results Result Comments Source COMP. METABOLIC PANEL (14027) 2023-02-26 00:20:34 Test Item Value Reference Range Interpretation Comme nts NA (test code = 5589587671) 139 mmol/L 135-145 K (test code = 5968036022) 3.4 mmol/L 3.5-5.0 L CL (test code = 6691666716) 105 mmol/L 98-108 CO2 TOTAL (test code = 1432375568) 22 mmol/L 23-31 L AGAP (test code = 7693917655) 12 2-16 BUN (test code = 1136135952) 12 mg/dL 7-23 GLUCOSE (test code = 5768309478) 86 mg/dL 70-110 CREATININE (test code = 0.66 mg/dL 0.50-1.04 8869086178) TOTAL BILI (test code = 0.7 mg/dL 0.1-1.0 1841900586) CALCIUM (test code = 3805101994) 9.2 mg/dL 8.6-10.6 T PROTEIN (test code = 4826927790) 7.0 g/dL 6.3-8.2 ALBUMIN (test code = 2346939145) 4.6 g/dL 3.5-5.0 ALK PHOS (test code = 1713432846) 58 U/L 34-122 ALTv (test code = 1742-6) 16 U/L 5-35 AST(SGOT) (test code = 1870245472) 17 U/L 13-40 eGFR (test code = 3641378572) 113.1 mL/min/1.73m2 PATTI (test code = PATTI) [...] tests). Lab Interpretation (test code = Abnormal 21135-8) [facility] WITH [id number] 00:09:11 Test Item Value Reference Range Interpretation Comments WBC (test code = 5.64 See_Comment [Automated 5871-2) message] The sy stem which generated this result transmitted reference range : 4.30 - 11.10 10*3/?L. The reference range was not used to interpret this result as normal/abnormal . RBC (test code = 4.36 See_Comment [Automated 755-8) message] The sy stem which generated this [...] RDW-SD (test code = 39.8 fL 39.0-49.9 16601-4) RDW-CV (test code = 13.2 % 12.0-15.5 788-0) PLT (test code = 265 See_Comment [Automated 777-3) message] The sy stem which generated this result transmitted reference range : 166 - 358 10*3/ ?L. The reference r boogie was not used to interpret this result as normal/abnormal . MPV (test code = 10.6 fL 9.5-12.9 08831-3) NRBC/100 WBC (test 0.0 See_Comment [Automat ed code = 2984923670) message] The system which generated this result transmitted reference range : 0.0 - 10.0 /100 WBCs. The refer ence range was not u sed to interpret th is result as normal/abnormal . NRBC x10^3 (test code See_Comment [Auto mated = 1727071065) message] The s ystem which generated this result transmitted reference range : 10*3/?L. The reference range was not used to interpret this result as normal/abnormal . GRAN MAT (NEUT) % 65.4 % (test code = 770-8) IMM GRAN % (test code 0.40 % = 4501456003) LYMPH % (test code = 22.5 % 736-9) MONO % (test code = 7.8 % 5905-5) EOS % (test code = 3.5 % 713-8) BASO % (test code = 0.4 % 706-2) GRAN MAT x10^3(ANC) 3.69 10*3/uL 1.88-7.09 (test code = 6545958102) IMM GRAN x10^3 (test 0.00-0.06 code = 7299170182) LYMPH x10^3 (test code 1.27 10*3/uL 1.32-3.29 L = 731-0) MONO x10^3 (test code 0.44 10*3/uL 0.33-0.92 = 742-7) EOS x10^3 (test code = 0.20 10*3/uL 0.03-0.39 711-2) BASO x10^3 (test code 0.01-0.07 = 704-7) Lab Interpretation Abnormal (test code = 08256-1) [id number] 23:35[facility]00 Test Item Value Reference Range Interpretation Comments POCT PREG (test code = 1605) negative On board controls acceptable with present C Line (test code = 3574) POCT PREG LOT # (test code = 3575) [id number] POCT PREG TEST DATE (test 12/23/2023 code = 3576) Lab Interpretation (test code = Normal 88429-3) [facility] - INFLUENZA A & B DIRECT [id number] 19:44:38 Test Item Value Reference Range Interpretation Comments Influenza A (test code = 49598-4) Negative Negative Influenza B (test code = 69766-1) Negative Negative Lab Interpretation (test code = Normal 99193-8) [facility]ID NOW RAPID TESTING)2021-05-30 19:44:28 Test Item Value Reference Range Interpretation Comments SARS-CoV-2 Rapid ID NOW Not Detected Not Detected (test code = 14052-3) PATTI (test code = PATTI) ID NOW COVID-19 Assay is an isothermal nucleic acid amplification test intended for the qualitative detection of nucleic acid from SARS-CoV-2 viral RNA in nasopharyngeal (COLLECTIONS ASSISTANT) specimens. It is used under Emergency Use [...] indicated. Lab Interpretation Normal (test code = 33916-3) [facility] STREP SCREEN FOR GROUP [id number] 19:37:04 Test Item Value Reference Range Interpretation Comments Streptococcus pyogenes (group A) Negative Negative antigen (test code = 11140-6) Lab Interpretation (test code = Normal 72163-6) [facility] 1 [id number] 18:46:37 No acute cardiopulmonary process.EXAM: XR CHEST [...] in size. Trachea isnear midline.IMPRESSIONNo acute cardiopulmonary process.[facility] ANKLE 3+ VW [id number] 19:03:39Normal study No fractures or dislocationsUniversUT [facility] [id number] 10:30:00 Test Item Value Reference Range Interpretation Comments POCT PREG (test code = 1605) negative On board controls acceptable with present C Line (test code = 3574) POCT PREG LOT # (test code = 3575) [id number] POCT PREG TEST DATE (test 2022-08-22 code = 3576) Lab Interpretation (test code = Normal 97013-9) [facility] [id number] 14:57:00 Test Item Value Reference Range Interpretation Comments POCT PREG (test code = 1605) Negative On board controls acceptable with C Yes Line (test code = 3574) POCT PREG LOT # (test code = 3575) POCT PREG TEST DATE (test code = 3576) [facility] [id number] 14:57:00 Test Item Value Reference Range Interpretation Comments POCT PREG (test code = 1605) Negative On board controls acceptable with C Yes Line (test code = 3574) POCT PREG LOT # (test code = 3575) POCT PREG TEST DATE (test code = 3576) [facility] (NON-REPORTABLE)2020-03-22 17:50:24 These images do not require a Radiology diagnostic report.[facility] [id number] 14:13:00 Test Item Value Reference Range Interpretation Comments POCT PREG (test code = 1605) Negative On board controls acceptable with C Yes Line (test code = 3574) POCT PREG LOT # (test code = 3575) POCT PREG TEST DATE (test code = 3576) Lab Interpretation (test code = Normal 75661-5) [facility] WRIST 3+ VW [id number] 21:48:25 FINDINGS/IMPRESSION: Radiographs of the left wrist [...] COMPARISON: ?XR WRIST <3 VW RIGHT, 08/15/2019. [facility], Radiant Results Inft User - [...] reviewed this study and agree with theabove report.[facility]"
[2023-05-04] MEDS ORDERED: BUPIVACAINE 0.5% PF 10 ML VIAL ONE (17:47)
--- NOTE | 2023-05-04 18:22 | ER ---
Nurse's Notes [facility] Name: Jasmyne Chapman Age: 22 yrs Sex: Female : 2000 Arrival Date: 05/04/2023 Time: 17:13 Bed 9 Private MD: Diagnosis: Dental pain Presentation: 05/04 17:32 Chief complaint: Patient states: Right bottom molar pain. Coronavirus screen: At this jl7 time, the client does not indicate any symptoms associated with coronavirus-19. Ebola Screen: No symptoms or risks identified at this time. Initial Sepsis Screen: Does the patient meet any 2 criteria? No. Patient's initial sepsis screen is negative. Does the patient have a suspected source of infection? No. Patient's initial sepsis screen is negative. Risk Assessment: Do you want to hurt yourself or someone else? Patient reports no desire to harm self or others. Onset of symptoms is unknown. 17:32 Method Of Arrival: Ambulatory 7 17:32 Acuity: ESSENCE 4 jl7 Triage Assessment: 17:36 General: Appears in no apparent distress. uncomfortable, Behavior is calm, cooperative, jl7 appropriate for age. Pain: Complains of pain in mouth Pain currently is 6 out of 10 on a pain scale. EENT: Reports pain in mouth. 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 - Social history:: Smoking status: Reported history of juuling and/or vaping. Screenin:30 [place] ED Fall Risk Assessment (Adult) Score/Fall Risk Level 0 - 2 = Low Risk. Abuse eh3 screen: Denies threats or abuse. Denies injuries from another. Nutritional screening: No deficits noted. Tuberculosis screening: No symptoms or risk factors identified. Assessment: 17:30 General: Appears in no apparent distress. uncomfortable, Behavior is calm, cooperative, eh3 appropriate for age. Pain: Complains of pain in mouth. Neuro: Level of Consciousness is awake, alert, obeys commands, Oriented to person, place, time, situation. Cardiovascular: Capillary refill < 3 seconds Patient's skin is warm and dry. Respiratory: Airway is patent Respiratory effort is even, unlabored, Respiratory pattern is regular, symmetrical. GI: Abdomen is round non-distended. Derm: Skin is pink, warm \T\ dry. 18:30 Reassessment: Patient appears in no apparent distress at this time. Patient and/or ss family updated on plan of care and expected duration. Pain level reassessed. Patient is alert, oriented x 3, equal unlabored respirations, skin warm/dry/pink. Vital Signs: 17:32 BP 147 / 93; Pulse 108; Resp 17; Temp 98.4; Pulse Ox 98% ; Weight 67.59 kg; Height 5 jl7 ft. 4 in. ; Pain 6/10; 17:32 Body Mass Index 25.58 (67.59 kg, 162.56 cm) [facility] 17:32 Pain Scale: Adult [facility] ED Course: 17:21 Patient arrived in ED. mr 17:21 Aj Gregory PA is PSYCHIATRICP. [facility] 17:21 Temo Flores MD is Attending Physician. [facility] 17:30 Patient has correct armband on for positive identification. Bed in low position. Call [facility] light in reach. Side rails up X2. 17:36 Triage completed. [facility] 17:36 Arm band placed on right wrist. [facility] 17:37 Vivienne Isabel, RN is Primary Nurse. 3 17:45 No provider procedures requiring assistance completed. eh3 18:52 Patient did not have IV access during this emergency room visit. ss Administered Medications: 17:40 Drug: Bupivacaine Infiltration (0.5 %) 10 ml {Note: administered by CHU Koenig.} ss Volume: 10 ml; Route: Infiltration; 18:52 Follow up: Response: No adverse reaction ss Medication: 17:45 VIS not applicable for this client. 3 Outcome: 18:21 Discharge ordered by . pedro 18:55 Discharged to home ambulatory. 3 18:55 Condition: stable 18:55 Discharge instructions given to patient, Instructed on discharge instructions, follow up and referral plans. medication usage, Demonstrated understanding of instructions, follow-up care, medications, Prescriptions given X 1. 18:59 Patient left the ED. 3 Signatures: Aj Gregory PA PA jmm Rivera, Mary Vivian Augustin RN RN ss Lani, Venita, RN RN jl7 Vivienne Isabel, RN RN eh3
--- NOTE | 2023-05-04 18:22 | EDPHYS ---
Physician Documentation [facility] Name: Jasmyne Chapman Age: 22 yrs Sex: Female : 2000 Arrival Date: 05/04/2023 Time: 17:13 Bed 9 Private MD: ED Physician Temo Flores HPI: 05/04 19:05 This 22 yrs old Female presents to ER via Ambulatory with complaints of Toothache. m 19:05 The patient presents with pain. Onset: The symptoms/episode began/occurred gradually. 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 - Social history:: Smoking status: Reported history of juuling and/or vaping. ROS: 19:05 Constitutional: Negative for fever, chills, and weight loss. jm 19:05 ENT: Positive for dental pain. 19:05 All other systems are negative. Exam: 19:05 Constitutional: This is a well developed, well nourished patient who is awake, alert, jmm and in no acute distress. Head/Face: atraumatic. Eyes: EOMI, no conjunctival erythema appreciated 19:05 Chest/axilla: Normal chest wall appearance and motion. Cardiovascular: Regular rate and rhythm. No edema appreciated Respiratory: Normal respirations, no respiratory distress appreciated Abdomen/GI: Non distended Back: Normal ROM Skin: General appearance color normal MS/ Extremity: Moves all extremities, no obvious deformities appreciated, no edema noted to the lower extremities Neuro: Awake and alert Psych: Behavior is normal, Mood is normal, Patient is cooperative and pleasant 19:05 ENT: Dental exam: dental caries, that is moderate, specifically in the lower right third molar (#32). Vital Signs: 17:32 BP 147 / 93; Pulse 108; Resp 17; Temp 98.4; Pulse Ox 98% ; Weight 67.59 kg; Height 5 jl7 ft. 4 in. ; Pain 6/10; 17:32 Body Mass Index 25.58 (67.59 kg, 162.56 cm) jl7 17:32 Pain Scale: Adult jl7 Procedures: 18:03 Performed Inferior Alveolar Block. 2 ml of 0.5% Marcaine injected. Good anesthesia jmm achieved . MDM: 17:34 Patient medically screened. [facility] 19:06 Differential diagnosis: dental caries, gingivitis. Data reviewed: vital signs, nurses jmm notes. Counseling: I had a detailed discussion with the patient and/or guardian regarding: the historical points, exam findings, and any diagnostic results supporting the discharge/admit diagnosis, the need for outpatient follow up, to return to the emergency department if symptoms worsen or persist or if there are any questions or concerns that arise at home. Administered Medications: 17:40 Drug: Bupivacaine Infiltration (0.5 %) 10 ml {Note: administered by CHU Koenig.} ss Volume: 10 ml; Route: Infiltration; 18:52 Follow up: Response: No adverse reaction ss Disposition: 20:02 Co-signature as Attending Physician, Temo Flores MD I agree with the assessment and kdr plan of care. Disposition Summary: 05/04/23 18:21 Discharge Ordered Location: Home [facility] Condition: Stable [facility] Diagnosis - Dental pain [facility] Followup: [facility] - With: Private Physician - When: 2 - 3 days - Reason: Recheck today's complaints, Continuance of care, Re-evaluation by your physician Discharge Instructions: - Discharge Summary Sheet [facility] - Dental Pain [facility] Forms: - Medication Reconciliation Form [facility] - Thank You Letter [facility] - Antibiotic Education [facility] - Prescription Opioid Use [facility] Prescriptions: - Amoxicillin 875 mg Oral Tablet - take 1 tablet by ORAL route every 12 hours for 10 days; 20 tablet; Refills: 0, [facility] Product Selection Permitted Signatures: Temo Flores MD MD [facility] Aj Gregory PA PA jmm Blanchard, Shelby RN RN ss Venita Garibay RN RN jl7
[2023-05-04 19:50] VITALS: BP 147/93; TEMP 98.4; O2SAT 98
== END 2023-05-04 18:59 | disposition home or self-care (01) ==
LOC: ER 17:13
DX: K08.89 Other specified disorders of teeth and supporting structures (principal)
CPT/HCPCS: 99283

== ENCOUNTER 2023-05-12 06:13 | Emergency (ER) | payer OTHER ==
--- OUTSIDE RECORDS SUMMARY | 2023-05-12 06:19 | XMS REPORT | Continuity of Care Document ---
:2000 Author Organization [facility] t Address [address] [place] [address] Care Team Providers Name Role Phone PCP, [...] Unavailable Collette Herrera DO Attending Clinician Jayashree [facility], Trini Howard Attending Clinician Heriberto Mcginnis MD Attending Clinician Cr Grubbs MD Attending Clinician CR GRUBBS Attending Clinician Unavailable Mingo MEYERS, Karley Solorzano Attending Clinician TRINI BLANC Attending Clinician Unavailable Doctor Unassigned, [place] Attending Clinician Unavailable Maria Teresa Oshea MD Attending Clinician Nurse, [facility] General Surgery Attending Clinician Unavailable Omaira MEYERS, [place] Attending Clinician MARIA TERESA OSHEA Admitting Clinician Unavailable GUILLERMO ROSAS Admitting Clinician Unavailable Maria Teresa Oshea MD Admitting Clinician Payers Payer Name Policy Type Policy Number Effective Date Expiration Date S ource [place] - OUT [id number] 2016 OF [facility] 00:00:00 [employer] [id number] 2022 OUT OF NETWORK 00:00:00 Problems Condition Condition Condition Status Onset Resolution Last Treating Co mments Source Name Details Category Date Date Treatment Clinician Date Absence of Absence of Disease Active 2020- U nivers menstruati menstruati 2-12 it y of on on 00:00: [address] Breakthrou Breakthrou Disease Active 2020- U nivers gh gh 2-31 ity of bleeding bleeding 00:00: [place] on on Medical Nexplanon Nexplanon Bran ch Irregular Irregular Disease Active 2020- Uni vers menstrual menstrual 2-03 ity of cycle cycle 00:00: [place] [facility] Well woman Well woman Disease Active 2019-0 U nivers exam exam 3-26 ity of 00:00: [place] [facility] Contracept Contracept Disease Active 2019-0 U nivers [place] 3- ity of management management [place] [facility] Nexplanon Nexplanon Disease Active 2019-[address] in place 3- ity of 00:00: [address] Other Other Disease Active 2019-0 Univers depression depression 3- it y of 00:00: [address] Contracept Contracept Disease Active U nivers [place] 3 ity of management [place] [facility] Left wrist Left wrist Disease Active 2014-11 U nivers pain pain 2 ity of 00:00: [address] ADHD ADHD Disease Active [place] (attention (attention 01-26 He alth deficit deficit 00:00: hyperactiv hyperactiv 00 ity ity disorder) disorder) Deliberate Deliberate Disease Active H arris self-cutti self-cutti 01-26 He alth ng ng 00:00: 00 Allergies, Adverse Reactions, Alerts Allergy Allergy Status Severity Reaction(s) Onset Inactive Treating Comm ents Source Name Type Date Date Clinician NO KNOWN Drug Active [facility] ALLERGIE Class ity of S [facility] [place] NO KNOWN Allergy Active [facility] Social History Social Habit Start Date Stop Date Quantity Comments Source Gender identity Nemesio Monge alth Sexual orientation [facility] Exposure to 2023-02-15 2023-02-25 Not sure [facility] [place] [facility]-CoV-2 (event) 00:00:00 18:19:00 [facility] [place] Alcohol intake 2023-02-25 2023-02-25 0 /d University of 00:00:00 00:00:00 [facility] [place] Tobacco use and 2017-08-24 2017-08-24 Smokeless Universit y of exposure 00:00:00 00:00:00 tobacco non-user [facility] Tobacco Comment 2015-10-25 2015-10-25 Minor Universit y of 00:00:00 00:00:00 [facility] [place] Sex Assigned At 2000 [facility] 00[facility] 00[facility]00[facility]00 [facility] Smoking Status Start Date Stop Date Source Never smoked tobacco [facility] [place] [facility] Medications Ordered Filled Start Stop Current Ordering Indication Dosage Frequency Signature Comments Components Source Medication Medication Date Date Medication? Clinician (SIG) Name Name traMADoL 2022- No 50mg 50 mg, Univer s (ULTRAM) 02-26 Oral, ity of tablet 50 03:45: 02:48 ONCE, 1 [place] mg [place] :00 dose, On Medical Thu02/25/23 Branch at 2245, Routine iopamidol 2022- No [id number] 84mL 84 mL, U nivers (ISOVUE 02-26 [...] the evening. Take with meals. ketorolac Yes [id number] 10mg Take 1 Univers 10 mg 02-25 [id number] tablet by ity of tablet 00:00: mouth [place] 00 every 6 Medical (six) Branch hours as needed for Pain (scale 4-6). ondansetron 2020-11 Yes [id number] 4mg Take 1 Univers (ZOFRAN 1-16 tablet by ity of ODT) 4 mg 00:00: mouth [place] disintegrat 00 every 8 Medic al ing tablet (eight) Branch hours as needed for Nausea and Vomiting (N/V). ondansetron 2020-113- No [id number] 4mg Take 1 Univers (ZOFRAN 1-16 -05 [...] al (anaphylax Branch is). methylPREDN 0 Yes [id number] Take by Univers ISolone 4 7-08 mouth ity of mg tablets 00:00: [place]INSTRU [place] 00 CTIONS. Medical follow Branch package directions bromphenira 0 Yes [id number] 5mL Take 5 mL Univers mine-pseudo 7-08 by mouth 4 it y of ephedrine-D 00:00: (four[place] (BROMFED 00 times Medical DM) 2-30-10 daily as Bran ch mg/5 mL needed for syrup Congestion /Allergies , Cold symptoms or Cough. albuterol 0 Yes [id number] 2{puff} Inhale 2 Univers 90 7-08 Puffs ity of mcg/actuati 00:00: every 4 [place] on inhaler 00 (four) Medical hours as Branch needed for Wheezing or Shortness of Breath. methylPREDN Yes [id number] Take by Univers ISolone 4 7-08 mouth ity of mg tablets 00:00: [place]-INSTRU [place] 00 CTIONS. Medical follow Branch package directions bromphenira Yes [id number] 5mL Take 5 mL Univers mine-pseudo 7-08 by mouth 4 it y of ephedrine-D 00:00: (four[place] (BROMFED 00 times Medical DM) 2-30-10 daily as Bran ch mg/5 mL needed for syrup Congestion /Allergies , Cold symptoms or Cough. albuterol Yes [id number] 2{puff} Inhale 2 Univers 90 7-08 Puffs ity of mcg/actuati 00:00: every 4 [place] on inhaler 00 (four) Medical hours as Branch needed for Wheezing or Shortness of Breath. methylPREDN Yes [id number] Take by Univers ISolone 4 7-08 mouth ity of mg tablets 00:00: [place]INSTRU [place] 00 CTIONS. Medical follow Branch package directions bromphenira Yes [id number] 5mL Take 5 mL Univers mine-pseudo 7-08 by mouth 4 it y of ephedrine-D 00:00: (four[place] (BROMFED 00 times Medical DM) 2-30-10 daily as Bran ch mg/5 mL needed for syrup Congestion /Allergies , Cold symptoms or Cough. albuterol Yes [id number] 2{puff} Inhale 2 Univers 90 7-08 Puffs ity of mcg/actuati 00:00: every 4 [place] on inhaler 00 (four) Medical hours as Branch needed for Wheezing or Shortness of Breath. methylPREDN 0 Yes [id number] Take by Univers ISolone 4 7-08 mouth ity of mg tablets 00:00: [place]-INSTRU [place] 00 CTIONS. Medical follow Branch package directions bromphenira Yes [id number] 5mL Take 5 mL Univers mine-pseudo 7-08 by mouth 4 it y of ephedrine-D 00:00: (four[place] (BROMFED 00 times Medical DM) 2-30-10 daily as Bran ch mg/5 mL needed for syrup Congestion /Allergies , Cold symptoms or Cough. albuterol 2021-0 Yes [id number] 2{puff} Inhale 2 Univers 90 7-08 Puffs ity of mcg/actuati 00:00: every 4 [place] on inhaler 00 (four) Medical hours as Branch needed for Wheezing or Shortness of Breath. methylPREDN 0 Yes [id number] Take by Univers ISolone 4 7-08 mouth ity of mg tablets 00:00: [place]INSTRU [place] 00 CTIONS. Medical follow Branch package directions bromphenira 0 Yes [id number] 5mL Take 5 mL Univers mine-pseudo 7-08 by mouth 4 it y of ephedrine-D 00:00: (four[place] (BROMFED 00 times Medical DM) 2-30-10 daily as Bran ch mg/5 mL needed for syrup Congestion /Allergies , Cold symptoms or Cough. albuterol 0 Yes [id number] 2{puff} Inhale 2 Univers 90 7-08 Puffs ity of mcg/actuati 00:00: every 4 [place] on inhaler 00 (four) Medical hours as Branch needed for Wheezing or Shortness of Breath. methylPREDN 2020-0 Yes [id number] Take by Univers ISolone 4 7-08 mouth ity of mg tablets 00:00: [place]INSTRU [place] 00 CTIONS. Medical follow Branch package directions bromphenira 0 Yes [id number] 5mL Take 5 mL Univers mine-pseudo 7-08 by mouth 4 it y of ephedrine-D 00:00: (four[place] (BROMFED 00 times Medical DM) 2-30-10 daily as Bran ch mg/5 mL needed for syrup Congestion /Allergies , Cold symptoms or Cough. albuterol 2020-0 Yes [id number] 2{puff} Inhale 2 Univers 90 7-08 Puffs ity of mcg/actuati 00:00: every 4 [place] on inhaler 00 (four) Medical hours as Branch needed for Wheezing or Shortness of Breath. methylPREDN 2020-0 Yes [id number] Take by Univers ISolone 4 7-08 mouth ity of mg tablets 00:00: SEE-INSTRU [place] 00 CTIONS. Medical follow Branch package directions bromphenira 2020-0 Yes [id number] 5mL Take 5 mL Univers mine-pseudo 7-08 by mouth 4 it y of ephedrine-D 00:00: (four[place] (BROMFED 00 times Medical DM) 2-30-10 daily as Bran ch mg/5 mL needed for syrup Congestion /Allergies , Cold symptoms or Cough. albuterol Yes [id number] 2{puff} Inhale 2 Univers 90 7-08 Puffs ity of mcg/actuati 00:00: every 4 [place] on inhaler 00 (four) Medical hours as Branch needed for Wheezing or Shortness of Breath. methylPREDN Yes [id number] Take by Univers ISolone 4 7-08 mouth ity of mg tablets 00:00: [place]INSTRU [place] 00 CTIONS. Medical follow Branch package directions bromphenira Yes [id number] 5mL Take 5 mL Univers mine-pseudo 7-08 by mouth 4 it y of ephedrine-D 00:00: (four[place] M (BROMFED 00 times Medical DM) 2-30-10 daily as Bran ch mg/5 mL needed for syrup Congestion /Allergies , Cold symptoms or Cough. albuterol Yes [id number] 2{puff} Inhale 2 Univers 90 7-08 Puffs ity of mcg/actuati 00:00: every 4 [place] on inhaler 00 (four) Medical hours as Branch needed for Wheezing or Shortness of Breath. methylPREDN 3- No [id number] Take by Univers ISolone 4 7-08 04-05 mouth ity of mg tablets 00:00: 00:00 SEE-INSTRU [place] 00 :00 CTIONS. Medical follow Branch package directions bromphenira 3- No [id number] 5mL Take 5 mL Univers mine-pseudo 7-08 04-05 by mouth 4 i ty of ephedrine-D 00:00: 00:00 (four) [place] M (BROMFED 00 :00 times Medical DM) 2-30-10 daily as Bran ch mg/5 mL needed for syrup Congestion /Allergies , Cold symptoms or Cough. albuterol 2022- No [id number] 2{puff} Inhale 2 Univers 90 7-08 04-05 Puffs ity of mcg/actuati 00:00: 00:00 [place] 4 [place] inhaler 00 :00 (four) Medical hours as Branch needed for Wheezing or Shortness of Breath. cetirizine 1-0 Yes [id number] 10mg Take 1 Univers 10 mg 7-06 tablet by ity of tablet 00:00: mouth [place] (two) Medical times Branch daily. cetirizine 1-0 Yes [id number] 10mg Take 1 Univers 10 mg 7-06 tablet by ity of tablet 00:00: mouth [place] (two) Medical times Branch daily. cetirizine 1-0 Yes [id number] 10mg Take 1 Univers 10 mg 7-06 tablet by ity of tablet 00:00: mouth (two) Medical times Branch daily. cetirizine 1-0 Yes [id number] 10mg Take 1 Univers 10 mg 7-06 tablet by ity of tablet 00:00: mouth [place] (two) Medical times Branch daily. cetirizine 2020-0 Yes [id number] 10mg Take 1 Univers 10 mg 7-06 tablet by ity of tablet 00:00: mouth [place] (two) Medical times Branch daily. cetirizine 2020-0 Yes [id number] 10mg Take 1 Univers 10 mg 7-06 tablet by ity of tablet 00:00: mouth [place] (two) Medical times Branch daily. cetirizine 1-0 Yes [id number] 10mg Take 1 Univers 10 mg 7-06 tablet by ity of tablet 00:00: mouth [place] (two) Medical times Branch daily. cetirizine 1-0 Yes [id number] 10mg Take 1 Univers 10 mg 7-06 tablet by ity of tablet 00:00: mouth [place] (two) Medical times Branch daily. cetirizine 2020-0 Yes [id number] 10mg Take 1 Univers 10 mg 7-06 tablet by ity of tablet 00:00: mouth [place] (two) Medical times Branch daily. cetirizine 2021-0 Yes [id number] 10mg Take 1 Univers 10 mg 7-06 tablet by ity of tablet 00:00: mouth [place] (two) Medical times Branch daily. cetirizine 1-0 Yes [id number] 10mg Take 1 Univers 10 mg 7-06 tablet by ity of tablet 00:00: mouth [place] (two) Medical times Branch daily. cetirizine Yes [id number] 10mg Take 1 Univers 10 mg 7- tablet by ity of tablet 00:00: mouth 2 [place] 00 (two) Medical times Branch daily. cetirizine 2022- No [id number] 10mg Take 1 Univers 10 mg 05-28 04-05 tablet by ity of tablet 00:00: 00:00 mouth 2 [place] 00 :00 (two) Medical times Branch daily. EPINEPHrine 2020- No [id number] .3mg 0.3 mL by Univers (AUVI-Q) 05-28 Intramuscu ity of 0.3 mg/0.3 00:00: 04:59 lar route [place] mL 00 :00 once now Medical injection for 1 Branch dose. EPINEPHrine 2020- No [id number] .[id number] 0.3 mL by Univers (AUVI-Q) 05-28 Intramuscu ity of 0.3 mg/0.3 00:00: 04:59 lar route [place] mL 00 :00 once now Medical injection for 1 Branch dose. EPINEPHrine 2020- No [id number] .3mg 0.3 mL by Univers (AUVI-Q) 05-28 Intramuscu ity of 0.3 mg/0.3 00:00: 04:59 lar route [place] mL 00 :00 once now Medical injection for 1 Branch dose. predniSONE 2020- No [id number] 50mg Take 5 Univers 10 mg 05-11- tablets by ity of tablet 00:00: 04:59 mouth [place] 00 :00 daily for Medical 5 days. Branch predniSONE 2020- No [id number] 1 PO BID x Univers 20 mg 03-29 4 days ity of tablet 00:00: 00:00 [place] 00 :00 Medical Branch benzonatate 2020- No [id number] 200mg Take 1 Univers 200 mg 03-29 capsule by ity of capsule 00:00: 00:00 mouth 3 [place] 00 :00 (three) Medical times Branch daily as needed for Cough for up to 20 doses. ibuprofen 2020- No [id number] 600mg Take 1 Univers 600 mg 5-07 [...] 03/05/21 at Branch 0400, DEANDRA hydrOXYzine Yes [id number] 25mg Take 1 Univers 25 mg 4-13 tablet by ity of tablet 00:00: mouth [place] 00 every 8 Medical (eight) Branch hours as needed for Itching. hydrOXYzine Yes [id number] 25mg Take 1 Univers 25 mg 4-13 tablet by ity of tablet 00:00: mouth [place] 00 every 8 Medical (eight) Branch hours as needed for Itching. hydrOXYzine 2020- No [id number] 25mg Take 1 Univers 25 mg -05 05-19 tablet by ity of tablet 00:00: 00:00 mouth [place] 00 :00 every 8 Medical (eight) Branch hours as needed for Itching. predniSONE 2020- No [id number] 60mg Take 3 Univers 20 mg -05 03-18 tablets by ity of tablet 00:00: 04:59 mouth [place] 00 :00 daily for Medical 4 days. Branch HYDROcodone 2020- No 1{tbl} 1 tablet, Univers -acetaminop 2-24 02-24 Oral, ity of hen (NORCO 11:45: 10:42 ONCE, 1 [place] as 5) 5-325 mg 00 :00 dose, Wed Med ical tablet 1 01/16/21 at [facility] tablet 0545, DEANDRA naproxen Yes [id number] 550mg Take 1 U nivers sodium 550 2-24 tablet by ity of mg tablet 00:00: mouth 2 00 (two) Medical times Branch daily with meals. naproxen Yes [id number] 550mg Take 1 U nivers sodium 550 2-24 tablet by ity of mg tablet 00:00: mouth 2 (two) Medical times Branch daily with meals. naproxen 2020- Yes [id number] 550mg Take 1 U nivers sodium 550 2-24 tablet by ity of mg tablet 00:00: mouth 2 [place] 00 (two) Medical times Branch daily with meals. naproxen 0 Yes [id number] 550mg Take 1 U nivers sodium 550 2-24 tablet by ity of mg tablet 00:00: mouth 2 [place] 00 (two) Medical times Branch daily with meals. naproxen Yes [id number] 550mg Take 1 U nivers sodium 550 2-24 tablet by ity of mg tablet 00:00: mouth 2 [place] 00 (two) Medical times Branch daily with meals. naproxen Yes [id number] 550mg Take 1 U nivers sodium 550 2-24 tablet by ity of mg tablet 00:00: mouth 2 [place] 00 (two) Medical times Branch daily with meals. naproxen 2020- No [id number] 550mg Take 1 Univers sodium 550 2-24 06-19 tablet by ity of mg tablet 00:00: 00:00 mouth 2 [place] 00 :[place] (two) Medical times Branch daily with meals. estradioL 2 2019-11- No [id number] 2mg Take 1 Univers mg tablet 12-14 tablet by ity of 00:00: 05:59 mouth [place] 00 :00 daily for Medical 21 days. Branch estradioL 2 2019-11- No [id number] 2mg Take 1 Univers mg tablet 12-14 tablet by ity of 00:00: 05:59 mouth [place] 00 :00 daily for Medical 21 days. Branch estradioL 2 2019-11- No [id number] 2mg Take 1 Univers mg tablet 12-14 tablet by ity of 00:00: 05:59 mouth [place] 00 :00 daily for Medical 21 days. Branch doxycycline 2019-11- No [id number] 100mg Take 1 Univers 100 mg EC -03 04-12 tablet by ity of tablet 00:00: 05:59 mouth 2 [place] 00 :00 (two) Medical times Branch daily for 7 days. doxycycline 2019-11- No [id number] 100mg Take 1 Univers 100 mg EC - 12-12 tablet by ity of tablet 00:00: 05:59 mouth 2 [place] 00 :00 (two) Medical times Branch daily for 7 days. doxycycline 2019- 2020- No [id number] 100mg Take 1 Univers 100 mg EC 2 12-12 tablet by ity of tablet 00:00: 05:59 mouth 2 [place] 00 :00 (two) Medical times Branch daily for 7 days. doxycycline 2019- 2020- No [id number] 100mg Take 1 Univers 100 mg EC 2- 12-12 tablet by ity of tablet 00:00: 05:59 mouth 2 [place] 00 :00 (two) Medical times Branch daily [...] IV ity of (DILAUDID) 17:47: Push, [place] injection 21 Q5MIN PRN, Medi steve 0.2 mg 10 doses, Branch Starting Gi 03/22/20 at 1247, Until Discontinu ed, Routine, Pain (scale 7-10), PACU
Us e approved by (Faculty): PACU USE -ANESTHESI A SERVICE-HY DROMORPHON E INJECTIONS FENTanyl PF 2020-0 Yes 25ug 25 mcg, Uni vers (SUBLIMAZE 4-30 Slow IV ity of (PF)) 17:47: Push, [place] injection 21 Q5MIN PRN, Medi steve 25 [...] Starting ity of e-pf 16:57: Gi [place] (SENSORCAIN 00 03/22/20 at Co dical E 1157, Branch W/EPINEPHRI Until NE) 0.25 Discontinu %-1:200,000 ed, injection Routine, Intra-op lactated 2020- No 1000mL at 20 Unive rs ringers IV 03-22 04-30 mL/hr, ity of infusion 14:15: 14:25 1,000 mL, [place] as 1,000 mL 00 :00 IV Medical Infusion, Branch ONCE, 1 dose, Gi 03/22/20 at 0915, Routine, DSU Pre-op HYDROcodone 2020- No [id number] 1{tbl} Take 1 Univers -acetaminop 03-22 05-08 tablet by it y of hen 5-325 00:00: 04:59 mouth [place] mg tablet 00 :00 every 6 Medical (six) Branch hours as needed for Pain (scale 4-6) or Pain (scale 7-10) for up to 7 days. hydrOXYzine 2020-0 Yes Univer s 50 mg 3-03 ity of tablet 00:00: [address] hydrOXYzine 2020-0 Yes Univer s 50 mg 3-03 ity of tablet 00:00: [address] hydrOXYzine 2020-0 Yes Univer s 50 mg 3-03 ity of tablet 00:00: [address] hydrOXYzine 2020-0 Yes Univer s 50 mg 3-03 ity of tablet 00:00: [address] hydrOXYzine 2020-0 Yes Univer s 50 mg 3-03 ity of tablet 00:00: [address] hydrOXYzine 2020-0 Yes Univer s 50 mg 3-03 ity of tablet 00:00: [address] hydrOXYzine 2020-0 Yes Univer s 50 mg 3-03 ity of tablet 00:00: [address] hydrOXYzine 2020-0 Yes Univer s 50 mg 3-03 ity of tablet 00:00: [address] hydrOXYzine 2020-0 Yes Univer s 50 mg 3-03 ity of tablet 00:00: [address] hydrOXYzine 2020-0 Yes Univer s 50 mg 3-03 ity of tablet 00:00: [address] hydrOXYzine 2020-0 Yes Univer s 50 mg 3-03 ity of tablet 00:00: [place] 00 Medical Branch hydrOXYzine 2020-0 Yes Univer s 50 mg 3-03 ity of tablet 00:00: [place] 00 Medical Branch hydrOXYzine 2020-0 Yes Univer s 50 mg 3-03 ity of tablet 00:00: [place] 00 Medical Branch hydrOXYzine 2020-0 Yes Univer s 50 mg 3-03 ity of tablet 00:00: [place] 00 Medical Branch hydrOXYzine 2020-0 Yes Univer s 50 mg 3-03 ity of tablet 00:00: [place] 00 Medical Branch hydrOXYzine 2020-0 Yes Univer s 50 mg 3-03 ity of tablet 00:00: [place] 00 Medical Branch hydrOXYzine 2020-0 Yes Univer s 50 mg 3-03 ity of tablet 00:00: [place] 00 Medical Branch hydrOXYzine 2020-0 Yes Univer s 50 mg 3-03 ity of tablet 00:00: [place] 00 Medical Branch hydrOXYzine 2020-0 Yes Univer s 50 mg 3-03 ity of tablet 00:00: [place] 00 Medical Branch hydrOXYzine 2020-0 Yes Univer s 50 mg 3-03 ity of tablet 00:00: [place] 00 Medical Branch hydrOXYzine 2020-0 Yes Univer s 50 mg 3-03 ity of tablet 00:00: [place] 00 Medical Branch hydrOXYzine 2020-0 Yes Univer s 50 mg 3-03 ity of tablet 00:00: [place] 00 Medical Branch hydrOXYzine 2020-0 Yes Univer s 50 mg 3-03 ity of tablet 00:00: [place] 00 Medical Branch hydrOXYzine 2020-0 2021- No Unive rs 50 mg 3-03 06-19 ity of tablet 00:00: 00:00 [place] 00 :00 Medical Branch OXcarbazepi 2018-0 Yes 300mg Take 300 U nivers ne 300 mg 6-18 mg by ity of tablet 00:00: mouth [place] every Medical evening. Branch OXcarbazepi 2018-0 Yes 300mg Take 300 U nivers ne 300 mg 6-18 mg by ity of tablet 00:00: mouth [place] 00 every Medical evening. Branch OXcarbazepi 2018-0 Yes 300mg Take 300 U nivers ne 300 mg 6-18 mg by ity of tablet 00:00: mouth [place] every Medical evening. Branch OXcarbazepi 2018-0 Yes [...] mg by ity of tablet 00:00: 00:00 [facility] [place] 00 :00 every Medical evening. Branch No known No Univers medications ity of [facility] [place] Vital Signs Vital Name Observation Time Observation Value Comments Source Systolic blood 2023-02-26 02:00:00 123 mm[Hg] Univer sity of pressure [facility] [place] Diastolic blood 2023-02-26 02:00:00 75 mm[Hg] Unive rsity of [facility] Heart rate 2023-02-26 02:00:00 66 /min Universi ty of [facility] [place] Respiratory rate 2023-02-26 02:00:00 16 /min Univ ersity [facility] [place] Oxygen saturation in 2023-02-26 02:00:00 100 /min University of Arterial blood by [facility] Pulse oximetry [place] Body temperature 2023-02-25 23:00:00 37 Jemima [facility] [place] [facility] 2023-02-25 23:00:00 68.04 kg Universi ty [facility] [place] HEIGHT 2023-01-26 17:54:00 162.6 cm HEIGHT 2023-01-26 17:54:00 162.6 cm HEIGHT 2023-01-26 17:54:00 162.6 cm Systolic blood 2021-10-08 23:46:00 121 mm[Hg] Univer sity of [facility] Diastolic blood 2021-10-08 23:46:00 72 mm[Hg] Unive rsity of [facility] Heart rate 2021-10-08 23:46:00 92 /min Universi ty [facility] [place] Body temperature 2021-10-08 23:46:00 37 Jemima [facility] [place] [facility] ersity [facility] [place] Respiratory rate 2021-10-08 23:46:00 16 /min Univ ersity [facility] [place] Body height 2021-10-08 23:46:00 162.6 cm Universi ty [facility] [place] Body weight 2021-10-08 23:46:00 68.04 kg Universi ty [facility] [place] BMI 2021-10-08 23:46:00 25.75 kg/m2 Universi ty [facility] [place] Oxygen saturation in 2021-10-08 23:46:00 99 /min University of Arterial blood by [facility] Pulse oximetry Branch Systolic blood 2021-09-04 22:20:00 123 mm[Hg] Univer sity of pressure [place] [facility] Diastolic blood 2021-09-04 22:20:00 72 mm[Hg] Unive rsity of pressure [place] [facility] Heart rate 2021-09-04 22:20:00 92 /min Universi ty of [place] [facility] Body temperature 2021-09-04 22:20:00 37.11 Jemima Univ ersity of [place] [facility] Respiratory rate 2021-09-04 22:20:00 18 /min Univ ersity of [place] [facility] Body weight 2021-09-04 22:20:00 72.576 kg Universi ty of [place] [facility] Oxygen saturation in 2021-09-04 22:20:00 100 /min University of Arterial blood by [facility] Pulse oximetry Branch Systolic blood 2021-05-30 17:30:00 115 mm[Hg] Univer sity of pressure [place] [facility] Diastolic blood 2021-05-30 17:30:00 76 mm[Hg] Unive rsity of pressure [place] [facility] Heart rate 2021-05-30 17:30:00 94 /min Universi ty of [place] [facility] Body temperature 2021-05-30 17:30:00 36.94 Jemima Univ ersity of [place] [facility] Respiratory rate 2021-05-30 17:30:00 18 /min Univ ersity of [place] [facility] Body weight 2021-05-30 17:30:00 69.4 kg Universi ty of [place] [facility] BMI 2021-05-30 17:30:00 26.26 kg/m2 Universi ty of [place] [facility] Oxygen saturation in 2021-05-30 17:30:00 99 /min University of Arterial blood by [facility] Pulse oximetry Branch Systolic blood 2021-05-28 [...] 19:31:00 16 /min Univ ersity of [place] [facility] Body height 2021-05-28 19:31:00 162.6 cm Universi ty of [place] [facility] Body weight 2021-05-28 19:31:00 69.4 kg Universi ty of [place] [facility] BMI 2021-05-28 19:31:00 26.26 kg/m2 Universi ty of [place] [facility] Oxygen saturation in 2021-05-28 19:31:00 99 /min University of Arterial blood by [facility] Pulse oximetry Branch Systolic blood 2021-05-11 19:52:00 128 mm[Hg] Univer sity of pressure [place] [facility] Diastolic blood 2021-05-11 19:52:00 83 mm[Hg] Unive rsity of [facility] [place] [facility] Heart rate 2021-05-11 19:52:00 75 /min [facility] [place] [facility] Body temperature 2021-05-11 19:52:00 36.94 Jemima [facility] [place] [facility] Respiratory rate 2021-05-11 19:52:00 16 /min [facility] [place] [facility] Body weight 2021-05-11 19:52:00 68.04 kg [facility] [place] [facility] Oxygen saturation in 2021-05-11 19:52:00 100 /min University of Arterial blood by [facility] Pulse oximetry Branch Systolic blood 2021-03-05 07:44:00 142 mm[Hg] Univer sity of pressure [facility] [place] [facility] Diastolic blood 2021-03-05 07:44:00 72 mm[Hg] Unive rsity of pressure [facility] [place] [facility] Heart rate 2021-03-05 07:44:00 111 /min [facility] [place] [facility] Body temperature 2021-03-05 07:44:00 37.06 Jemima [facility] [place] [facility] Respiratory rate 2021-03-05 07:44:00 18 /min [facility] [place] [facility] Body height 2021-03-05 07:44:00 162.6 cm [facility] [place] [facility] Body weight 2021-03-05 07:44:00 63.504 kg [facility] [place] [facility] BMI 2021-03-05 07:44:00 24.03 kg/m2 [facility] [place] [facility] Oxygen saturation in 2021-03-05 07:44:00 100 /min University of Arterial blood by [facility] Pulse oximetry Branch Systolic blood 2021-01-18 15:33:00 136 mm[Hg] Univer sity of pressure [facility] [place] [facility] Diastolic blood 2021-01-18 15:33:00 89 mm[Hg] Unive rsity of pressure [facility] [place] [facility] Heart rate 2021-01-18 15:33:00 81 /min [facility] [place] [facility] Body height 2021-01-18 15:29:00 162.6 cm [facility] [place] [facility] Body weight 2021-01-18 15:29:00 64.411 kg [facility] [place] [facility] BMI 2021-01-18 15:29:00 24.37 kg/m2 [facility] [place] [facility] Systolic blood 2021-01-16 10:15:00 129 mm[Hg] Univer sity of pressure [facility] [place] [facility] Diastolic blood 2021-01-16 10:15:00 90 mm[Hg] Unive rsity of pressure [facility] Heart rate 2021-01-16 10:15:00 93 /min [facility] [place] [facility] Body temperature 2021-01-16 10:15:00 36.83 Jemima [facility] [place] [facility] Respiratory rate 2021-01-16 10:15:00 18 /min [facility] [place] [facility] Body weight 2021-01-16 10:15:00 60.782 kg [facility] [place] [facility] Oxygen saturation in 2021-01-16 10:15:00 99 /min University of Arterial blood by [facility] Pulse oximetry Branch Systolic blood 2021-01-04 14:25:00 128 mm[Hg] Univer sity of pressure [facility] [place] [facility] Diastolic blood 2021-01-04 14:25:00 80 mm[Hg] Unive rsity of pressure [facility] Heart rate 2021-01-04 14:25:00 90 /min [facility] [place] [facility] Body temperature 2021-01-04 14:25:00 36.33 Jemima [facility] [place] [facility] Respiratory rate 2021-01-04 14:25:00 16 /min [facility] [place] [facility] Body height 2021-01-04 14:25:00 162.6 cm [facility] [place] [facility] Body weight 2021-01-04 14:25:00 64.524 kg [facility] [place] [facility] BMI 2021-01-04 14:25:00 24.42 kg/m2 [facility] [place] [facility] Systolic blood 2020-11-22 19:20:00 123 mm[Hg] Univer sity of pressure [facility] [place] [facility] Diastolic blood 2020-11-22 19:20:00 72 mm[Hg] Unive rsity of pressure [facility] Heart rate 2020-11-22 19:20:00 84 /min [facility] [place] [facility] Body temperature 2020-11-22 19:20:00 36.56 Jemima [facility] [place] [facility] Respiratory rate 2020-11-22 19:20:00 16 /min [facility] [place] [facility] Body height 2020-11-22 19:20:00 162.6 cm [facility] [place] [facility] Body weight 2020-11-22 19:20:00 63.078 kg [facility] [place] [facility] BMI 2020-11-22 19:20:00 23.87 kg/m2 [facility] [place] [facility] Systolic blood 2020-10-25 19:26:00 119 mm[Hg] Univer sity of pressure [facility] [place] [facility] Diastolic blood 2020-10-25 19:26:00 68 mm[Hg] Unive rsity of pressure [facility] [place] [facility] Heart rate 2020-10-25 19:26:00 80 /min [facility] [place] [facility] Body temperature 2020-10-25 19:26:00 36.61 Jemima [facility] [place] [facility] Respiratory rate 2020-10-25 19:26:00 16 /min [facility] [place] [facility] Body height 2020-10-25 19:26:00 162.6 cm [facility] [place] [facility] Body weight 2020-10-25 19:26:00 63.957 kg [facility] [place] [facility] BMI 2020-10-25 19:26:00 24.20 kg/m2 [facility] [place] [facility] Body temperature 2020-04-04 15:49:00 36.89 Jemima [facility] [place] [facility] Body height 2020-04-04 15:49:00 162.6 cm [facility] [place] [facility] Body weight 2020-04-04 15:49:00 65 kg [facility] [place] [facility] BMI 2020-04-04 15:49:00 24.60 kg/m2 Universi ty [facility] Systolic blood 2020-03-22 18:40:00 121 mm[Hg] Univer sity of pressure [facility] Diastolic blood 2020-03-22 18:40:00 82 mm[Hg] Unive rsity of pressure [facility] Heart rate 2020-03-22 18:40:00 82 /min Universi ty [facility] Respiratory rate 2020-03-22 18:40:00 14 /min [facility] Oxygen saturation in 2020-03-22 18:40:00 97 /min [facility] Arterial blood by [facility] Pulse oximetry Branch Body temperature 2020-03-22 17:42:00 36.28 Jemima [facility] Body height 2020-03-22 14:32:00 162.6 cm Universi ty [facility] Body weight 2020-03-22 14:32:[address] [facility] BMI 2020-03-22 14:32:00 22.31 kg/m2 Universi [facility] Body temperature 2020-03-21 20:55:00 37.06 Jemima [facility] Body temperature 2020-02-01 20:24:00 36.72 Jemima [facility] Body weight 2020-02-01 20:24:[address] [facility] Respiratory rate 2023-01-26 17:54:00 20 /min [facility] Body height 2023-01-26 17:54:00 162.6 cm [facility] Oxygen saturation in 2023-01-26 17:54:00 99 /min [facility] Arterial blood by Medical Ce nter Pulse oximetry Systolic blood 2023-01-26 17:54:00 141 mm[Hg] [facility] Diastolic blood 2023-01-26 17:54:00 89 mm[Hg] [facility] Heart rate 2023-01-26 17:54:00 145 /min [facility] Body temperature 2023-01-26 17:54:00 36.67 Jemima [facility] Procedures Procedure Date / Time Performed Performing Clinician Sour e POCT TEST 2023-02-25 23:35:00 Guillermo Rosas [facility] Medical [place] COMP. METABOLIC PANEL 2023-02-25 23:34:00 Guillermo Rosas [facility] ([id number]) Medical Branch CBC WITH DIFF 2023-02-25 23:34:00 Guillermo Rosas [facility] URINALYSIS 2023-02-25 23:34:00 Guillermo Rosas [place] [facility] NOTICE OF PRIVACY 2023-02-25 22:56:09 Doctor Unassigned, No [facility] [place] [facility] Name Medical Branch CONSENT/REFUSAL FOR 2023-02-25 22:55:24 Doctor Unassigned, No [facility] [place] DIAGNOSIS AND Name Medical Branch TREATMENT ECG 12-LEAD 2023-01-26 17:48:00 Unknown, Hl7 Doctor [facility] ECG 12-LEAD 2023-01-26 17:48:00 Unknown, Hl7 Doctor [facility] ECG 12-LEAD 2023-01-26 17:48:00 Unknown, Hl7 Doctor [facility] EKG-SCANNED 2023-01-26 00:00:00 Provider, Katiuska [facility] RAPID STREP SCREEN FOR 2021-10-09 00:01:00 Guillermo Rosas [facility] GROUP A Medical Branch RAPID INFLUENZA A/B 2021-10-09 00:01:00 Guillermo Rosas [facility] COVID-19 (ID NOW RAPID 2021-10-09 00:01:00 Guillermo Rosas [facility] TESTING) Medical Branch CONSENT/REFUSAL FOR 2021-10-08 23:37:53 Doctor Unassigned, No [facility] [place] DIAGNOSIS AND Name Medical Branch TREATMENT RAPID STREP SCREEN FOR 2021-09-05 00:47:00 Riya Flores [facility] COVID-19 (ID NOW RAPID 2021-09-05 00:47:00 Riya Flores [facility] Medical Branch CONSENT/REFUSAL FOR 2021-09-04 22:11:13 Doctor Unassigned, No [facility] [place] DIAGNOSIS AND Name Medical Branch TREATMENT RAPID STREP SCREEN FOR 2021-05-30 19:19:00 Yuki Ferguson [facility] GROUP A Medical Branch ADC,CLC OR LCC ONLY - 2021-05-30 19:19:00 Yuki Ferguson [facility] INFLUENZA A & B DIRECT Medical B ranch ANTIGEN COVID-19 (ID NOW RAPID 2021-05-30 19:19:00 Yuki Ferguson [facility] TESTING) Medical Branch XR CHEST 1 VW 2021-05-30 18:41:21 Yuki Ferguson [facility] Medical Branch CONSENT/REFUSAL FOR 2021-05-30 17:21:37 Doctor Unassigned, No [facility] [place] DIAGNOSIS AND Name Medical Branch TREATMENT NOTICE OF PRIVACY 2021-03-05 07:37:51 Doctor Unassigned, No [facility] CONSENT/REFUSAL FOR 2021-03-05 07:37:33 Doctor Unassigned, No [facility] [place] DIAGNOSIS AND Name Medical Branch TREATMENT XR ANKLE 3+ VW 2021-01-18 15:40:22 Cr Grubbs [facility] BILATERAL Medical Branch POCT TEST 2021-01-16 10:30:00 Karley Aguila [facility] Medical Branch NOTICE OF PRIVACY 2021-01-16 10:08:03 Doctor Unassigned, No [facility] Branch CONSENT/REFUSAL FOR 2021-01-16 10:07:34 Doctor Unassigned, No [facility] [place] DIAGNOSIS AND Name Medical Branch TREATMENT POCT TEST 2021-01-04 14:57:00 Trini Blanc [facility] Medical Branch CONSENT/REFUSAL FOR 2021-01-04 14:11:03 Doctor Unassigned, No [facility] [place] DIAGNOSIS AND Name Medical Branch TREATMENT ASSIGNMENT OF BENEFITS 2020-10-25 18:54:58 Doctor Unassigned, No [facility] Name Medical Branch FL TIME OR 2020-03-22 17:48:10 Dayo [facility] f [place] (NON-REPORTABLE) Medical Branch POCT TEST 2020-03-22 14:10:00 Corina Calderon [facility] Medical Branch CONSENT/REFUSAL FOR 2020-03-22 14:01:02 Doctor Unassigned, No [facility] [place] DIAGNOSIS AND [facility] TREATMENT ASSIGNMENT OF BENEFITS 2020-03-22 14:00:38 Doctor Unassigned, No [facility] Branch XR WRIST 3+ VW LEFT 2020-02-01 20:34:24 [facility] Plan of Care Planned Activity Planned [...] INFLUENZA VACCINE (Season Ended)] Future Scheduled 2023-07-[address] [facility] Test 00:00:00 (Season Ended) [code Medical Center = Influenza Vaccine (Season Ended)] Future Scheduled 2022-11-23 DEPRESSION SCREENING [facility] (#1[facility] [code = [facility] INFLUENZA VACCINE (#1)] Future Scheduled 2022 [facility] 00:[facility]:00 malignant neoplasm of cervix (procedure) [code = 329384741] Future Scheduled 2022 [facility] 00:00:00 malignant neoplasm of cervix (procedure) [code = 910710190] Future Scheduled 2022 [facility] 00:00:00 malignant neoplasm of cervix (procedure) [code = 832690052] Future Scheduled 2022 [facility] 00:00:00 malignant neoplasm of cervix (procedure) [code = 298738588] Future Scheduled 2022 [facility] 00:00:00 malignant neoplasm of cervix (procedure) [code = 054374631] Future Scheduled 2022 [facility]ening [facility] 00:00:00 malignant neoplasm of cervix (procedure) [code = 216942619] Future Scheduled 2022 [facility]ening [facility] 00:00:00 malignant neoplasm of cervix (procedure) [code = 611100805] Future Scheduled 2022 [facility]ening [facility] 00:00:00 malignant neoplasm of cervix (procedure) [code = 353428568] Future Scheduled [address] [facility] [facility] 00:[facility]:00 malignant neoplasm of [facility] Center cervix (procedure) [code = 162060396] Future Scheduled [address] [facility] Test 00:00:00 malignant neoplasm of [facility] cervix (procedure) [code = 218817357] Future Scheduled [address] [facility] Test 00:00:00 malignant neoplasm of [facility] Center cervix (procedure) [code = 218574852] Future Scheduled [address] [facility] Test 00:00:00 malignant neoplasm of [facility] Center cervix (procedure) [code = 147766348] Future Scheduled [address] [facility] Test 00:00:00 malignant neoplasm of [facility] Center cervix (procedure) [code = 194657645] Future Scheduled [address] [facility] Test 00:00:00 malignant neoplasm of [facility] Center cervix (procedure) [code = 075360160] Future Scheduled [address] [facility] Test 00:00:00 malignant neoplasm of [facility] Center cervix (procedure) [code = 275040213] Future Scheduled [address] [facility] Test 00:00:00 malignant neoplasm of [facility] Center cervix (procedure) [code = 761397812] Future Scheduled 2022 [facility] 00:00:00 malignant neoplasm of cervix (procedure) [code = 293537580] Future Scheduled [address] [facility] [facility] Test 00:00:00 malignant neoplasm of [facility]ica [facility] Center cervix (procedure) [code = 535085427] Future Scheduled 2021-08-23 IMM Influenza [facility] 00:00:00 Seasonal Oct to January (>/= 19 yrs) [code = IMM Influenza Seasonal Oct to January (>/= 19 yrs)] Future Scheduled [...] VACCINE (#1)] Future Scheduled 2001 Fluoride Varnish [facility] Test 00:00:00 [code = Fluoride Varnish] Encounters Start End Encounter Admission Attending Care Care Encounter Source Date/Time Date/Time Type Type Clinicians Facility Department ID 2021-09-23 Emergency [facility] [id number] [facility] 2021-09-23 Emergency [facility] [id number] Univers 02:21:03 [facility] 2021-09-22 Emergency [facility] [id number] Univers 17:49:04 [facility] 2021-09-22 Emergency [facility] [id number] Univers 12:25:45 [facility] 2021-09-22 Emergency [facility] [id number] Univers 00:58:09 [facility] 2021-09-19 Outpatient Alicia OSHEA [facility] VLS [id number] Univers 18:58:12 MAIRA TERESA [facility] 2023-05-02 2023-05-02 Outpatient ENDER HANDLEY [id number] Kevon 12:51:10 12:51:10 0610 Sadie Rodriguez 2023-04-04 2023-04-04 Outpatient [facility] [id number] Kevon 12:00:13 12:00:13 0513 F Michael 2023-03-13 2023-03-13 Outpatient SFA [facility] [id number] Kevon 17:28:58 17:28:58 0421 F Michael 2023-02-27 2023-02-27 Outpatient [facility] [id number] Kevon 14:31:04 14:31:04 0407 F Michael 2023-02-25 2023-02-25 Emergency X RALPH [facility] ERT [id number] Univers 18:01:00 21:54:00 GUILLERMO ity of [facility] 2023-02-25 2023-02-25 Emergency Ralph [facility] [id number] Univers 18:01:00 21:54:00 Guillermo Solorzano HECTOR [id number] i ty [facility] [id number] [facility] [id number] [place] [address] Branch 2023-02-20 2023-02-20 Outpatient [facility] [id number] Kevon 16:22:24 16:22:24 [id number] [facility] 2023-01-26 2023-01-26 Emergency [facility], [facility] [id number] 19:23:00 20:26:00 [facility] 2023-01-26 2023-01-26 Emergency ER [facility] Emergency [id number] SLE 19:23:00 20:26:00 [facility] 2023-01-26 2023-01-26 Emergency [facility], [facility] [id number] 19:23:00 20:26:00 [facility] 2023-01-26 2023-01-26 Orders [facility] [id number] 00:00:00 00:00:00 Only [facility] 2023-01-26 2023-01-26 Travel [facility] [id number] [facility] 00:[facility] 00:00:00 [facility] 2023-01-26 2023-01-26 Orders [facility] [id number] 00:00:00 00:00:00 Only [facility] 2023-01-26 2023-01-26 Travel [facility] [id number] [facility] 00:[facility] 00:00:00 [facility] 2021-11-26 2021-11-26 Outpatient R UNKNOWN, [facility] [id number] Univers 12:15:00 12:15:00 ATTENDING [facility] 2021-11-23 2021-11-23 Outpatient R GREEN, [facility] [id number] Univers 20:30:00 20:30:00 KATY [facility] 2021-10-08 2021-10-08 Emergency X [facility] ERT [id number] Univers 17:48:00 20:16:00 GUILLERMO [facility] 2021-10-08 2021-10-[address] [facility] [id number] Univers 17:48:00 20:16:00 Guillermo Jeanine [place] 350.1.13.10 i ty of [place] 4.2.7.2.686 [facility] [id number] [place] [address] Branch 2021-09-04 2021-09-04 Emergency [facility] [id number] Univers 17:22:00 21:08:00 Riya Alicia [place] 350.1.13.10 i ty of [place] 4.2.7.2.686 [facility] [phone] [place] [address] Branch 2021-09-04 2021-09-04 Emergency X [facility] ERT [id number] Univers 17:22:00 21:08:00 RIYA [facility] 2021-06-07 2021-06-07 Patient Suly [facility] [id number] Univers 00:00:00 00:00:00 Secure Msg Lorrie Monahan MULTISPEC 350.1.13.10 ity of [facility] 4.2.7.2.686 [facility] [phone] [facility] AND AREVALO 056 Branch DIABETES CLINIC 2021-06-04 2021-06-04 Patient Suly [facility] [id number] Univers 00:00:00 00:00:00 Secure Msg Lorrie Monahan MULTISPEC 350.1.13.10 ity of [place]AL[place] 4.2.7.2.686 [facility] [id number] [facility] AND [address] DIABETES [facility] 2021-06-03 2021-06-03 Patient Suly [facility] [id number] Univers 00:00:00 00:00:00 Secure Msg Lorrie Mnoahan MULTISPEC 350.1.13.10 ity of IALTY [id number] [place] [address] [id number] [facility] AND [address] DIABETES [facility] 2021-06-03 2021-06-03 Patient Suly [facility] [id number] Univers 00:00:00 00:00:00 Secure Msg Lorrie Monahan MULTISPEC 350.1.13.10 ity of [place] 4.2.7.2.686 [facility] s JEROME [id number] [facility] AND [address] DIABETES [facility] 2021-05-30 2021-05-30 [facility] [id number] Univers 14:40:00 16:58:00 Yuki Jaja 350.1.13.10 i ty of [place] 4.2.7.2.686 [facility] [id number] [facility] [address] [place] [address] 2021-05-29 2021-05-29 [facility] [id number] Univers 00:00:00 00:00:00 Secure Msg Lorrie Monahan MULTISPEC 350.1.13.10 ity of [place] 4.2.7.2.686 [facility] [id number] [facility] AND [address] DIABETES [facility] 2021-05-28 2021-05-28 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 13.10 ity of [place]686 [place] [id number] [facility] AND [address] DIABETES CLIN[facility] 2021-05-28 2021-05-28 Office [facility] 1.2.840.114 [id number] Univers 14:25:15 15:25:29 Visit Lorrie GRANTPEC 350.1.13.10 ity of [place] 4.2.7.2.686 [facility] [id number] [facility] AND [address] DIABETES CLINIC 2021-05-28 2021-05-28 Outpatient R SULY [facility] [id number] Univers 14:30:00 14:30:00 LORRIE westfall o f [facility] 2021-05-25 2021-05-25 [facility] 1.2.840.114 [id number] Univers 00:00:00 00:00:00 Secure Msg Lorrie Monahan MULTISPEC 350.1.13.10 ity of [place] 4.2.7.2.686 [facility] [id number] [address] DIABETES CLINIC 2021-05-11 2021-05-11 Emergency [facility] 1.2.840.114 [id number] Univers 14:53:00 15:14:00 Collette Wilkinson 350.1.13.10 ity of [place] 4.2.7.2.686 [facility] [place] [id number] [facility] [address] [place] 2021-03-22 2021-03-22 Telephone [facility] 1.2.840.114 [id number] Univers 00:00:00 00:00:00 Trini Howard IRON LAUNDER OPERATOR 350.1.13.10 ity of [facility] 4.2.7.2.686 Fidel as MATERNAL [id number] Med ical & CHILD [address] [place] [address] 2021-03-05 2021-03-05 Emergency [facility] [id number] Univers 02:46:00 03:09:00 Heriberto Wilkinson 350.1.13.10 i ty of [place] 4.2.7.2.686 [facility] [id number] [address] 2021-01-18 2021-01-18 Hospital [facility] 1.2.840.114 [id number] Univers 09:40:22 23:59:00 Encounter Cr Monahan [facility] 350.1.13.10 ity of Surgical 4.2.7.2.686 Fidel as Specialti [id number] Co dical es [id number] [facility] 2021-01-18 2021-01-18 [facility] [id number] Univers 09:40:22 23:59:00 CR westfall [facility] 2021-01-18 2021-01-18 Office [facility] [id number] Univers 09:25:51 09:57:12 Visit Cr [facility] 350.1.13.10 it y of Surgical 4.2.7.2.686 Fidel as Specialti [id number] Co dical es 198 [facility] 2021-01-16 2021-01-16 Emergency [facility] [id number] Univers 04:13:00 04:48:00 Karley Jeanine [place] 350.1.13.10 ity of [place] 4.2.7.2.686 [facility] [id number] [address] 2021-01-04 2021-01-04 Office [facility] 1.2.131.342 [id number] Univers 08:13:15 08:58:39 Visit Trini Howard IRON LAUNDER OPERATOR 350.1.13.10 ity of REGIONAL 4.2.7.2.686 Fidel as MATERNAL [phone] Med ical & CHILD 107 [facility] 2021-01-04 2021-01-04 Out[facility] [id number] Univers 08:15:00 08:15:00 TRINI westfall o f [facility] 2021-01-04 2021-01-04 Orders Doctor MOREL 1.2.840.114 [id number] Univers 00:00:00 00:00:00 Only Unassigned, GISELA 350.1.13.10 ity of [place] [facility] 4.2.7.2.686 Fidel as [id number] [address] 2020-12-04 2020-12-04 [facility]ill [facility] 1.2.893.051 [id number] Univers 00:00:00 00:00:00 Trini C IRON LAUNDER OPERATOR 350.1.13.10 ity of [facility] 4.2.7.2.686 Fidel as MATERNAL [id number] [facility] ical & CHILD [address] [place] [address] 2020-11-22 2020-11-22 Office [facility] 1.2.922.825 [id number] Univers 13:11:42 13:46:36 Visit Trini C IRON LAUNDER OPERATOR 350.1.13.10 ity of [facility] 4.2.7.2.686 Fidel as MATERNAL [id number] [facility] & CHILD [address] [place] [address] 2020-11-22 2020-11-[address] [id number] Univers 13:15:00 13:15:00 TRINI ity o f [facility] 2020-10-29 2020-10-29 Telephone [facility] [id number] [id number] Univers 00:00:00 00:00:00 Trini C IRON LAUNDER OPERATOR [id number] ity of [facility] 4.2.7.2.686 Fidel as MATERNAL [phone] [facility] & CHILD [address] [place] [address] 2020-10-26 2020-10-26 Telephone [facility] 1.2.840.114 [id number] 00:00:00 00:00:00 Trini C IRON LAUNDER OPERATOR [id number] REGIONAL 4.2.7.2.686 MATERNAL [phone] & [address] 2020-10-26 2020-10-26 Telephone [facility] 1.2.840.114 [id number] Univers 00:00:00 00:00:00 Trini C IRON LAUNDER OPERATOR [id number] ity of [facility] 4.2.7.2.686 Fidel as MATERNAL [phone] Med ical & CHILD [address] [place] [address] 2020-10-25 2020-10-25 Office Akinsicristóbal, [facility] [id number] Univers 13:03:25 13:18:25 Visit Trini Howard IRON LAUNDER OPERATOR 350.1.13.10 ity of [facility] 4.2.7.2.686 Fidel as MATERNAL [phone] [facility] ical & CHILD [address] [place] [address] 2020-10-25 2020-10-25 Outpatient R [facility] [id number] Univers 12:45:00 12:45:00 ity of [facility] 2020-10-25 2020-10-25 Orders Doctor MARIA TERESA [id number] [id number] Univers 00:00:00 00:00:00 Only Unassigned, GISELA 350.1.13.[address] [facility] 4.2.7.2.686 Fidel as [phone] [address] 2020-10-23 2020-10-23 Outpatient R [facility] [id number] Univers 08:45:00 08:45:00 ity of [facility] 2020-04-04 2020-04-04 [facility] [id number] Univers 10:32:05 11:18:56 Visit [facility] [id number] ity of [facility] 4.2.7.2.686 [facility] AT [phone] [address] 2020-04-04 2020-04-04 [facility] [id number] Univers 11:00:00 11:00:00 MARIA TERESA ity of [facility] 2020-03-22 2020-03-22 [facility] 1.2.840.114 [id number] Univers 08:59:00 13:45:00 Encounter [facility] [id number] ity of [facility] 4.2.7.2.686 [facility] s [facility] [phone] [address] ([facility]) 2020-03-21 2020-03-21 Nurse Nurse, [facility] General Surgery [facility] 1.2.840.114 [id number] Univers 15:37:12 15:54:01 Visit Maria Teresa Oshea 350.1.13.10 it[place] [phone] Co dical nal [address] [facility] 2020-03-21 2020-03-21 Outpatient R [facility] [id number] Univers 15:45:00 15:45:00 MARIA TERESA [facility] 2020-02-01 2020-02-01 Outpatient R [facility] [id number] Univers 15:28:25 23:59:00 MARIA TERESA [facility] 2020-02-01 2020-02-01 [facility] 1.2.840.114 [id number] Univers 15:28:00 23:59:00 Encounter Maria Teresa RAO 350.1.13.10 [place] [phone] Co dical VICTORY [address] [facility] 2020-02-01 2020-02-01 Office [employer] [id number] Univers 15:08:48 16:11:33 Visit Maria Teresa SPECIALTY 350.1.13.10 it[place] [phone] Co dical VICTORY 198 [facility] 2020-01-31 2020-01-31 [facility] [id number] Univers 00:00:00 00:00:00 [facility] SPECIAL[facility] 350.1.13.10 ity [place] [phone] Co dical VICTORY 198 [facility] 2019-06-30 2019-06-30 Telephone [facility] 1.2.840.114 [id number] Univers 00:00:00 00:00:00 Trini Howard IRON LAUNDER OPERATOR 350.1.13.10 ity of REGIONAL 4.2.7.2.686 Fidel as MATERNAL [phone] Med ical & CHILD 107 [facility] Results Test Description Test Time Test Comments Results Result Comments Source COMP. METABOLIC PANEL (00568) 2023-02-26 00:20:34 Test Item Value Reference Range Interpretation Comme nts NA (test code = 9889041357) 139 mmol/L 135-145 K (test code = 5732260926) 3.4 mmol/L 3.5-5.0 L CL (test code = 9712990463) 105 mmol/L 98-108 CO2 TOTAL (test code = 3975717793) 22 mmol/L 23-31 L AGAP (test code = 0263335564) 12 2-16 BUN (test code = 9726083332) 12 mg/dL 7-23 GLUCOSE (test code = 2922658361) 86 mg/dL 70-110 CREATININE (test code = 0.66 mg/dL 0.50-1.04 9404396906) TOTAL BILI (test code = 0.7 mg/dL 0.1-1.7 2346082835) CALCIUM (test code = 6291101347) 9.2 mg/dL 8.6-10.6 T PROTEIN (test code = 6573593341) 7.0 g/dL 6.3-8.2 ALBUMIN (test code = 4134591587) 4.6 g/dL 3.5-5.0 ALK PHOS (test code = 1016991922) 58 U/L 34-122 ALTv (test code = 1742-6) 16 U/L 5-35 AST(SGOT) (test code = 8416130394) 17 U/L 13-40 eGFR (test code = 3158296345) 113.1 mL/min/1.73m2 PATTI (test code = PATTI) [...] tests). Lab Interpretation (test code = Abnormal 84706-1) [facility] WITH [id number] 00:09:11 Test Item Value Reference Range Interpretation Comments WBC (test code = 5.64 See_Comment [Automated 1355-2) message] The sy stem which generated this result transmitted reference range : 4.30 - 11.10 10*3/?L. The reference range was not used to interpret this result as normal/abnormal . RBC (test code = 4.36 See_Comment [Automated 405-8) message] The sy stem which generated this [...] RDW-SD (test code = 39.8 fL 39.0-49.9 22683-5) RDW-CV (test code = 13.2 % 12.0-15.5 788-0) PLT (test code = 265 See_Comment [Automated 485-3) message] The sy stem which generated this result transmitted reference range : 166 - 358 10*3/ ?L. The reference r boogie was not used to interpret this result as normal/abnormal . MPV (test code = 10.6 fL 9.5-12.9 75760-6) NRBC/100 WBC (test 0.0 See_Comment [Automat ed code = 9100830019) message] The system which generated this result transmitted reference range : 0.0 - 10.0 /100 WBCs. The refer ence range was not u sed to interpret th is result as normal/abnormal . NRBC x10^3 (test code See_Comment [Auto mated = 4496355260) message] The s ystem which generated this result transmitted reference range : 10*3/?L. The reference range was not used to interpret this result as normal/abnormal . GRAN MAT (NEUT) % 65.4 % (test code = 770-8) IMM GRAN % (test code 0.40 % = 8145675792) LYMPH % (test code = 22.5 % 736-9) MONO % (test code = 7.8 % 5905-5) EOS % (test code = 3.5 % 713-8) BASO % (test code = 0.4 % 706-2) GRAN MAT x10^3(ANC) 3.69 10*3/uL 1.88-7.09 (test code = 5935505871) IMM GRAN x10^3 (test 0.00-0.06 code = 7641659340) LYMPH x10^3 (test code 1.27 10*3/uL 1.32-3.29 L = 731-0) MONO x10^3 (test code 0.44 10*3/uL 0.33-0.92 = 742-7) EOS x10^3 (test code = 0.20 10*3/uL 0.03-0.39 711-2) BASO x10^3 (test code 0.01-0.07 = 704-7) Lab Interpretation Abnormal (test code = 40756-9) [facility] [id number] 23:35:00 Test Item Value Reference Range Interpretation Comments POCT PREG (test code = 1605) negative On board controls acceptable with present C Line (test code = 3574) POCT PREG LOT # (test code = 3575) [id number] POCT PREG TEST DATE (test 12/23/2023 code = 3576) Lab Interpretation (test code = Normal 52896-6) [facility],CLC OR LCC ONLY - INFLUENZA A & B DIRECT [id number] 19:44:38 Test Item Value Reference Range Interpretation Comments Influenza A (test code = 82593-3) Negative Negative Influenza B (test code = 41183-1) Negative Negative Lab Interpretation (test code = Normal 77542-7) [facility]COVID[facility] (ID NOW RAPID TESTING)2021-05-30 19:44:28 Test Item Value Reference Range Interpretation Comments SARS-CoV-2 Rapid ID NOW Not Detected Not Detected (test code = 30008-9) PATTI (test code = PATTI) ID NOW COVID-19 Assay is an isothermal nucleic acid amplification test intended for the qualitative detection of nucleic acid from SARS-CoV-2 viral RNA in nasopharyngeal (DIRECTOR CONSUMER AFFAIRS) specimens. It is used under Emergency Use [...] indicated. Lab Interpretation Normal (test code = 55216-4) [facility] STREP SCREEN FOR GROUP [id number] 19:37:04 Test Item Value Reference Range Interpretation Comments Streptococcus pyogenes (group A) Negative Negative antigen (test code = 99349-7) Lab Interpretation (test code = Normal 33751-1) [facility] 1 [id number] 18:46:37 No acute cardiopulmonary process.EXAM: XR CHEST [...] in size. Trachea isnear midline.IMPRESSIONNo acute cardiopulmonary process.[facility] [place] [facility] HospitalXR ANKLE 3+ VW [id number] 19:03:39Normal study No fractures or dislocations[facility] [id number] 10:30:00 Test Item Value Reference Range Interpretation Comments POCT PREG (test code = 1605) negative On board controls acceptable with present C Line (test code = 3574) POCT PREG LOT # (test code = 3575) [id number] POCT PREG TEST DATE (test 2022-08-22 code = 3576) Lab Interpretation (test code = Normal 83704-3) [facility] HospitalPOCT [id number] 14:57:00 Test Item Value Reference Range Interpretation Comments POCT PREG (test code = 1605) Negative On board controls acceptable with C Yes Line (test code = 3574) POCT PREG LOT # (test code = 3575) POCT PREG TEST DATE (test code = 3576) [facility]PO[facility] [id number] 14:57:00 Test Item Value Reference Range Interpretation Comments POCT PREG (test code = 1605) Negative On board controls acceptable with C Yes Line (test code = 3574) POCT PREG LOT # (test code = 3575) POCT PREG TEST DATE (test code = 3576) [facility] HospitalFL TIME OR (NON-REPORTABLE)2020-03-22 17:50:24 These images do not require a Radiology diagnostic report.[facility] [id number] 14:13:00 Test Item Value Reference Range Interpretation Comments POCT PREG (test code = 1605) Negative On board controls acceptable with C Yes Line (test code = 3574) POCT PREG LOT # (test code = 3575) POCT PREG TEST DATE (test code = 3576) Lab Interpretation (test code = Normal 84266-7) [facility]XR WRIST 3+ VW [id number] 21:48:25 FINDINGS/IMPRESSION: Radiographs of the left wrist [...] COMPARISON: ?XR WRIST <3 VW RIGHT, 08/15/2019. [facility], Radiant Results Inft User - 02/01/2020 [...] reviewed this study and agree with theabove report.[facility]"
[2023-05-12] MEDS ORDERED: dexAMETHasone 10 MG/ML VIAL ONE (06:39)
[2023-05-12] MEDS ORDERED: HYDROCODONE/APAP 10/325 TAB ONE (06:40)
[2023-05-12] MEDS ORDERED: KETOROLAC 30 MG/ML INJ ONE (06:40)
--- NOTE | 2023-05-12 06:49 | EDPHYS ---
Physician Documentation [facility] Name: Jasmyne Chapman Age: 23 yrs Sex: Female : 2000 Arrival Date: 05/12/2023 Time: 06:13 Bed 5 Private MD: ED Physician Michael Rodgers HPI: 05/12 06:28 This 23 yrs old Female presents to ER via Unassigned with complaints of Toothache. rn 06:28 The patient presents with pain. Onset: The symptoms/episode began/occurred 1 week(s) rn ago. Duration: The symptoms are continuous. Modifying factors: The symptoms are alleviated by nothing, the symptoms are aggravated by air, chewing, cold fluids, food. Severity of symptoms: At their worst the symptoms were moderate, in the emergency department the symptoms are unchanged. The patient has experienced similar episodes in the past. Pt reports known dental problems, has a dentist appt on Thursday, pain worse over the last week, got abx here for this earlier this week and didn't help. . 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 - Social history:: Smoking status: Reported history of juuling and/or vaping. - Family history:: not pertinent. - Hospitalizations: : No recent hospitalization is reported. ROS: 06:28 Constitutional: Negative for fever, chills, and weight loss, ENT: + dental pain learning and development consultant: Negative for chest pain, palpitations, and edema, Respiratory: Negative for shortness of breath, cough, wheezing, and pleuritic chest pain. Exam: 06:28 Constitutional: This is a well developed, well nourished patient who is awake, alert, rn biting down on towel ENT: Poor dentition with deep cavity/erosion of right lower posterior 2 teeth, no abscess, no erythema of gums Vital Signs: 06:29 BP 143 / 111; Pulse 96; Resp 18 S; Temp 98.8(O); Pulse Ox 100% on R/A; Weight 67.59 kg as6 (R); Height 5 ft. 4 in. (R); Pain 10/10; 06:54 BP 119 / 90; Pulse 84; Resp 18 S; Pulse Ox 100% on R/A; as6 06:29 Body Mass Index 25.58 (67.59 kg, 162.56 cm) as6 06:29 Pain Scale: Adult as6 MDM: 06:18 Patient medically screened. rn 06:48 Differential diagnosis: dental caries. Data reviewed: vital signs, nurses notes, and as rn a result, I will discharge patient. Counseling: I had a detailed discussion with the patient and/or guardian regarding: the historical points, exam findings, and any diagnostic results supporting the discharge/admit diagnosis, the need for outpatient follow up, to return to the emergency department if symptoms worsen or persist or if there are any questions or concerns that arise at home. Response to treatment: the patient's symptoms have mildly improved after treatment, and as a result, I will discharge patient. Special discussion: I discussed with the patient/guardian in detail that at this point there is no indication for admission to the hospital. It is understood, however, that if the symptoms persist or worsen the patient needs to return immediately for re-evaluation. Based on the history and exam findings, there is no indication for further emergent testing or inpatient evaluation. I discussed with the patient/guardian the need to see a dentist for further evaluation of the symptoms. Administered Medications: 06:36 Drug: Ketorolac IM 30 mg Route: IM; Site: right deltoid; lg3 06:54 Follow up: Response: No adverse reaction as6 06:36 Drug: Dexamethasone IM 10 mg Route: IM; Site: left deltoid; lg3 06:54 Follow up: Response: No adverse reaction as6 06:36 Drug: HYDROcodone-acetaminophen PO 10 mg-325 mg 1 tabs Route: PO; lg3 06:54 Follow up: Response: No adverse reaction as6 Disposition Summary: 05/12/23 06:48 Discharge Ordered Location: Home rn Problem: an ongoing problem rn Symptoms: have improved rn Condition: Stable rn Diagnosis - Dental caries, unspecified rn Followup: rn - With: Private Physician - When: As needed - Reason: Recheck today's complaints, Re-evaluation by your physician Discharge Instructions: - Discharge Summary Sheet rn - Dental Caries, Adult rn - Dental Pain rn Forms: - Medication Reconciliation Form rn - Thank You Letter rn - Antibiotic rn referral - Prescription Opioid Use rn Prescriptions: - Tramadol 50 mg Oral Tablet - take 1 tablet by ORAL route every 8 hours As needed as needed; 12 tablet; rn Refills: 0, Product Selection Permitted - Medrol (Dereje) 4 mg Oral Tablets, Dose Pack - take 1 tablet by ORAL route as directed - follow package instructions; 1 rn packet; Refills: 0, Product Selection Permitted Signatures: Michael Rodgers MD MD rn Gibson, Lacie, RN RN lg3 Fidel Dunn RN RN as6
--- NOTE | 2023-05-12 06:49 | ER ---
Nurse's Notes [facility] Name: Jasmyne Chapman Age: 23 yrs Sex: Female : 2000 Arrival Date: 05/12/2023 Time: 06:13 Bed 5 Private MD: Diagnosis: Dental caries, unspecified Presentation: 05/12 06:31 Chief complaint: Patient states: right jaw/teeth pain x1 week. Coronavirus screen: At as6 this time, the client does not indicate any symptoms associated with coronavirus-19. Ebola Screen: No symptoms or risks identified at this time. Initial Sepsis Screen: Does the patient meet any 2 criteria? No. Patient's initial sepsis screen is negative. Does the patient have a suspected source of infection? No. Patient's initial sepsis screen is negative. Risk Assessment: Do you want to hurt yourself or someone else? Patient reports no desire to harm self or others. Onset of symptoms was May 05, 2023. 06:31 Acuity: ESSENCE 4 as6 06:31 Method Of Arrival: Ambulatory as6 Triage Assessment: 06:30 General: Appears uncomfortable, Behavior is calm, cooperative. Pain: Complains of pain as6 in lower right second molar and lower right third molar. EENT: Reports pain in right jaw. EENT: Poor dentition noted. Dental caries noted in lower right second molar (#31) and lower right third molar (#32). Neuro: No deficits noted. Cardiovascular: No deficits noted. Respiratory: No deficits noted. GI: No deficits noted. No signs and/or symptoms were reported involving the gastrointestinal system. : No deficits noted. No signs and/or symptoms were reported regarding the genitourinary system. Derm: No deficits noted. No signs and/or symptoms reported regarding the dermatologic system. Musculoskeletal: No deficits noted. No signs and/or symptoms reported regarding the musculoskeletal system. 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 - Social history:: Smoking status: Reported history of juuling and/or vaping. - Family history:: not pertinent. - Hospitalizations: : No recent hospitalization is reported. Screenin:32 [facility] ED Fall Risk Assessment (Adult) Score/Fall Risk Level 0 - 2 = Low Risk. Abuse as6 screen: Denies threats or abuse. Denies injuries from another. Nutritional screening: No deficits noted. Tuberculosis screening: No symptoms or risk factors identified. Assessment: 06:41 General: Appears in no apparent distress. uncomfortable, Behavior is calm, cooperative. lg3 Pain: Complains of pain in right jaw. Neuro: No deficits noted. Acry Agitation-Sedation Scale (RASS): 0 - Alert and Calm Level of Consciousness is awake, alert, obeys commands, Oriented to person, place, time, situation. Cardiovascular: No deficits noted. Denies chest pain, shortness of breath, Capillary refill < 3 seconds Clubbing of nail beds is absent JVD is absent Patient's skin is warm and dry. Respiratory: No deficits noted. Airway is patent Respiratory effort is even, unlabored, Respiratory pattern is regular, symmetrical. GI: No deficits noted. No signs and/or symptoms were reported involving the gastrointestinal system. : No deficits noted. No signs and/or symptoms were reported regarding the genitourinary system. EENT: Reports pain in mouth. Derm: No deficits noted. No signs and/or symptoms reported regarding the dermatologic system. Skin is intact, is healthy with good turgor, Skin is dry, Skin is normal, Skin temperature is warm. Musculoskeletal: No deficits noted. No signs and/or symptoms reported regarding the musculoskeletal system. Circulation, motion, and sensation intact. Range of motion: intact in all extremities. Vital Signs: 06:29 BP 143 / 111; Pulse 96; Resp 18 S; Temp 98.8(O); Pulse Ox 100% on R/A; Weight 67.59 kg as6 (R); Height 5 ft. 4 in. (R); Pain 10/10; 06:54 BP 119 / 90; Pulse 84; Resp 18 S; Pulse Ox 100% on R/A; as6 06:29 Body Mass Index 25.58 (67.59 kg, 162.56 cm) as6 06:29 Pain Scale: Adult as6 ED Course: 06:17 Patient arrived in ED. es 06:18 Michael Rodgers MD is Attending Physician. rn 06:29 Fidel Dunn, RN is Primary Nurse. as6 06:29 Arm band placed on. as6 06:32 Triage completed. as6 06:32 Bed in low position. Call light in reach. Side rails up X 1. as6 06:54 No provider procedures requiring assistance completed. Patient did not have IV access as6 during this emergency room visit. Administered Medications: 06:36 Drug: Ketorolac IM 30 mg Route: IM; Site: right deltoid; lg3 06:54 Follow up: Response: No adverse reaction as6 06:36 Drug: Dexamethasone IM 10 mg Route: IM; Site: left deltoid; lg3 06:54 Follow up: Response: No adverse reaction as6 06:36 Drug: HYDROcodone-acetaminophen PO 10 mg-325 mg 1 tabs Route: PO; lg3 06:54 Follow up: Response: No adverse reaction as6 Medication: 06:32 VIS not applicable for this client. as6 Outcome: 06:48 Discharge ordered by MD. rn 06:54 Discharged to home ambulatory, with significant other. as6 06:54 Condition: stable 06:54 Discharge instructions given to patient, Instructed on discharge instructions, follow up and referral plans. medication usage, Demonstrated understanding of instructions, follow-up care, medications, Prescriptions given X 2. 06:54 Patient left the ED. as6 Signatures: Nancy Cruz Roman, MD MD rn Gibson, Lacie RN FERNANDEZ lg3 Fidel Dunn, RN RN as6
[2023-05-12 07:00] VITALS: TEMP 98.8; O2SAT 100
[2023-05-12 07:01] VITALS: BP 119/90
== END 2023-05-12 06:54 | disposition home or self-care (01) ==
LOC: ER 06:13
DX: K02.9 Dental caries, unspecified (principal); Z88.5 Allergy status to narcotic agent
CPT/HCPCS: J1100

== ENCOUNTER → 2023-12-21 | Emergency (ER) | payer OTHER ==
--- NOTE | 2023-12-21 21:00 | ER ---
Nurse's Notes [facility] Name: Jasmyne Chapman Age: 23 yrs Sex: Female : 2000 Arrival Date: 12/21/2023 Time: 19:30 Bed DX3 Private MD: Diagnosis: Sprain of unspecified part of right wrist and hand Presentation: 12/21 19:53 Chief complaint: Patient states: Pt c/o right wrist pain after her cat jumped on it tl4 this morning. Pt states she heard a "pop" twice. Pt states she has decreased range of motion. No obvious deformity. Coronavirus screen: Vaccine status: Patient reports being unvaccinated. At this time, the client does not indicate any symptoms associated with coronavirus-19. Ebola Screen: Patient negative for fever greater than or equal to 101.5 degrees Fahrenheit, and additional compatible Ebola Virus Disease symptoms Patient denies exposure to infectious person. Patient denies travel to an Ebola-affected area in the 21 days before illness onset. No symptoms or risks identified at this time. Initial Sepsis Screen: Does the patient meet any 2 criteria? No. Patient's initial sepsis screen is negative. Does the patient have a suspected source of infection? No. Patient's initial sepsis screen is negative. Risk Assessment: Do you want to hurt yourself or someone else? Patient reports no desire to harm self or others. Onset of symptoms was December 21, 2023 at 05:30. 19:53 Method Of Arrival: Ambulatory tl4 19:53 Acuity: ESSENCE 4 tl4 Triage Assessment: 19:56 General: Appears uncomfortable, Behavior is calm, cooperative. Pain: Complains of pain tl4 in right hand. EENT: No deficits noted. No signs and/or symptoms were reported regarding the EENT system. Neuro: No deficits noted. Cardiovascular: No deficits noted. Respiratory: No deficits noted. GI: No deficits noted. No signs and/or symptoms were reported involving the gastrointestinal system. : No deficits noted. No signs and/or symptoms were reported regarding the genitourinary system. Derm: No deficits noted. No signs and/or symptoms reported regarding the dermatologic system. Musculoskeletal: Circulation, motion, and sensation intact. Capillary refill < 3 seconds, Range of motion: limited in right hand and wrist Reports pain in right hand. Injury Description: Bruise. Historical: - Allergies: 19:57 Morphine; tl4 - Home Meds: 19:57 None [Active]; tl4 - PMHx: 19:57 Bipolar disorder; PID; tl4 - PSHx: 19:57 Tonsillectomy; ULNAR SHORTENING OF LEFT WRIST; tl4 - Immunization history:: Adult Immunizations unknown. - Social history:: Smoking status: Reported history of juuling and/or vaping. Screenin:30 [facility] ED Fall Risk Assessment (Adult) History of falling in the last 3 months, vc1 including since admission No falls in past 3 months (0 pts) Confusion or Disorientation No (0 pts) Intoxicated or Sedated Yes (3 pts) Impaired Gait No (0 pts) Mobility Assist Device Used No (0 pt) Altered Elimination No (0 pt) Score/Fall Risk Level 0 - 2 = Low Risk Oriented to surroundings, Maintained a safe environment, Educated pt \\T\\ family on fall prevention, incl call for assistance when getting out of bed. Abuse screen: Denies threats or abuse. Nutritional screening: No deficits noted. Tuberculosis screening: No symptoms or risk factors identified. Assessment: 21:30 Reassessment: No changes from previously documented assessment. Patient and/or family vc1 updated on plan of care and expected duration. Pain level reassessed. Patient is alert, oriented x 3, equal unlabored respirations, skin warm/dry/pink. Vital Signs: 19:53 BP 148 / 92; Pulse 125; Resp 18; Temp 98.2; Pulse Ox 100% on R/A; Weight 63.5 kg; tl4 Height 5 ft. 4 in. ; Pain 8/10; 21:29 BP 134 / 88; Pulse 105; Resp 18; Pulse Ox 100% ; vc1 19:53 Body Mass Index 24.03 (63.50 kg, 162.56 cm) tl4 19:53 Pain Scale: Adult tl4 ED Course: 19:33 Patient arrived in ED. ag3 19:34 Roxanna Rosas PA-C is PHCP. sb4 19:34 Kunal Nolen DO is Attending Physician. sb4 19:34 Barry Monroe PA is PHCP. cp 19:55 Triage completed. tl4 19:57 Arm band placed on left wrist. tl4 20:59 Hassan, Cm, MD is Referral Physician. sb4 21:00 Hand Right 3 View XRAY In Process Unspecified. EDMS 21:29 Chelsey Cerda, RN is Primary Nurse. vc1 21:30 No provider procedures requiring assistance completed. Patient did not have IV access vc1 during this emergency room visit. Administered Medications: No medications were administered Medication: 21:30 VIS not applicable for this client. vc1 Outcome: 21:00 Discharge ordered by MD. sb4 21:30 Discharged to home ambulatory, vc1 21:30 Condition: good 21:30 Discharge instructions given to patient, Instructed on discharge instructions, follow up and referral plans. Demonstrated understanding of instructions, follow-up care, 21:31 Patient left the ED. vc1 Signatures: Dispatcher [employer] EDFL Barry Monroe PA PA cp Gomez, Alice ag3 Chelsey Cerda, RN RN vc1 Roxanna Rosas PA-C PA-C sb4 Logdahl, Andres tl4
--- NOTE | 2023-12-21 21:01 | EDPHYS ---
Physician Documentation [facility] Name: Jasmyne Chapman Age: 23 yrs Sex: Female : 2000 Arrival Date: 12/21/2023 Time: 19:30 Bed DX3 Private MD: ED Physician Kunal Nolen HPI: 12/21 20:01 This 23 yrs old Female presents to ER via Ambulatory with complaints of Hand Injury. sb4 20:01 The patient or guardian reports decreased range of motion, injury, pain. The complaints sb4 affect the medial aspect of right hand and medial aspect of right fingers. Context: The problem was sustained at home. patient states she was playing with her cat this morning when it caused her right hand / wrist to twist abnormally. she states she heard it pop. she has been icing it and taking tylenol and motrin without significant improvement in pain. Historical: - Allergies: 19:57 Morphine; tl4 - Home Meds: 19:57 None [Active]; tl4 - PMHx: 19:57 Bipolar disorder; PID; tl4 - PSHx: 19:57 Tonsillectomy; ULNAR SHORTENING OF LEFT WRIST; tl4 - Immunization history:: Adult Immunizations unknown. - Social history:: Smoking status: Reported history of juuling and/or vaping. ROS: 20:01 Constitutional: Negative for fever, chills, and weight loss, sb4 20:01 MS/extremity: Positive for decreased range of motion, pain, tenderness, of the right hand, 20:01 All other systems are negative, Exam: 20:01 Constitutional: This is a well developed, well nourished patient who is awake, alert, sb4 and in no acute distress. Head/Face: Normocephalic, atraumatic. Eyes: Extra-ocular motions intact. Periorbital areas with no swelling, redness, or edema. ENT: Mucous membranes moist. Skin: Warm, dry with normal turgor. Normal color with no rashes, no lesions, and no evidence of cellulitis. Neuro: Awake and alert, GCS 15, oriented to person, place, time, and situation. Motor strength 5/5 in all extremities. Sensory grossly intact. 20:01 Musculoskeletal/extremity: Extremities: noted in the right hand: decreased ROM, pain, tenderness, ROM: limited active range of motion due to pain, limited passive range of motion due to pain, in the right hand, Circulation is intact in all extremities. Pulses: are normal with no appreciated deficits, Perfusion: the extremity is normally perfused throughout, Sensation intact. Vital Signs: 19:53 BP 148 / 92; Pulse 125; Resp 18; Temp 98.2; Pulse Ox 100% on R/A; Weight 63.5 kg; tl4 Height 5 ft. 4 in. ; Pain 8/10; 21:29 BP 134 / 88; Pulse 105; Resp 18; Pulse Ox 100% ; vc1 19:53 Body Mass Index 24.03 (63.50 kg, 162.56 cm) tl4 19:53 Pain Scale: Adult tl4 MDM: 19:58 Patient medically screened. sb4 20:01 Differential diagnosis: dislocation, closed fracture, contusion. sb4 20:59 Data reviewed: vital signs, nurses notes, radiologic studies, I have discussed the sb4 patient's presentation/case with the attending Emergency Department Physician; and as a result, I will discharge patient. Independent interpretation of the following test(s) in the Emergency Department X-Ray: My interpretation is my interpretation of the hand/wrist xray images are no acute fracture or dislocation. Counseling: I had a detailed discussion with the patient and/or guardian regarding the historical points, exam findings, and any diagnostic results supporting the discharge/admit diagnosis, radiology results, to return to the emergency department if symptoms worsen or persist or if there are any questions or concerns that arise at home. 12/21 19:58 Order name: Hand Right 3 View XRAY sb4 12/21 21:00 Order name: Splint - Wrist; Complete Time: :29 sb4 Administered Medications: No medications were administered Disposition: 20:22 I was immediately available on-site in the Emergency Department for consultation in the ms3 care of the patient. Disposition Summary: 12/21/23 21:00 Discharge Ordered Notes: Location: Home sb4 Problem: new sb4 Symptoms: are unchanged sb4 Condition: Stable sb4 Diagnosis - Sprain of unspecified part of right wrist and hand sb4 Followup: sb4 - With: Cm Hassan MD - When: As needed - Reason: Further diagnostic work-up, Recheck today's complaints, Re-evaluation by your physician Discharge Instructions: - Discharge Summary Sheet sb4 - Wrist Sprain, Adult sb4 Forms: - Medication Reconciliation Form sb4 - Thank You Letter sb4 - Antibiotic Education sb4 - Prescription Opioid Use sb4 - Patient Portal Instructions sb4 - Leadership Thank You Letter sb4 Signatures: Dispatcher [employer] EDMS Kunal Nolen, DO ms3 Roxanna Rosas PA-C PA-C sb4 Andres Araujo tl4 Corrections: (The following items were deleted from the chart) 20:53 19:58 Wrist Right 3 View+RAD.RAD.BRZ ordered. EDMS EDMS
--- NOTE | 2023-12-21 21:32 | RAD REPORT ---
EXAM DESCRIPTION: RAD - Hand Right 3 View - 12/21/2023 8:59 pm CLINICAL HISTORY: PAIN COMPARISON: No comparisons TECHNIQUE: Right hand, 3 views. FINDINGS: No fracture is identified. There is no dislocation or periosteal reaction noted. No foreign body or other soft tissue abnormalit y. IMPRESSION: Negative right hand examination.
[2023-12-22 01:26] VITALS: BP 134/88; TEMP 98.2; O2SAT 100
== END ==
LOC: ER 19:30
DX: S63.91XA Sprain of unspecified part of right wrist and hand, initial encounter (principal); Z88.5 Allergy status to narcotic agent

== ENCOUNTER 2024-09-10 22:36 | Emergency (ER) | payer OTHER ==
[2024-09-10] MEDS ORDERED: dexAMETHasone 10 MG/ML VIAL ONE (23:21)
[2024-09-10] MEDS ORDERED: KETOROLAC 30 MG/ML INJ ONE (23:21)
[2024-09-10] MEDS ORDERED: LIDOCAINE 4% PATCH ONE (23:22)
[2024-09-10 23:29] LABS: Specific Gravity 1.025 (1.005-1.030)
[2024-09-10 23:40] LABS: Specific Gravity 1.024 (1.005-1.030); Sqamous Epithelial 20-50 /HPF (None Seen); Urine Bacteria <20 /HPF (<20); Urine Bilirubin NEGATIVE (Negative); Urine Blood 1+ (Negative); Urine Clarity Extremely Turbid (Clear); Urine Color Yellow (Yellow); Urine Culture Reflex Order NOT NEEDED; Urine Glucose NEGATIVE (Negative); Urine Ketones NEGATIVE (Negative); Urine Microscopic Reflex YN ORDER UMIC; Urine Mucus Slight /HPF (None Seen); Urine Nitrite NEGATIVE (Negative); Urine Protein TRACE (Negative); Urine Urobilinogen 1+ (Normal); Urine WBC <5 /HPF (<5)
--- NOTE | 2024-09-11 00:53 | RAD REPORT ---
EXAM: XR Lumbosacral Spine, 2 or 3 Views CLINICAL HISTORY: Pain. TECHNIQUE: Frontal and lateral views of the lumbar spine and sacrum. COMPARISON: No relevant prior studies available. FINDINGS: Vertebrae: Unremarkable. No acute fracture. Normal alignment. Sacrum/coccyx: Unremarkable as visualized. No acute fracture. Disc spaces: No acute findings. No significant narrowing. Soft tissues: Unremarkable. IMPRESSION: No acute injury. Electronically signed by: Nevaeh Salas MD 09/11/2024 12:48 AM CDT Due to temporary technical issues with the [employer]ACS/[employer] reporting system, reports are being lorin d by the in-house radiologist without review as a courtesy to ensure prompt reporting the interpreting radiologist is fully responsible for the content of the report. Transcribed Date/Time: 09/11/2024 12:53 AM
--- NOTE | 2024-09-11 00:57 | EDPHYS ---
Physician Documentation [facility] Name: Jasmyne Chapman Age: 24 yrs Sex: Female : 2000 Arrival Date: 09/10/2024 Time: 22:36 Bed 16 Private MD: ED Physician Ponce Hartley HPI: 09/10 23:22 This 24 yrs old Female presents to ER via Ambulatory with complaints of Low Back Pain. cp 23:22 The patient presents with pain that is acute. The symptoms are located in the low back. cp intermittent down back of legs. 23:22 Onset: The symptoms/episode began/occurred 2 month(s) ago, after moving. cp 23:22 Associated signs and symptoms: Pertinent negatives: abdominal pain, chest pain, cp constipation, fever, hematuria, incontinence, numbness, urinary retention, weakness. Severity of symptoms: in the emergency department the symptoms are unchanged, despite home interventions. 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 - Infectious Disease History:: Denies. - Social history:: Smoking status: Reported history of juuling and/or vaping. ROS: 23:25 Back: Positive for pain at rest, pain with movement, cp 23:25 Constitutional: Negative for body aches, chills, fever, poor PO intake, cp 23:25 Cardiovascular: Negative for chest pain, palpitations, 23:25 Respiratory: Negative for cough, shortness of breath, wheezing, 23:25 Abdomen/GI: Negative for abdominal pain, nausea, vomiting, and diarrhea, constipation, bowel incontinence, 23:25 : Negative for urinary symptoms, hematuria, difficulty urinating, bladder incontinence, 23:25 Neuro: Negative for dizziness, headache, numbness, weakness, 23:25 All other systems are negative, Exam: 23:30 Constitutional: The patient appears in no acute distress, alert, awake, non-toxic, well cp developed, well nourished, uncomfortable, overweight 23:30 Head/Face: Normocephalic, atraumatic. 23:30 Eyes: Periorbital structures: appear normal, Conjunctiva: normal, no exudate, no injection, Sclera: no appreciated abnormality, Lids and lashes: appear normal, bilaterally, 23:30 ENT: External ear(s): are unremarkable, Nose: is normal, Mouth: Lips: moist, Oral mucosa: moist, Posterior pharynx: is normal, airway is patent, no erythema, no exudate, 23:30 Neck: ROM/movement: is normal, is supple, without pain, no range of motions limitations, 23:30 Chest/axilla: Inspection: normal, 23:30 Cardiovascular: Rate: tachycardic, Rhythm: regular, 23:30 Respiratory: the patient does not display signs of respiratory distress, Respirations: normal, no use of accessory muscles, no retractions, labored breathing, is not present, Breath sounds: are clear throughout, no decreased breath sounds, no stridor, no wheezing, 23:30 Abdomen/GI: Inspection: abdomen appears normal, Palpation: abdomen is soft and non-tender, in all quadrants, 23:30 Back: pain, that is moderate, of the lumbar area and low back area, ROM is painful, with all movement, Straight leg raises: of both lower extremities does not illicit pain, 23:30 Neuro: Motor: moves all fours, strength is normal, Sensation: is normal, Gait: is steady, Vital Signs: 22:46 BP 131 / 91; Pulse 100; Resp 16; Temp 97.7; Pulse Ox 100% ; Weight 81.65 kg; Height 5 dd2 ft. 4 in. ; Pain 05/02; 09/11 01:13 BP 124 / 84; Pulse 85; Resp 16; Temp 98.1; Pulse Ox 100% ; dd2 09/10 22:46 Body Mass Index 30.90 (81.65 kg, 162.56 cm) dd2 09/10 22:46 Pain Scale: Adult dd2 MDM: 09/10 22:52 Medical Screening Exam initiated cp 23:30 Differential diagnosis: strain, fracture, sciatica, Herniated disc UTI, bulging disc. 09/11 00:55 Data reviewed: vital signs, nurses notes, radiologic studies, plain films. cp 00:55 I considered the following discharge prescriptions or medication management in the emergency department Medications were administered in the Emergency Department. See MAR. Counseling: I had a detailed discussion with the patient and/or guardian regarding the historical points, exam findings, and any diagnostic results supporting the discharge/admit diagnosis, lab results, radiology results, the need for outpatient follow up, a family practitioner, to return to the emergency department if symptoms worsen or persist or if there are any questions or concerns that arise at home. Response to treatment: the patient's symptoms have mildly improved after treatment, and as a result, I will discharge patient. 09/10 22:53 Order name: Urinalysis w/ reflexes; Complete Time: 23:41 cp 09/10 23:42 Interpretation: Reviewed. cp 09/10 22:53 Order name: Test, Urine; Complete Time: 23:41 cp 09/10 23:18 Order name: XRAY Lumbar Spine (3 Views) cp Administered Medications: 09/10 23:28 Drug: Ketorolac IM 30 mg IM once Route: IM; Site: right deltoid; mb9 23:50 Follow up: Response: No adverse reaction mb9 23:28 Drug: Dexamethasone IM 10 mg IM once Route: IM; Site: left deltoid; mb9 23:50 Follow up: Response: No adverse reaction mb9 23:28 Drug: Lidoderm Topical Patch 5 % (700 mg/patch) 1 patches Topical once; leave on for 12 mb9 hours; cover most painful area; may cut into smaller pieces Route: Topical; Site: affected area; 23:51 Follow up: Response: No adverse reaction mb9 Disposition: 09/11 07:17 Co-signature as Attending Physician, Ponce Hartley MD I agree with the assessment sp4 and plan of care. I reviewed the patient's care provided by the Advanced Practice Provider and agree with the diagnosis and treatment plan. 09/12 01:08 Chart complete. cp Disposition Summary: 09/11/24 00:56 Discharge Ordered Notes: Location: Home cp Problem: new cp Symptoms: have improved cp Condition: Stable cp Diagnosis - Low back pain cp Followup: cp - With: Private Physician - When: 2 - 3 days - Reason: Recheck today's complaints Discharge Instructions: - Discharge Summary Sheet cp - Acute Back Pain, Adult cp - Heat Therapy cp - Back Exercises cp Forms: - Medication Reconciliation Form cp - Antibiotic Education cp - Prescription Opioid Use cp - Patient Portal Instructions cp - Leadership Thank You Letter cp - Work release form dd2 Prescriptions: - Ibuprofen 800 mg Oral Tablet - take 1 tablet ORAL route every 8 hours As needed take with food; 30 tablet; cp Refills: 0, Product Selection Permitted - Medrol (Dereje) 4 mg Oral Tablets, Dose Pack - take 1 tablet ORAL route as directed - follow package instructions; 1 packet; cp Refills: 0, Product Selection Permitted - methocarbamol 750 mg Oral tablet - take 1 tablet ORAL route 4 times per day; 30 tablet; Refills: 0, Product cp Selection Permitted Signatures: Dispatcher [employer] EDMS Barry Monroe PA PA cp Wilkerson, Mary Beth RN RN mb9 Ponce Hartley MD MD sp4 KHUSHBOO KATZ RN RN dd2 Corrections: (The following items were deleted from the chart) 09/10 22:53 22:53 Urinalysis+U.LAB.BRZ ordered. EDMS EDMS 22:53 22:53 Test, Urine+UC.LAB.BRZ ordered. EDMS EDMS
--- NOTE | 2024-09-11 00:57 | ER ---
Nurse's Notes [facility] Name: Jasmyne Chapman Age: 24 yrs Sex: Female : 2000 Arrival Date: 09/10/2024 Time: 22:36 Bed 16 Private MD: Diagnosis: Low back pain Presentation: 09/10 22:46 Chief complaint: Patient states: Pt states she was moving approx 2 months ago and hurt dd2 her back and has been hurting since then. Coronavirus screen: At this time, the client does not indicate any symptoms associated with coronavirus-19. Ebola Screen: No symptoms or risks identified at this time. Initial Sepsis Screen: Does the patient meet any 2 criteria? No. Patient's initial sepsis screen is negative. Does the patient have a suspected source of infection? No. Patient's initial sepsis screen is negative. Risk Assessment: Do you want to hurt yourself or someone else? Patient reports no desire to harm self or others. Onset of symptoms is unknown. 22:46 Method Of Arrival: Ambulatory dd2 22:46 Acuity: ESSENCE 3 dd2 Triage Assessment: 22:48 General: Appears in no apparent distress. Behavior is calm, cooperative, appropriate dd2 for age. Pain: Complains of pain in lumbar area Pain radiates to low back area Pain currently is 6 out of 10 on a pain scale. 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 - Infectious Disease History:: Denies. - Social history:: Smoking status: Reported history of juuling and/or vaping. Screenin:16 [facility] ED Fall Risk Assessment (Adult) History of falling in the last 3 months, mb9 including since admission No falls in past 3 months (0 pts) Confusion or Disorientation No (0 pts) Intoxicated or Sedated No (0 pts) Impaired Gait No (0 pts) Mobility Assist Device Used No (0 pt) Altered Elimination No (0 pt) Score/Fall Risk Level 0 - 2 = Low Risk Oriented to surroundings, Maintained a safe environment, Educated pt \T\ family on fall prevention, incl call for assistance when getting out of bed. Abuse screen: Denies threats or abuse. Nutritional screening: No deficits noted. Tuberculosis screening: No symptoms or risk factors identified. Assessment: 23:15 General: Appears in no apparent distress. Behavior is calm, cooperative. Pain: mb9 Complains of pain in back Pain radiates to right leg and left leg Pain currently is 8 out of 10 on a pain scale. Quality of pain is described as sharp, shooting, stabbing, Pain began months ago Aggravated by increased activity, repositioning, weight bearing. Neuro: [place] Agitation-Sedation Scale (RASS): 0 - Alert and Calm Level of Consciousness is awake, alert, obeys commands, Oriented to person, place, time, situation, Appropriate for age. Cardiovascular: Patient's skin is warm and dry. Respiratory: Airway is patent Respiratory effort is even, unlabored, Respiratory pattern is regular, symmetrical. GI: No signs and/or symptoms were reported involving the gastrointestinal system. : Urine is clear. EENT: No signs and/or symptoms were reported regarding the EENT system. Derm: Skin is pink, warm \T\ dry. Musculoskeletal: Range of motion: intact in all extremities. Vital Signs: 22:46 BP 131 / 91; Pulse 100; Resp 16; Temp 97.7; Pulse Ox 100% ; Weight 81.65 kg; Height 5 dd2 ft. 4 in. ; Pain 05/02; 09/11 01:13 BP 124 / 84; Pulse 85; Resp 16; Temp 98.1; Pulse Ox 100% ; dd2 09/10 22:46 Body Mass Index 30.90 (81.65 kg, 162.56 cm) dd2 09/10 22:46 Pain Scale: Adult dd2 ED Course: 09/10 22:41 Patient arrived in ED. im 22:42 Barry Monroe PA is PHCP. cp 22:42 Ponce Hartley MD is Attending Physician. cp 22:48 Triage completed. dd2 22:48 Arm band placed on left wrist. Patient placed in waiting room, Patient notified of wait dd2 time. 23:07 Yuliana James, FERNANDEZ is Primary Nurse. eloise 23:17 Bed in low position. Call light in reach. Side rails up X 1. Provided Education on: mb9 press call light if needing anything. Client placed on continuous cardiac and pulse oximetry monitoring. NIBP monitoring applied. 23:17 No provider procedures requiring assistance completed. mb9 23:19 Test, Urine Sent. mb9 23:19 Urinalysis w/ reflexes Sent. mb9 23:36 Patient did not have IV access during this emergency room visit. mb9 23:41 XRAY Lumbar Spine (3 Views) In Process Unspecified. EDMS 09/11 00:00 Report given to FERNANDEZ Cheney. mb9 Administered Medications: 09/10 23:28 Drug: Ketorolac IM 30 mg IM once Route: IM; Site: right deltoid; mb9 23:50 Follow up: Response: No adverse reaction mb9 23:28 Drug: Dexamethasone IM 10 mg IM once Route: IM; Site: left deltoid; mb9 23:50 Follow up: Response: No adverse reaction mb9 23:28 Drug: Lidoderm Topical Patch 5 % (700 mg/patch) 1 patches Topical once; leave on for 12 mb9 hours; cover most painful area; may cut into smaller pieces Route: Topical; Site: affected area; 23:51 Follow up: Response: No adverse reaction mb9 Medication: 23:17 VIS not applicable for this client. mb9 Outcome: 09/11 00:56 Discharge ordered by MD. cp 01:13 Discharged to home ambulatory, dd2 01:13 Condition: stable 01:13 Discharge instructions given to patient, Instructed on discharge instructions, follow up and referral plans. medication usage, Demonstrated understanding of instructions, follow-up care, medications, Prescriptions given X 3, 01:14 Patient left the ED. dd2 Signatures: Dispatcher [employer] EDDE Barry Monroe PA PA cp Wilkerson, Mary Beth, RN RN mb9 Rachel Gloria DIANA, RN RN dd2
[2024-09-11 06:57] VITALS: O2SAT 100
[2024-09-11 07:03] VITALS: BP 124/84; TEMP 98.1
== END 2024-09-11 01:14 | disposition home or self-care (01) ==
LOC: ER 22:36
DX: M54.50 Low back pain, unspecified (principal)
CPT/HCPCS: 81001; 81025; 72100; 96372; 99284; J2001; J1100